=== PATIENT | female | born 1945 | race African-American/Black ===

== ENCOUNTER 2017-10-01 16:57 | Inpatient (IN) | payer OTHER ==
[~2017-10-01] VITALS: Ht 162.6 cm; Wt 174.0 kg
[~2017-10-01 16:57] MED LIST: ALBUTEROL SULFAT3 M1 INH; AMLODIPINE BESY1 CA5 PO; AMLODIPINE-BEN1 EAC5 PO; AMOXIL 875 MG875 MG PO; ARISTOCORT OINT15 GM TOP; AUGMENTIN 875 M1 TAB PO; AUGMENTIN 875-1 EACH PO; COLCRYS0.6 M1 PO; FUROSEMIDE80 M1 PO; INDOMETHACIN25 M1 PO; LASIX20 MG PO; LOTREL 10 MG-401 CAP PO; MEDROL DOSEPAK1 PAC PO; MOXIFLOXACIN H400 MG PO; PERCOCET 5-3251 EACH PO; PREDNISONE 20MG20 MG PO; PREDNISONE10 MG PO; PREDNISONE20 M1 PO; PROAIR HFA0.09 MG/Ac INH; ROBITUSSIN W/CO10 ML PO; SYMBICORT 160/41 PUF INH; TYLENOL #31 TAB PO
--- NOTE | 2017-10-01 17:22 | ED CARDIAC/CP/PALPITATIONS ---
History of Present Illness General Chief Complaint: Lower Extremity Problems Stated Complaint: SIB PCP, LEG SWELLING Source: patient Exam Limitations: no limitations Allergies Coded Allergies: NO KNOWN ALLERGIES (05/17/15) Reconcile Medications Albuterol Sulfate (Proair Hfa) 90 MCG HFA.AER.AD 2 PUF INH AD PRN ASTHMA ( Reported) Albuterol Sulfate 2.5 MG/3 ML (0.083 %) VIAL.NEB 1 Vial INH/WESLEY AD PRN ASTHMA (Reported) Amlodipine Besylate/Benazepril (Amlodipine-Benazepril 10-40 MG) 10 MG-40 MG CAPSULE 1 CAP PO DAILY BP (Reported) Budesonide/Formoterol Fumarate (Symbicort 160-4.5 Mcg Inhaler) 160 MCG-4.5 MCG/ ACTUATION HFA.AER.AD 2 PUF INH BID ASTHMA (Reported) Furosemide 80 MG TABLET 1 TAB PO DAILY DIURETIC (Reported) Montelukast Sodium 10 MG TABLET 1 TAB PO DAILY ASTHMA (Reported) Triamcinolone Acetonide 0.1 % OINT...G. 1 FARA TOP BID BOTH LEGS (Reported) apply to affected area(s) Triage Note: PT SENT TO ER BY HER PMD FOR BILATERAL LOWER EXTREMITY SWELLING , PT TAKES LASIX DAILY, ALSO STATES THAT SHE STARTED TO FEEL VERY SOB TODAY WITH COUGH , WITH SCANT AMOUNT OF WHITE SPUTUM. HR NOTED TO BE 148-156 AT TRIAGE, DENIES CP, DENIES H/O RAPID HEART RATE. PT STATES THAT HER PMD CALLED AHEAD TO SPEAK WITH SOMEONE Triage Nurses Notes Reviewed? 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, hypertension patient presents emergency room with concerns of a 2 week history of worsening shortness of breath dyspnea on exertion white productive cough and a 40 pound weight gain in the past 2 months Patient also is being treated for concerns of cellulitis to the bilateral upper extremity is currently on 875 Augmentin (Jd Perea) Vital Signs & Intake/Output Vital Signs & Intake/Output Vital Signs Date Time Temp Pulse Resp B/P B/P Pulse O2 O2 Flow FiO2 Mean Ox Delivery Rate 10/01 2034 98.7 111 20 97/62 10/015 95 10/01 1929 97.9 148 24 98/76 97 Room Air 10/01 1815 Room Air 10/01 1710 97.1 148 22 97/53 96 (Mecca BARBER,Gurwinder Thao) Past History Travel History Traveled to [place] past 21 day No Medical History Any Pertinent Medical History? 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 No (Jd Perea) Review of Systems Review of Systems Constitutional: Reports: see HPI. EENTM: Reports: no symptoms. Respiratory: Reports: see HPI, cough, short of breath. Cardiovascular: Reports: see HPI, peripheral edema. Denies: chest pain. GI: Reports: no symptoms. Genitourinary: Reports: no symptoms. Musculoskeletal: Reports: no symptoms. Skin: Reports: see HPI, erythema. Neurological/Psychological: Reports: no symptoms. Hematologic/Endocrine: Reports: no symptoms. Immunologic/Allergic: Reports: no symptoms. All Other Systems: Reviewed and Negative (Jd Perea) Physical Exam Physical Exam General Appearance: no apparent distress, obese Head: atraumatic Eyes: Bilateral: normal appearance, PERRL. Ears, Nose, Throat: normal ENT inspection, hearing grossly normal Respiratory: no respiratory distress, decreased breath sounds Cardiovascular: tachycardia Peripheral Pulses: 2+ dorsalis pedis (R), 2+ dorsalis pedis (L) Gastrointestinal: normal bowel sounds, soft, non-tender Extremities: pedal edema Neurologic/Psych: no motor/sensory deficits, awake, alert Skin: intact Comments: Noted bilateral inner thighs warmth and mild erythema Core Measures ACS in differential dx? Yes CVA/TIA Diagnosis No Sepsis Present: Yes Sepsis Focused Exam Completed? Yes (Jd Perea) Progress Differential Diagnosis: AMI, aortic dissection, atrial fibrillation, cholecystitis, CHF/pulm edema, costochondritis, hyperkalemia, hypovolemia, hyperthyroid, hyperventilation, intracranial hemorrhage, musculoskeletal pain, myocarditis, pancreatitis, pericarditis, pneumonia, pneumothorax, PSVT, pulmonary embolism, PUD/GERD, PVCs/PACs, respiratory failure, rib fracture, sepsis, unstable angina, V-fib/V-Tach, WPW syndrome Diagnostic Imaging: Viewed by Me: CT Scan. Radiology Impression: acute abnormality Initial ED EKG: normal QRS complex, sinus tachycardia 148 BPM Repeat EKG: changed (AFIB 103 BPM) Comments: PATIENT: JORGE ALBERTO RM PRESENT AGE: 71 PATIENT ACCOUNT NO: [id number] : 47 LOCATION: [facility] ORDERING PHYSICIAN: Jd CURIEL SERVICE DATE: 10/01/17 EXAM TYPE: CAT - CTA CHEST-PULMONARY EMBOLISM EXAMINATION: CT ANGIOGRAM OF THE CHEST WITH AND WITHOUT CONTRAST (CT PULMONARY ANGIOGRAM FOR PE) CLINICAL INFORMATION: Shortness of breath. Tachycardia. CHF. Elevated D-dimer. COMPARISON: None. TECHNIQUE: Prior to contrast administration, noncontrast localization images were obtained. Subsequently, multidetector volumetric imaging was performed from the thoracic inlet to below the diaphragms following the administration of 95 mL Optiray 320 intravenous contrast. No contrast reaction reported. Sagittal, coronal, and MIP oblique sagittal reformatted images were obtained on the CT workstation, uploaded to PACS, and reviewed. DLP: 932.58 mGy-cm FINDINGS: QUALITY OF STUDY/CONTRAST BOLUS: Satisfactory. PULMONARY ARTERIES: No central or segmental pulmonary emboli. THORACIC AORTA: No aneurysm or dissection. LUNG: No focal consolidation, nodules or masses. Some nonspecific scattered ground-glass changes are noted which could be secondary to early edema and increased hydrostatic pressure. PLEURA: No pleural effusion or pneumothorax. MEDIASTINUM: The heart is enlarged. No pleural effusion is seen. No mediastinal or hilar adenopathy is present. No evidence of septal bowing or right heart strain. CHEST WALL/AXILLA: No axillary or internal mammary lymphadenopathy. OSSEOUS STRUCTURES: No acute or suspicious osseous abnormality. UPPER ABDOMEN: Clips are noted in the gallbladder fossa. No reflux of contrast into the hepatic veins to suggest elevated right heart pressures. IMPRESSION: 1. No evidence of pulmonary emboli. 2. Cardiomegaly and ground-glass changes could be claim service representative of early CHF. VTE: Negative. DICTATED BY: Wan Dasilva MD DATE/TIME DICTATED:10/01/171934 FILAMENT COIL WINDER:ABRAHAM PATIENT: JORGE ALBERTO RM PRESENT AGE: 71 PATIENT ACCOUNT NO: [id number] : 47 LOCATION: [facility] ORDERING PHYSICIAN: Jd CURIEL SERVICE DATE: 10/01/17 EXAM TYPE: RAD - XRY-CHEST XRAY, TWO VIEWS EXAMINATION: XR CHEST CLINICAL INFORMATION: Shortness of breath. COMPARISON: 09/06/2016 TECHNIQUE: 2 views of the chest were obtained. FINDINGS: Since the prior study, heart size has increased considerably and there is evidence of central venous engorgement suggesting mild CHF. No pleural effusions are seen. No focal consolidations or lung masses are seen. IMPRESSION: Increasing cardiomegaly with pulmonary vascular congestion consistent with mild CHF. DICTATED BY: Wan Dasilva MD DATE/TIME DICTATED:10/01/171801 FILAMENT COIL WINDER:ABRAHAM DATE/TIME TRANSCRIBED:10/01/171801 (Reji CURIEL,Jd) Plan of Care: Orders Procedure Date/time Status Heart Healthy Diet 10/02 B Active PARTIAL THROMBOPLASTIN TIME 10/02 0300 Active PROTHROMBIN TIME 10/02 0300 Active Patient Data 10/01 2110 Active Misc Message 10/01 210 Active ED Holding Orders 10/01 210 Active Vital Signs 10/01 210 Active Code Status 10/01 210 Active Admit to inpatient 10/01 2107 Active Intake & Output 10/01 2036 Active LACTIC ACID 10/01 2034 Complete EKG 10/01 1948 Active Add-on Test (ER Only) 10/01 1842 Active BLOOD CULTURE 10/01 1842 Active PARTIAL THROMBOPLASTIN TIME 10/01 1807 Complete PROTHROMBIN TIME 10/01 1807 Complete TROPONIN LEVEL 10/01 1734 Complete LACTIC ACID 10/01 1734 Complete D-DIMER 10/01 1734 Complete COMPREHENSIVE METABOLIC PANEL 10/01 1734 Complete CBC WITHOUT DIFFERENTIAL 10/01 1734 Complete B-TYPE NATRIURETIC PEP (BNP) 10/01 1734 Complete EKG 10/01 1733 Active Current Medications Sig/Shara Start time Last Medication Dose Stop Time Status Admin Heparin Sodium 25,000 UNIT Q24H 10/01 2029 AC 10/01 (Porcine) 2055 (Heparin) Sodium Chloride 500 ML Laboratory Tests 10/01/172040: Lactic Acid 1.0 10/01/171806: Anion Gap 11, Estimated GFR 41 L, BUN/Creatinine Ratio 21.5, Glucose 102 H, Lactic Acid 2.2 H, Calcium 8.6, Total Bilirubin 0.5, AST 19, ALT 24, Alkaline Phosphatase 86, Troponin I < 0.01, Mcv-J-Jormutygfsu Pept 5600 H, Total Protein 6.6, Albumin 3.7, Globulin 2.9, Albumin/Globulin Ratio 1.3, PT 14.2 H, INR 1.30 H, APTT 30, D-Dimer High Sensitivty 415 H, CBC w Diff NO MAN DIFF REQ, RBC 4.08 L, MCV 64.3 L, MCH 19.2 L, MCHC 29.9 L, RDW 20.2 H, MPV 8.9, Gran % 74.6, Lymphocytes % 19.3 L, Monocytes % 4.8, Eosinophils % 1.2, Basophils % 0.1 , Absolute Granulocytes 6.9 H, Absolute Lymphocytes 1.8, Absolute Monocytes 0.4 , Absolute Eosinophils 0.1, Absolute Basophils 0 Microbiology 10/01 1857 BLOOD: Blood Culture - RECD 10/02 1851 BLOOD: Blood Culture - RECD Patient upon initial presentation is resting complete bedside no apparent distress no respiratory distress blood pressure was noted to be 90/60 and concerns of SVT versus a flutter with 21 block versus new-onset atrial fibrillation Discussed patient with cardiology Dr. Velasquez who advised patient to be administered Cardizem Patient had temporary significant improvement of heart rate with 10 mg of Cardizem however patient then relapsed 150 bpm and total 10 more milligrams of Cardizem were dismissed or patient's repeat EKG was performed showing concerns of atrial fibrillation Old records also indicate that patient has preserved EF Patient also has concerns of sepsis in which IV fluids were ministered to improve patient's hypotension Patient has chronic anemia Patient denies any change in bowel symptoms no blood no melena CT angiogram was resulted showing no concerns of pulmonary embolism however that she'll concerns of acute onset of CHF Discussed admission with patient was aware Discussed patient with Dr. Velasquez who has concerns of new onset atrial fibrillation heparin was administered Blood pressure has been stabilized prior to admission in the ER (Jd Perea) (Mecca BARBER,Gurwinder Thao) ED Sepsis Exam Date of Focused Sepsis Exam: 10/01/17 Time of Focused Sepsis Exam: 2007 Sepsis Cardiac Exam: Tachycardia Sepsis Resp Exam: decreased breath sounds Sepsis Cap Refill Exam: <2 Sec Sepsis Peripheral Pulse Exam: Normal Sepsis Peripheral Pulse Location: Dorsalis Pedis Sepsis Skin Color Exam: Normal for Ethnicity Skin Temp/Moisture Exam: Warm/Dry (Jd Perea) Departure Departure Disposition: STILL A PATIENT Condition: Guarded Clinical Impression Primary Impression: New onset a-fib Secondary Impressions: Cellulitis of leg, CHF exacerbation Referrals: Karlie BARBER,Alphonso Almazan (PCP/Family) Departure Forms: Customer Survey General Discharge Information Admission Note Spoke With: Jeannie Webber MD Documentation of Exam: Documentation of any treatments & extenuating circumstances including Concerns Regarding Discharge (functional status, medication knowledge or non-compliance, living conditions, etc.) that warrant an admission rather than observation: [ Patient requires IV heparinization, cardiology consultation, telemetry monitoring echocardiogram, repeat labs, IV diuresis when blood pressure normalizes antiarrhythmic medications] (Jd Perea) PA/HAT MAKER Co-Sign Statement Statement: ED Attending supervision documentation- [X] I saw and evaluated the patient. I have also reviewed all the pertinent lab results and diagnostic results. I agree with the findings and the plan of care as documented in the PA's/HAT MAKER's documentation. Pt presents with c/o shortness of breath, worsening, over past 2 weeks.exam reveals morbid obesity and otherwise comfortable and conversant woman. Patient is tachycardic. [] I have reviewed the ED Record and agree with the PA's/HAT MAKER's documentation. [] Additions or exceptions (if any) to the PAs/HAT MAKER's note and plan are summarized below: [] (Mecca BARBER,Gurwinder Thao) Critical Care Note Critical Care Note Critical Care Time: 30-74 min (Jd Perea)
[2017-10-01] MEDS ORDERED: TRIAMCINOLONE A15 G3 TOP (18:09)
[2017-10-01] MEDS ORDERED: SYMBICORT 16010.2 GM INH (18:09)
[2017-10-01] MEDS ORDERED: MONTELUKAST SOD10 M1 PO (18:09)
[2017-10-01] MEDS ORDERED: ALBUTEROL2.5 MG/3 M INH/SOL (18:10)
[2017-10-01] MEDS ORDERED: PROAIR HFA8.5 GM INH (18:10)
[2017-10-01 18:25] LABS: ABSOLUTE BASOPHIL COUNT 0 /CUMM (0.0-0.2); ABSOLUTE EOSINOPHIL COUNT 0.1 /CUMM (0.0-0.7); ABSOLUTE GRANULOCYTE CT 6.9 /CUMM (1.4-6.5); ABSOLUTE LYMPH COUNT 1.8 /CUMM (1.2-3.4); ABSOLUTE MONOCYTE COUNT 0.4 /CUMM (0.10-0.60); BASOPHIL % 0.1 % (0.0-2.0); EOSINOPHIL % 1.2 % (0-5); HEMATOCRIT 26.2 % (37-47); MEAN CORPUSCULAR HGB 19.2 PG (27.0-31.0); MEAN CORPUSCULAR HGB CONC 29.9 G/DL (33.0-37.0); MEAN CORPUSCULAR VOLUME 64.3 FL (81.0-99.0); MEAN PLATELET VOLUME 8.9 FL (7.4-10.4); PLATELET COUNT 273 /CUMM (130-400); RBC DISTRIBUTION WIDTH 20.2 % (11.5-14.5); RED BLOOD CELL CT 4.08 /CUMM (4.20-5.40)
--- NOTE | 2017-10-01 18:25 | RADIOLOGY REPORT ---
EXAMINATION: XR CHEST CLINICAL INFORMATION: Shortness of breath. COMPARISON: 09/06/2016 TECHNIQUE: 2 views of the chest were obtained. FINDINGS: Since the prior study, heart size has increased considerably and there is evidence of central venous engorgement suggesting mild CHF. No pleural effusions are seen. No focal consolidations or lung masses are seen. IMPRESSION: Increasing cardiomegaly with pulmonary vascular congestion consistent with mild CHF.
[2017-10-01 18:47] LABS: GRANULOCYTE % 74.6 % (42.2-75.2); WHITE BLOOD CELL COUNT 9.2 /CUMM (4.8-10.8)
[2017-10-01 19:23] LABS: PT 14.2 SEC (9.4-12.5); PTT 30 SEC (25-37)
--- NOTE | 2017-10-01 20:14 | CT SCAN REPORT ---
EXAMINATION: CT ANGIOGRAM OF THE CHEST WITH AND WITHOUT CONTRAST (CT PULMONARY ANGIOGRAM FOR PE) CLINICAL INFORMATION: Shortness of breath. Tachycardia. CHF. Elevated D-dimer. COMPARISON: None. TECHNIQUE: Prior to contrast administration, noncontrast localization images were obtained. Subsequently, multidetector volumetric imaging was performed from the thoracic inlet to below the diaphragms following the administration of 95 mL Optiray 320 intravenous contrast. No contrast reaction reported. Sagittal, coronal, and MIP oblique sagittal reformatted images were obtained on the CT workstation, uploaded to PACS, and reviewed. DLP: 932.58 mGy-cm FINDINGS: QUALITY OF STUDY/CONTRAST BOLUS: Satisfactory. PULMONARY ARTERIES: No central or segmental pulmonary emboli. THORACIC AORTA: No aneurysm or dissection. LUNG: No focal consolidation, nodules or masses. Some nonspecific scattered ground-glass changes are noted which could be secondary to early edema and increased hydrostatic pressure. PLEURA: No pleural effusion or pneumothorax. MEDIASTINUM: The heart is enlarged. No pleural effusion is seen. No mediastinal or hilar adenopathy is present. No evidence of septal bowing or right heart strain. CHEST WALL/AXILLA: No axillary or internal mammary lymphadenopathy. OSSEOUS STRUCTURES: No acute or suspicious osseous abnormality. UPPER ABDOMEN: Clips are noted in the gallbladder fossa. No reflux of contrast into the hepatic veins to suggest elevated right heart pressures. IMPRESSION: 1. No evidence of pulmonary emboli. 2. Cardiomegaly and ground-glass changes could be sales representative graphic art of early CHF. VTE: Negative.
--- NOTE | 2017-10-01 21:59 | History & Physical ---
oJao Yarbrough 10/01/17 2158: General Information and HPI MD Statement: I have seen and personally examined JORGE ALBERTO VERDUGO and documented this H&P. The patient is a 71 year old F who presented with a patient stated chief complaint of [bialteral lower extremity swelling]. Source of Information: patient Exam Limitations: no limitations History of Present Illness: The patient is a 71 years old female with past medical history of lower extremity venous staisis, asthma, morbid obesity, HTN, and HF who was sent here by her PCP for bilateral lower extremity swelling, non-productive cough, and SOB. She was seen by her PCP several weeks ago by her PCP due to swelling of both of her legs. Augmentin 875 was prescribed for her to take for 10 days starting September 12, she completed the course but did not improve her condition. She is also on Lasix 80 mg QD, she tried to take an extra dose for the last few days which she reports that has been helping the swelling. Her PCP has sent her to ER due to the ongoing bialteral lower extremity edema and new onset SOB and cough. She does not report fever, chills, sweating, lightheadedness, dizziness. She has no chest pain, N/V, or palpitaion. no sysuria or frequency. She had new onset Afib in the ER, for which diltiazem was administered and improved her HR and SOB. PMHx: Morbid obesity, Bilat lower extremity venous stasis and edema, HTN, asthma , dyspnea on exertion, Gout, Surg Hx; Cholecystectomy, Umbilical hernia repair, tubal ligation FHx: CHF in her mother Imaging: CXR: Increasing cardiomegaly with pulmonary vascular congestion consistent with mild CHF. Chest CTA: 1. No evidence of pulmonary emboli. 2. Cardiomegaly and ground-glass changes could be volunteer patient representative of early CHF. Labs: Trop: 0.01 WBC: 9.2, Hb: 7.8 PT: 14.2 INR: 1.30, D-Dimer: 415 BUN: 28, Cr: 1.3 Lactic acid: 2.2 Pro BNP: 5600 Allergies/Medications Allergies: Coded Allergies: NO KNOWN ALLERGIES (05/17/15) Home Med list Albuterol Sulfate (Proair Hfa) 90 MCG HFA.AER.AD 2 PUF INH AD PRN ASTHMA ( Reported) Albuterol Sulfate 2.5 MG/3 ML (0.083 %) VIAL.NEB 1 Vial INH/WESLEY AD PRN ASTHMA (Reported) Amlodipine Besylate/Benazepril (Amlodipine-Benazepril 10-40 MG) 10 MG-40 MG CAPSULE 1 CAP PO DAILY BP (Reported) Budesonide/Formoterol Fumarate (Symbicort 160-4.5 Mcg Inhaler) 160 MCG-4.5 MCG/ ACTUATION HFA.AER.AD 2 PUF INH BID ASTHMA (Reported) Cholecalciferol (Vitamin D3) (Vitamin D) 2,000 UNIT CAPSULE 1 CAP PO DAILY supplement (Reported) Ferrous Sulfate 325 MG (65 MG IRON) TABLET 1 TAB PO DAILY supplement ( Reported) Furosemide 80 MG TABLET 1 TAB PO DAILY DIURETIC (Reported) Montelukast Sodium 10 MG TABLET 1 TAB PO DAILY ASTHMA (Reported) Triamcinolone Acetonide 0.1 % OINT...G. 1 FARA TOP BID BOTH LEGS (Reported) apply to affected area(s) Compliance With Home Meds: GOOD Past History Travel History Traveled to [place] past 21 day No Medical History Neurological: NONE EENT: NONE Cardiovascular: CHF, hypertension Respiratory: asthma Gastrointestinal: NONE Hepatic: NONE Renal: NONE Musculoskeletal: gout, KNEE REPLACEMENT BOTH Psychiatric: NONE Endocrine: NONE Blood Disorders: NONE KNITTER HAND/Reproductive: NONE History of MRSA: No History of VRE: No History of CDIFF: No Surgical History Surgical History: cholecystectomy, hernia repair-umbilical, knee replacement ( BILATERAL), tubal ligation Past Family/Social History Family History Relations & Conditions if any MOTHER FH: CHF (congestive heart failure) Psychosocial History Services at Home: None ETOH Use: denies use Illicit Drug Use: denies illicit drug use Review of Systems Review of Systems Constitutional: Reports: see HPI. Denies: chills, diaphoresis, fever. EENTM: Reports: no symptoms. Cardiovascular: Reports: see HPI. Denies: chest pain, palpitations. Respiratory: Reports: see HPI, cough, short of breath. Denies: sputum production. GI: Reports: no symptoms, see HPI. Denies: constipation, diarrhea, nausea, vomiting. Genitourinary: Reports: no symptoms, see HPI. Musculoskeletal: Reports: see HPI, gout. Skin: Reports: see HPI. Neurological/Psychological: Reports: see HPI. Hematologic/Endocrine: Reports: see HPI. Immunologic/Allergic: Reports: see HPI. Exam & Diagnostic Data Last 24 Hrs of Vital Signs/I&O Vital Signs Date Time Temp Pulse Resp B/P B/P Pulse O2 O2 Flow FiO2 Mean Ox Delivery Rate 10/02 0321 98.2 96 20 120/76 96 Room Air 10/02 0021 98.1 72 20 130/66 95 Room Air 10/02 0007 118 20 102/71 10/01 2254 98.1 125 20 112/71 98 Room Air 10/01 2035 98.7 111 20 97/62 10/01 2035 95 10/01 1929 97.9 148 24 98/76 97 Room Air 10/01 1815 Room Air 10/01 1710 97.1 148 22 97/53 96 Intake & Output 10/02 0800 10/02 0000 10/01 1600 Intake Total 1000 Output Total 1200 Balance -200 Intake, IV 1000 Output, Urine 1200 Patient 400 lb Weight Physical Exam General Appearance Alert, Oriented X3, Cooperative, No Acute Distress (Morbid obesity) Skin No Rashes Skin Temp/Moisture Exam: Warm/Dry Sepsis Skin Exam (color): Normal for Ethnicity HEENT Atraumatic, PERRLA, EOMI Neck Supple (JVD 7cm) Cardiovascular Regular Rate, Normal S1, Normal S2 Lungs bibasilar fine crackles Abdomen Normal Bowel Sounds, Soft, No Tenderness Neurological Normal Speech, Strength at 5/5 X4 Ext, Normal Tone, Sensation Intact, Cranial Nerves 3-12 NL Extremities Bilateral swelling in lower extremities which is more significant in right side, chronic venous stasis wounds and moderate left thigh tenderness Sepsis Peripheral Pulse Location: Radial Sepsis Peripheral Pulse Exam: Normal Sepsis Cap Refill Exam: <2 Sec Diagnostic Data EKG Results New onset Afib CXR Results Increasing cardiomegaly with pulmonary vascular congestion consistent with mild CHF. Assessment/Plan Assessment: Ms. Verdugo is a 71 years old lady with multiple comorbidities significant for HTN , and HF who has been sent here by her PCP due to bilat lower extremity swelling , SOB, and cough. She has no chest pain or palpitaion and her SOB started from today which was present even at rest. In the ER, she was found to have Afib, after administering diltiazem her SOB improved. The reason behind that could be that she had episodes of Afib earlier today which has caused her EF to decrease and then pulmonary congestion which resulted in SOB. She also has a high pro BNP (5600) which means that she might need a new ECHO. She has bilat LE edema which is more significant in right side, in presence of new onset SOB, and a D-dime of 415, PE should be rulled out, which was by a chest CTA. It might be prudent to do a doppler sono of right lower extremity, but I am not sure whether it can be inforamative due to her chronioc venous stasis. She complaints of tenderness in her thigh, and she also has swelling and high lactic acid which is in favor of cellulitis; but she has no leukocytosis, no obvious sign of cellulitis in P/E (which is not clear to me due to chronic venous stasis). Moreover she has been on amoxicillin+clavonate for ten days ( last dose 10 days ago) which is against cellulitis. Cultures should be sent for her to check for sepsis given high lactic acid levels. Since she has SOB, bibasilar fine crackles in her lungs, and also CXR shows pulm congestion, it might be prudent to give her more lasix (given her BP is normal). She should be put on SC heparin for DVT prophylaxis. and also leg breaker for her Afib. She also has DONA and a HB of 7.8, so once she is discharged, she should follow up with her PCP for possible causes of her DONA. She had a normal colonoscopy more than 5 years ago. As Ranked By This Provider Problem List: 1. New onset a-fib 2. Acute on chronic heart failure with normal ejection fraction 3. Cellulitis 4. Gout 5. Morbid obesity 6. Chronic venous stasis dermatitis of both lower extremities Core Measures/Misc (12/01) Acute Coronary Syndrome ACS Diagnosis: No Congestive Heart Failure Congestive Heart Failure Diagnosis No Cerebrovascular Accident CVA/TIA Diagnosis: No VTE (View Protocol) VTE Risk Factors Obesity No Mechanical VTE Prophylaxis d/t N/A MechProphylax Ordered No VTE Pharm Prophylaxis d/t NA PharmProphylax ordered Sepsis (View protocol) Sepsis Present: No If YES complete Sepsis Event Note If YES complete Sepsis Event Note Jeannie Webber MD 10/01/17 2223: Core Measures/Misc (12/01) Sepsis (View protocol) If YES complete Sepsis Event Note If YES complete Sepsis Event Note Attending MD Review Statement Attending Statement Attending MD Statement: examined this patient, discuss w/resident/PA/BLOCKER AND POLISHER GOLD WHEEL, agreed w/resident/PA/BLOCKER AND POLISHER GOLD WHEEL, reviewed EMR data (avail) Attending Assessment/Plan: 71F PMH hypertension, asthma, and chronic lower extremity edema presenting with 2 weeks of worsening shortness of breath, dyspnea on exertion, and bilateral LE edema with 40 pound weight gain in 2 months. Found to be in new onset atrial fibrillation in ER, given IV Cardizem pushes, with rate control and improvement in SOB. She has been compliant with her Lasix 80mg daily, and has no changed her diet. She denies lightheadedness, headache, vision changes, sore throat, chest pain, palpitations, abdominal pain, n/v/d, dysuria. On exam, she has distant breath sounds but no crackles heard, significant bilateral lower extremity edema to upper thighs with skin changes consistent with stasis dermatitis. EKG shows atrial fibrilation without ST/T changes. CXR shows vascular congestion, CTA chest negative for PE, BNP 5000, creatinine 1.3, lactate 2.2 (normalized after 1L NS), afebrile, BP borderline low. Suspect symptoms and lactate are from rapid atrial fibrillation causing decreased perfusion, less likely sepsis given presentation. Patient is clinically hypervolemic, and would likely benefit from diuresis once BP has stabilized. 1. New onset atrial fibrillation 2. Lactic acidosis 3. AUGUSTO Plan - Admit to telemetry - Monitor BP, if improves can start IV Lasix - I/O, daily weights - Cardiology consult - No further antibiotics - Trend lactate and renal function - Heparin drip - Cardizem drip - Continue home medications, holding anti-hypertensives and Lasix Miah Montalvo MD 10/01/17 2237: Core Measures/Misc (12/01) Congestive Heart Failure Congestive Heart Failure Diagnosis Yes Last Known EF % 60 No TOM/ARB d/t Medical Contraindication (Hypotension) Comment Acute on Chronic HFpEF Sepsis (View protocol) If YES complete Sepsis Event Note If YES complete Sepsis Event Note Resident Review Statement Other Findings: History of Present Illness 71-year-old morbidly obese woman with past medical history of venous stasis, asthma, HFpEF (LVEF >60%), hypertension, and gout sent in by her PCP for evaluation of shortness of breath, nonproductive cough, and bilateral lower extremity swelling. Patient reports several weeks ago she saw her PCP for swelling of her legs ( right >left) for which she was prescribed a 10 day course of Augmentin on she completed. Over the past few days she has been taking additional doses of her Lasix for worsening of her lower extremity swelling. Today she had an appointment with her PCP and admits to developing shortness of breath with a nonproductive cough. Given her persistent lower extremity swelling and new shortness of breath with cough patient was sent to the [place] ED for evaluation. Review of Systems Otherwise she denies any headache, fever, chills, vision changes, lightheadedness, dizziness, chest pain, palpitations, heartburn, nausea, vomiting, diarrhea, constipation, urinary complaints, numbness, tingling, and weakness. Objective Vitals-Temp 97.1-98.7, HR 111-148, RR 20-24, BP 97-98/53-76, O2 95-97% on room air Physical Exam -General: Morbidly obese elderly black woman in no acute distress -HEENT: NCAT, PERRL, EOMI, anicteric sclera, moist mucous membranes -Neck: Supple, ~7 cm H2O, no bruits, trachea midline, no accessory respiratory muscle use -Cardio: Normal S1/S2 without murmurs, gallops, or rub; irregularly irregular, tachycardic -Pulmonary: Diminished bibasilar airflow with scant basilar crackles -Abdomen: Soft, non-tender, non-distended, bowel sounds intact -Neuro: Awake and alert, CN II-XII grossly intact -Extremities: Markedly swollen bilateral lower extremities (right >left) with chronic venous stasis wounds and moderate left thigh tenderness Labs / Imaging / Studies -CBC: WBC 9.2, hemoglobin 7.8, hematocrit 26.2, platelet 273, MCV 64.3 -BMP: Sodium 145, potassium 4.5, chloride 109, CO2 25, BUN 28, creatinine 1.3, AG 13, glucose 102 -LFT: Within normal limits -Misc: Lactic acid 2.2/1.0, troponin I <0.01, d-dimer 415, BNP 5600, INR 1.3 -CXR: * Increasing cardiomegaly with pulmonary vascular congestion consistent with mild CHF. -CTA chest with PE protocol: 1. No evidence of pulmonary emboli. 2. Cardiomegaly and ground-glass changes could be volunteer patient representative of early CHF. -EKG: * 05/17/15: Normal sinus rhythm with PVCs and poor R-wave progression * 10/01/171804: Narrow complex tachycardia * 10/01/171955: Atrial fibrillation with rapid ventricular response -Echocardiogram (05/17/15): * Mild concentric LVH with LVEF >60% without regional wall motion abnormality Assessment 71-year-old morbidly obese woman with multiple medical problems significant for HFpEF and hypertension sent in by her PCP for evaluation of lower extremity swelling, shortness of breath, and cough. Patient complains of persistence of her shortness of breath even at rest but otherwise denies any pain, discomfort, fever, or chills. Vital signs are significant for tachycardia and low normal blood pressures. Physical exam demonstrates scant bibasilar crackles with elevated JVP and markedly swollen bilateral lower extremities with an irregularly irregular pulse. Significant labs include H/H7 0.8/26.2, MCV 64.3, BNP 5600, and negative troponin I. Chest x-ray demonstrates pulmonary vascular congestion. CTA chest with PE protocol was negative for VTE. EKG demonstrates new onset atrial fibrillation with rapid ventricular response. Patient received 20 mg IV Cardizem, normal saline bolus 500 cc 2, and Unasyn after blood cultures were drawn in the ED. Clinically patient appears to have shortness of breath with dry cough secondary to acute on chronic heart failure worsened by new onset atrial fibrillation with rapid ventricular response. The etiology of patient's new onset A. fib is unclear and will be evaluated. Patient remains afebrile without leukocytosis or obvious physical evidence of cellulitis and is status post 10 day course of Augmentin; she will be followed off antibiotics for now. Patient is to be admitted to the telemetry floor for telemetry monitoring, intravenous diuresis, strict ins and outs, intravenous heparin, rate control, echocardiogram, serial troponin/EKG, and cardiology evaluation. Problem List -Acute on chronic heart failure with preserved ejection fraction -New onset atrial fibrillation with rapid ventricular response -Questionable lower extremity cellulitis -Microcytic anemia -Chronic venous stasis -History of asthma -HFpEF (LVEF >60% May 2015) -Hypertension -Morbid obesity -Gout Plan -Admit to telemetry floor -Telemetry monitoring -Strict ins and outs, daily weights -Elevate leg -Total respiratory care -Lasix 40 mg IV twice daily, increase as needed but monitor blood pressure -Heparin GGT -Cardizem GGT, start at 5 mg/hr, titrate as necessary -Consult with cardiology for new onset atrial fibrillation -Consult with wound care for lower extremity wounds -Follow-up blood cultures and sensitivities -Transthoracic echocardiogram -Trend troponin/EKG until peak or 3 negative sets -Check iron panel and TSH -Type and cross -Pain control with acetaminophen -Heart healthy diet -DVT prophylaxis with heparin/Alps -DNR/DNI -Outpatient evaluation for microcytic anemia possibly with colonoscopy
[2017-10-01] MEDS ORDERED: FERROUS SULFAT325 M3 PO (22:16)
[2017-10-01] MEDS ORDERED: VITAMIN D2000 UNIT PO (22:16)
--- NOTE | 2017-10-01 22:29 | Admission Certification ---
Admission Certification Certification Statement - As attending physician, I certify that at the time of - admission, based on clinical presentation, severity of - symptoms, need for further diagnostic testing and - therapeutic interventions, and risk of adverse outcomes - without in-hospital treatment, in my clinical assessment, - this patient requires an acute hospital stay for a minimum - of two nights or longer. I have also considered psychsocial - factors such as support system, advanced age, financial - issues, cognitive issues, and failed out-patient treatments, - past re-admission history, safety of patient, and lack of - compliance as applicable. Specific rationale supporting this admission is: New onset atrial fibrillation with hypotension and elevated lactate
[2017-10-02 03:41] LABS: PT 14.7 SEC (9.4-12.5); PTT 60 SEC (25-37)
[2017-10-02 06:18] LABS: ABSOLUTE BASOPHIL COUNT 0 /CUMM (0.0-0.2); ABSOLUTE EOSINOPHIL COUNT 0.2 /CUMM (0.0-0.7); ABSOLUTE GRANULOCYTE CT 5.1 /CUMM (1.4-6.5); ABSOLUTE LYMPH COUNT 2.1 /CUMM (1.2-3.4); ABSOLUTE MONOCYTE COUNT 0.5 /CUMM (0.10-0.60); BASOPHIL % 0 % (0.0-2.0); EOSINOPHIL % 2.3 % (0-5); GRANULOCYTE % 64.6 % (42.2-75.2); HEMATOCRIT 25.4 % (37-47); MEAN CORPUSCULAR HGB 19.1 PG (27.0-31.0); MEAN CORPUSCULAR HGB CONC 29.7 G/DL (33.0-37.0); MEAN CORPUSCULAR VOLUME 64.5 FL (81.0-99.0); MEAN PLATELET VOLUME 8.9 FL (7.4-10.4); PLATELET COUNT 237 /CUMM (130-400); RBC DISTRIBUTION WIDTH 19.9 % (11.5-14.5); RED BLOOD CELL CT 3.93 /CUMM (4.20-5.40); WHITE BLOOD CELL COUNT 7.9 /CUMM (4.8-10.8)
--- NOTE | 2017-10-02 07:02 | PN- Housestaff ---
Rebekah Rm 10/02/17 0701: Subjective Follow-up For: new onset a fib, b/l l/l edema Complaints: no complaints Subjective: no complaints/no acute events Review of Systems Constitutional: Reports: see HPI. Objective Last 24 Hrs of Vital Signs/I&O Vital Signs Date Time Temp Pulse Resp B/P B/P Pulse O2 O2 Flow FiO2 Mean Ox Delivery Rate 10/02 1346 98.0 90 20 128/61 97 Room Air 10/02 1217 98.4 66 20 129/61 98 Room Air 10/02 0942 65 20 112/72 98 Room Air 10/02 0818 98.0 124 20 114/74 98 Room Air 10/02 0626 98.2 117 20 118/80 97 Room Air 10/02 0321 98.2 96 20 120/76 96 Room Air 10/02 0021 98.1 72 20 130/66 95 Room Air 10/02 0007 118 20 102/71 10/01 2254 98.1 125 20 112/71 98 Room Air 10/01 2035 98.7 111 20 97/62 10/01 2035 95 10/01 1929 97.9 148 24 98/76 97 Room Air Intake & Output 10/02 1600 10/02 0800 10/02 0000 Intake Total 500 1000 Output Total 1000 1200 Balance -500 -200 Intake, IV 1000 Intake, Oral 500 Output, Urine 1000 1200 Patient 400 lb 400 lb Weight Physical Exam General Appearance: Alert, Oriented X3, Cooperative, No Acute Distress Skin: multiple dry scabby lesions on b/l l/l Skin Temp/Moisture Exam: Cool/Dry Sepsis Skin Exam (color): Normal for Ethnicity HEENT: Atraumatic, PERRLA, EOMI Neck: Supple Cardiovascular: Regular Rate, Normal S1, Normal S2, No Murmurs Lungs: Normal Air Movement Abdomen: Normal Bowel Sounds, Soft, No Tenderness, No Hepatospenomegaly Neurological: Normal Gait, Normal Speech, Strength at 5/5 X4 Ext, Normal Tone Extremities: No Clubbing, No Cyanosis, b/l l/l edema involving feet, legs, thigh : more on rt side Assessment/Plan Assessment: The patient is a 71 years old female with past medical history of lower extremity venous staisis, asthma, morbid obesity, HTN, and HF who was sent here by her PCP for bilateral lower extremity swelling, non-productive cough, and SOB. No fever, chills, sweating, lightheadedness, dizziness, chest pain, N/V, palpitaion, dysuria or uri frequency. On September 12, her PCP prescribed Augmentin 875 for 10 days, for the b/l leg swelling. she completed the course but did not improve her condition. She is also on Lasix 80 mg QD, she tried to take an extra dose for the last few days which she reports that has been helping the swelling. She had new onset Afib in the ER, for which diltiazem was administered and improved her HR and SOB. Problem List: 1. New onset rapid a-fib 2. Acute on chronic heart failure with normal ejection fraction 3. Chronic venous stasis dermatitis of both lower extremities 4. Cellulitis?? 5. Microcytic (iron-defi) anemia 6. Lactic acidosis 7. AUGUSTO upon CKD (chronic kidney disease) stage 3, GFR 30-59 ml/min 8. Morbid obesity 9. Gout A & P : * Continue monitoring on telemetry * Monitor intakes, outputs, daily weights, BUN/Cr * Continue IV cardizem for rate control, continue IV lasix, continue IV heparin. Consut cardiology * transition to oral medications tomorrow and start oral anticoagulation if the patient's hemoglobin and hematocrit remained stable on IV heparin over the next 24 hours * Pt will req long-term anticoagulation per her a fib and risk status. GI workup for blood loss before we start oral anticoagulation. Consult GI * Leg elevation, salt restriction * outpatient vascular surgery evaluation for consideration for possible venous closure procedures * outpatient EGD (perhaps with SB bxs)/colonoscopy after TriLyte (CKD), & if these are negative, consideration for outpt PillCam. The GI workup can be coordinated with cardiology as an outpatient, as it would require holding her A/ C tx, or perhaps using a Lovenox bridge. Problem List: 1. Cellulitis 2. Diastolic heart failure 3. Swelling of both lower extremities 4. Morbid obesity 5. Gout 6. Chronic venous stasis dermatitis of both lower extremities 7. Iron deficiency anemia 8. GERD (gastroesophageal reflux disease) 9. CKD (chronic kidney disease) stage 3, GFR 30-59 ml/min 10. AUGUSTO (acute kidney injury) 11. New onset a-fib 12. Asthma Pain Ratin Pain Location: none Pain Goal: Remain pain free Pain Plan: n/a Tomorrow's Labs & Rationales: cbc, aldair Mccracken MD,Naomi 10/02/17 0950: Attending MD Review Statement Attending Statement Attending MD Statement: examined this patient, discuss w/resident/PA/PROJECT PRODUCT MANAGER, agreed w/resident/PA/PROJECT PRODUCT MANAGER, reviewed EMR data (avail), discussed with nursing, discussed with case mgmt, reviewed images Attending Assessment/Plan: 71-year-old female past medical history of morbid obesity, chronic diastolic heart failure who is here with multiple medical problems including acute on chronic diastolic heart failure, new onset rapid atrial fibrillation and chronic microcytic iron deficiency anemia. At this point she is on IV Cardizem for rate control and will defer to cardiology. Check an echocardiogram. We called GI because likely she will need long-term anticoagulation and given the iron indices I think it would be prudent to do a GI workup for blood loss before we start oral anticoagulation. We will continue the IV Lasix and follow her BUN and creatinine closely.
[2017-10-02 11:03] LABS: PT 14.2 SEC (9.4-12.5)
[2017-10-02 11:14] LABS: PTT 119 SEC (25-37)
[2017-10-02 15:00] VITALS: BP 150/76
--- NOTE | 2017-10-02 15:34 | Cons- Cardiology ---
General Information and HPI Consulting Request Date of Consult: 10/02/17 Requested By: Naomi Mccracken MD Reason for Consult: New atrial fibrillation of unclear duration Source of Information: patient, old records Exam Limitations: no limitations History of Present Illness: The patient is a 71-year-old female who is followed by Dr. Velasquez as her primary assessor. Her past medical history is remarkable for lower extremity edema with venous insufficiency and stasis changes, morbid obesity, asthma, hypertension, and prior CHF. The patient was sent to the emergency room by her primary care physician for worsening bilateral lower extremity edema cough and increased shortness of breath. The patient apparently recently was treated with 10 days of Augmentin for her lower extremity edema and erythema. In the emergency room, the patient was noted to be in atrial fibrillation. The duration of the atrial for ablation is unclear. The patient does not have any significant symptoms. The patient was given some IV Lasix in the emergency room and also treated with IV Cardizem for heart rate control. By the time of my arrival, the patient had reverted to sinus rhythm. She is also currently on IV heparin. Allergies/Medications Allergies: Coded Allergies: NO KNOWN ALLERGIES (05/17/15) Home Med List: Albuterol Sulfate (Proair Hfa) 90 MCG HFA.AER.AD 2 PUF INH AD PRN ASTHMA ( Reported) Albuterol Sulfate 2.5 MG/3 ML (0.083 %) VIAL.NEB 1 Vial INH/WESLEY AD PRN ASTHMA (Reported) Amlodipine Besylate/Benazepril (Amlodipine-Benazepril 10-40 MG) 10 MG-40 MG CAPSULE 1 CAP PO DAILY BP (Reported) Budesonide/Formoterol Fumarate (Symbicort 160-4.5 Mcg Inhaler) 160 MCG-4.5 MCG/ ACTUATION HFA.AER.AD 2 PUF INH BID ASTHMA (Reported) Cholecalciferol (Vitamin D3) (Vitamin D) 2,000 UNIT CAPSULE 1 CAP PO DAILY supplement (Reported) Ferrous Sulfate 325 MG (65 MG IRON) TABLET 1 TAB PO DAILY supplement ( Reported) Furosemide 80 MG TABLET 1 TAB PO DAILY DIURETIC (Reported) Montelukast Sodium 10 MG TABLET 1 TAB PO DAILY ASTHMA (Reported) Triamcinolone Acetonide 0.1 % OINT...G. 1 FARA TOP BID BOTH LEGS (Reported) apply to affected area(s) Current Medications: Current Medications Sig/Shara Start time Last Medication Dose Route Stop Time Status Admin Acetaminophen 650 MG Q6P PRN 10/01 2300 AC PO Ampicillin Sodium/ 0 .STK-MED ONE 10/01 1919 DC Sulbactam Sodium .ROUTE Ampicillin Sodium/ 1,500 MG ONCE ONE 10/01 1900 DC 10/01 Sulbactam Sodium IV 10/01 192 1930 Sodium Chloride 100 ML Diltiazem HCl 0 .STK-MED ONE 10/01 2313 DC .ROUTE Diltiazem HCl 125 MG Q24H 10/01 2300 AC 10/02 Dextrose/Water 100 ML IV 0007 Diltiazem HCl 10 MG ONCE ONE 10/01 2245 DC 10/02 IV PUSH 10/01 2245 0007 Diltiazem HCl 10 MG ONCE ONE 10/01 1945 DC 10/01 IV 10/01 Diltiazem HCl 0 .STK-MED ONE 10/01 193 DC .ROUTE Furosemide 0 .STK-MED ONE 10/02 0910 DC IV Furosemide 0 .STK-MED ONE 10/01 2313 DC IV Furosemide 40 MG BID 10/01 2246 AC 10/02 IV 0944 Heparin Sodium 0 .STK-MED ONE 10/02 0433 DC (Porcine) .ROUTE Heparin Sodium 0 .STK-MED ONE 10/01 205 DC (Porcine) .ROUTE Heparin Sodium 5,000 UNIT ONCE ONE 10/01 2030 DC 10/01 (Porcine) IV 10/01 Heparin Sodium 25,000 UNIT Q24H 10/01 2030 10/02 (Porcine) IV 1215 Sodium Chloride 500 ML Sodium Chloride 500 ML BOLUS ONE 10/01 2045 DC 10/01 IV 10/02 2143 203 Sodium Chloride 500 ML BOLUS ONE 10/01 1915 DC 10/01 IV 10/01 2013 193 Past History Travel History Traveled to [place] past 21 day No Medical History Neurological: NONE EENT: NONE Cardiovascular: CHF, hypertension Respiratory: asthma Gastrointestinal: NONE Hepatic: NONE Renal: NONE Musculoskeletal: gout, KNEE REPLACEMENT BOTH Psychiatric: NONE Endocrine: NONE Blood Disorders: 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 Home Services at Home: None Smoking Status: Never Smoked ETOH Use: denies use Illicit Drug Use: denies illicit drug use Exam & Diagnostic Data Vital Signs and I&O Vital Signs Date Time Temp Pulse Resp B/P B/P Pulse O2 O2 Flow FiO2 Mean Ox Delivery Rate 10/02 1346 98.0 90 20 128/61 97 Room Air 10/02 1217 98.4 66 20 129/61 98 Room Air 10/02 0942 65 20 112/72 98 Room Air 10/02 0818 98.0 124 20 114/74 98 Room Air 10/02 0626 98.2 117 20 118/80 97 Room Air 10/02 0321 98.2 96 20 120/76 96 Room Air 10/02 0021 98.1 72 20 130/66 95 Room Air 10/02 0007 118 20 102/71 10/01 2254 98.1 125 20 112/71 98 Room Air 10/01 2035 98.7 111 20 97/62 10/01 2035 95 10/01 1929 97.9 148 24 98/76 97 Room Air 10/01 1815 Room Air 10/01 1710 97.1 148 22 97/53 96 Intake & Output 10/02 1600 10/02 0800 10/02 0000 10/01 1600 10/01 0800 10/01 0000 Intake Total 500 1000 Output Total 1000 1200 Balance -500 -200 Intake, IV 1000 Intake, Oral 500 Output, Urine 1000 1200 Patient 400 lb 400 lb Weight Physical Exam: General Appearance Alert, Oriented X3, Cooperative, No Acute Distress (Morbid obesity) Skin No Rashes HEENT Atraumatic, PERRLA, EOMI Neck Supple (JVD 7cm), carotids appear normal bilaterally Cardiovascular Regular Rate, Normal S1, Normal S2, distant heart sounds, 1/6 systolic murmur Lungs bibasilar fine crackles Abdomen Normal Bowel Sounds, Soft, No Tenderness Neurological Normal Speech, Strength at 5/5 X4 Ext, Normal Tone, Sensation Intact, Cranial Nerves 3-12 NL Extremities Bilateral lower extremity edema, greater on the right side, chronic venous stasis changes noted and moderate left thigh tenderness Labs/Gino Results: Laboratory Tests 10/02 10/02 10/02 1023 0600 0559 Chemistry Sodium (137 - 145 mmol/L) 145 Potassium (3.5 - 5.1 mmol/L) 4.0 Chloride (98 - 107 mmol/L) 109 H Carbon Dioxide (22 - 30 mmol/L) 26 Anion Gap (5 - 16) 10 BUN (7 - 17 mg/dL) 25 H Creatinine (0.5 - 1.0 mg/dL) 1.2 H Estimated GFR (>60 ml/min) 45 L BUN/Creatinine Ratio (7 - 25 %) 20.8 Magnesium (1.6 - 2.3 mg/dL) 2.0 Lactate Dehydrogenase (313 - 618 U/L) 614 Troponin I (< 0.11 ng/ml) 0.01 Vitamin B12 (239 - 931 pg/mL) 877 Folate (2.76 - 20.0 ng/mL) 12.9 Coagulation PT (9.4 - 12.5 SEC) 14.2 H INR (0.90 - 1.19) 1.30 H APTT (25 - 37 SEC) 119 *H Hematology CBC w Diff NO MAN DIFF REQ WBC (4.8 - 10.8 /CUMM) 7.9 RBC (4.20 - 5.40 /CUMM) 3.93 L Hgb (12.0 - 16.0 G/DL) 7.5 L Hct (37 - 47 %) 25.4 L MCV (81.0 - 99.0 FL) 64.5 L MCH (27.0 - 31.0 PG) 19.1 L MCHC (33.0 - 37.0 G/DL) 29.7 L RDW (11.5 - 14.5 %) 19.9 H Plt Count (130 - 400 /CUMM) 237 MPV (7.4 - 10.4 FL) 8.9 Gran % (42.2 - 75.2 %) 64.6 Lymphocytes % (20.5 - 51.1 %) 26.3 Monocytes % (1.7 - 9.3 %) 6.8 Eosinophils % (0 - 5 %) 2.3 Basophils % (0.0 - 2.0 %) 0 Absolute Granulocytes (1.4 - 6.5 /CUMM) 5.1 Absolute Lymphocytes (1.2 - 3.4 /CUMM) 2.1 Absolute Monocytes (0.10 - 0.60 /CUMM) 0.5 Absolute Eosinophils (0.0 - 0.7 /CUMM) 0.2 Absolute Basophils (0.0 - 0.2 /CUMM) 0 Retic Count (0.5 - 2.0 %) 1.58 Haptoglobin Pending 10/02 10/02 10/01 10/01 0300 0017 2041 1807 Chemistry Sodium (137 - 145 mmol/L) 145 Potassium (3.5 - 5.1 mmol/L) 4.5 Chloride (98 - 107 mmol/L) 109 H Carbon Dioxide (22 - 30 mmol/L) 25 Anion Gap (5 - 16) 11 BUN (7 - 17 mg/dL) 28 H Creatinine (0.5 - 1.0 mg/dL) 1.3 H Estimated GFR (>60 ml/min) 41 L BUN/Creatinine Ratio (7 - 25 %) 21.5 Glucose (65 - 99 mg/dL) 102 H Lactic Acid (0.7 - 2.1 mmol/L) 1.0 2.2 H Calcium (8.4 - 10.2 mg/dL) 8.6 Iron (37 - 170 ug/dL) 25 L TIBC (265 - 497 ug/dL) 431 Ferritin (11.1 - 264 ng/mL) 10.0 L Total Bilirubin (0.2 - 1.3 mg/dL) 0.5 AST (14 - 36 U/L) 19 ALT (9 - 52 U/L) 24 Alkaline Phosphatase (<127 U/L) 86 Troponin I (< 0.11 ng/ml) 0.01 < 0.01 [id number] Pept (<125 pg/mL) 5600 H Total Protein (6.3 - 8.2 g/dL) 6.6 Albumin (3.5 - 5.0 g/dL) 3.7 Globulin (1.9 - 4.2 gm/dL) 2.9 Albumin/Globulin Ratio (1.1 - 2.2 %) 1.3 TSH (0.270 - 4.200 uIU/mL) 1.660 Coagulation PT (9.4 - 12.5 SEC) 14.7 H 14.2 H INR (0.90 - 1.19) 1.34 H 1.30 H APTT (25 - 37 SEC) 60 H 30 D-Dimer High Sensitivty (0 - 243 ng/ml) 415 H Hematology CBC w Diff NO MAN DIFF REQ WBC (4.8 - 10.8 /CUMM) 9.2 RBC (4.20 - 5.40 /CUMM) 4.08 L Hgb (12.0 - 16.0 G/DL) 7.8 L Hct (37 - 47 %) 26.2 L MCV (81.0 - 99.0 FL) 64.3 L MCH (27.0 - 31.0 PG) 19.2 L MCHC (33.0 - 37.0 G/DL) 29.9 L RDW (11.5 - 14.5 %) 20.2 H Plt Count (130 - 400 /CUMM) 273 MPV (7.4 - 10.4 FL) 8.9 Gran % (42.2 - 75.2 %) 74.6 Lymphocytes % (20.5 - 51.1 %) 19.3 L Monocytes % (1.7 - 9.3 %) 4.8 Eosinophils % (0 - 5 %) 1.2 Basophils % (0.0 - 2.0 %) 0.1 Absolute Granulocytes (1.4 - 6.5 /CUMM) 6.9 H Absolute Lymphocytes (1.2 - 3.4 /CUMM) 1.8 Absolute Monocytes (0.10 - 0.60 /CUMM) 0.4 Absolute Eosinophils (0.0 - 0.7 /CUMM) 0.1 Absolute Basophils (0.0 - 0.2 /CUMM) 0 Assessment/Plan Assessment/Plan Assessment: 1. New atrial fibrillation of unclear duration 2. Acute on chronic HFpEF 3. Morbid obesity 4. Worsening chronic lower extremity edema with stasis changes 5. Microcytic anemia 6. Acute renal failure Recommendations: -Monitor on telemetry -Echocardiogram -Check all labs including metabolic profile, TSH, etc. -Continue IV Cardizem and IV heparin overnight -Hopefully, transition to oral medications tomorrow and start oral anticoagulation if the patient's hemoglobin and hematocrit remained stable on IV heparin over the next 24 hours -In view of the patient's atrial fibrillation and risk profile, she will need long-term oral anticoagulation -Diuresis with IV Lasix while in the hospital. Monitor intakes, outputs, daily weights -All conservative measures for control of lower extremity edema including leg elevation, sodium restriction, etc. -At some point, the patient might benefit from outpatient vascular surgery evaluation for consideration for possible venous closure procedures Consult Acknowledgment - Thank you for your consult request.
--- NOTE | 2017-10-02 18:14 | Cons- Gastroenterology ---
General Information and HPI Consulting Request Date of Consult: 10/02/17 Requested By: Naomi Mccracken MD Reason for Consult: I was called by the hospitalist service earlier today to assess iron deficiency anemia with OB negative stool, in a patient admitted yesterday p.m., with rapid A. fib. & CHF. Source of Information: patient, old records Exam Limitations: no limitations History of Present Illness: 71 y/o female, HTN, non-DM, non-HLD, asthma, HFEF/diastolic CHF , morbidly obese, B/L LE venous stasis, CKD (baseline GFR 40's), gout, DJD, B/L TKR, umbilical hernia repair, CCKY, tubal ligation, *on outpt Fe ("Q 2d") per PMD x few months, who presented to the [place] [facility] 10/01/17 at 4:57 p.m., sent in by her PMD for B/L LE edema & sudden worsening SOB with cough productive of scant white sputum, without fever, chills, or hemoptysis. Her PMD rxd Augmentin x 10 days on 09/12/17 for ? LE cellulitis. Despite the fact that she had a rapid heart rate, she denied any knowledge of this. She denied any chest pain or palpitations. Upon arrival, BP 97/53, P 148, R 22, T 97.1, O2 sat RA 96%. She was found to be in rapid A. fib & treated with IV Unasyn 1.5g x 1, IV NS, IV Lasix, IV Diltiazem , & IV heparin. Her HR slowed after Diltiazem. She was seen by the medicine & cardiology services. The patient later reverted to NSR. It was unknown as to the duration of the new onset A. fib. Digital rectal exam in the ER was reportedly OB negative (& later OB-negative by myself, at the time of the : GI consult). No FHx GI Ca, PUD, IBD, celiac sprue, additonal GI disease, or inherited liver disease. +FHx sickle cell trait (MA). +FHx sickle cell (female 1st cousin). No hx cigaretes, EtOH, or illicit drugs. 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 She denied any current use of NSAIDs or ASA. She reportedly had a baseline & only "normal colonoscopy" in 2012, at [facility] (unsure as to by whom). She was uncertain if she ever had an EGD. The patient noted intermittent GERD (w/o PPI or H2B), without odynophagia or dysphagia. She denied any early satiety, abdominal pain, hematemesis, nausea, or vomiting. There was no abdominal trauma to suggest a retroperitoneal bleed. She noted mild constipation over the past 1-2 months, attributed to the recent iron therapy. There was no diarrhea, obstipation, tenesmus, change in stool caliber, or rectal bleeding. She denied any overt vaginal spotting, or gross hematuria. She denied any weight loss or change in appetite. There was no jaundice. 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 Despite her morbid obesity and severe venous stasis changes of her legs, she claimed that she was completely independent with regards to her ADLs, and can drive. 11/05/15: WBC 13.2, *H/H 8.0/25.5, *MCV 78.4, RDW 15.9, PLT 238, BUN/Cr 20/1.2, *GFR 45, nl LFTs xc alb 3.2, glob 3.4. 10/01/17: 1807- Admission labs-WBC 9.2, H/H 7.8/26.2, MCV 64.3, RDW 20.2, PLT 273, PT 14.2, INR 1.30, PTT 30, glu 102, BUN/Cr 28/1.3, *GFR 41, Na 145, K 4.5, HCO3 25, AG 11, lactate 2.2-> 1.0, Ca 8.6, alb 3.7, glob 2.9, TBil 0.5, alk phos 86, AST 19, ALT 24, troponin < 0.01, *BNP 5600, TSH 1.660, *Fe 25, TIBC 431, *Fe sat 5.8%, *ferritin 10, + d-Dimer 415 10/01/17: BC x 2- neg so far. 10/02/17: PT 14.2, INR 1.30, PTT 199 (*IV heparin adjusted, per medical team) 10/02/17: WBC 7.9, H/H 7.5/25.4, MCV 64.5, PLT 237, retic 1.58, BUN/Cr 25/1.2, GFR 45, Na 145, K 4.0, HCO3 26, AG 10, Mg 2.0, LDH 614, trop .01 (3rd set- neg), B12 877, folate 12.9 10/02/17: *haptoglobin- pending. 10/01/17: XR CHEST- Increasing cardiomegaly with pulmonary vascular congestion consistent with mild CHF. No pleural effusions or infiltrate. 10/01/17: CT ANGIOGRAM OF THE CHEST WITH AND WITHOUT CONTRAST (CT PULMONARY ANGIOGRAM FOR PE)- 1. No evidence of pulmonary emboli. 2. Cardiomegaly and ground-glass changes could be technical sales representative of early CHF. 10/01/17: Admission EKG- SVT @ 152, nl axis, 1st degree AVB .216, prolonged QTc. 10/02/17: EKG-ectopic atrial rhythm @ 60, nl axis, NSST. Allergies/Medications Allergies: Coded Allergies: NO KNOWN ALLERGIES (05/17/15) Home Med List: Albuterol Sulfate (Proair Hfa) 90 MCG HFA.AER.AD 2 PUF INH AD PRN ASTHMA ( Reported) Albuterol Sulfate 2.5 MG/3 ML (0.083 %) VIAL.NEB 1 Vial INH/WESLEY AD PRN ASTHMA (Reported) Amlodipine Besylate/Benazepril (Amlodipine-Benazepril 10-40 MG) 10 MG-40 MG CAPSULE 1 CAP PO DAILY BP (Reported) Budesonide/Formoterol Fumarate (Symbicort 160-4.5 Mcg Inhaler) 160 MCG-4.5 MCG/ ACTUATION HFA.AER.AD 2 PUF INH BID ASTHMA (Reported) Cholecalciferol (Vitamin D3) (Vitamin D) 2,000 UNIT CAPSULE 1 CAP PO DAILY supplement (Reported) Ferrous Sulfate 325 MG (65 MG IRON) TABLET 1 TAB PO DAILY supplement ( Reported) Furosemide 80 MG TABLET 1 TAB PO DAILY DIURETIC (Reported) Montelukast Sodium 10 MG TABLET 1 TAB PO DAILY ASTHMA (Reported) Triamcinolone Acetonide 0.1 % OINT...G. 1 FARA TOP BID BOTH LEGS (Reported) apply to affected area(s) Current Medications: Current Medications Sig/Shara Start time Last Medication Dose Route Stop Time Status Admin Acetaminophen 650 MG Q6P PRN 10/01 2300 AC PO Ampicillin Sodium/ 0 .STK-MED ONE 10/01 191 DC Sulbactam Sodium .ROUTE Ampicillin Sodium/ 1,500 MG ONCE ONE 10/01 1900 DC 10/01 Sulbactam Sodium IV 10/01 1928 193 Sodium Chloride 100 ML Diltiazem HCl 0 .STK-MED ONE 10/01 2313 DC .ROUTE Diltiazem HCl 125 MG Q24H 10/01 2300 AC 10/02 Dextrose/Water 100 ML IV 0007 Diltiazem HCl 10 MG ONCE ONE 10/01 2245 DC 10/02 IV PUSH 10/01 2245 000 Diltiazem HCl 10 MG ONCE ONE 10/01 194 DC 10/01 IV 10/01 Diltiazem HCl 0 .STK-MED ONE 10/02 1935 DC .ROUTE Furosemide 40 MG 7:30 AM, & 4:30 PM 10/02 1630 AC IV Furosemide 0 .STK-MED ONE 10/02 0910 DC IV Furosemide 0 .STK-MED ONE 10/01 2313 DC IV Furosemide 40 MG BID 10/01 224 DC 10/02 IV 0944 Heparin Sodium 0 .STK-MED ONE 10/02 0433 DC (Porcine) .ROUTE Heparin Sodium 0 .STK-MED ONE 10/01 2056 DC (Porcine) .ROUTE Heparin Sodium 5,000 UNIT ONCE ONE 10/01 2030 DC 10/01 (Porcine) IV 10/01 Heparin Sodium 25,000 UNIT Q24H 10/01 2030 10/02 (Porcine) IV 1215 Sodium Chloride 500 ML Sodium Chloride 500 ML BOLUS ONE 10/01 2044 DC 10/01 IV 10/01 Sodium Chloride 500 ML BOLUS ONE 10/01 1914 DC 10/01 IV 10/01 Past History Travel History Traveled to [place] past 21 day No Medical History Blood Transfusion Hx: No Neurological: NONE EENT: NONE Cardiovascular: CHF, hypertension Respiratory: asthma Gastrointestinal: NONE Hepatic: NONE Renal: chronic kidney disease (baseline GFR 40's) Musculoskeletal: gout, B/L KNEE REPLACEMENT Psychiatric: NONE Endocrine: obesity Blood Disorders: anemia (microcytic x yrs) Cancer(s): NONE DIRECTOR INTERNAL AUDIT/Reproductive: NONE Surgical History Surgical History: cholecystectomy, hernia repair-umbilical, knee replacement ( BILATERAL), tubal ligation Family History Relations & Conditions If Any: MOTHER, , Age 70; Cause: Myocardial infarct. FH: CHF (congestive heart failure) FATHER, , Age 70; Cause: Myocardial infarct. SISTER (smoker). , Age 60+; Cause: Lung cancer. MATERNAL AUNT, , Age 40-50; Cause: Breast CA. FEMALE 1ST COUSIN (sickle cell disease). Relation not specified for: sickle cell anemia Psychosocial History Where Do You Live? Home Who Do You Live With? child Services at Home: None Primary Language: Tamazight Smoking Status: Never Smoked ETOH Use: denies use Illicit Drug Use: denies illicit drug use Living Will? 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 4 biologic kids- [employer]. 2 adopted kids. No cigarettes, EtOH, or illicit drugs. 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 Functional Ability ADLs Independent: dressing, eating, toileting, bathing. Ambulation: independent IADLs Independent: shopping, housework, finances, food prep, telephone, transportation , medication admin. 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 Review of Systems Constitutional: Denies: chills, diaphoresis, fever, malaise, weakness, unexplained weight loss. EENTM: Denies: blurred vision, double vision, visual changes, eye pain, eye drainage, eye tearing, icterus, ear discharge, ear pain, ear redness, hearing changes, nasal congestion, epistaxis, nasal pain, throat pain, throat swelling, mouth pain, tooth pain. Cardiovascular: Reports: peripheral edema. Denies: chest pain, edema, orthopena, palpitations, syncope. Respiratory: Reports: cough (white sputum). Denies: hemoptysis, orthopnea, short of breath, sputum production, stridor, wheezing. GI: Reports: constipation (x few weeks post Fe). Denies: no symptoms (GERD), abdominal pain, bloating, diarrhea, distention, bowel incontinence, melena, nausea, bloody stool, changes in stool, vomiting, steatorrhea. Genitourinary: Denies: discharge, dysuria, frequency, hematuria, hesitation, nocturia, pain, urgency. Musculoskeletal: Reports: joint pain (gout & DJD). Denies: back pain, gout, joint swelling, muscle pain, muscle stiffness, neck pain. Skin: Reports: change in skin color (venous stasis ulcers LE B/L). Denies: cysts, change in hair/nails, dryness, erythema, jaundice, lesions, lymphangitis, lumps, moles, rash. Neurological/Psychological: Denies: anxiety, ataxia, cognitive dysfunction, confusion, depressed, dementia, emotional problems, headache, numbness, paresthesia, pre-existing deficit, petit mal seizures, tingling, tremors, tonic-clonic seizures, unable to move lower ext , unable to move upper ext, weakness. Hematologic/Endocrine: Denies: bruising, bleeding, polyuria, polydipsia. Immunologic/Allergic: Denies: splenectomy, HIV/AIDS, lymphadenopathy. All Other Systems: Reviewed and Negative Exam & Diagnostic Data Vital Signs and I&O Vital Signs Date Time Temp Pulse Resp B/P B/P Pulse O2 O2 Flow FiO2 Mean Ox Delivery Rate 10/02 1346 98.0 90 20 128/61 97 Room Air 10/02 1217 98.4 66 20 129/61 98 Room Air 10/02 0942 65 20 112/72 98 Room Air 10/02 0818 98.0 124 20 114/74 98 Room Air 10/02 0626 98.2 117 20 118/80 97 Room Air 10/02 0321 98.2 96 20 120/76 96 Room Air 10/02 0021 98.1 72 20 130/66 95 Room Air 10/02 0007 118 20 102/71 10/01 2254 98.1 125 20 112/71 98 Room Air 10/015 98.7 111 20 97/62 10/01 2035 95 10/01 1929 97.9 148 24 98/76 97 Room Air 10/01 1815 Room Air 10/01 1710 97.1 148 22 97/53 96 Intake & Output 10/02 1600 10/02 0400 10/01 1600 10/01 0400 09/30 1600 09/30 0400 Intake Total 500 1000 Output Total 500 1700 Balance 0 -700 Intake, IV 1000 Intake, Oral 500 Output, Urine 500 1700 Patient 400 lb 400 lb Weight Physical Exam: Well-developed well-nourished, morbidly obese, female, in no apparent distress. Sclera anicteric. Conjunctiva slightly pale. Oropharynx clear. No oral thrush. Edentulous on top. There is no adenopathy or thyromegaly , + JVD. No peripheral stigmata of inflammatory bowel disease or chronic liver disease on exam. No spiders on the anterior chest wall. No CVA tenderness. No spine tenderness. Breast & pelvic exams: API. Lungs: clear to A&P, except for a few bibasilar crackles. No wheezing or rhonchi. Heart exam: currently, regular rate rhythm, occasional ectopic beat, S1 and S2 with I/ systolic murmur. Abdominal exam: normal bowel sounds, soft morbidly obese belly, huge pannus, nontender, without guarding or rebound. *Within the limits of the body habitus, no mass or organomegaly. No fluid shift. No pulsatile mass. No epigastric bruit. Digital rectal exam done by myself 10/02/17: (*somewhat limited, due to morbid obesity & tight anal sphincter)- brown stool, OB-negative, without mass. Extremities: without cyanosis or clubbing. 3+ edema LE B/L (right slightly > left), with depigmentation & chronic venous stasis wounds, no pus. No palpable cords, but mildly tender over left thigh. No palmar erythema. No Dupuytren's contractures. Distal pulses 2+ bilaterally. DTRs 1+ bilaterally. Right handed. CN II-XII intact. Motor 5/5 B/L. Alert & oriented x 3. No tremor. No asterixis. A detailed exam for peripheral neuropathy was deferred. Results Pertinent Lab Results: Laboratory Tests 10/02 10/02 10/02 1815 1023 0600 Coagulation PT (9.4 - 12.5 SEC) 14.2 H INR (0.90 - 1.19) 1.30 H APTT (25 - 37 SEC) Pending 119 *H Hematology Haptoglobin Pending 10/02 10/02 10/02 10/01 0559 0300 0017 2041 Chemistry Sodium (137 - 145 mmol/L) 145 Potassium (3.5 - 5.1 mmol/L) 4.0 Chloride (98 - 107 mmol/L) 109 H Carbon Dioxide (22 - 30 mmol/L) 26 Anion Gap (5 - 16) 10 BUN (7 - 17 mg/dL) 25 H Creatinine (0.5 - 1.0 mg/dL) 1.2 H Estimated GFR (>60 ml/min) 45 L BUN/Creatinine Ratio (7 - 25 %) 20.8 Lactic Acid (0.7 - 2.1 mmol/L) 1.0 Magnesium (1.6 - 2.3 mg/dL) 2.0 Lactate Dehydrogenase (313 - 618 U/L) 614 Troponin I (< 0.11 ng/ml) 0.01 0.01 Vitamin B12 (239 - 931 pg/mL) 877 Folate (2.76 - 20.0 ng/mL) 12.9 Coagulation PT (9.4 - 12.5 SEC) 14.7 H INR (0.90 - 1.19) 1.34 H APTT (25 - 37 SEC) 60 H Hematology CBC w Diff NO MAN DIFF REQ WBC (4.8 - 10.8 /CUMM) 7.9 RBC (4.20 - 5.40 /CUMM) 3.93 L Hgb (12.0 - 16.0 G/DL) 7.5 L Hct (37 - 47 %) 25.4 L MCV (81.0 - 99.0 FL) 64.5 L MCH (27.0 - 31.0 PG) 19.1 L MCHC (33.0 - 37.0 G/DL) 29.7 L RDW (11.5 - 14.5 %) 19.9 H Plt Count (130 - 400 /CUMM) 237 MPV (7.4 - 10.4 FL) 8.9 Gran % (42.2 - 75.2 %) 64.6 Lymphocytes % (20.5 - 51.1 %) 26.3 Monocytes % (1.7 - 9.3 %) 6.8 Eosinophils % (0 - 5 %) 2.3 Basophils % (0.0 - 2.0 %) 0 Absolute Granulocytes (1.4 - 6.5 /CUMM) 5.1 Absolute Lymphocytes (1.2 - 3.4 /CUMM) 2.1 Absolute Monocytes (0.10 - 0.60 /CUMM) 0.5 Absolute Eosinophils (0.0 - 0.7 /CUMM) 0.2 Absolute Basophils (0.0 - 0.2 /CUMM) 0 Retic Count (0.5 - 2.0 %) 1.58 10/01 1807 Chemistry Sodium (137 - 145 mmol/L) 145 Potassium (3.5 - 5.1 mmol/L) 4.5 Chloride (98 - 107 mmol/L) 109 H Carbon Dioxide (22 - 30 mmol/L) 25 Anion Gap (5 - 16) 11 BUN (7 - 17 mg/dL) 28 H Creatinine (0.5 - 1.0 mg/dL) 1.3 H Estimated GFR (>60 ml/min) 41 L BUN/Creatinine Ratio (7 - 25 %) 21.5 Glucose (65 - 99 mg/dL) 102 H Lactic Acid (0.7 - 2.1 mmol/L) 2.2 H Calcium (8.4 - 10.2 mg/dL) 8.6 Iron (37 - 170 ug/dL) 25 L TIBC (265 - 497 ug/dL) 431 Ferritin (11.1 - 264 ng/mL) 10.0 L Total Bilirubin (0.2 - 1.3 mg/dL) 0.5 AST (14 - 36 U/L) 19 ALT (9 - 52 U/L) 24 Alkaline Phosphatase (<127 U/L) 86 Troponin I (< 0.11 ng/ml) < 0.01 [id number]-L-Qpndteixypv Pept (<125 pg/mL) 5600 H Total Protein (6.3 - 8.2 g/dL) 6.6 Albumin (3.5 - 5.0 g/dL) 3.7 Globulin (1.9 - 4.2 gm/dL) 2.9 Albumin/Globulin Ratio (1.1 - 2.2 %) 1.3 TSH (0.270 - 4.200 uIU/mL) 1.660 Coagulation PT (9.4 - 12.5 SEC) 14.2 H INR (0.90 - 1.19) 1.30 H APTT (25 - 37 SEC) 30 D-Dimer High Sensitivty (0 - 243 ng/ml) 415 H Hematology CBC w Diff NO MAN DIFF REQ WBC (4.8 - 10.8 /CUMM) 9.2 RBC (4.20 - 5.40 /CUMM) 4.08 L Hgb (12.0 - 16.0 G/DL) 7.8 L Hct (37 - 47 %) 26.2 L MCV (81.0 - 99.0 FL) 64.3 L MCH (27.0 - 31.0 PG) 19.2 L MCHC (33.0 - 37.0 G/DL) 29.9 L RDW (11.5 - 14.5 %) 20.2 H Plt Count (130 - 400 /CUMM) 273 MPV (7.4 - 10.4 FL) 8.9 Gran % (42.2 - 75.2 %) 74.6 Lymphocytes % (20.5 - 51.1 %) 19.3 L Monocytes % (1.7 - 9.3 %) 4.8 Eosinophils % (0 - 5 %) 1.2 Basophils % (0.0 - 2.0 %) 0.1 Absolute Granulocytes (1.4 - 6.5 /CUMM) 6.9 H Absolute Lymphocytes (1.2 - 3.4 /CUMM) 1.8 Absolute Monocytes (0.10 - 0.60 /CUMM) 0.4 Absolute Eosinophils (0.0 - 0.7 /CUMM) 0.1 Absolute Basophils (0.0 - 0.2 /CUMM) 0 Imaging/Other Studies: 10/01/17: XR CHEST- Increasing cardiomegaly with pulmonary vascular congestion consistent with mild CHF. No pleural effusions or infiltrate. 10/01/17: CT ANGIOGRAM OF THE CHEST WITH AND WITHOUT CONTRAST (CT PULMONARY ANGIOGRAM FOR PE)- 1. No evidence of pulmonary emboli. 2. Cardiomegaly and ground-glass changes could be technical sales representative of early CHF. 10/01/17: Admission EKG- SVT @ 152, nl axis, 1st degree AVB .216, prolonged QTc. 10/02/17: EKG-ectopic atrial rhythm @ 60, nl axis, NSST. Assessment/Plan Assessment/Recommendations: 71 y/o female, HTN, non-DM, non-HLD, asthma, HFEF/diastolic CHF , morbidly obese, B/L LE venous stasis, CKD (baseline GFR 40's), gout, DJD, B/L TKR, umbilical hernia repair, CCKY, tubal ligation, *on outpt Fe ("Q 2d") per PMD x few months, who presented to the [place] [facility] 10/01/17 at 4:57 p.m., sent in by her PMD for B/L LE edema & sudden worsening SOB with cough productive of scant white sputum, without fever, chills, or hemoptysis. Her PMD rxd Augmentin x 10 days on 09/12/17 for ? LE cellulitis. Despite the fact that she had a rapid heart rate, she denied any knowledge of this. She denied any chest pain or palpitations. Upon arrival, BP 97/53, P 148, R 22, T 97.1, O2 sat RA 96%. She was found to be in rapid A. fib & treated with IV Unasyn 1.5g x 1, IV NS, IV Lasix, IV Diltiazem , & IV heparin. Her HR slowed after Diltiazem. She was seen by the medicine & cardiology services. The patient later reverted to NSR. It was unknown as to the duration of the new onset A. fib. Digital rectal exam in the ER was reportedly OB negative (& later OB-negative by myself, at the time of the : GI consult). No FHx GI Ca, PUD, IBD, celiac sprue, additonal GI disease, or inherited liver disease. +FHx sickle cell trait (MA). +FHx sickle cell (female 1st cousin). No hx cigaretes, EtOH, or illicit drugs. 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 She denied any current use of NSAIDs or ASA. She reportedly had a baseline & only "normal colonoscopy" in 2012, at [facility] (unsure as to by whom). She was uncertain if she ever had an EGD. The patient noted intermittent GERD (w/o PPI or H2B), without odynophagia or dysphagia. She denied any early satiety, abdominal pain, hematemesis, nausea, or vomiting. There was no abdominal trauma to suggest a retroperitoneal bleed. She noted mild constipation over the past 1-2 months, attributed to the recent iron therapy. There was no diarrhea, obstipation, tenesmus, change in stool caliber, or rectal bleeding. She denied any overt vaginal spotting, or gross hematuria. She denied any weight loss or change in appetite. There was no jaundice. 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 Despite her morbid obesity and severe venous stasis changes of her legs, she claimed that she was completely independent with regards to her ADLs, and can drive. 11/05/15: WBC 13.2, *H/H 8.0/25.5, *MCV 78.4, RDW 15.9, PLT 238, BUN/Cr 20/1.2, *GFR 45, nl LFTs xc alb 3.2, glob 3.4. 10/01/17: 1807- Admission labs-WBC 9.2, H/H 7.8/26.2, MCV 64.3, RDW 20.2, PLT 273, PT 14.2, INR 1.30, PTT 30, glu 102, BUN/Cr 28/1.3, *GFR 41, Na 145, K 4.5, HCO3 25, AG 11, lactate 2.2-> 1.0, Ca 8.6, alb 3.7, glob 2.9, TBil 0.5, alk phos 86, AST 19, ALT 24, troponin < 0.01, *BNP 5600, TSH 1.660, *Fe 25, TIBC 431, *Fe sat 5.8%, *ferritin 10, + d-Dimer 415 10/01/17: BC x 2- neg so far. 10/02/17: PT 14.2, INR 1.30, PTT 199 (*IV heparin adjusted, per medical team) 10/02/17: WBC 7.9, H/H 7.5/25.4, MCV 64.5, PLT 237, retic 1.58, BUN/Cr 25/1.2, GFR 45, Na 145, K 4.0, HCO3 26, AG 10, Mg 2.0, LDH 614, trop .01 (3rd set- neg), B12 877, folate 12.9 10/02/17: *haptoglobin- pending. 10/01/17: XR CHEST- Increasing cardiomegaly with pulmonary vascular congestion consistent with mild CHF. No pleural effusions or infiltrate. 10/01/17: CT ANGIOGRAM OF THE CHEST WITH AND WITHOUT CONTRAST (CT PULMONARY ANGIOGRAM FOR PE)- 1. No evidence of pulmonary emboli. 2. Cardiomegaly and ground-glass changes could be technical sales representative of early CHF. 10/01/17: Admission EKG- SVT @ 152, nl axis, 1st degree AVB .216, prolonged QTc. 10/02/17: EKG-ectopic atrial rhythm @ 60, nl axis, NSST. *The patient has chronic iron deficiency anemia with chronic microcytic indices, dating back years. She apparently was started on iron by her PMD, a few months ago, at which point it was advised that she see GI for further workup. She claimed she had a remote colonoscopy more than 5 years ago at [facility], which was reportedly "normal". She could not recall the name of the MD that performed this. She was not certain if she ever had an EGD. There was no FHx of GI disease or GI CA. There was no history of abdominal trauma to suggest a retroperitoneal bleed. Her labs were not consistent with hemolysis. There was a FHx of sickle cell. Digital rectal exam by myself 10/02/17 showed brown, OB negative stool, although it was somewhat limited, based on the patient 's body habitus and snug anal sphincter. Her GI review of systems from above and below were negative, aside from some mild constipation, attributed to the recent iron therapy, and some mild GERD. She was hungry & tolerating clears po. *As of 10/02/17, the patient appeared to be back in NSR with occasional ectopic beats, and clinically was in some CHF. She had new onset rapid A. fib 2017, prompting her admission. She had never been transfxd. There was no overt GI bleeding on IV heparin. *SUGGEST: Advance to 2g Na+ diet. Continue IV Cardizem & IV heparin per cardiology. Strict I/O's. Supplemental O2 prn. Await echocardiogram per cardiology. TFTs per cardiology. Follow-up electrolytes. Diurese. Follow-up CBC Q12h for now, but her microcytic anemia is chronic in nature. *Increase iron to FeSO4 325 mg po TID with meals. Hopeful transition to oral anticoagulation tomorrow, assuming H/H remain relatively stable on IV heparin over the next 24 hours. The patient will need long-term oral anticoagulation tx, based on her risk profile. T&C 2u PRBC. As the patient probably has underlying ASHD, would try to keep Hgb > 8. Await 10/02/17: haptoglobin (doubt hemolysis, with nl TBil & nl LDH). Consider vascular surgery input regarding stasis dermatitis changes of the legs. *Add PPI daily. Antireflux measures. No NSAIDs. Clinically, doubt need for CT abdomen pelvis to rule out retroperitoneal bleed. Consider checking celiac panel (i.e.- IgA, tTG Ab, DGP Ab). Consider checking Hgb electrophoresis. Advise DIRECTOR INTERNAL AUDIT exam & checking U/A for RBC. *Assuming there is no overt active GI bleed, advise stabilizing patient's cardiac rhythm and rate, & tx CHF, prior to proceeding with outpt GI workup. The patient was given my office number for future reference. Tentative plans are for outpatient EGD (perhaps with SB bxs)/ colonoscopy after TriLyte (CKD), & if these are negative, consideration for outpt PillCam. The GI workup can be coordinated with cardiology as an outpatient, as it would require holding her A/C tx, or perhaps using a Lovenox bridge. The above was discussed with the patient, Dr. Mccracken, & Dr. Reno. Further inpatient GI follow-up as needed. Problem List: 1. Iron deficiency anemia 2. GERD (gastroesophageal reflux disease) 3. Constipation 4. Morbid obesity 5. New onset a-fib 6. CHF exacerbation 7. Chronic venous stasis dermatitis of both lower extremities 8. CKD (chronic kidney disease) stage 3, GFR 30-59 ml/min 9. Family history of sickle cell anemia Copies To: Nawaf BARBER,Naomi Hoffman; Karlie BARBER,Alphonso Almazan; Shadia BARBER,Lelo Cheung; Eva BARBER,Octaviano Consult Acknowledgment - Thank you for your consult request.
[2017-10-02 19:14] LABS: PTT 38 SEC (25-37)
[2017-10-02 20:44] LABS: MEAN PLATELET VOLUME 8.8 FL (7.4-10.4)
[2017-10-02 20:47] LABS: HEMATOCRIT 25.1 % (37-47); MEAN CORPUSCULAR HGB 19.2 PG (27.0-31.0); MEAN CORPUSCULAR HGB CONC 29.9 G/DL (33.0-37.0); MEAN CORPUSCULAR VOLUME 64.3 FL (81.0-99.0); PLATELET COUNT 239 /CUMM (130-400); RBC DISTRIBUTION WIDTH 19.7 % (11.5-14.5); WHITE BLOOD CELL COUNT 8.4 /CUMM (4.8-10.8)
[2017-10-02 21:58] VITALS: BP 146/72
[2017-10-03 03:19] LABS: PTT > 120 SEC (25-37)
[2017-10-03 06:18] VITALS: BP 120/72
--- NOTE | 2017-10-03 06:46 | PN- Housestaff ---
Rebekah Rm 10/03/17 0646: Subjective Follow-up For: new onset a fib, b/l l/l edema Complaints: no complaints Tele-Events Since Last Visit: Normal sinus rhythm, sinus bradycardia, first-degree AV block. Heart rate 64- 134. Heart rate came down to 49 at 12 midnight Subjective: Patient seen and examined lying comfortably in bed this morning. She was in no acute distress. No acute events overnight. Review of Systems Constitutional: Reports: see HPI. Objective Last 24 Hrs of Vital Signs/I&O Vital Signs Date Time Temp Pulse Resp B/P B/P Pulse O2 O2 Flow FiO2 Mean Ox Delivery Rate 10/03 1600 Room Air Room Air 10/03 1459 94 Room Air Room Air 10/03 1443 96.9 98 20 117/59 96 Room Air 10/03 0920 98.0 140 20 134/74 99 Room Air 10/03 0800 96 Room Air Room Air 10/03 0618 98.7 71 20 120/72 91 Room Air 10/02 2158 98.3 116 22 146/72 92 Room Air 10/02 2043 Room Air 10/02 1857 Room Air Room Air Intake & Output 10/03 1600 10/03 0800 10/03 0000 Intake Total 990 110 Output Total 1300 1200 1250 Balance -310 -1200 -1140 Intake, Blood 350 Product Intake, IV 110 Intake, Oral 640 Number 1 Bowel Movements Output, Urine 1300 1200 1250 Patient 398 lb Weight Weight Bed scale Measurement Method Physical Exam General Appearance: Alert, Oriented X3, Cooperative, No Acute Distress Skin: No Rashes, No Breakdown, b/l l/l dry scabs and thick discolored skin- chronic venous stasis Skin Temp/Moisture Exam: Cool/Dry HEENT: Atraumatic, PERRLA, EOMI, Mucous Membr. moist/pink Neck: Supple Cardiovascular: Regular Rate, Normal S1, Normal S2, No Murmurs Lungs: Clear to Auscultation, Normal Air Movement Abdomen: Normal Bowel Sounds, Soft, No Tenderness, No Hepatospenomegaly, No Masses Neurological: Normal Gait, Normal Speech, Strength at 5/5 X4 Ext, Normal Tone Extremities: No Clubbing (b/l l/l edema ), No Cyanosis Assessment/Plan Assessment: The patient is a 71 years old female with past medical history of lower extremity venous staisis, asthma, morbid obesity, HTN, and HF who was sent here by her PCP for bilateral lower extremity swelling, non-productive cough, and SOB. No fever, chills, sweating, lightheadedness, dizziness, chest pain, N/V, palpitaion, dysuria or uri frequency. On September 12, her PCP prescribed Augmentin 875 for 10 days, for the b/l leg swelling. she completed the course but did not improve her condition. She is also on Lasix 80 mg QD, she tried to take an extra dose for the last few days which she reports that has been helping the swelling. She had new onset Afib in the ER, for which diltiazem was administered and improved her HR and SOB. Vital signs: Stable, afebrile, saturating well on room air. Problem List: 1. New onset rapid a-fib 2. Acute on chronic heart failure with reserved ejection fraction 3. Chronic venous stasis dermatitis of both lower extremities 4. Microcytic (iron-defi) anemia 5. AUGUSTO upon CKD (chronic kidney disease) stage 3, GFR 30-59 ml/min 6. Morbid obesity 7. Gout A & P : * Continue monitoring on telemetry * Leg elevation, salt restriction * Monitor intakes, outputs, daily weights, BUN/Cr * Continue IV cardizem for rate control, continue IV lasix, continue IV heparin. cardiology has been consulted and requested transitioning to oral Cardizem tomorrow * She was given IV heparin in the hospital. Her hematocrit dropped from 26.2--> 22.2, and hemoglobin dropped from 7.8-->6.7. She will get to packed red blood cell transfusion today. We will recheck her H&H at 6 PM today. * Pt will req long-term anticoagulation per her a fib and risk status. GI workup for blood loss before we start oral anticoagulation. GI has been consulted. * Echo pending * outpatient vascular surgery evaluation for consideration for possible venous closure procedures * outpatient EGD (perhaps with SB bxs)/colonoscopy after TriLyte (CKD), & if these are negative, consideration for outpt PillCam. The GI workup can be coordinated with cardiology as an outpatient, as it would require holding her A/ C tx, or perhaps using a Lovenox bridge. * DVT prophylaxis: Heparin * Diet: Heart healthy * CODE STATUS: DNR DNI Problem List: 1. New onset a-fib 2. Morbid obesity 3. Gout 4. AUGUSTO (acute kidney injury) 5. Iron deficiency anemia 6. Chronic venous stasis dermatitis of both lower extremities 7. Acute on chronic heart failure with normal ejection fraction Pain Ratin Pain Location: none Pain Goal: Remain pain free Pain Plan: n/a Tomorrow's Labs & Rationales: cbc Naomi Mccracken MD 10/03/17 0947: Attending MD Review Statement Attending Statement Attending MD Statement: examined this patient, discuss w/resident/PA/NATIONAL SALES CONSULTANT, agreed w/resident/PA/NATIONAL SALES CONSULTANT, reviewed EMR data (avail), discussed with nursing, discussed with case mgmt, reviewed images Attending Assessment/Plan: 71-year-old female past medical history of morbid obesity, chronic anemia with indices suggestive of iron deficiency and blood loss was here with new onset rapid atrial fibrillation and what appears to be a CHF exacerbation. We have her on IV heparin. She was seen by GI yesterday and being on IV heparin her crit has dropped. I am concerned and think she needs a GI workup, we will contact them again today. Will defer to cardiology about rate control of A. fib , follow-up on her echo and follow closely.
[2017-10-03 07:59] LABS: ABSOLUTE BASOPHIL COUNT 0 /CUMM (0.0-0.2); ABSOLUTE GRANULOCYTE CT 4.6 /CUMM (1.4-6.5); ABSOLUTE LYMPH COUNT 1.4 /CUMM (1.2-3.4); BASOPHIL % 0 % (0.0-2.0); MEAN CORPUSCULAR HGB 19.4 PG (27.0-31.0)
[2017-10-03 08:15] LABS: ABSOLUTE EOSINOPHIL COUNT 0.3 /CUMM (0.0-0.7); ABSOLUTE MONOCYTE COUNT 0.5 /CUMM (0.10-0.60); EOSINOPHIL % 3.7 % (0-5); GRANULOCYTE % 67.5 % (42.2-75.2); HEMATOCRIT 22.2 % (37-47); MEAN CORPUSCULAR HGB CONC 30.3 G/DL (33.0-37.0); MEAN CORPUSCULAR VOLUME 64.1 FL (81.0-99.0); MEAN PLATELET VOLUME 8.8 FL (7.4-10.4); PLATELET COUNT 196 /CUMM (130-400); RBC DISTRIBUTION WIDTH 19.6 % (11.5-14.5); RED BLOOD CELL CT 3.46 /CUMM (4.20-5.40); WHITE BLOOD CELL COUNT 6.9 /CUMM (4.8-10.8)
[2017-10-03 09:20] VITALS: BP 134/74
--- NOTE | 2017-10-03 09:56 | Event Note ---
Event Note Event Note: We spoke to GI. It is ok to cristina. IV heparin. They recommend monitoring the H&H for 48-72 hours. Possibly consider endoscopy on Friday if no GI bleed
[2017-10-03 10:55] LABS: PTT 40 SEC (25-37)
[2017-10-03 14:43] VITALS: BP 117/59
--- NOTE | 2017-10-03 15:03 | PN- Cardiology ---
Subjective Subjective: The patient is doing relatively well. Hemoglobin and hematocrit decreased further while on IV heparin. Patient denies any specific complaints however. Objective Vital Signs and I&Os Vital Signs Date Time Temp Pulse Resp B/P B/P Pulse O2 O2 Flow FiO2 Mean Ox Delivery Rate 10/03 1459 94 Room Air Room Air 10/03 1443 96.9 98 20 117/59 96 Room Air 10/03 0920 98.0 140 20 134/74 99 Room Air 10/03 0800 96 Room Air Room Air 10/03 0618 98.7 71 20 120/72 91 Room Air 10/02 2158 98.3 116 22 146/72 92 Room Air 10/02 2043 Room Air 10/02 1857 Room Air Room Air Intake & Output 10/03 1600 10/03 0800 10/03 0000 10/02 1600 10/02 0800 10/02 0000 Intake Total 990 212 841 3544 Output Total 1300 1200 1250 1000 1200 Balance -310 -1200 -1140 -500 -200 Intake, Blood 350 Product Intake, IV 110 1000 Intake, Oral 640 500 Number 1 Bowel Movements Output, Urine 1300 1200 1250 1000 1200 Patient 398 lb 400 lb 400 lb Weight Weight Bed scale Measurement Method Current Medications: Current Medications Sig/Shara Start time Last Medication Dose Route Stop Time Status Admin Acetaminophen 650 MG Q6P PRN 10/01 2300 AC PO Albuterol Sulfate 3 ML Q4-PRN PRN 10/02 190 AC INH Benzocaine/Menthol 1 BRII Q2 HRS NEEDED PRN 10/02 1845 AC 10/03 PO 0725 Diltiazem HCl 125 MG Q24H 10/03 1000 DC 10/03 Dextrose/Water 100 ML IV 0956 Diltiazem HCl 120 MG DAILY 10/03 0900 AC 10/03 PO 0817 Diltiazem HCl 125 MG Q24H 10/01 2300 DC 10/02 Dextrose/Water 100 ML IV 2303 Ferrous Sulfate 325 MG TID 10/02 190 AC 10/03 PO 0817 Furosemide 40 MG DAILY 10/03 09 DC PO Furosemide 80 MG DAILY 10/03 09 AC 10/03 PO 08 Furosemide 40 MG 7:30 AM, & 4:30 PM 10/02 1630 DC 10/02 IV 1740 Furosemide 40 MG BID 10/01 2246 DC 10/02 IV 0944 Guaifenesin 10 ML .STK-MED ONE 10/02 2117 DC PO 10/02 2118 Guaifenesin/ 10 ML ONCE ONE 10/02 2099 DC 10/03 Dextromethorphan PO 10/02 Heparin Sodium 13,600 UNIT ONCE ONE 10/02 2029 DC 10/02 (Porcine) IV 10/02 Heparin Sodium 25,000 UNIT Q24H 10/01 2029 AC 10/02 (Porcine) IV 1215 Sodium Chloride 500 ML Omeprazole 40 MG DAILY AC 10/02 1900 AC 10/03 PO 0538 Results Last 48 Hrs of Labs/Mics: Laboratory Tests 10/03/17 1020: APTT 40 H 10/03/17 0630: Anion Gap 9, Estimated GFR 49 L, BUN/Creatinine Ratio 18.2, CBC w Diff MAN DIFF ORDERED, RBC 3.46 L, MCV 64.1 L, MCH 19.4 L, MCHC 30.3 L, RDW 19.6 H, MPV 8.8, Gran % 67.5, Lymphocytes % 20.8, Monocytes % 8.0, Eosinophils % 3.7, Basophils % 0, Absolute Granulocytes 4.6, Absolute Lymphocytes 1.4, Absolute Monocytes 0.5, Absolute Eosinophils 0.3, Absolute Basophils 0, Platelet Estimate ADEQUATE, Hypochromic-Microcytic 3+, Poikilocytosis FEW, Microcytic Cells 3+, Ovalocytes 1+, Elliptocytes FEW 10/03/17218: APTT > 120 *H 10/02/172024: Urine Color STRAW, Urine Clarity CLEAR, Urine pH 6.0, Ur Specific [place] 1.010, Urine Protein NEG, Urine Ketones NEG, Urine Nitrite NEG, Urine Bilirubin NEG, Urine Urobilinogen 0.2, Ur Leukocyte Esterase NEG, Ur Microscopic EXAM NOT REQUIRED, Urine Hemoglobin NEG, Urine Glucose NEG 10/02/172009: CBC w Diff MAN DIFF ORDERED, RBC 3.90 L, MCV 64.3 L, MCH 19.2 L, MCHC 29.9 L , RDW 19.7 H, MPV 8.8, Segmented Neutrophils 70, Lymphocytes 22, Monocytes 6, Eosinophils 2, Platelet Estimate ADEQUATE, Polychromasia 1+, Hypochromic- Microcytic 1+ 10/02/175: APTT 38 H 10/02/17 1023: PT 14.2 H, INR 1.30 H, APTT 119 *H 10/02/17 0600: Haptoglobin Pending 10/02/17 0559: Anion Gap 10, Estimated GFR 45 L, BUN/Creatinine Ratio 20.8, Magnesium 2.0, Lactate Dehydrogenase 614, Troponin I 0.01, Vitamin B12 877, Folate 12.9, CBC w Diff NO MAN DIFF REQ, RBC 3.93 L, MCV 64.5 L, MCH 19.1 L, MCHC 29.7 L, RDW 19.9 H, MPV 8.9, Gran % 64.6, Lymphocytes % 26.3, Monocytes % 6.8, Eosinophils % 2.3, Basophils % 0, Absolute Granulocytes 5.1, Absolute Lymphocytes 2.1, Absolute Monocytes 0.5, Absolute Eosinophils 0.2, Absolute Basophils 0, Retic Count 1.58 10/02/17 0300: PT 14.7 H, INR 1.34 H, APTT 60 H 10/02/17 0017: Troponin I 0.01 10/01/17 2041: Lactic Acid 1.0 10/01/17 1807: Anion Gap 11, Estimated GFR 41 L, BUN/Creatinine Ratio 21.5, Glucose 102 H, Lactic Acid 2.2 H, Calcium 8.6, Iron 25 L, TIBC 431, Ferritin 10.0 L, Total Bilirubin 0.5, AST 19, ALT 24, Alkaline Phosphatase 86, Troponin I < 0.01, Pro-B -Natriuretic Pept 5600 H, Total Protein 6.6, Albumin 3.7, Globulin 2.9, Albumin /Globulin Ratio 1.3, TSH 1.660, PT 14.2 H, INR 1.30 H, APTT 30, D-Dimer High Sensitivty 415 H, CBC w Diff NO MAN DIFF REQ, RBC 4.08 L, MCV 64.3 L, MCH 19.2 L, MCHC 29.9 L, RDW 20.2 H, MPV 8.9, Gran % 74.6, Lymphocytes % 19.3 L, Monocytes % 4.8, Eosinophils % 1.2, Basophils % 0.1, Absolute Granulocytes 6.9 H, Absolute Lymphocytes 1.8, Absolute Monocytes 0.4, Absolute Eosinophils 0.1, Absolute Basophils 0 Assessment/Plan Assessment/Plan Assessment: 1. New atrial fibrillation of unclear duration 2. Acute on chronic HFpEF 3. Morbid obesity 4. Worsening chronic lower extremity edema with stasis changes 5. Microcytic anemia 6. Acute renal failure Recommendations: -Monitor on telemetry -Echocardiogram pending -All lab results reviewed -Continue IV Cardizem and IV heparin for now. -Transition to oral Cardizem tomorrow. -Continue IV heparin for now until it is well documented the patient's hematologic status is stable. -GI input pending -In view of the patient's atrial fibrillation and risk profile, she will need long-term oral anticoagulation -Diuresis with IV Lasix while in the hospital. Monitor intakes, outputs, daily weights -All conservative measures for control of lower extremity edema including leg elevation, sodium restriction, etc. -At some point, the patient might benefit from outpatient vascular surgery evaluation for consideration for possible venous closure procedures Continue telemetry? Yes
--- NOTE | 2017-10-03 15:07 | PN- Student ---
Subjective Subjective: Patient is a 71 y/o female with a past medical history of CKD- stage 3, lower extremity venous stasis, asthma, morbid obesity, HTN, and CHF. She was walking down a set of stairs when she first noticed she was SoB. She did not have any chest pain or dizziness associated with her symptoms; the patient also described a similar event that required hospitilzation in 2016. She ranked the degreee of SoB in both events as 10/10. There was no aggrevating or alleviating factors associated with her symptoms. The patient is currently taking the following drugs: Albuterol (90 mcg PRN), Amlodipine (10-40mg PO daily), Budesonide (160mcg-4.5mcg BID), Vitamin D (2,000 unit capsule PO daily), Ferrous Sulfate (325mg PO daily), Furosemide (80mg PO daily), Montelukast (10mg PO daily), Triamcinolone (0.1% cream BID). NKDA The patients surgical history consists of bilateral knee replacement and hernia repair. Her LMP was in her early 50's. Vaccinations are up to date. 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 She does not use tobacco, drinks alcohol occasionally- her birthday, and does not use any drugs for recreational purposes. The patients mother and father both due to heart failure. Her sister from lung cancer and her aunt on her mothers side from breast cancer. Review of systems revieled a history of occassional gastric reflux- specific to certain foods. Keratinic like papules and vitiligo were found bilaterally on the patients distal lower extremities accompanied by a non-pitting edema; she says her legs have looked like this for years and had initially started off as eczema but recently was treated as a cellulitis with a topical steroid cream by her art coordinator. The patient finds relief with the use of the cream. Objective Objective: EKG showed A.fib for which she was given 20mg Cardizem IV. CXR shows cariomegaly with pulmonary vascular congestion consistent with mild CHF. Chest CTA showed no evidence of PE. Since admission 10/01 the patient has has decreased RBC (3.9), decreased Hb (7.5) , decreased Hct (25), decreased MCV (64), decreased Iron (25), increased TIBC ( 431), decresed Ferritin (10). She has a high PTT (38), PT (14.2), INR (1.30) Her BUN is increased (20), Creatinine increased (1.1), GFR decreased (49). BNP increased (5600) [place] Positive Results Results: Laboratory Tests 10/03/17 1020: APTT 40 H 10/03/17 0630: Anion Gap 9, Estimated GFR 49 L, BUN/Creatinine Ratio 18.2, CBC w Diff MAN DIFF ORDERED, RBC 3.46 L, MCV 64.1 L, MCH 19.4 L, MCHC 30.3 L, RDW 19.6 H, MPV 8.8, Gran % 67.5, Lymphocytes % 20.8, Monocytes % 8.0, Eosinophils % 3.7, Basophils % 0, Absolute Granulocytes 4.6, Absolute Lymphocytes 1.4, Absolute Monocytes 0.5, Absolute Eosinophils 0.3, Absolute Basophils 0, Platelet Estimate ADEQUATE, Hypochromic-Microcytic 3+, Poikilocytosis FEW, Microcytic Cells 3+, Ovalocytes 1+, Elliptocytes FEW 10/03/17218: APTT > 120 *H 10/02/172024: Urine Color STRAW, Urine Clarity CLEAR, Urine pH 6.0, Ur Specific [place] 1.010, Urine Protein NEG, Urine Ketones NEG, Urine Nitrite NEG, Urine Bilirubin NEG, Urine Urobilinogen 0.2, Ur Leukocyte Esterase NEG, Ur Microscopic EXAM NOT REQUIRED, Urine Hemoglobin NEG, Urine Glucose NEG 10/02/172009: CBC w Diff MAN DIFF ORDERED, RBC 3.90 L, MCV 64.3 L, MCH 19.2 L, MCHC 29.9 L , RDW 19.7 H, MPV 8.8, Segmented Neutrophils 70, Lymphocytes 22, Monocytes 6, Eosinophils 2, Platelet Estimate ADEQUATE, Polychromasia 1+, Hypochromic- Microcytic 1+ 10/02/171814: APTT 38 H 10/02/17 1023: PT 14.2 H, INR 1.30 H, APTT 119 *H 10/02/17 0600: Haptoglobin Pending 10/02/17 0559: Anion Gap 10, Estimated GFR 45 L, BUN/Creatinine Ratio 20.8, Magnesium 2.0, Lactate Dehydrogenase 614, Troponin I 0.01, Vitamin B12 877, Folate 12.9, CBC w Diff NO MAN DIFF REQ, RBC 3.93 L, MCV 64.5 L, MCH 19.1 L, MCHC 29.7 L, RDW 19.9 H, MPV 8.9, Gran % 64.6, Lymphocytes % 26.3, Monocytes % 6.8, Eosinophils % 2.3, Basophils % 0, Absolute Granulocytes 5.1, Absolute Lymphocytes 2.1, Absolute Monocytes 0.5, Absolute Eosinophils 0.2, Absolute Basophils 0, Retic Count 1.58 10/02/17 0300: PT 14.7 H, INR 1.34 H, APTT 60 H 10/02/17 0017: Troponin I 0.01 10/01/172040: Lactic Acid 1.0 10/01/171806: Anion Gap 11, Estimated GFR 41 L, BUN/Creatinine Ratio 21.5, Glucose 102 H, Lactic Acid 2.2 H, Calcium 8.6, Iron 25 L, TIBC 431, Ferritin 10.0 L, Total Bilirubin 0.5, AST 19, ALT 24, Alkaline Phosphatase 86, Troponin I < 0.01, Pro-B -Natriuretic Pept 5600 H, Total Protein 6.6, Albumin 3.7, Globulin 2.9, Albumin /Globulin Ratio 1.3, TSH 1.660, PT 14.2 H, INR 1.30 H, APTT 30, D-Dimer High Sensitivty 415 H, CBC w Diff NO MAN DIFF REQ, RBC 4.08 L, MCV 64.3 L, MCH 19.2 L, MCHC 29.9 L, RDW 20.2 H, MPV 8.9, Gran % 74.6, Lymphocytes % 19.3 L, Monocytes % 4.8, Eosinophils % 1.2, Basophils % 0.1, Absolute Granulocytes 6.9 H, Absolute Lymphocytes 1.8, Absolute Monocytes 0.4, Absolute Eosinophils 0.1, Absolute Basophils 0 Microbiology 10/01 1857 BLOOD: Blood Culture - RES 10/02 1851 BLOOD: Blood Culture - RES Assessment/Plan Assessment: The patient was in A.fib with a heart rate of 104 from 2 AM-5:40 AM 10/03/17. She is currently receieving Cardizem (120mg), Furosemide (80mg), and Ferrous Sulfate (325mg). Patient is scheduled to undergo colonoscoy 10/07/17.
--- NOTE | 2017-10-03 16:25 | ECHOCARDIOGRAM REPORT ---
JORGE ALBERTO RM Age: 71 : 1945 Gender: F Exam Date: 10/02/2017 16:24 Exam Location: 1 [address] Ht (in): 64 Wt (lb): 400 BSA: 2.99 BP: 118 / 80 Ordering Physician: Miah Montalvo MD Referring Physician: Octaviano Velasquez MD Technologist: Keysha Morrissey [facility] Room Number: [id number] Indications: Afib/flutter Rhythm: Atrial fibrillation Technical Quality: Fair FINDINGS Left Ventricle Normal size left ventricle. Moderate concentric left ventricular hypertrophy. Mildly decreased LV systolic function. Left ventricular ejection fraction is estimated at 40-45 %. Mild global hypokinesis. Right Ventricle Normal right ventricular size and function. Right Atrium Normal right atrial size. Left Atrium Mild left atrial dilatation. Mitral Valve Mitral valve thickened. Moderate mitral regurgitation with eccentric jet. Aortic Valve Diffuse thickening (sclerosis) of the aortic valve cusps without reduced excursion. No aortic stenosis. No aortic regurgitation. Tricuspid Valve Tricuspid valve not well visualized, grossly normal. Mild tricuspid regurgitation. Right ventricular systolic pressure estimated to be elevated at 53 mmHg. Pulmonic Valve Pulmonic valve not well visualized, grossly normal. Mild pulmonic regurgitation. Pericardium No pericardial effusion. Great Vessels Normal size aortic root. CONCLUSIONS Normal size left ventricle. Moderate concentric left ventricular hypertrophy. Mildly decreased LV systolic function. Left ventricular ejection fraction is estimated at 40-45 %. Mild global hypokinesis. Mild left atrial dilatation. Moderate mitral regurgitation with eccentric jet. Mild tricuspid regurgitation. Right ventricular systolic pressure estimated to be elevated at 53 mmHg. Mild pulmonic regurgitation. Octaviano Velasquez M.D. (Electronically Signed) Final Date: 03 October 2017 16:21 MEASUREMENTS (Male / Female) Normal Values 2D ECHO LV Diastolic Diameter PLAX 4.7 cm 4.2 - 5.9 / 3.9 - 5.3 cm LV Systolic Diameter PLAX 4.0 cm 2.1 - 4.0 cm LV Fractional Shortening PLAX 14.9 % 25 - 46 % LV Ejection Fraction 2D Teich 31.6 % IVS Diastolic Thickness 1.5 cm LVPW Diastolic Thickness 1.5 cm LV Relative Wall Thickness 0.6 RV Internal Dim ED PLAX 3.5 cm 1.9 - 3.8 cm LVOT Diameter 1.9 cm Aortic Root Diameter 2.9 cm LA Systolic Diameter LX 5.2 cm 3.0 - 4.0 / 2.7 - 3.8 cm LV Ejection Fraction MOD BP 38.2 % >= 55 % LV Diastolic Length 4C 9.4 cm 6.9 - 10.3 cm LV Diastolic Area 4C 37.8 cm LV Diastolic Volume MOD 4C 125.0 cm LV Ejection Fraction MOD 4C 40.8 % LV Stroke Volume MOD 4C 51.0 cm LV Systolic Length 4C 9.1 cm LV Systolic Area 4C 28.4 cm LV Systolic Volume MOD 4C 74.0 cm LV Ejection Fraction MOD 2C 30.4 % LV Diastolic Volume 4C AL 129.2 cm 85 - 139 / 69 - 109 cm LV Systolic Volume 4C AL 75.3 cm LV Ejection Fraction 4C AL 41.8 % LV Stroke Volume 4C AL 53.9 cm LV Ejection Fraction 2C AL 34.0 % LA Volume 109.0 cm 18 - 58 / 22 - 52 cm Ascending Aorta Diameter 3.6 cm DOPPLER AV Peak Velocity 189.0 cm/s AV Peak Gradient 14.3 mmHg AV Mean Velocity 129.0 cm/s AV Mean Gradient 8.0 mmHg AV Velocity Time Integral 41.2 cm LVOT Peak Velocity 165.0 cm/s LVOT Peak Gradient 10.9 mmHg LVOT Mean Velocity 104.0 cm/s LVOT Mean Gradient 5.0 mmHg LVOT Velocity Time Integral 31.2 cm LVOT Stroke Volume 88.5 cm AV Area Cont Eq vti 2.1 cm AV Area Cont Eq pk 2.5 cm MV Peak Velocity 190.0 cm/s MV Peak Gradient 14.4 mmHg MV Mean Velocity 109.0 cm/s MV Mean Gradient 6.0 mmHg Mitral E Point Velocity 162.0 cm/s Mitral A Point Velocity 94.4 cm/s Mitral E to A Ratio 1.7 MV PHT Velocity 194.0 cm/s MV Deceleration Wake 1525.0 cm/s MV Pressure Half Time 38.2 ms MV Area PHT 5.8 cm MV Deceleration Time 143.0 ms TR Peak Velocity 326.0 cm/s TR Peak Gradient 42.5 mmHg Right Atrial Pressure 10.0 mmHg Pulmonary Artery Systolic Pressure 52.5 mmHg Right Ventricular Systolic Pressure 52.5 mmHg PV Peak Velocity 106.0 cm/s PV Peak Gradient 4.5 mmHg PV Mean Velocity 73.7 cm/s PV Mean Gradient 2.0 mmHg PV Velocity Time Integral 21.5 cm LV E' Lateral Velocity 14.6 cm/s Mitral E to LV E' Lateral Ratio 11.1 LV E' Septal Velocity 7.8 cm/s Mitral E to LV E' Septal Ratio 20.8
--- NOTE | 2017-10-03 17:58 | PN- Gastroenterology ---
Assessment/Plan GI Assessment/Recommendations: Iron deficiency anemia with Hemoccult negative stool. Drop in hematocrit today, and currently being transfused. Recommendations * Continue IV heparin, but do not start oral anticoagulant at this time * Follow-up CBC tomorrow * Continue regular diet Subjective Subjective: The patient denies nausea, vomiting, pain, hematemesis, hematochezia, melena. Indeed no bowel movements today. Tolerating regular diet. Objective Vital Signs and I&Os Vital Signs Date Time Temp Pulse Resp B/P B/P Pulse O2 O2 Flow FiO2 Mean Ox Delivery Rate 10/03 1600 Room Air Room Air 10/03 1459 94 Room Air Room Air 10/03 1443 96.9 98 20 117/59 96 Room Air 10/03 0920 98.0 140 20 134/74 99 Room Air 10/03 0800 96 Room Air Room Air 10/03 0618 98.7 71 20 120/72 91 Room Air 10/02 2158 98.3 116 22 146/72 92 Room Air 10/02 2043 Room Air 10/02 1857 Room Air Room Air Intake & Output 10/03 1600 10/03 0400 10/02 1600 10/02 0400 10/01 1600 10/01 0400 Intake Total 990 024 829 4654 Output Total 2200 6613 428 1808 Balance -1210 -1440 0 -700 Intake, Blood 350 Product Intake, IV 110 1000 Intake, Oral 640 500 Number 1 Bowel Movements Output, Urine 2200 7740 470 9407 Patient 398 lb 400 lb 400 lb Weight Weight Bed scale Measurement Method Physical Exam: Abdomen obese, benign. Current Medications: Current Medications Sig/Shara Start time Last Medication Dose Route Stop Time Status Admin Acetaminophen 650 MG Q6P PRN 10/01 2300 AC PO Albuterol Sulfate 3 ML Q4-PRN PRN 10/02 1900 AC INH Benzocaine/Menthol 1 BRII 4 TIMES/DAY 10/03 1700 DC PO Benzocaine/Menthol 1 BRII Q2 HRS NEEDED PRN 10/02 1845 AC 10/03 PO 0725 Diltiazem HCl 125 MG Q24H 10/03 1000 DC 10/03 Dextrose/Water 100 ML IV 0956 Diltiazem HCl 120 MG DAILY 10/03 0900 AC 10/03 PO 0817 Diltiazem HCl 125 MG Q24H 10/01 2300 DC 10/02 Dextrose/Water 100 ML IV 2303 Ferrous Sulfate 325 MG TID 10/02 190 AC 10/03 PO 1516 Furosemide 20 MG ONCE ONE 10/03 1600 DC 10/03 IV 10/03 1601 1603 Furosemide 40 MG DAILY 10/03 09 DC PO Furosemide 80 MG DAILY 10/03 09 AC 10/03 PO 0817 Furosemide 40 MG 7:30 AM, & 4:30 PM 10/02 1630 DC 10/02 IV 1740 Guaifenesin 10 ML Q6P PRN 10/03 163 AC 10/03 PO 1640 Guaifenesin 10 ML .STK-MED ONE 10/02 2117 DC PO 10/02 2118 Guaifenesin/ 10 ML ONCE ONE 10/02 2099 DC 10/03 Dextromethorphan PO 10/02 2100 0232 Heparin Sodium 13,600 UNIT ONCE ONE 10/02 2030 DC 10/02 (Porcine) IV 10/02 Heparin Sodium 25,000 UNIT Q24H 10/01 2029 AC 10/02 (Porcine) IV 1215 Sodium Chloride 500 ML Omeprazole 40 MG DAILY AC 10/02 1899 AC 10/03 PO 0538 Results Pertinent Lab Results: Laboratory Tests 10/03 10/03 10/03 1020 0630 0219 Chemistry Sodium (137 - 145 mmol/L) 142 Potassium (3.5 - 5.1 mmol/L) 4.0 Chloride (98 - 107 mmol/L) 105 Carbon Dioxide (22 - 30 mmol/L) 27 Anion Gap (5 - 16) 9 BUN (7 - 17 mg/dL) 20 H Creatinine (0.5 - 1.0 mg/dL) 1.1 H Estimated GFR (>60 ml/min) 49 L BUN/Creatinine Ratio (7 - 25 %) 18.2 Coagulation APTT (25 - 37 SEC) 40 H > 120 *H Hematology CBC w Diff MAN DIFF ORDERED WBC (4.8 - 10.8 /CUMM) 6.9 RBC (4.20 - 5.40 /CUMM) 3.46 L Hgb (12.0 - 16.0 G/DL) 6.7 *L Hct (37 - 47 %) 22.2 L MCV (81.0 - 99.0 FL) 64.1 L MCH (27.0 - 31.0 PG) 19.4 L MCHC (33.0 - 37.0 G/DL) 30.3 L RDW (11.5 - 14.5 %) 19.6 H Plt Count (130 - 400 /CUMM) 196 MPV (7.4 - 10.4 FL) 8.8 Gran % (42.2 - 75.2 %) 67.5 Lymphocytes % (20.5 - 51.1 %) 20.8 Monocytes % (1.7 - 9.3 %) 8.0 Eosinophils % (0 - 5 %) 3.7 Basophils % (0.0 - 2.0 %) 0 Absolute Granulocytes (1.4 - 6.5 /CUMM) 4.6 Absolute Lymphocytes (1.2 - 3.4 /CUMM) 1.4 Absolute Monocytes (0.10 - 0.60 /CUMM) 0.5 Absolute Eosinophils (0.0 - 0.7 /CUMM) 0.3 Absolute Basophils (0.0 - 0.2 /CUMM) 0 Platelet Estimate (ADEQUATE) ADEQUATE Hypochromic-Microcytic 3+ Poikilocytosis FEW Microcytic Cells 3+ Ovalocytes 1+ Elliptocytes FEW 10/02 Hematology CBC w Diff MAN DIFF ORDERED WBC (4.8 - 10.8 /CUMM) 8.4 RBC (4.20 - 5.40 /CUMM) 3.90 L Hgb (12.0 - 16.0 G/DL) 7.5 L Hct (37 - 47 %) 25.1 L MCV (81.0 - 99.0 FL) 64.3 L MCH (27.0 - 31.0 PG) 19.2 L MCHC (33.0 - 37.0 G/DL) 29.9 L RDW (11.5 - 14.5 %) 19.7 H Plt Count (130 - 400 /CUMM) 239 MPV (7.4 - 10.4 FL) 8.8 Segmented Neutrophils (42.2 - 75.2 %) 70 Lymphocytes (20.5 - 51.1 %) 22 Monocytes (1.7 - 9.3 %) 6 Eosinophils (0 - 5.0 %) 2 Platelet Estimate (ADEQUATE) ADEQUATE Polychromasia 1+ Hypochromic-Microcytic 1+ Urines Urine Color (YEL,AMB,STR) STRAW Urine Clarity (CLEAR) CLEAR Urine pH (5.0 - 8.0) 6.0 Ur Specific [place] (1.001 - 1.035) 1.010 Urine Protein (NEG,<30 MG/DL) NEG Urine Ketones (NEG) NEG Urine Nitrite (NEG) NEG Urine Bilirubin (NEG) NEG Urine Urobilinogen (0.1 - 1.0 EU/dl) 0.2 Ur Leukocyte Esterase (NEG) NEG Ur Microscopic EXAM NOT REQUIRED Urine Hemoglobin (NEG) NEG Urine Glucose (N MG/DL) NEG 10/02 10/02 10/02 1815 1023 0600 Coagulation PT (9.4 - 12.5 SEC) 14.2 H INR (0.90 - 1.19) 1.30 H APTT (25 - 37 SEC) 38 H 119 *H Hematology Haptoglobin Pending 10/02 10/02 10/02 10/01 0559 0300 0017 2041 Chemistry Sodium (137 - 145 mmol/L) 145 Potassium (3.5 - 5.1 mmol/L) 4.0 Chloride (98 - 107 mmol/L) 109 H Carbon Dioxide (22 - 30 mmol/L) 26 Anion Gap (5 - 16) 10 BUN (7 - 17 mg/dL) 25 H Creatinine (0.5 - 1.0 mg/dL) 1.2 H Estimated GFR (>60 ml/min) 45 L BUN/Creatinine Ratio (7 - 25 %) 20.8 Lactic Acid (0.7 - 2.1 mmol/L) 1.0 Magnesium (1.6 - 2.3 mg/dL) 2.0 Lactate Dehydrogenase (313 - 618 U/L) 614 Troponin I (< 0.11 ng/ml) 0.01 0.01 Vitamin B12 (239 - 931 pg/mL) 877 Folate (2.76 - 20.0 ng/mL) 12.9 Coagulation PT (9.4 - 12.5 SEC) 14.7 H INR (0.90 - 1.19) 1.34 H APTT (25 - 37 SEC) 60 H Hematology CBC w Diff NO MAN DIFF REQ WBC (4.8 - 10.8 /CUMM) 7.9 RBC (4.20 - 5.40 /CUMM) 3.93 L Hgb (12.0 - 16.0 G/DL) 7.5 L Hct (37 - 47 %) 25.4 L MCV (81.0 - 99.0 FL) 64.5 L MCH (27.0 - 31.0 PG) 19.1 L MCHC (33.0 - 37.0 G/DL) 29.7 L RDW (11.5 - 14.5 %) 19.9 H Plt Count (130 - 400 /CUMM) 237 MPV (7.4 - 10.4 FL) 8.9 Gran % (42.2 - 75.2 %) 64.6 Lymphocytes % (20.5 - 51.1 %) 26.3 Monocytes % (1.7 - 9.3 %) 6.8 Eosinophils % (0 - 5 %) 2.3 Basophils % (0.0 - 2.0 %) 0 Absolute Granulocytes (1.4 - 6.5 /CUMM) 5.1 Absolute Lymphocytes (1.2 - 3.4 /CUMM) 2.1 Absolute Monocytes (0.10 - 0.60 /CUMM) 0.5 Absolute Eosinophils (0.0 - 0.7 /CUMM) 0.2 Absolute Basophils (0.0 - 0.2 /CUMM) 0 Retic Count (0.5 - 2.0 %) 1.58 10/01 1807 Chemistry Sodium (137 - 145 mmol/L) 145 Potassium (3.5 - 5.1 mmol/L) 4.5 Chloride (98 - 107 mmol/L) 109 H Carbon Dioxide (22 - 30 mmol/L) 25 Anion Gap (5 - 16) 11 BUN (7 - 17 mg/dL) 28 H Creatinine (0.5 - 1.0 mg/dL) 1.3 H Estimated GFR (>60 ml/min) 41 L BUN/Creatinine Ratio (7 - 25 %) 21.5 Glucose (65 - 99 mg/dL) 102 H Lactic Acid (0.7 - 2.1 mmol/L) 2.2 H Calcium (8.4 - 10.2 mg/dL) 8.6 Iron (37 - 170 ug/dL) 25 L TIBC (265 - 497 ug/dL) 431 Ferritin (11.1 - 264 ng/mL) 10.0 L Total Bilirubin (0.2 - 1.3 mg/dL) 0.5 AST (14 - 36 U/L) 19 ALT (9 - 52 U/L) 24 Alkaline Phosphatase (<127 U/L) 86 Troponin I (< 0.11 ng/ml) < 0.01 [id number] Pept (<125 pg/mL) 5600 H Total Protein (6.3 - 8.2 g/dL) 6.6 Albumin (3.5 - 5.0 g/dL) 3.7 Globulin (1.9 - 4.2 gm/dL) 2.9 Albumin/Globulin Ratio (1.1 - 2.2 %) 1.3 TSH (0.270 - 4.200 uIU/mL) 1.660 Coagulation PT (9.4 - 12.5 SEC) 14.2 H INR (0.90 - 1.19) 1.30 H APTT (25 - 37 SEC) 30 D-Dimer High Sensitivty (0 - 243 ng/ml) 415 H Hematology CBC w Diff NO MAN DIFF REQ WBC (4.8 - 10.8 /CUMM) 9.2 RBC (4.20 - 5.40 /CUMM) 4.08 L Hgb (12.0 - 16.0 G/DL) 7.8 L Hct (37 - 47 %) 26.2 L MCV (81.0 - 99.0 FL) 64.3 L MCH (27.0 - 31.0 PG) 19.2 L MCHC (33.0 - 37.0 G/DL) 29.9 L RDW (11.5 - 14.5 %) 20.2 H Plt Count (130 - 400 /CUMM) 273 MPV (7.4 - 10.4 FL) 8.9 Gran % (42.2 - 75.2 %) 74.6 Lymphocytes % (20.5 - 51.1 %) 19.3 L Monocytes % (1.7 - 9.3 %) 4.8 Eosinophils % (0 - 5 %) 1.2 Basophils % (0.0 - 2.0 %) 0.1 Absolute Granulocytes (1.4 - 6.5 /CUMM) 6.9 H Absolute Lymphocytes (1.2 - 3.4 /CUMM) 1.8 Absolute Monocytes (0.10 - 0.60 /CUMM) 0.4 Absolute Eosinophils (0.0 - 0.7 /CUMM) 0.1 Absolute Basophils (0.0 - 0.2 /CUMM) 0
[2017-10-03 20:58] LABS: PTT > 120 SEC (25-37)
[2017-10-03 22:29] LABS: ABSOLUTE BASOPHIL COUNT 0 /CUMM (0.0-0.2); ABSOLUTE EOSINOPHIL COUNT 0.2 /CUMM (0.0-0.7); ABSOLUTE GRANULOCYTE CT 6.4 /CUMM (1.4-6.5); ABSOLUTE LYMPH COUNT 1.3 /CUMM (1.2-3.4); ABSOLUTE MONOCYTE COUNT 0.6 /CUMM (0.10-0.60); BASOPHIL % 0 % (0.0-2.0); EOSINOPHIL % 2.6 % (0-5); GRANULOCYTE % 75.5 % (42.2-75.2); HEMATOCRIT 27.5 % (37-47); MEAN CORPUSCULAR HGB CONC 30.8 G/DL (33.0-37.0); MEAN PLATELET VOLUME 10.9 FL (7.4-10.4); PLATELET COUNT 213 /CUMM (130-400); RBC DISTRIBUTION WIDTH 23.4 % (11.5-14.5); RED BLOOD CELL CT 4.05 /CUMM (4.20-5.40); WHITE BLOOD CELL COUNT 8.5 /CUMM (4.8-10.8)
[2017-10-03 22:30] LABS: MEAN CORPUSCULAR VOLUME 68.1 FL (81.0-99.0)
[2017-10-04 05:29] LABS: WHITE BLOOD CELL COUNT 8.2 /CUMM (4.8-10.8)
[2017-10-04 05:41] LABS: PTT 52 SEC (25-37)
[2017-10-04 05:43] LABS: HEMATOCRIT 28.9 % (37-47); MEAN CORPUSCULAR HGB 20.8 PG (27.0-31.0); MEAN CORPUSCULAR HGB CONC 30.6 G/DL (33.0-37.0); MEAN CORPUSCULAR VOLUME 68.1 FL (81.0-99.0); MEAN PLATELET VOLUME 9.4 FL (7.4-10.4); PLATELET COUNT 171 /CUMM (130-400); RED BLOOD CELL CT 4.24 /CUMM (4.20-5.40)
[2017-10-04 06:34] VITALS: BP 126/80
--- NOTE | 2017-10-04 08:25 | PN- Housestaff ---
Gumaro Hernandez 10/04/17 0824: Subjective Follow-up For: New onset Atrial Fibrillation Bilateral lower extremity Edema Tele-Events Since Last Visit: Sinus bradycardia, 58, 0.08, 0.16. Patient in and out into atrial flutter. Subjective: Patient seen and examined at bedside this morning. Patient is sitting on chair in no acute distress. She is on IV heparin drip which is to be continued and no anticoagulation right now until follow-up with gastroenterology. Patient status post 2 units transfusion. Hemoglobin stabilized at 8.8. We will continue to monitor hematocrit 48-72 hours aspirin as per neurology. Patient denies any acute evidence of bleeding. She denies any chest pain, palpitations shortness of breath this morning. Review of Systems Constitutional: Denies: see HPI. Objective Last 24 Hrs of Vital Signs/I&O Vital Signs Date Time Temp Pulse Resp B/P B/P Pulse O2 O2 Flow FiO2 Mean Ox Delivery Rate 10/04 0634 98.3 73 20 126/80 96 10/03 1600 Room Air Room Air 10/03 1459 94 Room Air Room Air 10/03 1443 96.9 98 20 117/59 96 Room Air Intake & Output 10/04 1600 10/04 0800 10/04 0000 Intake Total 250.4 346.6 Output Total 1300 2450 Balance -1049.6 -2103.4 Intake, IV 150.4 246.6 Intake, Oral 100 100 Number 1 1 Bowel Movements Output, Urine 1300 2450 Patient 413 lb Weight Weight Bed scale Measurement Method Physical Exam General Appearance: Alert, Oriented X3, Cooperative, No Acute Distress Skin: No Rashes HEENT: Atraumatic, PERRLA, EOMI Cardiovascular: Normal S1, Normal S2, irregulary irregular Lungs: Clear to Auscultation, crackles in lower lung feilds Abdomen: No Tenderness, abdomnen distended Neurological: Normal Speech, Strength at 5/5 X4 Ext, Normal Tone, Sensation Intact Extremities: Signicant lower extremity edema bilaterally with chronic skin changes; no wheeping or discharge noted Vascular: Normal Pulses, Pulses Symmetrical Current Medications: Current Medications Sig/Shara Start time Last Medication Dose Route Stop Time Status Admin Acetaminophen 650 MG Q6P PRN 10/01 2300 AC PO Albuterol Sulfate 3 ML Q4-PRN PRN 10/02 1900 AC INH Benzocaine/Menthol 1 BRII 4 TIMES/DAY 10/03 1700 DC PO Benzocaine/Menthol 1 BRII Q2 HRS NEEDED PRN 10/02 1845 AC 10/04 PO 0909 Diltiazem HCl 125 MG Q24H 10/03 1000 DC 10/03 Dextrose/Water 100 ML IV 0956 Diltiazem HCl 120 MG DAILY 10/03 0900 AC 10/04 PO 0908 Ferrous Sulfate 325 MG TID 10/02 1900 AC 10/04 PO 0908 Furosemide 20 MG ONCE ONE 10/03 1600 DC 10/03 IV 10/03 1601 1603 Furosemide 80 MG DAILY 10/03 0900 AC 10/04 PO 0908 Guaifenesin 10 ML Q6P PRN 10/03 1630 AC 10/03 PO 1640 Heparin Sodium 7,501 UNIT BOLUS ONE 10/04 0600 DC 10/04 (Porcine) IV 10/04 0601 0658 Heparin Sodium 25,000 UNIT Q24H 10/01 2030 AC 10/02 (Porcine) IV 1215 Sodium Chloride 500 ML Omeprazole 40 MG DAILY AC 10/02 1900 AC 10/04 PO 0606 Last 24 Hrs of Lab/Gino Results Last 24 Hrs of Labs/Mics: Laboratory Tests 10/04/17 0430: Anion Gap 9, Estimated GFR 49 L, BUN/Creatinine Ratio 17.3, APTT 52 H, CBC w Diff MAN DIFF ORDERED, RBC 4.24, MCV 68.1 L, MCH 20.8 L, MCHC 30.6 L, RDW 23.0 H, MPV 9.4, Segmented Neutrophils 65, Lymphocytes 21, Monocytes 9, Eosinophils 3, Basophils 2, Nucleated RBCs 1 H, Platelet Estimate ADEQUATE, Polychromasia 1+, Ovalocytes 1+ 10/03/175: CBC w Diff NO MAN DIFF REQ, RBC 4.05 L, MCV 68.1 L, MCH 21.0 L, MCHC 30.8 L, RDW 23.4 H, MPV 10.9 H, Gran % 75.5 H, Lymphocytes % 15.2 L, Monocytes % 6.7 , Eosinophils % 2.6, Basophils % 0, Absolute Granulocytes 6.4, Absolute Lymphocytes 1.3, Absolute Monocytes 0.6, Absolute Eosinophils 0.2, Absolute Basophils 0 10/03/17 1845: APTT > 120 *H Assessment/Plan Assessment: Patient is a 71-year-old morbidly obese female with past medical history of chronic lower extremity venous stasis, asthma, hypertension, and systolic CHF was sent here by her PCP for bilateral lower extremity swelling, nonproductive cough, and shortness of breath. She was on a course of antibiotics Augmentin for 10 days starting on September 12 by PCP for bilateral lower extremity swelling. This did not improve patient's condition. She is on Lasix 80 mg daily. Patient had new onset atrial fibrillation in the emergency room for which Cardizem was administered and improved her heart rate and shortness of breath. Vital signs currently stable, patient afebrile, blood pressure 126/80. Problem list: 1. New onset rapid A. fib-cardizem po started 2. Acute on chronic heart failure with preserved ejection fraction-oral PO lasix 3. Microcytic iron deficiency anemia-resolved status post 2 units 4. [place] upon CKD stage III, GFR 30-59 mL/minute 5. Morbid obesity Plan: * Status post 2 units PRBC transfusion. Hemoglobin trended up from 6.7-8.8 * Continue monitoring patient in the telemetry unit, patient has been in and out from sinus bradycardia to increased rates up to 130s. * Patient be continued on IV heparin drip, no anticoagulation is right now; we will continue to monitor hemodynamic stability. * Patient be extensively followed up by cardiology and gastroenterology * Patient has now on oral Cardizem today of 120 mg * Continue diuresis with oral Lasix 80 mg. Monitor ins and outs daily weights. * Ejection fraction: 40-45% with global hypokinesis elevated right sided pressures and LVH CODE STATUS: DNR/DNI DVT prophylaxis: IV heparin Diet: Heart healthy diet Problem List: 1. New onset a-fib 2. CHF exacerbation 3. Anemia Pain Ratin Pain Location: no pain today Pain Goal: Remain pain free Pain Plan: as per pain pathway Tomorrow's Labs & Rationales: cbc bep DVT/Prophylaxis: mechanical, pharmacological Nawaf BARBER,Naomi 10/04/17 1004: Attending MD Review Statement Attending Statement Attending MD Statement: examined this patient, discuss w/resident/PA/RESTAURANT BUSSER, agreed w/resident/PA/RESTAURANT BUSSER, reviewed EMR data (avail), discussed with nursing, reviewed images Attending Assessment/Plan: Overall patient is doing okay. She has been in and out of flutter overnight. With a heart rate of about 73. GI saw her yesterday and we are continuing her IV heparin watching her crit closely. She required 2 units of blood in her hemoglobin is now 8.8. Her EF is 40-45% with global hypokinesis elevated right- sided pressures and LVH. We have her on p.o. Cardizem and IV heparin will defer to cardiology and GI. If her crit stays stable tomorrow questionable start oral anticoagulation with outpatient GI follow-up.
--- NOTE | 2017-10-04 12:15 | PN- Gastroenterology ---
Assessment/Plan GI Assessment/Recommendations: Iron deficiency anemia with Hemoccult negative stool. Appropriate rise in hemoglobin following transfusion, stable. Recommendations * May begin oral anticoagulation * Follow-up CBC tomorrow * Continue regular diet Subjective Subjective: No overt GI bleeding. Objective Vital Signs and I&Os Vital Signs Date Time Temp Pulse Resp B/P B/P Pulse O2 O2 Flow FiO2 Mean Ox Delivery Rate 10/04 0634 98.3 73 20 126/80 96 10/03 1600 Room Air Room Air 10/03 1459 94 Room Air Room Air 10/03 1443 96.9 98 20 117/59 96 Room Air Intake & Output 10/04 1600 10/04 0400 10/03 1600 10/03 0400 10/02 1600 10/02 0400 Intake Total 250.4 346.6 990 632 835 4739 Output Total 1300 2450 2200 4419 298 7617 Balance -1049.6 -2103.4 -1210 -1440 0 -700 Intake, Blood 350 Product Intake, IV 150.4 246.6 110 1000 Intake, Oral 100 100 640 500 Number 1 1 1 Bowel Movements Output, Urine 1300 2450 2200 6912 896 4819 Patient 413 lb 398 lb 400 lb 400 lb Weight Weight Bed scale Bed scale Measurement Method Physical Exam: Abdomen obese, soft, nontender Current Medications: Current Medications Sig/Shara Start time Last Medication Dose Route Stop Time Status Admin Acetaminophen 650 MG Q6P PRN 10/01 2300 PO Albuterol Sulfate 3 ML Q4-PRN PRN 10/02 1900 AC INH Benzocaine/Menthol 1 BRII 4 TIMES/DAY 10/03 1700 DC PO Benzocaine/Menthol 1 BRII Q2 HRS NEEDED PRN 10/02 1845 AC 10/04 PO 0909 Diltiazem HCl 125 MG Q24H 10/03 1000 DC 10/03 Dextrose/Water 100 ML IV 0956 Diltiazem HCl 120 MG DAILY 10/03 0900 AC 10/04 PO 0908 Ferrous Sulfate 325 MG TID 10/02 1900 AC 10/04 PO 0908 Furosemide 20 MG ONCE ONE 10/03 1600 DC 10/03 IV 10/03 1601 1603 Furosemide 80 MG DAILY 10/03 0900 AC 10/04 PO 0908 Guaifenesin 10 ML Q6P PRN 10/03 1630 AC 10/03 PO 1640 Heparin Sodium 7,501 UNIT BOLUS ONE 10/04 0600 DC 10/04 (Porcine) IV 10/04 0601 0658 Heparin Sodium 25,000 UNIT Q24H 10/01 2030 AC 10/02 (Porcine) IV 1215 Sodium Chloride 500 ML Omeprazole 40 MG DAILY AC 10/02 1900 AC 10/04 PO 0606 Results Pertinent Lab Results: Laboratory Tests 10/04 10/03 0430 2155 Chemistry Sodium (137 - 145 mmol/L) 143 Potassium (3.5 - 5.1 mmol/L) 4.0 Chloride (98 - 107 mmol/L) 104 Carbon Dioxide (22 - 30 mmol/L) 29 Anion Gap (5 - 16) 9 BUN (7 - 17 mg/dL) 19 H Creatinine (0.5 - 1.0 mg/dL) 1.1 H Estimated GFR (>60 ml/min) 49 L BUN/Creatinine Ratio (7 - 25 %) 17.3 Coagulation APTT (25 - 37 SEC) 52 H Hematology CBC w Diff MAN DIFF ORDERED NO MAN DIFF REQ WBC (4.8 - 10.8 /CUMM) 8.2 8.5 RBC (4.20 - 5.40 /CUMM) 4.24 4.05 L Hgb (12.0 - 16.0 G/DL) 8.8 L 8.5 L Hct (37 - 47 %) 28.9 L 27.5 L MCV (81.0 - 99.0 FL) 68.1 L 68.1 L MCH (27.0 - 31.0 PG) 20.8 L 21.0 L MCHC (33.0 - 37.0 G/DL) 30.6 L 30.8 L RDW (11.5 - 14.5 %) 23.0 H 23.4 H Plt Count (130 - 400 /CUMM) 171 213 MPV (7.4 - 10.4 FL) 9.4 10.9 H Gran % (42.2 - 75.2 %) 75.5 H Lymphocytes % (20.5 - 51.1 %) 15.2 L Monocytes % (1.7 - 9.3 %) 6.7 Eosinophils % (0 - 5 %) 2.6 Basophils % (0.0 - 2.0 %) 0 Absolute Granulocytes (1.4 - 6.5 /CUMM) 6.4 Segmented Neutrophils (42.2 - 75.2 %) 65 Absolute Lymphocytes (1.2 - 3.4 /CUMM) 1.3 Lymphocytes (20.5 - 51.1 %) 21 Monocytes (1.7 - 9.3 %) 9 Absolute Monocytes (0.10 - 0.60 /CUMM) 0.6 Eosinophils (0 - 5.0 %) 3 Absolute Eosinophils (0.0 - 0.7 /CUMM) 0.2 Basophils (0.0 - 2.0 %) 2 Absolute Basophils (0.0 - 0.2 /CUMM) 0 Nucleated RBCs (0.0 - 0.0 /100WBC) 1 H Platelet Estimate (ADEQUATE) ADEQUATE Polychromasia 1+ Ovalocytes 1+ 10/03 10/03 10/03 1845 1020 0630 Chemistry Sodium (137 - 145 mmol/L) 142 Potassium (3.5 - 5.1 mmol/L) 4.0 Chloride (98 - 107 mmol/L) 105 Carbon Dioxide (22 - 30 mmol/L) 27 Anion Gap (5 - 16) 9 BUN (7 - 17 mg/dL) 20 H Creatinine (0.5 - 1.0 mg/dL) 1.1 H Estimated GFR (>60 ml/min) 49 L BUN/Creatinine Ratio (7 - 25 %) 18.2 Coagulation APTT (25 - 37 SEC) > 120 *H 40 H Hematology CBC w Diff MAN DIFF ORDERED WBC (4.8 - 10.8 /CUMM) 6.9 RBC (4.20 - 5.40 /CUMM) 3.46 L Hgb (12.0 - 16.0 G/DL) 6.7 *L Hct (37 - 47 %) 22.2 L MCV (81.0 - 99.0 FL) 64.1 L MCH (27.0 - 31.0 PG) 19.4 L MCHC (33.0 - 37.0 G/DL) 30.3 L RDW (11.5 - 14.5 %) 19.6 H Plt Count (130 - 400 /CUMM) 196 MPV (7.4 - 10.4 FL) 8.8 Gran % (42.2 - 75.2 %) 67.5 Lymphocytes % (20.5 - 51.1 %) 20.8 Monocytes % (1.7 - 9.3 %) 8.0 Eosinophils % (0 - 5 %) 3.7 Basophils % (0.0 - 2.0 %) 0 Absolute Granulocytes (1.4 - 6.5 /CUMM) 4.6 Absolute Lymphocytes (1.2 - 3.4 /CUMM) 1.4 Absolute Monocytes (0.10 - 0.60 /CUMM) 0.5 Absolute Eosinophils (0.0 - 0.7 /CUMM) 0.3 Absolute Basophils (0.0 - 0.2 /CUMM) 0 Platelet Estimate (ADEQUATE) ADEQUATE Hypochromic-Microcytic 3+ Poikilocytosis FEW Microcytic Cells 3+ Ovalocytes 1+ Elliptocytes FEW 10/03 Coagulation APTT (25 - 37 SEC) > 120 *H Urines Urine Color (YEL,AMB,STR) STRAW Urine Clarity (CLEAR) CLEAR Urine pH (5.0 - 8.0) 6.0 Ur Specific [place] (1.001 - 1.035) 1.010 Urine Protein (NEG,<30 MG/DL) NEG Urine Ketones (NEG) NEG Urine Nitrite (NEG) NEG Urine Bilirubin (NEG) NEG Urine Urobilinogen (0.1 - 1.0 EU/dl) 0.2 Ur Leukocyte Esterase (NEG) NEG Ur Microscopic EXAM NOT REQUIRED Urine Hemoglobin (NEG) NEG Urine Glucose (N MG/DL) NEG 10/02 1815 1023 0600 Coagulation PT (9.4 - 12.5 SEC) 14.2 H INR (0.90 - 1.19) 1.30 H APTT (25 - 37 SEC) 38 H 119 *H Hematology CBC w Diff MAN DIFF ORDERED WBC (4.8 - 10.8 /CUMM) 8.4 RBC (4.20 - 5.40 /CUMM) 3.90 L Hgb (12.0 - 16.0 G/DL) 7.5 L Hct (37 - 47 %) 25.1 L MCV (81.0 - 99.0 FL) 64.3 L MCH (27.0 - 31.0 PG) 19.2 L MCHC (33.0 - 37.0 G/DL) 29.9 L RDW (11.5 - 14.5 %) 19.7 H Plt Count (130 - 400 /CUMM) 239 MPV (7.4 - 10.4 FL) 8.8 Segmented Neutrophils (42.2 - 75.2 %) 70 Lymphocytes (20.5 - 51.1 %) 22 Monocytes (1.7 - 9.3 %) 6 Eosinophils (0 - 5.0 %) 2 Platelet Estimate (ADEQUATE) ADEQUATE Polychromasia 1+ Hypochromic-Microcytic 1+ Haptoglobin (43 - 212 mg/dL) 194 10/02 10/02 10/02 10/01 0559 0300 0017 2041 Chemistry Sodium (137 - 145 mmol/L) 145 Potassium (3.5 - 5.1 mmol/L) 4.0 Chloride (98 - 107 mmol/L) 109 H Carbon Dioxide (22 - 30 mmol/L) 26 Anion Gap (5 - 16) 10 BUN (7 - 17 mg/dL) 25 H Creatinine (0.5 - 1.0 mg/dL) 1.2 H Estimated GFR (>60 ml/min) 45 L BUN/Creatinine Ratio (7 - 25 %) 20.8 Lactic Acid (0.7 - 2.1 mmol/L) 1.0 Magnesium (1.6 - 2.3 mg/dL) 2.0 Lactate Dehydrogenase (313 - 618 U/L) 614 Troponin I (< 0.11 ng/ml) 0.01 0.01 Vitamin B12 (239 - 931 pg/mL) 877 Folate (2.76 - 20.0 ng/mL) 12.9 Coagulation PT (9.4 - 12.5 SEC) 14.7 H INR (0.90 - 1.19) 1.34 H APTT (25 - 37 SEC) 60 H Hematology CBC w Diff NO MAN DIFF REQ WBC (4.8 - 10.8 /CUMM) 7.9 RBC (4.20 - 5.40 /CUMM) 3.93 L Hgb (12.0 - 16.0 G/DL) 7.5 L Hct (37 - 47 %) 25.4 L MCV (81.0 - 99.0 FL) 64.5 L MCH (27.0 - 31.0 PG) 19.1 L MCHC (33.0 - 37.0 G/DL) 29.7 L RDW (11.5 - 14.5 %) 19.9 H Plt Count (130 - 400 /CUMM) 237 MPV (7.4 - 10.4 FL) 8.9 Gran % (42.2 - 75.2 %) 64.6 Lymphocytes % (20.5 - 51.1 %) 26.3 Monocytes % (1.7 - 9.3 %) 6.8 Eosinophils % (0 - 5 %) 2.3 Basophils % (0.0 - 2.0 %) 0 Absolute Granulocytes (1.4 - 6.5 /CUMM) 5.1 Absolute Lymphocytes (1.2 - 3.4 /CUMM) 2.1 Absolute Monocytes (0.10 - 0.60 /CUMM) 0.5 Absolute Eosinophils (0.0 - 0.7 /CUMM) 0.2 Absolute Basophils (0.0 - 0.2 /CUMM) 0 Retic Count (0.5 - 2.0 %) 1.58 10/01 1807 Chemistry Sodium (137 - 145 mmol/L) 145 Potassium (3.5 - 5.1 mmol/L) 4.5 Chloride (98 - 107 mmol/L) 109 H Carbon Dioxide (22 - 30 mmol/L) 25 Anion Gap (5 - 16) 11 BUN (7 - 17 mg/dL) 28 H Creatinine (0.5 - 1.0 mg/dL) 1.3 H Estimated GFR (>60 ml/min) 41 L BUN/Creatinine Ratio (7 - 25 %) 21.5 Glucose (65 - 99 mg/dL) 102 H Lactic Acid (0.7 - 2.1 mmol/L) 2.2 H Calcium (8.4 - 10.2 mg/dL) 8.6 Iron (37 - 170 ug/dL) 25 L TIBC (265 - 497 ug/dL) 431 Ferritin (11.1 - 264 ng/mL) 10.0 L Total Bilirubin (0.2 - 1.3 mg/dL) 0.5 AST (14 - 36 U/L) 19 ALT (9 - 52 U/L) 24 Alkaline Phosphatase (<127 U/L) 86 Troponin I (< 0.11 ng/ml) < 0.01 Ulv-[id number] Pept (<125 pg/mL) 5600 H Total Protein (6.3 - 8.2 g/dL) 6.6 Albumin (3.5 - 5.0 g/dL) 3.7 Globulin (1.9 - 4.2 gm/dL) 2.9 Albumin/Globulin Ratio (1.1 - 2.2 %) 1.3 TSH (0.270 - 4.200 uIU/mL) 1.660 Coagulation PT (9.4 - 12.5 SEC) 14.2 H INR (0.90 - 1.19) 1.30 H APTT (25 - 37 SEC) 30 D-Dimer High Sensitivty (0 - 243 ng/ml) 415 H Hematology CBC w Diff NO MAN DIFF REQ WBC (4.8 - 10.8 /CUMM) 9.2 RBC (4.20 - 5.40 /CUMM) 4.08 L Hgb (12.0 - 16.0 G/DL) 7.8 L Hct (37 - 47 %) 26.2 L MCV (81.0 - 99.0 FL) 64.3 L MCH (27.0 - 31.0 PG) 19.2 L MCHC (33.0 - 37.0 G/DL) 29.9 L RDW (11.5 - 14.5 %) 20.2 H Plt Count (130 - 400 /CUMM) 273 MPV (7.4 - 10.4 FL) 8.9 Gran % (42.2 - 75.2 %) 74.6 Lymphocytes % (20.5 - 51.1 %) 19.3 L Monocytes % (1.7 - 9.3 %) 4.8 Eosinophils % (0 - 5 %) 1.2 Basophils % (0.0 - 2.0 %) 0.1 Absolute Granulocytes (1.4 - 6.5 /CUMM) 6.9 H Absolute Lymphocytes (1.2 - 3.4 /CUMM) 1.8 Absolute Monocytes (0.10 - 0.60 /CUMM) 0.4 Absolute Eosinophils (0.0 - 0.7 /CUMM) 0.1 Absolute Basophils (0.0 - 0.2 /CUMM) 0
[2017-10-04 14:19] VITALS: BP 136/64
[2017-10-04 15:16] LABS: PTT > 120 SEC (25-37)
--- NOTE | 2017-10-04 21:25 | PN- Cardiology ---
Subjective Subjective: No specific complaints. PAF on monitoring. Objective Vital Signs and I&Os Vital Signs Date Time Temp Pulse Resp B/P B/P Pulse O2 O2 Flow FiO2 Mean Ox Delivery Rate 10/04 1419 97.2 78 16 136/64 94 Room Air 10/04 1348 97 Room Air 10/04 0800 95 Room Air Room Air 10/04 0634 98.3 73 20 126/80 96 Intake & Output 10/04 1600 10/04 0800 10/04 0000 10/03 1600 10/03 0800 10/03 0000 Intake Total 975 250.4 346.6 990 110 Output Total 1750 1300 2450 1300 1200 1250 Balance -775 -1049.6 -2103.4 -310 -1200 -1140 Intake, Blood 350 Product Intake, IV 225 150.4 246.6 110 Intake, Oral 750 100 100 640 Number 1 1 1 1 Bowel Movements Output, Urine 1750 1300 2450 1300 1200 1250 Patient 413 lb 398 lb Weight Weight Bed scale Bed scale Measurement Method Physical Exam: Well-developed, morbidly obese -Mongolian female in no acute distress. Neck: No JVD, no bruits. Lungs: Clear to auscultation. Heart: S1, S2 with grade 1/6 systolic murmur. Abdomen: Soft, nontender, positive bowel sounds. Extremities: 3+ edema with brawny induration, hyper/hypopigmentation. Current Medications: Current Medications Sig/Shara Start time Last Medication Dose Route Stop Time Status Admin Acetaminophen 650 MG Q6P PRN 10/01 2300 AC PO Albuterol Sulfate 3 ML Q4-PRN PRN 10/02 1900 AC INH Benzocaine/Menthol 1 BRII Q2 HRS NEEDED PRN 10/02 1845 AC 10/04 PO 194 Diltiazem HCl 120 MG DAILY 10/03 0900 AC 10/04 PO 0908 Ferrous Sulfate 325 MG TID 10/02 1900 AC 10/04 PO 194 Furosemide 80 MG DAILY 10/03 09 AC 10/04 PO 0908 Guaifenesin 10 ML Q6P PRN 10/03 1630 AC 10/03 PO 1640 Heparin Sodium 7,501 UNIT BOLUS ONE 10/04 06 DC 10/04 (Porcine) IV 10/04 0601 0658 Heparin Sodium 10,000 UNIT .STK-MED ONE 10/04 0600 DC (Porcine) IV 10/04 0601 Heparin Sodium 25,000 UNIT Q24H 10/01 2030 AC 10/02 (Porcine) IV 1215 Sodium Chloride 500 ML Melatonin 5 MG ONCE ONE 10/04 2099 DC 10/04 PO 10/04 Omeprazole 40 MG DAILY AC 10/02 1900 AC 10/04 PO 0606 Results Last 48 Hrs of Labs/Mics: Laboratory Tests 10/04/17 1305: APTT > 120 *H 10/04/17 0430: Anion Gap 9, Estimated GFR 49 L, BUN/Creatinine Ratio 17.3, APTT 52 H, CBC w Diff MAN DIFF ORDERED, RBC 4.24, MCV 68.1 L, MCH 20.8 L, MCHC 30.6 L, RDW 23.0 H, MPV 9.4, Segmented Neutrophils 65, Lymphocytes 21, Monocytes 9, Eosinophils 3, Basophils 2, Nucleated RBCs 1 H, Platelet Estimate ADEQUATE, Polychromasia 1+, Ovalocytes 1+ 10/03/175: CBC w Diff NO MAN DIFF REQ, RBC 4.05 L, MCV 68.1 L, MCH 21.0 L, MCHC 30.8 L, RDW 23.4 H, MPV 10.9 H, Gran % 75.5 H, Lymphocytes % 15.2 L, Monocytes % 6.7 , Eosinophils % 2.6, Basophils % 0, Absolute Granulocytes 6.4, Absolute Lymphocytes 1.3, Absolute Monocytes 0.6, Absolute Eosinophils 0.2, Absolute Basophils 0 10/03/17 1845: APTT > 120 *H 10/03/17 1020: APTT 40 H 10/03/17 0630: Anion Gap 9, Estimated GFR 49 L, BUN/Creatinine Ratio 18.2, CBC w Diff MAN DIFF ORDERED, RBC 3.46 L, MCV 64.1 L, MCH 19.4 L, MCHC 30.3 L, RDW 19.6 H, MPV 8.8, Gran % 67.5, Lymphocytes % 20.8, Monocytes % 8.0, Eosinophils % 3.7, Basophils % 0, Absolute Granulocytes 4.6, Absolute Lymphocytes 1.4, Absolute Monocytes 0.5, Absolute Eosinophils 0.3, Absolute Basophils 0, Platelet Estimate ADEQUATE, Hypochromic-Microcytic 3+, Poikilocytosis FEW, Microcytic Cells 3+, Ovalocytes 1+, Elliptocytes FEW 10/03/17 0219: APTT > 120 *H Assessment/Plan Assessment/Plan [id number] w/ hx of obesity morbid obesity, pulmonary HTN, chronic bilateral LE edema with venous insufficiently and stasis changes, asthma, HTN, LVH, previous HFrEF (EF 40-45%), MR with mild LA dilatation who presented to the ED for worsening SLB and LE edema and was discovered to be in AF w/RVR and to have AUGUSTO, anemia, requiring transfusion, etc. She continues to have PAF is on IV heparin and has been cleared for oral anticoagulation. Recommendations: * Continue on telemetry. * Maintain hemoglobin at or above 8.0 g/dl. * Can start on oral anticoagulation as per GI. * Continued by mouth diltiazem and consider increasing dosage, as still in the low 100s during paroxysms of AF. Rate in sinus rhythm in the 60-70 bpm range. * Continue all conservative measures for control of lower extremity edema including leg elevation, sodium restriction, etc. * Might benefit from outpatient vascular surgery evaluation for consideration of possible venous closure procedures Continue telemetry? Yes
[2017-10-04 22:04] VITALS: BP 128/76
[2017-10-04 23:12] LABS: PTT 39 SEC (25-37)
[2017-10-05 06:13] LABS: MEAN CORPUSCULAR HGB 21.1 PG (27.0-31.0); MEAN CORPUSCULAR HGB CONC 31.1 G/DL (33.0-37.0); MEAN CORPUSCULAR VOLUME 67.9 FL (81.0-99.0); MEAN PLATELET VOLUME 8.6 FL (7.4-10.4); PLATELET COUNT 215 /CUMM (130-400); RBC DISTRIBUTION WIDTH 23.3 % (11.5-14.5); RED BLOOD CELL CT 4.27 /CUMM (4.20-5.40); WHITE BLOOD CELL COUNT 9.6 /CUMM (4.8-10.8)
[2017-10-05 06:32] VITALS: BP 124/78
[2017-10-05 06:34] LABS: PTT 100 SEC (25-37)
--- NOTE | 2017-10-05 09:07 | PN- Att Addend ---
Attending Addendum Attending Brief Note Patient seen and examined. She is frustrated about still being here but understands the heart rate and anemia issue. On exam blood pressure is 124/78, pulse is 88-98 and regular, breathing at 16-18 and afebrile. Lungs are clear to auscultation bilaterally, heart is S1-S2 irregular, abdomen is obese nontender and she has bilateral chronic lower extremity skin changes with some edema. She is morbidly obese. She is a 71-year-old with treating for new onset rapid atrial fib/flutter she is on p.o. Cardizem. She has evidence of iron deficiency anemia and she is on IV heparin. She got 2 units of blood which brought her hemoglobin up to 9. Yesterday GI said it was okay to start oral anticoagulation however the nurse noted that she is having dark stool which is frankly guaiac positive. We will have to speak to GI today. I think she will need an inpatient workup prior to starting oral anticoagulation.
--- NOTE | 2017-10-05 11:30 | Event Note ---
Event Note Event Note: Discussed with Dr. Kitchen over the phone that patient is guaiac positive that he wanted to do a colonoscopy on Friday if day care center director are okay. Discussed with Dr. Ruffin and according to him patient did undergo colonoscopy and we can stop heparin 4 hours before the procedure.
[2017-10-05 13:29] LABS: PTT 58 SEC (25-37)
[2017-10-05 15:23] VITALS: BP 146/80
--- NOTE | 2017-10-05 16:13 | PN- Gastroenterology ---
Assessment/Plan GI Assessment/Recommendations: Iron deficiency anemia with now Hemoccult positive stool. Appropriate rise in hemoglobin following transfusion, stable. Dark stool, on iron. Recommendations * Continue IV heparin but do not give oral anticoagulant * Stop iron supplement * Follow-up CBC tomorrow * Continue regular diet today; clear liquid diet starting in the morning ( discussed with house staff) * GoLYTELY 1/2 gallon over 2 hours tomorrow starting at 4 PM; repeat this at 7 AM on Friday morning, and then make nothing by mouth after completes the prep at 9 AM * EGD/colonoscopy Friday Subjective Subjective: Dark stool, apparently Hemoccult-positive. No overt bleeding. Objective Vital Signs and I&Os Vital Signs Date Time Temp Pulse Resp B/P B/P Pulse O2 O2 Flow FiO2 Mean Ox Delivery Rate 10/05 1523 98.0 112 20 146/80 93 10/05 0833 91 Room Air Room Air 10/05 0800 93 Room Air Room Air 10/05 0632 98.4 145 18 124/78 94 10/05 0000 Room Air Room Air 10/04 2204 98.4 70 18 128/76 91 Intake & Output 10/05 1600 10/05 0400 10/04 1600 10/04 0400 10/03 1600 10/03 0400 Intake Total 1259.6 73 1225.4 346.6 990 110 Output Total 400 1550 3050 2450 2200 1550 Balance 859.6 -1477 -1824.6 -2103.4 -1210 -1440 Intake, Blood 350 Product Intake, IV 409.6 23 375.4 246.6 110 Intake, Oral 850 50 850 100 640 Number 1 1 2 1 1 Bowel Movements Output, Urine 400 1550 3050 2450 2200 1550 Patient 406 lb 413 lb 398 lb Weight Weight Bed scale Bed scale Measurement Method Physical Exam: Abdomen obese, soft, nontender Current Medications: Current Medications Sig/Shara Start time Last Medication Dose Route Stop Time Status Admin Acetaminophen 650 MG Q6P PRN 10/01 2300 AC PO Albuterol Sulfate 3 ML Q4-PRN PRN 10/02 1900 AC 10/05 INH 0834 Benzocaine/Menthol 1 BRII Q2 HRS NEEDED PRN 10/02 1845 AC 10/05 PO 0526 Diltiazem HCl 120 MG DAILY 10/03 0900 AC 10/05 PO 0844 Ferrous Sulfate 325 MG TID 10/02 1900 AC 10/05 PO 1525 Furosemide 80 MG DAILY 10/03 0900 AC 10/05 PO 0844 Guaifenesin 10 ML Q6P PRN 10/03 1630 AC 10/05 PO 1159 Heparin Sodium 13,824 UNIT BOLUS ONE 10/04 2330 DC 10/04 (Porcine) IV 10/04 233 2330 Heparin Sodium 15,000 UNIT .STK-MED ONE 10/04 2326 DC (Porcine) IV 10/04 232 Heparin Sodium 25,000 UNIT Q24H 10/01 2029 AC 10/02 (Porcine) IV 1215 Sodium Chloride 500 ML Melatonin 5 MG ONCE ONE 10/04 2099 DC 10/04 PO 10/04 Omeprazole 40 MG DAILY AC 10/02 190 AC 10/05 PO 0524 Results Pertinent Lab Results: Laboratory Tests 10/05 10/05 10/04 10/04 1225 0530 2200 1305 Chemistry Sodium (137 - 145 mmol/L) 145 Potassium (3.5 - 5.1 mmol/L) 3.8 Chloride (98 - 107 mmol/L) 102 Carbon Dioxide (22 - 30 mmol/L) 31 H Anion Gap (5 - 16) 11 BUN (7 - 17 mg/dL) 15 Creatinine (0.5 - 1.0 mg/dL) 1.1 H Estimated GFR (>60 ml/min) 49 L BUN/Creatinine Ratio (7 - 25 %) 13.6 Coagulation APTT (25 - 37 SEC) 58 H 100 H 39 H > 120 *H Hematology CBC w Diff MAN DIFF ORDERED WBC (4.8 - 10.8 /CUMM) 9.6 RBC (4.20 - 5.40 /CUMM) 4.27 Hgb (12.0 - 16.0 G/DL) 9.0 L Hct (37 - 47 %) 29.0 L MCV (81.0 - 99.0 FL) 67.9 L MCH (27.0 - 31.0 PG) 21.1 L MCHC (33.0 - 37.0 G/DL) 31.1 L RDW (11.5 - 14.5 %) 23.3 H Plt Count (130 - 400 /CUMM) 215 MPV (7.4 - 10.4 FL) 8.6 Segmented Neutrophils (42.2 - 75.2 %) 67 Lymphocytes (20.5 - 51.1 %) 24 Monocytes (1.7 - 9.3 %) 2 Eosinophils (0 - 5.0 %) 6 H Basophils (0.0 - 2.0 %) 1 Platelet Estimate (ADEQUATE) ADEQUATE Hypochromic-Microcytic 2+ Poikilocytosis 2+ Anisocytosis 2+ Microcytic Cells 2+ Stomatocytes FEW Kayli Cells RARE Elliptocytes 2+ 10/04 10/03 0430 2155 Chemistry Sodium (137 - 145 mmol/L) 143 Potassium (3.5 - 5.1 mmol/L) 4.0 Chloride (98 - 107 mmol/L) 104 Carbon Dioxide (22 - 30 mmol/L) 29 Anion Gap (5 - 16) 9 BUN (7 - 17 mg/dL) 19 H Creatinine (0.5 - 1.0 mg/dL) 1.1 H Estimated GFR (>60 ml/min) 49 L BUN/Creatinine Ratio (7 - 25 %) 17.3 Coagulation APTT (25 - 37 SEC) 52 H Hematology CBC w Diff MAN DIFF ORDERED NO MAN DIFF REQ WBC (4.8 - 10.8 /CUMM) 8.2 8.5 RBC (4.20 - 5.40 /CUMM) 4.24 4.05 L Hgb (12.0 - 16.0 G/DL) 8.8 L 8.5 L Hct (37 - 47 %) 28.9 L 27.5 L MCV (81.0 - 99.0 FL) 68.1 L 68.1 L MCH (27.0 - 31.0 PG) 20.8 L 21.0 L MCHC (33.0 - 37.0 G/DL) 30.6 L 30.8 L RDW (11.5 - 14.5 %) 23.0 H 23.4 H Plt Count (130 - 400 /CUMM) 171 213 MPV (7.4 - 10.4 FL) 9.4 10.9 H Gran % (42.2 - 75.2 %) 75.5 H Lymphocytes % (20.5 - 51.1 %) 15.2 L Monocytes % (1.7 - 9.3 %) 6.7 Eosinophils % (0 - 5 %) 2.6 Basophils % (0.0 - 2.0 %) 0 Absolute Granulocytes (1.4 - 6.5 /CUMM) 6.4 Segmented Neutrophils (42.2 - 75.2 %) 65 Absolute Lymphocytes (1.2 - 3.4 /CUMM) 1.3 Lymphocytes (20.5 - 51.1 %) 21 Monocytes (1.7 - 9.3 %) 9 Absolute Monocytes (0.10 - 0.60 /CUMM) 0.6 Eosinophils (0 - 5.0 %) 3 Absolute Eosinophils (0.0 - 0.7 /CUMM) 0.2 Basophils (0.0 - 2.0 %) 2 Absolute Basophils (0.0 - 0.2 /CUMM) 0 Nucleated RBCs (0.0 - 0.0 /100WBC) 1 H Platelet Estimate (ADEQUATE) ADEQUATE Polychromasia 1+ Ovalocytes 1+ 10/03 10/03 10/03 1845 1020 0630 Chemistry Sodium (137 - 145 mmol/L) 142 Potassium (3.5 - 5.1 mmol/L) 4.0 Chloride (98 - 107 mmol/L) 105 Carbon Dioxide (22 - 30 mmol/L) 27 Anion Gap (5 - 16) 9 BUN (7 - 17 mg/dL) 20 H Creatinine (0.5 - 1.0 mg/dL) 1.1 H Estimated GFR (>60 ml/min) 49 L BUN/Creatinine Ratio (7 - 25 %) 18.2 Coagulation APTT (25 - 37 SEC) > 120 *H 40 H Hematology CBC w Diff MAN DIFF ORDERED WBC (4.8 - 10.8 /CUMM) 6.9 RBC (4.20 - 5.40 /CUMM) 3.46 L Hgb (12.0 - 16.0 G/DL) 6.7 *L Hct (37 - 47 %) 22.2 L MCV (81.0 - 99.0 FL) 64.1 L MCH (27.0 - 31.0 PG) 19.4 L MCHC (33.0 - 37.0 G/DL) 30.3 L RDW (11.5 - 14.5 %) 19.6 H Plt Count (130 - 400 /CUMM) 196 MPV (7.4 - 10.4 FL) 8.8 Gran % (42.2 - 75.2 %) 67.5 Lymphocytes % (20.5 - 51.1 %) 20.8 Monocytes % (1.7 - 9.3 %) 8.0 Eosinophils % (0 - 5 %) 3.7 Basophils % (0.0 - 2.0 %) 0 Absolute Granulocytes (1.4 - 6.5 /CUMM) 4.6 Absolute Lymphocytes (1.2 - 3.4 /CUMM) 1.4 Absolute Monocytes (0.10 - 0.60 /CUMM) 0.5 Absolute Eosinophils (0.0 - 0.7 /CUMM) 0.3 Absolute Basophils (0.0 - 0.2 /CUMM) 0 Platelet Estimate (ADEQUATE) ADEQUATE Hypochromic-Microcytic 3+ Poikilocytosis FEW Microcytic Cells 3+ Ovalocytes 1+ Elliptocytes FEW 10/03 Coagulation APTT (25 - 37 SEC) > 120 *H Urines Urine Color (YEL,AMB,STR) STRAW Urine Clarity (CLEAR) CLEAR Urine pH (5.0 - 8.0) 6.0 Ur Specific Hazen (1.001 - 1.035) 1.010 Urine Protein (NEG,<30 MG/DL) NEG Urine Ketones (NEG) NEG Urine Nitrite (NEG) NEG Urine Bilirubin (NEG) NEG Urine Urobilinogen (0.1 - 1.0 EU/dl) 0.2 Ur Leukocyte Esterase (NEG) NEG Ur Microscopic EXAM NOT REQUIRED Urine Hemoglobin (NEG) NEG Urine Glucose (N MG/DL) NEG 10/02 Coagulation APTT (25 - 37 SEC) 38 H Hematology CBC w Diff MAN DIFF ORDERED WBC (4.8 - 10.8 /CUMM) 8.4 RBC (4.20 - 5.40 /CUMM) 3.90 L Hgb (12.0 - 16.0 G/DL) 7.5 L Hct (37 - 47 %) 25.1 L MCV (81.0 - 99.0 FL) 64.3 L MCH (27.0 - 31.0 PG) 19.2 L MCHC (33.0 - 37.0 G/DL) 29.9 L RDW (11.5 - 14.5 %) 19.7 H Plt Count (130 - 400 /CUMM) 239 MPV (7.4 - 10.4 FL) 8.8 Segmented Neutrophils (42.2 - 75.2 %) 70 Lymphocytes (20.5 - 51.1 %) 22 Monocytes (1.7 - 9.3 %) 6 Eosinophils (0 - 5.0 %) 2 Platelet Estimate (ADEQUATE) ADEQUATE Polychromasia 1+ Hypochromic-Microcytic 1+
--- NOTE | 2017-10-05 17:22 | PN- Cardiology ---
Subjective Subjective: Continues to slowly improve. Objective Vital Signs and I&Os Vital Signs Date Time Temp Pulse Resp B/P B/P Pulse O2 O2 Flow FiO2 Mean Ox Delivery Rate 10/05 1523 98.0 112 20 146/80 93 10/05 0833 91 Room Air Room Air 10/05 0800 93 Room Air Room Air 10/05 0632 98.4 145 18 124/78 94 10/05 0000 Room Air Room Air 10/04 2204 98.4 70 18 128/76 91 Intake & Output 10/05 1600 10/05 0810/05 0000 10/04 1600 10/04 0810/04 0000 Intake Total 950 309.6 73 975 250.4 346.6 Output Total 2800 400 1550 1750 1300 2450 Balance -1850 -90.4 -1477 -775 -1049.6 -2103.4 Intake, IV 200 209.6 23 225 150.4 246.6 Intake, Oral 750 100 50 750 100 100 Number 1 1 1 1 1 1 Bowel Movements Output, Urine 2800 400 1550 1750 1300 2450 Patient 406 lb 413 lb Weight Weight Bed scale Measurement Method Physical Exam: Well-developed, morbidly obese -Somali female in no acute distress. Neck: No JVD, no bruits. Lungs: Clear to auscultation. Heart: S1, S2 with grade 1/6 systolic murmur. Abdomen: Soft, nontender, positive bowel sounds. Extremities: 3+ edema with brawny induration, hyper/hypopigmentation. Current Medications: Current Medications Sig/Shara Start time Last Medication Dose Route Stop Time Status Admin Acetaminophen 650 MG Q6P PRN 10/01 2300 AC PO Albuterol Sulfate 3 ML Q4-PRN PRN 10/02 1900 AC 10/05 INH 0834 Benzocaine/Menthol 1 BRII Q2 HRS NEEDED PRN 10/02 1845 AC 10/05 PO 1658 Diltiazem HCl 120 MG DAILY 10/03 09 AC 10/05 PO 0844 Ferrous Sulfate 325 MG TID 10/02 1900 AC 10/05 PO 1525 Furosemide 80 MG DAILY 10/03 09 AC 10/05 PO 0844 Guaifenesin 10 ML Q6P PRN 10/03 1630 AC 10/05 PO 1159 Heparin Sodium 13,824 UNIT BOLUS ONE 10/04 2330 DC 10/04 (Porcine) IV 10/04 2331 2330 Heparin Sodium 15,000 UNIT .STK-MED ONE 10/04 2326 DC (Porcine) IV 10/04 232 Heparin Sodium 25,000 UNIT Q24H 10/01 2029 AC 10/02 (Porcine) IV 1215 Sodium Chloride 500 ML Melatonin 5 MG ONCE ONE 10/04 2099 DC 10/04 PO 10/04 2100 205 Omeprazole 40 MG DAILY AC 10/02 1900 AC 10/05 PO 0524 Results Last 48 Hrs of Labs/Mics: Laboratory Tests 10/05/17 1225: APTT 58 H 10/05/17 0530: Anion Gap 11, Estimated GFR 49 L, BUN/Creatinine Ratio 13.6, APTT 100 H, CBC w Diff MAN DIFF ORDERED, RBC 4.27, MCV 67.9 L, MCH 21.1 L, MCHC 31.1 L, RDW 23.3 H, MPV 8.6, Segmented Neutrophils 67, Lymphocytes 24, Monocytes 2, Eosinophils 6 H, Basophils 1, Platelet Estimate ADEQUATE, Hypochromic- Microcytic 2+, Poikilocytosis 2+, Anisocytosis 2+, Microcytic Cells 2+, Stomatocytes FEW, Kayli Cells RARE, Elliptocytes 2+ 10/04/17 2200: APTT 39 H 10/04/17 1305: APTT > 120 *H 10/04/17 0430: Anion Gap 9, Estimated GFR 49 L, BUN/Creatinine Ratio 17.3, APTT 52 H, CBC w Diff MAN DIFF ORDERED, RBC 4.24, MCV 68.1 L, MCH 20.8 L, MCHC 30.6 L, RDW 23.0 H, MPV 9.4, Segmented Neutrophils 65, Lymphocytes 21, Monocytes 9, Eosinophils 3, Basophils 2, Nucleated RBCs 1 H, Platelet Estimate ADEQUATE, Polychromasia 1+, Ovalocytes 1+ 10/03/17 2155: CBC w Diff NO MAN DIFF REQ, RBC 4.05 L, MCV 68.1 L, MCH 21.0 L, MCHC 30.8 L, RDW 23.4 H, MPV 10.9 H, Gran % 75.5 H, Lymphocytes % 15.2 L, Monocytes % 6.7 , Eosinophils % 2.6, Basophils % 0, Absolute Granulocytes 6.4, Absolute Lymphocytes 1.3, Absolute Monocytes 0.6, Absolute Eosinophils 0.2, Absolute Basophils 0 10/03/17 1845: APTT > 120 *H Assessment/Plan Assessment/Plan [id number] w/ hx of obesity morbid obesity, pulmonary HTN, chronic bilateral LE edema with venous insufficiently and stasis changes, asthma, HTN, LVH, previous HFrEF (EF 40-45%), MR with mild LA dilatation who presented to the ED for worsening SLB and LE edema and was discovered to be in AF w/RVR and to have AUGUSTO, anemia, requiring transfusion, etc. She continues to have PAF is on IV heparin and has been cleared for oral anticoagulation. Recommendations: * Continue on telemetry. * Maintain hemoglobin at or above 8.0 g/dl. * Can start on oral anticoagulation as per GI. * Continued by mouth diltiazem and consider increasing dosage, as still in the low 100s during paroxysms of AF. Rate in sinus rhythm in the 60-70 bpm range. * Continue all conservative measures for control of lower extremity edema including leg elevation, sodium restriction, etc. * Might benefit from outpatient vascular surgery evaluation for consideration of possible venous closure procedures Continue telemetry? Yes
[2017-10-05 22:08] VITALS: BP 142/88
[2017-10-05 22:14] LABS: PTT 72 SEC (25-37)
[2017-10-06 06:49] VITALS: BP 116/64
--- NOTE | 2017-10-06 07:21 | PN- Housestaff ---
Rebekah Rm 10/06/17 0720: Subjective Follow-up For: New onset a fib with RVR, Acute on chr HFpEF, Iron defi Anemia s/p 2PRBCs, Guaiac pos stool Complaints: no complaints Tele-Events Since Last Visit: NSR, some events of 1st degree AV block, a flutter, PVCs(bigeminy). HR ranged from 70-135 overnight Review of Systems Constitutional: Reports: see HPI. Objective Last 24 Hrs of Vital Signs/I&O Vital Signs Date Time Temp Pulse Resp B/P B/P Pulse O2 O2 Flow FiO2 Mean Ox Delivery Rate 10/07 2207 98.4 51 22 110/72 96 Room Air 10/06 2118 99 Room Air Room Air 10/06 2044 130 138/70 10/06 1600 Room Air 10/06 1433 97.8 61 22 130/78 97 Room Air 10/06 1009 150 116/80 10/06 0800 Room Air 10/06 0649 97.9 125 22 116/64 91 10/06 0215 96 Room Air Intake & Output 10/06 1600 10/06 0800 10/06 0000 Intake Total 800 329.6 104.8 Output Total 1550 1100 700 Balance -750 -770.4 -595.2 Intake, IV 209.6 104.8 Intake, Oral 800 120 Number 1 Bowel Movements Output, Urine 1550 1100 700 Patient 403 lb 403 lb Weight Physical Exam General Appearance: Alert, Oriented X3, Cooperative, No Acute Distress Skin: dry scabs on b/l l/l Skin Temp/Moisture Exam: Cool/Dry Sepsis Skin Exam (color): Normal for Ethnicity HEENT: Atraumatic Neck: Supple Cardiovascular: Regular Rate, Normal S1, Normal S2, No Murmurs Lungs: Clear to Auscultation, Normal Air Movement Assessment/Plan Assessment: Patient is a 71-year-old morbidly obese female with past medical history of chronic lower extremity venous stasis, asthma, hypertension, and systolic CHF was sent here by her PCP for bilateral lower extremity swelling, nonproductive cough, and shortness of breath. She was on a course of antibiotics Augmentin for 10 days starting on September 12 by PCP for bilateral lower extremity swelling. This did not improve patient's condition. She is on Lasix 80 mg daily. Patient had new onset atrial fibrillation in the emergency room for which Cardizem was administered and improved her heart rate and shortness of breath. Vital signs: afebrile, on RA. HR was in [id number] today. Problem list: * Guaiac + stool * New onset rapid A. fib-cardizem po started * Acute on chronic heart failure with preserved ejection fraction * Microcytic iron deficiency anemia-resolved status post 2 units * AUGUSTO upon CKD stage III, GFR 30-59 mL/minute * Morbid obesity Plan: * Status post 2 units PRBC transfusion. Hemoglobin trended up from 6.7-9.0. Stable over the past three days after the tranfusion * Continue monitoring patient in the telemetry unit, patient has been in and out from sinus bradycardia to increased rates up to 140s-150s. * Cardizem dose increased to 240 mg. Metoprolol 5 mg IV to be repeated until heart rate is less than 110. Once this is achieved she will be started on oral metoprolol and oral Cardizem. * Continue IV heparin. Hold tonight prior to colonoscopy tomorrow. Decision about oral anticoagulant will be determined following her colonoscopy. * She will be NPO and will complete her bowel prep * Continue diuresis with oral Lasix 80 mg. Monitor ins and outs daily weights. * For the low iron level and TIBC, we will recommend iron supplementation upon discharge CODE STATUS: DNR/DNI DVT prophylaxis: IV heparin Diet: Heart healthy diet Problem List: 1. Guaiac + stool 2. Acute on chronic diastolic CHF (congestive heart failure) 3. Anemia 4. AUGUSTO (acute kidney injury) 5. Asthma 6. New onset a-fib Pain Ratin Pain Location: none Pain Goal: Remain pain free Pain Plan: n/a Tomorrow's Labs & Rationales: jorge Ortiz MD,Avinash 10/06/17 1203: Attending MD Review Statement Attending Statement Attending MD Statement: examined this patient, discuss w/resident/PA/SPORTS PHYSIOLOGIST, agreed w/resident/PA/SPORTS PHYSIOLOGIST, reviewed EMR data (avail), discussed with nursing, discussed with case mgmt, amended to note Attending Assessment/Plan: Patient seen and examined. Resting comfortably not in any acute distress. She remains in atrial fibrillation with rapid ventricular response. Heart rate is in the 140s this morning at rest. She denies chest pain or shortness of breath. She denies any palpitations. She denies any bright red blood per rectum but continues to be guaiac positive. She is scheduled to undergo colonoscopy tomorrow. Hemoglobin level has remained stable since transfusion 3 days ago. Recommendations: -Cardizem dose was increased yesterday. A dose of metoprolol 5 mg IV has been recommended by the cardiology service to be repeated until heart rate is less than 110. Once this is achieved she will be started on oral metoprolol and oral Cardizem. -Continue IV heparin. Hold prior to colonoscopy. Decision about oral anticoagulant will be determined following her colonoscopy. -Patient has low iron level and TIBC. Will recommend iron supplementation upon discharge
[2017-10-06 07:51] LABS: HEMATOCRIT 30.1 % (37-47); MEAN CORPUSCULAR HGB CONC 30.8 G/DL (33.0-37.0); MEAN CORPUSCULAR VOLUME 68.3 FL (81.0-99.0); MEAN PLATELET VOLUME 8.7 FL (7.4-10.4); PLATELET COUNT 216 /CUMM (130-400); RBC DISTRIBUTION WIDTH 23.9 % (11.5-14.5); RED BLOOD CELL CT 4.41 /CUMM (4.20-5.40); WHITE BLOOD CELL COUNT 9.2 /CUMM (4.8-10.8)
--- NOTE | 2017-10-06 09:44 | PN- Cardiology ---
Subjective Subjective: The patient's notes the patient's notes a sensation of racing heart. No chest pain. No palpitations. No diaphoresis. No nausea or vomiting. No lightheadedness or dizziness. Objective Vital Signs and I&Os Vital Signs Date Time Temp Pulse Resp B/P B/P Pulse O2 O2 Flow FiO2 Mean Ox Delivery Rate 10/06 0649 97.9 125 22 116/64 91 10/06 0215 96 Room Air 10/05 2208 97.7 114 26 142/88 90 10/05 1600 94 Room Air 10/05 1523 98.0 112 20 146/80 93 Intake & Output 10/06 1600 10/06 0800 10/06 0000 10/05 1600 10/05 0800 10/05 0000 Intake Total 329.6 104.8 950 309.6 73 Output Total 700 2800 400 1550 Balance 329.6 -595.2 -1850 -90.4 -1477 Intake, IV 209.6 104.8 200 209.6 23 Intake, Oral 120 750 100 50 Number 1 1 1 Bowel Movements Output, Urine 700 2800 400 1550 Patient 403 lb 406 lb Weight Physical Exam: Gen: NAD HEENT: normal Lungs: clear to auscultation, normal resp. effort Heart: irreg irreg, S1, S2, no murmurs Abdomen: Soft, nontender, no masses Extremities: No clubbing, cyanosis, or edema. Neuro: Alert and oriented x 3, cranial nerves intact Current Medications: Current Medications Sig/Shara Start time Last Medication Dose Route Stop Time Status Admin Acetaminophen 650 MG Q6P PRN 10/01 2300 AC PO Albuterol Sulfate 3 ML Q4-PRN PRN 10/02 190 10/06 INH 0214 Benzocaine/Menthol 1 BRII Q2 HRS NEEDED PRN 10/02 1845 AC 10/06 PO 0755 Diltiazem HCl 240 MG DAILY 10/06 09 AC 10/06 PO 0755 Diltiazem HCl 120 MG DAILY 10/03 09 DC 10/05 PO 0844 Ferrous Sulfate 325 MG TID 10/02 190 DC 10/05 PO 1525 Furosemide 80 MG DAILY 10/03 09 AC 10/06 PO 0754 Guaifenesin 10 ML .STK-MED ONE 10/05 1158 DC PO 10/05 1159 Guaifenesin 10 ML Q6P PRN 10/03 1630 AC 10/05 PO 1159 Heparin Sodium 25,000 UNIT Q24H 10/01 2030 AC 10/05 (Porcine) IV 2004 Sodium Chloride 500 ML Omeprazole 40 MG DAILY AC 10/02 1900 AC 10/06 PO 0526 Polyethylene Glycol 0.5 GAL 1600 10/06 1600 AC PO 10/07 1559 Polyethylene Glycol 1 GAL ONE TIME ONE 10/06 0815 DC PO 10/07 0816 Polyethylene Glycol 1 GAL ONCE ONE 10/06 0730 CAN PO 10/06 0731 Results Last 48 Hrs of Labs/Mics: Laboratory Tests 10/06/17 0647: Anion Gap 10, Estimated GFR 45 L, BUN/Creatinine Ratio 11.7, Magnesium 2.0, CBC w Diff MAN DIFF ORDERED, RBC 4.41, MCV 68.3 L, MCH 21.0 L, MCHC 30.8 L, RDW 23.9 H, MPV 8.7, Segmented Neutrophils 69, Lymphocytes 19 L, Monocytes 9, Eosinophils 2, Basophils 1, Platelet Estimate VERIFIED BY SMEAR, Polychromasia 1 +, Hypochromic-Microcytic 2+, Poikilocytosis 1+, Anisocytosis 1+, Microcytic Cells 2+, Ovalocytes 1+ 10/05/17 2100: APTT 72 H 10/05/17 1225: APTT 58 H 10/05/17 0530: Anion Gap 11, Estimated GFR 49 L, BUN/Creatinine Ratio 13.6, APTT 100 H, CBC w Diff MAN DIFF ORDERED, RBC 4.27, MCV 67.9 L, MCH 21.1 L, MCHC 31.1 L, RDW 23.3 H, MPV 8.6, Segmented Neutrophils 67, Lymphocytes 24, Monocytes 2, Eosinophils 6 H, Basophils 1, Platelet Estimate ADEQUATE, Hypochromic- Microcytic 2+, Poikilocytosis 2+, Anisocytosis 2+, Microcytic Cells 2+, Stomatocytes FEW, Kayli Cells RARE, Elliptocytes 2+ 10/04/17 2200: APTT 39 H 10/04/17 1305: APTT > 120 *H Assessment/Plan Assessment/Plan Assessment: 1. New atrial fibrillation of unclear duration, rate uncontrolled 2. Acute on chronic HFpEF 3. Morbid obesity 4. Worsening chronic lower extremity edema with stasis changes 5. Microcytic anemia 6. Acute renal failure Plan: * Given the uncontrolled ventricular rate, I recommend starting metoprolol. Would give 5 mg IV 1, and repeat as needed until rate is less than 110. Once rate is under control, would start oral metoprolol. Continue oral diltiazem. * Continue IV heparin * Hold oral anticoagulation until cleared by GI Continue telemetry? Yes
[2017-10-06 11:01] LABS: PTT 83 SEC (25-37)
--- NOTE | 2017-10-06 13:10 | Patient Discharge Instructions ---
Discharge Instructions General Discharge Information You were seen/treated for: New onset atrial fibrillation, worsening of lower limb edema, acute on chronic heart failure with preserved ejection fraction, microcytic anemia, acute renal failure on top of chronic renal failure Special Instructions: Please visit your nearest emergency department if you have any of these: Chest pain, shortness of breath, racing of the heart, fever, chills, worsening lower limb pain, wounds on lower limbs please follow up with Dr. Lazar within a week of discharge. your elvie will be removed 10-14 days after surgery (10/10/2017) Diet Recommended Diet: Heart Healthy Activity Activity Self Limited: Yes Acute Coronary Syndrome Inclusion Criteria At DC or during hospital stay patient has or had the following: ACS DIAGNOSIS No Discharge Core Measures Meds if any: Prescribed or Continued at Discharge Meds if any: NOT Prescribed or Continued at Discharge Congestive Heart Failure Inclusion Criteria At DC or during hospital stay patient has or had the following: CHF DIAGNOSIS No Discharge Core Measures Meds if any: Prescribed or Continued at Discharge Meds if any: NOT Prescribed or Continued at Discharge Cerebrovascular accident Inclusion Criteria At DC or during hospital stay patient has or had the following: CVA/TIA Diagnosis No Discharge Core Measures Meds if any: Prescribed or Continued at Discharge Meds if any: NOT Prescribed or Continued at Discharge Venous thromboembolism Inclusion Criteria VTE Diagnosis No VTE Type NONE VTE Confirmed by (Test) NONE Discharge Core Measures - Per Current guidelines, there needs to be overlap - treatment for the first 5 days of Warfarin therapy. - If discharged on Warfarin prior to 5 days of - overlap therapy, the patient will need to be - assessed for post discharge needs including - *Post discharge parental anticoagulation - *Warfarin and/or parental anticoagulation education - *Follow up date to check INR post discharge At least 5 days overlap therapy as Inpatient No Meds if any: Prescribed or Continued at Discharge Note: Overlap Therapy is Warfarin and Anticoagulant Meds if any: NOT Prescribed or Continued at Discharge
[2017-10-06 14:33] VITALS: BP 130/78
[2017-10-06 22:08] VITALS: BP 110/72
[2017-10-06 23:10] LABS: PTT 75 SEC (25-37)
[2017-10-07 06:33] VITALS: BP 124/66
[2017-10-07 07:44] LABS: MEAN CORPUSCULAR HGB 21.1 PG (27.0-31.0); MEAN CORPUSCULAR HGB CONC 30.9 G/DL (33.0-37.0); MEAN CORPUSCULAR VOLUME 68.3 FL (81.0-99.0); MEAN PLATELET VOLUME 8.6 FL (7.4-10.4); PLATELET COUNT 183 /CUMM (130-400); RED BLOOD CELL CT 3.95 /CUMM (4.20-5.40); WHITE BLOOD CELL COUNT 7.9 /CUMM (4.8-10.8)
--- NOTE | 2017-10-07 07:45 | PN- Housestaff ---
Rebekah Rm 10/07/17 0745: Subjective Follow-up For: New onset Afib with RVR, Acute on chronic CHF, chronic microcytic Anemia s/p 2 pRBCs, Pos hemoccult stool Complaints: no complaints Tele-Events Since Last Visit: NSR and: ST (HR going upto 150s at 12 midnight and 130s this morning), A fib, 1st degree AV block, PVCs (Bigeminy) Subjective: Complains of a rt wrist pain and swelling from a removed IV line- we gave her cold compresses. She is NPO and is completing her bowel prep for the colonoscopy this morning. No other complaints/no acute events Review of Systems Constitutional: Reports: see HPI. Objective Last 24 Hrs of Vital Signs/I&O Vital Signs Date Time Temp Pulse Resp B/P B/P Pulse O2 O2 Flow FiO2 Mean Ox Delivery Rate 10/07 2242 97.8 121 16 116/68 96 10/07 2035 112 118/64 10/07 2023 Room Air 10/07 1827 96 Room Air Room Air 10/07 1600 Room Air 10/07 1546 98.6 120 18 110/64 94 10/07 1418 98.2 61 20 120/80 95 Room Air 10/07 1229 124 108/80 10/07 1036 128 140/84 10/07 0803 146 10/07 0800 97 Room Air Room Air 10/07 0633 97.7 114 20 124/66 97 Room Air Intake & Output 10/07 1600 10/07 0800 10/07 0000 Intake Total 750 183.4 1200 Output Total 675 1075 Balance 75 -891.6 1200 Intake, IV 183.4 Intake, Oral 750 1200 Output, Urine 675 1075 Patient 403 lb Weight Weight Bed scale Measurement Method Physical Exam General Appearance: Alert, Oriented X3, Cooperative, No Acute Distress Skin: No Rashes Skin Temp/Moisture Exam: Cool/Dry Sepsis Skin Exam (color): Normal for Ethnicity HEENT: Atraumatic Neck: Supple Cardiovascular: Regular Rate, Normal S1, Normal S2, No Murmurs Lungs: Clear to Auscultation, Normal Air Movement Abdomen: Normal Bowel Sounds, Soft, No Tenderness Neurological: Normal Gait, Normal Speech, Strength at 5/5 X4 Ext, Normal Tone, Sensation Intact Extremities: No Clubbing, No Cyanosis, chronic venous stasis and chronic B/L L/L edema Assessment/Plan Assessment: Patient is a 71-year-old morbidly obese female with past medical history of chronic lower extremity venous stasis, asthma, hypertension, and systolic CHF who was sent here by her PCP for bilateral lower extremity swelling, nonproductive cough, and shortness of breath. She was on a course of antibiotics Augmentin for 10 days starting on September 12 by PCP for bilateral lower extremity swelling (cellulitis?). This did not improve the patient's condition. Vital signs: afebrile, on RA. HR was in the 130s-150s today. Problem list: * Guaiac + stool * New onset rapid A. fib * Acute on chronic heart failure with ejection fraction 40-45% * Microcytic iron deficiency anemia-resolved status post 2 units PRBCS * AUGUSTO upon CKD stage III, GFR 30-59 mL/minute * Morbid obesity: BMI 68.7 Plan: * She is NPO today awaiting colonoscopy * IV heparin is held prior to colonoscopy this morning. It will be restarted after the colonoscopy. Decision about oral anticoagulant will be determined following her colonoscopy. * Pt still goes into episodes of A fib with increased HR. Gareth. Cardizem 240 mg po. Metoprolol 5 mg IV to be repeated until heart rate is less than 110. Start metoprolol po 50mg BID. * Continue diuresis with oral Lasix 80 mg. Monitor ins and outs daily weights. * Hemoglobin is stable over the past three days after the tranfusion * For the low iron level and TIBC, we will recommend iron supplementation upon discharge * Colonoscopy was done in the afternoon: Impression: Colon CA at the hepatic flexure. Ct abd and pelvis ordered to stage. Surgery consult has been placed for their expert opinion on how to proceed further. CODE STATUS: DNR/DNI DVT prophylaxis: IV heparin Diet: Heart healthy diet Problem List: 1. Acute on chronic diastolic CHF (congestive heart failure) 2. Guaiac + stool 3. Anemia 4. Afib 5. Asthma 6. Mass of hepatic flexure of colon Pain Ratin Pain Location: none Pain Goal: Remain pain free Pain Plan: follow pain pathway Tomorrow's Labs & Rationales: jorge Ortiz MD,Avinash 10/07/17 1133: Attending MD Review Statement Attending Statement Attending MD Statement: examined this patient, discuss w/resident/PA/NA[employer]Y FIGHTER PILOT, agreed w/resident/PA/NAVY FIGHTER PILOT, reviewed EMR data (avail), discussed with nursing, discussed with case mgmt, amended to note Attending Assessment/Plan: Patient seen and examined. Resting comfortably not in any acute distress. No issues overnight reported by nursing staff. She remains in atrial relation with episodes of rapid ventricular response. She required a dose of IV metoprolol yesterday and overnight. We have started her on metoprolol orally today in addition to her Cardizem. Denies any bright red blood per rectum. She is hemodynamically stable. She has a mild downward trend the hemoglobin levels this morning. She complains of mild swelling and tenderness on the right wrist. On examination there is mild soft tissue swelling over the right wrist. Mildly tender to touch. No open areas. No surrounding erythema. Likely mild superficial phlebitis. Recommend cool compress and reevaluation. Problems: 1. New-onset atrial fibrillation 2. Acute blood loss anemia secondary to gastrointestinal bleeding 3. Acute on chronic respiratory failure 4. Acute kidney injury; resolved 5. Acute on chronic heart failure with reduced ejection fraction Plan: -Patient remains in atrial fibrillation with episodes of rapid ventricular response. Continue oral Cardizem. Metoprolol has been added to her regimen today. We will continue to optimize rate control following colonoscopy today. -She is scheduled for colonoscopy today for further evaluation of etiology of her GI bleeding. Heparin is currently on hold. -Repeat CBC in a.m. -Follow-up with the gastroenterology service postprocedure today regarding long- term anticoagulant therapy. -Continue diuresis with Lasix 80 mg daily.
--- NOTE | 2017-10-07 12:01 | PN- Cardiology ---
Subjective Subjective: Feeling well. No cardiac complaints. No chest pain. No shortness of breath. No diaphoresis. No palpitations. No lightheadedness or dizziness. No nausea or vomiting. The patient continues to be intermittently in atrial fibrillation. Ventricular rate is not yet fully controlled. Objective Vital Signs and I&Os Vital Signs Date Time Temp Pulse Resp B/P B/P Pulse O2 O2 Flow FiO2 Mean Ox Delivery Rate 10/07 1036 128 140/84 10/07 0803 146 10/07 0633 97.7 114 20 124/66 97 Room Air 10/06 2208 98.4 51 22 110/72 96 Room Air 10/06 2118 99 Room Air Room Air 10/06 2044 130 138/70 10/06 1600 Room Air 10/06 1433 97.8 61 22 130/78 97 Room Air Intake & Output 10/07 1600 10/07 0800 10/07 0000 10/06 1600 10/06 0800 10/06 0000 Intake Total 183.4 1200 800 329.6 104.8 Output Total 1000 1550 1100 700 Balance -816.6 1200 -750 -770.4 -595.2 Intake, IV 183.4 209.6 104.8 Intake, Oral 1200 800 120 Number 1 Bowel Movements Output, Urine 1000 1550 1100 700 Patient 403 lb 403 lb 403 lb Weight Weight Bed scale Measurement Method Physical Exam: Gen: NAD HEENT: normal Lungs: clear to auscultation, normal resp. effort Heart: irreg irreg, S1, S2, no murmurs Abdomen: Soft, nontender, no masses Extremities: No clubbing, cyanosis, or edema. Neuro: Alert and oriented x 3, cranial nerves intact Current Medications: Current Medications Sig/Shara Start time Last Medication Dose Route Stop Time Status Admin Acetaminophen 650 MG Q6P PRN 10/01 2300 AC PO Albuterol Sulfate 3 ML Q4-PRN PRN 10/02 1900 AC 10/06 INH 2118 Benzocaine/Menthol 1 BRII Q2 HRS NEEDED PRN 10/02 1845 AC 10/06 PO 1422 Diltiazem HCl 240 MG DAILY 10/06 09 AC 10/07 PO 0909 Furosemide 80 MG DAILY 10/03 09 AC 10/06 PO 0754 Guaifenesin 10 ML .STK-MED ONE 10/06 2140 NH PO 10/06 2141 Guaifenesin 10 ML Q6P PRN 10/03 1630 AC 10/06 PO 2143 Guaifenesin/Codeine 10 ML ONCE ONE 10/06 2045 DC Phosphate PO 10/06 204 Heparin Sodium 25,000 UNIT Q24H 10/01 2030 DC 10/06 (Porcine) IV 10/07 0600 1646 Sodium Chloride 500 ML Metoprolol Tartrate 25 MG BID 10/07 0900 AC 10/07 PO 1036 Metoprolol Tartrate 5 MG ONCE ONE 10/07 0800 DC 10/07 IV 10/07 0801 0803 Metoprolol Tartrate 5 MG ONCE ONE 10/06 1900 DC 10/06 IV 10/06 1901 2044 Omeprazole 40 MG DAILY AC 10/02 1900 AC 10/06 PO 0526 Polyethylene Glycol 0.5 GAL 0700 10/07 0700 DC 10/07 PO 10/07 0701 0648 Polyethylene Glycol 0.5 GAL 1600 10/06 1600 AC 10/06 PO 10/07 1559 1645 Results Last 48 Hrs of Labs/Mics: Laboratory Tests 10/07/17 0627: CBC w Diff MAN DIFF ORDERED, RBC 3.95 L, MCV 68.3 L, MCH 21.1 L, MCHC 30.9 L , RDW 26.0 H, MPV 8.6, Segmented Neutrophils 76 H, Lymphocytes 14 L, Monocytes 5, Eosinophils 5, Platelet Estimate VERIFIED BY SMEAR, Hypochromic- Microcytic 2+, Poikilocytosis 1+, Anisocytosis 1+, Microcytic Cells 2+ 10/06/17 2200: APTT 75 H 10/06/17 1020: APTT 83 H 10/06/17 0647: Anion Gap 10, Estimated GFR 45 L, BUN/Creatinine Ratio 11.7, Magnesium 2.0, CBC w Diff MAN DIFF ORDERED, RBC 4.41, MCV 68.3 L, MCH 21.0 L, MCHC 30.8 L, RDW 23.9 H, MPV 8.7, Segmented Neutrophils 69, Lymphocytes 19 L, Monocytes 9, Eosinophils 2, Basophils 1, Platelet Estimate VERIFIED BY SMEAR, Polychromasia 1 +, Hypochromic-Microcytic 2+, Poikilocytosis 1+, Anisocytosis 1+, Microcytic Cells 2+, Ovalocytes 1+ 10/05/17 2100: APTT 72 H 10/05/17 1225: APTT 58 H Assessment/Plan Assessment/Plan Assessment: 1. New atrial fibrillation of unclear duration, rate uncontrolled 2. Acute on chronic HFpEF 3. Morbid obesity 4. Worsening chronic lower extremity edema with stasis changes 5. Microcytic anemia 6. Acute renal failure Plan: * Increase metoprolol to 50 mg p.o. twice daily for additional rate control. Give additional doses of IV metoprolol as needed. If ventricular rate remains uncontrolled, metoprolol dose may be increased to 100 mg twice daily * Continue oral diltiazem * Continue IV heparin, and transfer to [facility] once cleared by GI Continue telemetry? Yes
[2017-10-07 14:18] VITALS: BP 120/80
--- NOTE | 2017-10-07 15:29 | Proc Note Endoscopy ---
Endoscopy Procedure Procedure Date: 10/07/17 Procedure Type: EGD w/biopsy (preceding colonoscopy) [employer] Shoe Examiner: Martin Kitcehn M.D. ASA Classification: IV Indications: Iron deficiency anemia Hemoccult-positive stool Instrument: diagnostic gastroscope Meds Received: MAC (super nova nasal mask) Patient's Tolerance: good Complications: none Extent Reached: third part of duodenum Procedure: The patient signed informed consent for EGD and colonoscopy, and was medicated. Lidocaine pharyngeal spray was administered. Pulse oximetry, blood pressure and cardiac monitoring were performed continuously throughout the procedure. The Olympus high-definition gastroscope was inserted into the mouth and advanced to the duodenum. Retroflexion was performed within the stomach to examine the cardia. Careful examination was performed. Findings: The esophagus had normal caliber and contour. There were no varices. The mucosa was normal throughout. The GE junction at 40 cm was normal. There was no hiatal hernia. The stomach had normal distention and active peristalsis. The cardia was normal. The mucosa and folds were normal throughout except for several prepyloric erosions and erythematous foci. Several antral biopsies were obtained. The pyloric channel was normal. The duodenal bulb was normal. The mucosa and folds of the second and third portions of the duodenum were normal, and 4 biopsies were obtained from this area. Impression: * Antral erosions * No gross enteropathy; biopsies obtained Recommendations: * Await pathology * Immediately following this EGD the patient underwent colonoscopy. See report. CC: Karlie BARBER,Alphonso Almazan; Eva BARBER,Octaviano
--- NOTE | 2017-10-07 15:32 | Proc Note Colonoscopy ---
Colonoscopy Procedure Procedure Date: 10/07/17 Procedure Type: colonoscopy w/biopsy (following EGD) [employer] Manager: Martin Kitchen M.D. ASA Classification: IV Indications: Iron deficiency anemia Hemoccult-positive stool Instrument (Colonoscope): single channel Meds Received: MAC (super nova nasal mask) Patient's Tolerance: good Complications: none Extent Reached: cecum Prep: good Procedure: Following the initial EGD, the patient was placed in the Worley position, and medicated. Examination of the rectum was normal. The Olympus high-definition variable stiffness colonoscope was inserted through the anus and advanced to the cecum, identified by the appendiceal orifice and ileocecal valve. Retroflexion was performed in order to examine the rectum and ascending colon. Careful examination was performed. There was adequate withdrawal time. Findings: The rectum was normal. There was diverticulosis extending from sigmoid to transverse colon. At the hepatic flexure was a circumferential tumor, firm, with foci of ulceration. Multiple biopsies were obtained. Spot pigment was then injected in 4 quadrants distal to the lesion. The proximal ascending colon and cecum were normal. Impression: * Carcinoma at the hepatic flexure Recommendations: * Await confirmatory pathology * Staging CT scan of the abdomen and pelvis * Surgery consultation * Careful re-anticoagulation with IV heparin CC: Karlie BARBER,Alphonso Almazan; Eva BARBER,Octaviano
[2017-10-07 15:46] VITALS: BP 110/64
--- NOTE | 2017-10-07 19:03 | Cons- General Surgery ---
General Information and HPI Consulting Request Date of Consult: 10/07/17 Requested By: Angel BARBER,Avinash History of Present Illness: to be completed CC: Reason for consultation is colon tumor HPI: 71-year-old nonsmoker nondiabetic with a history of anemia, CHF and chronic lower extremity swelling which is why she was sent to the ER by her primary was also noted to be relatively short of breath more anemic and new-onset rapid A. fib, started on IV anticoagulation, she was transfused and it was felt it may be related to her GI tract colonoscopy was done today and a tumor at the hepatic flexure was found. Patient denies any abdominal pain bloating bleeding per rectum weight loss her sister had polyps but there is no family history of colon cancer, she's had a colonoscopy but many years ago, she also recalls being noted to be anemic in the past but was unable to proceed with the workup because of insurance issues. Presently she is comfortable post procedure denies any chest pain shortness of breath or nausea. She has had prior abdominal surgery and open cholecystectomy in the distant past and more recently an umbilical hernia repaired emergently primarily no mesh... I've reviewed the [facility]. No history of GERD, PUD, bleeding problems, heart disease or issues with anesthesia. CHF Afib anemia prob caused / exacerbated by this colon lesion Need to discuss timing with cardiology Allergies/Medications Allergies: Coded Allergies: NO KNOWN ALLERGIES (05/17/15) Home Med List: Albuterol Sulfate (Proair Hfa) 90 MCG HFA.AER.AD 2 PUF INH AD PRN ASTHMA ( Reported) Albuterol Sulfate 2.5 MG/3 ML (0.083 %) VIAL.NEB 1 Vial INH/WESLEY AD PRN ASTHMA (Reported) Amlodipine Besylate/Benazepril (Amlodipine-Benazepril 10-40 MG) 10 MG-40 MG CAPSULE 1 CAP PO DAILY BP (Reported) Budesonide/Formoterol Fumarate (Symbicort 160-4.5 Mcg Inhaler) 160 MCG-4.5 MCG/ ACTUATION HFA.AER.AD 2 PUF INH BID ASTHMA (Reported) Cholecalciferol (Vitamin D3) (Vitamin D) 2,000 UNIT CAPSULE 1 CAP PO DAILY supplement (Reported) Ferrous Sulfate 325 MG (65 MG IRON) TABLET 1 TAB PO TID anemia (Reported) Furosemide 80 MG TABLET 1 TAB PO DAILY DIURETIC (Reported) Montelukast Sodium 10 MG TABLET 1 TAB PO DAILY ASTHMA (Reported) Triamcinolone Acetonide 0.1 % OINT...G. 1 FARA TOP BID BOTH LEGS (Reported) apply to affected area(s) Current Medications: I rev Current Medications Sig/Shara Start time Last Medication Dose Route Stop Time Status Admin Acetaminophen 650 MG Q6P PRN 10/01 2300 AC PO Albuterol Sulfate 3 ML Q4-PRN PRN 10/02 1900 AC 10/06 INH 2118 Benzocaine/Menthol 1 BRII Q2 HRS NEEDED PRN 10/02 1845 AC 10/07 PO 1602 Chlorhexidine 1 GM .STK-MED ONE 10/07 1503 DC Gluconate TOP 10/07 1504 Diltiazem HCl 240 MG DAILY 10/06 0900 AC 10/07 PO 0909 Furosemide 80 MG DAILY 10/03 0900 AC 10/07 PO 1659 Guaifenesin 10 ML .STK-MED ONE 10/06 2141 DC PO 10/06 2142 Guaifenesin 10 ML Q6P PRN 10/03 1630 AC 10/06 PO 2143 Guaifenesin/Codeine 10 ML ONCE ONE 10/06 2045 DC Phosphate PO 10/06 2046 Heparin Sodium 25,000 UNIT Q24H 10/07 1500 AC 10/07 (Porcine) IV 1603 Sodium Chloride 500 ML Heparin Sodium 25,000 UNIT Q24H 10/01 2030 DC 10/06 (Porcine) IV 10/07 0600 1646 Sodium Chloride 500 ML Lidocaine 50 ML .STK-MED ONE 10/07 1503 DC TOP 10/07 1504 Lidocaine 2 FARA .STK-MED ONE 10/07 1503 DC TOP 10/07 1504 Metoprolol Tartrate 50 MG BID 10/07 2100 AC PO Metoprolol Tartrate 25 MG ONCE ONE 10/07 1215 CAN PO 10/07 1216 Metoprolol Tartrate 5 MG ONCE ONE 10/07 1215 DC 10/07 IV 10/07 1216 1229 Metoprolol Tartrate 25 MG BID 10/07 0900 DC 10/07 PO 1036 Metoprolol Tartrate 5 MG ONCE ONE 10/07 0800 DC 10/07 IV 10/07 0801 0803 Omeprazole 40 MG DAILY AC 10/02 1900 AC 10/06 PO 0526 Polyethylene Glycol 0.5 GAL 0700 10/07 0700 DC 10/07 PO 10/07 0701 0648 Polyethylene Glycol 0.5 GAL 1600 10/06 1600 DC 10/06 PO 10/07 1559 1645 Past History Medical History Blood Transfusion Hx: No Neurological: NONE EENT: NONE Cardiovascular: CHF, hypertension Respiratory: asthma Gastrointestinal: NONE Hepatic: NONE Renal: chronic kidney disease (baseline GFR 40's) Musculoskeletal: gout, B/L KNEE REPLACEMENT Psychiatric: NONE Endocrine: obesity Blood Disorders: anemia (microcytic x yrs) Cancer(s): NONE [employer]/Reproductive: NONE Surgical History Pertinent Surgical History: cholecystectomy, hernia repair-umbilical, knee replacement (BILATERAL), tubal ligation Family History Relations & Conditions If Any: MOTHER, , Age 70; Cause: Myocardial infarct. FH: CHF (congestive heart failure) FATHER, , Age 70; Cause: Myocardial infarct. SISTER (smoker). , Age 60+; Cause: Lung cancer. MATERNAL AUNT, , Age 40-50; Cause: Breast CA. FEMALE 1ST COUSIN (sickle cell disease). Relation not specified for: sickle cell anemia Psychosocial History Where Do You Live? Home Who Do You Live With? child Services at Home: None Primary Language: [place] Smoking Status: Former Smoker ETOH Use: denies use Illicit Drug Use: denies illicit drug use Living Will? no Power of Judge/HCP? no Other Social History: . 4 biologic kids- [employer]. 2 adopted kids. No cigarettes, EtOH, or illicit drugs. 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 Functional Ability ADLs Independent: dressing, eating, toileting, bathing. Ambulation: independent IADLs Independent: shopping, housework, finances, food prep, telephone, transportation , medication admin. 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 Review of Systems Review of Systems: Constitutional: No fever, sweats or weight loss ENMT: No sore throat Cardiovascular: No chest pain, palpitations or leg swelling Respiratory: No shortness of breath, cough, or sputum or dyspnea on exertion GI: No GERD or bleeding per rectum : No dysuria or hematuria Musculoskeletal: No new muscle weakness, bone or joint pain Skin / Breast: No jaundice, rashes or itching Psychiatric: No history of drug or alcohol abuse no depression or anxiety Hematologic / lymphatic system: No problems with excessive bleeding, bruising, or blood clots Exam & Diagnostic Data Vital Signs and I&O I rev Vital Signs Date Time Temp Pulse Resp B/P B/P Pulse O2 O2 Flow FiO2 Mean Ox Delivery Rate 10/07 1827 96 Room Air Room Air 10/07 1600 Room Air 10/07 1546 98.6 120 18 110/64 94 10/07 1418 98.2 61 20 120/80 95 Room Air 10/07 1229 124 108/80 10/07 1036 128 140/84 10/07 0803 146 10/07 0800 97 Room Air Room Air 10/07 0633 97.7 114 20 124/66 97 Room Air 10/06 2208 98.4 51 22 110/72 96 Room Air 10/06 2118 99 Room Air Room Air 10/06 2044 130 138/70 I rev Intake & Output 10/07 1600 10/07 0800 10/07 0000 10/06 1600 10/06 0800 10/06 0000 Intake Total 750 183.4 1200 800 329.6 104.8 Output Total 675 1075 1550 1100 700 Balance 75 -891.6 1200 -750 -770.4 -595.2 Intake, IV 183.4 209.6 104.8 Intake, Oral 750 1200 800 120 Number 1 Bowel Movements Output, Urine 675 1075 1550 1100 700 Patient 403 lb 403 lb 403 lb Weight Weight Bed scale Measurement Method Physical Exam: Constitutional: pleasant, no acute distress, conversant Eyes: sclera anicteric ENMT: ears and nose atraumatic, moist mucous membranes, good dentition, no lip lesions Neck: Supple, trachea is midline, no cervical or supraclavicular adenopathy and no palpable thyromegaly Cardiovascular: S1, S2, no murmurs, no peripheral edema Respiratory: clear to auscultation with normal respiratory effort and no intercostal retractions GI: abdomen soft, nontender, nondistended, no palpable hepatosplenomegaly Extremities / lymphatics: symmetrically warm, free range of motion no peripheral edema, no cervical, supraclavicular, axillary, or inguinal adenopathy Musculoskeletal: Did not evaluate gait and station, no digital cyanosis, good muscle strength and tone no atrophy, motor grossly 5 out of 5 throughout Skin: no jaundice, no rashes warm, nondiaphoretic, no areas of erythema or induration Psychiatric: mood and affect are appropriate and alert and oriented to person place and time Last 24 Hours of Labs: I rev Laboratory Tests 10/07 10/06 0627 2200 Coagulation APTT (25 - 37 SEC) 75 H Hematology CBC w Diff MAN DIFF ORDERED WBC (4.8 - 10.8 /CUMM) 7.9 RBC (4.20 - 5.40 /CUMM) 3.95 L Hgb (12.0 - 16.0 G/DL) 8.3 L Hct (37 - 47 %) 27.0 L MCV (81.0 - 99.0 FL) 68.3 L MCH (27.0 - 31.0 PG) 21.1 L MCHC (33.0 - 37.0 G/DL) 30.9 L RDW (11.5 - 14.5 %) 26.0 H Plt Count (130 - 400 /CUMM) 183 MPV (7.4 - 10.4 FL) 8.6 Segmented Neutrophils (42.2 - 75.2 %) 76 H Lymphocytes (20.5 - 51.1 %) 14 L Monocytes (1.7 - 9.3 %) 5 Eosinophils (0 - 5.0 %) 5 Platelet Estimate (ADEQUATE) VERIFIED BY SMEAR Hypochromic-Microcytic 2+ Poikilocytosis 1+ Anisocytosis 1+ Microcytic Cells 2+ Assessment/Plan Assessment/Plan Impression is patient with chronic anemia and apparently CHF but recently it's becoming worse, exacerbating her heart now in rapid A. fib being medically managed. This newly found colon tumor A be responsible. I expect her and her family at the bedside that usually the treatment is removal of that portion of colon. Except for the bleeding which now be exacerbated by the need for anticoagulation for her A. fib, she is not otherwise symptomatic. I explained the reason U remove a portion not just the tumor patient need margins from an oncologic perspective as well as inadequate lymph node harvest. She's only been prepped and keep on clear liquid diet and plan for surgery this admission but we 'll have to discuss with cardiology first if she can even be optimized for it. In the meantime I recommend getting a CT scan of her abdomen and pelvis to see for obvious metastatic disease and if this tumor can be seen in the colon this for surgical planning. It is fortunate that she is not bleeding briskly clinically and we may be able to optimize her somewhat. But she does overall have risks for general anesthesia and surgery given her weight and the and cardiac history. Problem List: 1. Mass of hepatic flexure of colon 2. Colon cancer 3. Acute on chronic diastolic CHF (congestive heart failure) 4. Anemia 5. Afib 6. AUGUSTO (acute kidney injury) Consult Acknowledgment - Thank you for your consult request.
[2017-10-07 22:42] VITALS: BP 116/68
[2017-10-07 23:10] LABS: PTT 51 SEC (25-37)
[2017-10-08 06:26] VITALS: BP 106/62
--- NOTE | 2017-10-08 07:17 | PN- Housestaff ---
Rebekah Rm 10/08/17 0717: Subjective Follow-up For: new onset a fib with RVR, CHF exacerbation, ch. microcytic anemia s/p two pRBCs Complaints: no complaints Tele-Events Since Last Visit: NSR. 49-57 overnight. At 6am HR was 110. Subjective: Seen sitting in chair comfortably, no acute distress Review of Systems Constitutional: Reports: see HPI. Objective Last 24 Hrs of Vital Signs/I&O Vital Signs Date Time Temp Pulse Resp B/P B/P Pulse O2 O2 Flow FiO2 Mean Ox Delivery Rate 10/08 2143 98.2 60 20 120/70 92 10/08 2126 Room Air 10/08 2058 68 128/64 10/08 1945 93 Room Air Room Air 10/08 1600 Room Air 10/08 1422 98.2 57 18 112/54 95 Room Air 10/08 1325 95 Room Air Room Air 10/08 0823 73 112/60 10/08 0800 Room Air 10/08 0626 97.8 65 18 106/62 94 Room Air Intake & Output 10/08 1600 10/08 0800 10/08 0000 Intake Total 450 605 198 Output Total 1800 600 75 Balance -1350 5 123 Intake, IV 225 78 Intake, Oral 450 380 120 Output, Urine 1800 600 75 Patient 400 lb Weight Physical Exam General Appearance: Alert, Oriented X3, Cooperative, No Acute Distress Skin: No Rashes, No Breakdown Sepsis Skin Exam (color): Normal for Ethnicity HEENT: Atraumatic, PERRLA, EOMI, Mucous Membr. moist/pink Neck: Supple Cardiovascular: Regular Rate, Normal S1, Normal S2, No Murmurs Lungs: Clear to Auscultation, Normal Air Movement Abdomen: Normal Bowel Sounds, Soft, No Tenderness, No Hepatospenomegaly Neurological: Normal Gait, Normal Speech, Strength at 5/5 X4 Ext, Normal Tone, Sensation Intact Extremities: No Clubbing, No Cyanosis Assessment/Plan Assessment: Patient is a 71-year-old morbidly obese female with past medical history of chronic lower extremity venous stasis, asthma, hypertension, and systolic CHF who was sent here by her PCP for bilateral lower extremity swelling, nonproductive cough, and shortness of breath. She was on a course of antibiotics Augmentin for 10 days starting on September 12 by PCP for bilateral lower extremity swelling (cellulitis?). This did not improve the patient's condition. Vital signs: afebrile, on RA. HR was stable in 60s today. Problem list: * Guaiac + stool * New onset rapid A. fib * Acute on chronic heart failure with ejection fraction 40-45% * Microcytic iron deficiency anemia-resolved status post 2 units PRBCS * AUGUSTO upon CKD stage III, GFR 30-59 mL/minute * Morbid obesity: BMI 68.7 Plan: * Upon colonoscopy, the impression: Colon CA at the hepatic flexure. Ct abd and pelvis will be done today to stage. Surgery consult has been placed for their expert opinion on how to proceed further * Her RCRI index is calculated today. She is at a 6.6% risk of developing a major cardiac event. * We will obtain cardiac clearance from cardiology for the tentative surgery on Friday, as oer Surgery * Gareth. IV heparin. long-term anticoag will be discussed with Gi and surgery later on. IV heparin wll be held before surgery for the colon mass * Gareth. Cardizem 240 mg po & Metoprolol 50 mg po bid * Continue diuresis with oral Lasix 80 mg. * Monitor ins and outs daily weights. * Hemoglobin is stable over the past three days after the tranfusion * For the low iron level and TIBC, we will recommend iron supplementation upon discharge CODE STATUS: DNR/DNI DVT prophylaxis: IV heparin Diet: Heart healthy diet Problem List: 1. Mass of hepatic flexure of colon 2. Acute on chronic diastolic CHF (congestive heart failure) 3. Guaiac + stool 4. Anemia 5. Afib 6. Asthma Pain Ratin Pain Location: none Pain Goal: Remain pain free Pain Plan: follow pain pathway Tomorrow's Labs & Rationales: cbc, bep Angel BARBER,Avinash 10/08/17 1439: Attending MD Review Statement Attending Statement Attending MD Statement: examined this patient, discuss w/resident/PA/RIBBON TIER, agreed w/resident/PA/RIBBON TIER, reviewed EMR data (avail), discussed with nursing, amended to note Attending Assessment/Plan: Patient seen and examined. Colonoscopy findings discussed with her. She verbalized understanding. Case discussed with the general surgery service. Recommendations are for tentative surgery in 2 days time. Cardiology service has been notified. Currently asymptomatic denying any abdominal pain. Denies any bright red blood per rectum. She is better rate controlled today. Continue anticoagulation therapy for now. Hold prior to surgery. Follow-up with the cardiology service for cardiac optimization prior to proceeding with surgery on Friday. Follow-up biopsy results.
[2017-10-08 07:48] LABS: ABSOLUTE BASOPHIL COUNT 0 /CUMM (0.0-0.2); ABSOLUTE EOSINOPHIL COUNT 0.2 /CUMM (0.0-0.7); ABSOLUTE GRANULOCYTE CT 6.7 /CUMM (1.4-6.5); ABSOLUTE LYMPH COUNT 1.3 /CUMM (1.2-3.4); ABSOLUTE MONOCYTE COUNT 0.7 /CUMM (0.10-0.60); BASOPHIL % 0 % (0.0-2.0); GRANULOCYTE % 75.3 % (42.2-75.2); HEMATOCRIT 27.3 % (37-47); MEAN CORPUSCULAR HGB 21.4 PG (27.0-31.0); MEAN CORPUSCULAR HGB CONC 31.3 G/DL (33.0-37.0); MEAN PLATELET VOLUME 8.9 FL (7.4-10.4); PLATELET COUNT 179 /CUMM (130-400); RBC DISTRIBUTION WIDTH 25.5 % (11.5-14.5); RED BLOOD CELL CT 3.99 /CUMM (4.20-5.40); WHITE BLOOD CELL COUNT 8.9 /CUMM (4.8-10.8)
[2017-10-08 08:25] LABS: PTT 77 SEC (25-37)
[2017-10-08 08:30] LABS: MEAN CORPUSCULAR VOLUME 68.3 FL (81.0-99.0)
[2017-10-08 14:22] VITALS: BP 112/54
--- NOTE | 2017-10-08 17:28 | PN- Cardiology ---
Subjective Subjective: No chest pain. No shortness of breath. No palpitations. No diaphoresis. Ventricular rate is mostly controlled. Objective Vital Signs and I&Os Vital Signs Date Time Temp Pulse Resp B/P B/P Pulse O2 O2 Flow FiO2 Mean Ox Delivery Rate 10/08 1600 Room Air 10/08 1422 98.2 57 18 112/54 95 Room Air 10/08 1325 95 Room Air Room Air 10/08 0823 73 112/60 10/08 0800 Room Air 10/08 0626 97.8 65 18 106/62 94 Room Air 10/07 2242 97.8 121 16 116/68 96 10/07 2035 112 118/64 10/07 202 Room Air 10/07 1827 96 Room Air Room Air Intake & Output 10/08 1600 10/08 0810/08 0000 10/07 1600 10/07 0800 10/07 0000 Intake Total 450 605 198 750 183.4 1200 Output Total 1800 600 75 675 1075 Balance -1350 5 123 75 -891.6 1200 Intake, IV 225 78 183.4 Intake, Oral 450 380 507 015 9685 Output, Urine 1800 600 75 675 1075 Patient 400 lb 403 lb Weight Weight Bed scale Measurement Method Physical Exam: Gen: NAD HEENT: normal Lungs: clear to auscultation, normal resp. effort Heart: irreg irreg, S1, S2, no murmurs Abdomen: Soft, nontender, no masses Extremities: No clubbing, cyanosis, or edema. Neuro: Alert and oriented x 3, cranial nerves intact Current Medications: Current Medications Sig/Shara Start time Last Medication Dose Route Stop Time Status Admin Acetaminophen 650 MG Q6P PRN 10/01 2300 AC PO Albuterol Sulfate 3 ML Q4-PRN PRN 10/02 1900 AC 10/06 INH 2118 Benzocaine/Menthol 1 BRII Q2 HRS NEEDED PRN 10/02 1845 AC 10/08 PO 0826 Diltiazem HCl 240 MG DAILY 10/06 09 AC 10/08 PO 08 Furosemide 80 MG DAILY 10/03 09 AC 10/08 PO 08 Guaifenesin 10 ML Q6P PRN 10/03 1630 AC 10/06 PO 2143 Heparin Sodium 25,000 UNIT Q24H 10/07 1500 AC 10/08 (Porcine) IV 1539 Sodium Chloride 500 ML Metoprolol Tartrate 50 MG BID 10/07 2099 AC 10/08 PO 0823 Omeprazole 40 MG DAILY AC 10/02 1900 AC 10/08 PO 0547 Results Last 48 Hrs of Labs/Mics: Laboratory Tests 10/08/17626: Anion Gap 11, Estimated GFR 41 L, BUN/Creatinine Ratio 14.6, Magnesium 1.9, APTT 77 H, CBC w Diff NO MAN DIFF REQ, RBC 3.99 L, MCV 68.3 L, MCH 21.4 L, MCHC 31.3 L, RDW 25.5 H, MPV 8.9, Gran % 75.3 H, Lymphocytes % 14.4 L, Monocytes % 8.3, Eosinophils % 2.0, Basophils % 0, Absolute Granulocytes 6.7 H, Absolute Lymphocytes 1.3, Absolute Monocytes 0.7 H, Absolute Eosinophils 0.2, Absolute Basophils 0 10/07/172199: APTT 51 H 10/07/17626: CBC w Diff MAN DIFF ORDERED, RBC 3.95 L, MCV 68.3 L, MCH 21.1 L, MCHC 30.9 L , RDW 26.0 H, MPV 8.6, Segmented Neutrophils 76 H, Lymphocytes 14 L, Monocytes 5, Eosinophils 5, Platelet Estimate VERIFIED BY SMEAR, Hypochromic- Microcytic 2+, Poikilocytosis 1+, Anisocytosis 1+, Microcytic Cells 2+ 10/06/172199: APTT 75 H Assessment/Plan Assessment/Plan Assessment: 1. New atrial fibrillation of unclear duration, rate uncontrolled 2. Acute on chronic HFpEF 3. Morbid obesity 4. Worsening chronic lower extremity edema with stasis changes 5. Microcytic anemia 6. Acute renal failure 7. Colon mass, planned for surgery Friday Plan: * Continue metoprolol and diltiazem for rate control * Continue IV heparin * The patient is cleared from cardiac standpoint for planned colon surgery. Continue telemetry? Yes
--- NOTE | 2017-10-08 17:31 | CT SCAN REPORT ---
EXAMINATION: CT ABDOMEN AND PELVIS WITH CONTRAST CLINICAL INFORMATION: History of GI bleed. Question colon mass. Rule out metastases. Patient states history of lung cancer. COMPARISON: CTA of the chest dated 10/01/2017. TECHNIQUE: Multidetector CT volumetric acquisition of the abdomen and pelvis was performed after the administration of 95 mL of intravenous Optiray 350. The data set was reformatted in the sagittal and coronal planes and reviewed on an independent workstation. DLP: 1850.81 mGy-cm. FINDINGS: LOWER CHEST: There is enlargement of the heart with primarily left chamber enlargement but also right atrial enlargement seen. There are new small bilateral pleural effusions seen. No significant change in bilateral patchy groundglass opacities is noted in both lower lobes, right middle lobe and left lingula, likely due to pulmonary edema. LIVER, GALLBLADDER, BILIARY TREE: Evaluation of the liver is limited due to beam hardening artifact extending throughout the liver and quantum mottle related to patient's body habitus. There are subtle subcentimeter sized low-attenuation masses seen in the liver. These include for example two approximately 0.6 cm hypodense nodules in the left lobe peripherally (series 2, image 26) and centrally in between the middle and left hepatic veins (series 2, image 26); a 0.7 cm segment 2 mass (series 2, image 23); and one segment 6 nodule (probable cyst) (series 2, image 40). Liver is normal size and heterogeneous in attenuation. No definite intra-or extrahepatic ductal dilatation. Portal veins are patent. Gallbladder is surgically absent with multiple elvie seen in the gallbladder fossa. No evidence of focal fluid collection or inflammatory change in the gallbladder fossa. PANCREAS: Pancreatic tail is diffusely mildly atrophic. No ductal dilatation, or peripancreatic stranding. There is a 1.3 x 0.9 cm solid appearing mass in the pancreatic tail (series 2, image 39) versus prominent nodular parenchymal tissue. SPLEEN: Normal size and appearance. Splenic vein patent. ADRENAL GLANDS AND KIDNEYS: Adrenal glands normal. Kidneys bilaterally symmetric in size and function. Bilaterally, renal cortical thinning is seen. No focal mass, hydronephrosis, nephrolithiasis or perinephric stranding. URETERS AND BLADDER: Ureters decompressed and within normal limits. Bladder unremarkable. PELVIC ORGANS: Unremarkable. GASTROINTESTINAL TRACT: There is an approximately 5.4 cm long segment of circumferential bowel wall thickening seen in the hepatic flexure of the colon with the bowel wall measuring up to 1.6 cm in thickness (series 2, image 42; series 602, image 37). This is suspicious for a colon cancer. There is minimal surrounding fat stranding and tiny mesenteric lymph node measuring 0.4 cm in short axis is also noted, image 46). Remainder of the colon is unremarkable. No evidence of bowel obstruction or perforation is seen. Appendix in right mid abdomen is normal. Small bowel loops are decompressed and unremarkable. LYMPHOVASCULAR STRUCTURES: Abdominal aorta normal in caliber. No periaortic collections. Mild atherosclerotic calcification of the aorta and branch vessels is noted. No abdominal or pelvic adenopathy or free fluid collection. BONES: No suspicious bone findings are seen. There is severe vertebral spondylosis throughout the imaged thoracic spine and moderate to severe vertebral spondylosis in the lumbar spine. Severe degenerative disc disease and moderate facet arthropathy are seen at multiple levels in the lumbar spine. IMPRESSION: 1. 5.4 cm long segment of the hepatic flexure is abnormally thickened and is suspicious for a colon cancer. A subcentimeter sized adjacent mesenteric lymph node is seen. 2. Evaluation of the liver for metastases is limited. Liver parenchyma appears heterogeneous and a few subtle subcentimeter sized nodular densities are seen, incompletely characterized. Findings may represent tiny cysts versus subtle metastatic disease. Further assessment with MRI scan can be performed in an attempt to further characterize these findings. 3. No adenopathy is seen. 4. New small bilateral pleural effusions and persistent patchy groundglass opacities in the lungs bilaterally. Findings may be due to pulmonary edema. Clinical correlation requested. 5. Question of subtle pancreatic tail mass. This can also be reassessed at the time of the above suggested MRI scan follow-up. 6. Status post cholecystectomy.
[2017-10-08 18:35] LABS: PTT 88 SEC (25-37)
[2017-10-08 21:43] VITALS: BP 120/70
[2017-10-09 06:55] VITALS: BP 126/72
--- NOTE | 2017-10-09 07:29 | PN- Housestaff ---
Rebekah Rm 10/09/17 0729: Subjective Follow-up For: Colon cancer, new onset A. fib with RVR, acute on chronic heart failure with reduced ejection fraction, anemia status post 2 transfusions Complaints: no complaints Tele-Events Since Last Visit: Junctional rhythm and accelerated junctional rhythm. Heart rate 5176 Subjective: Patient was seen and examined lying comfortably in bed. No complaints/no acute events Review of Systems Constitutional: Reports: see HPI. Objective Last 24 Hrs of Vital Signs/I&O Vital Signs Date Time Temp Pulse Resp B/P B/P Pulse O2 O2 Flow FiO2 Mean Ox Delivery Rate 10/09 2153 50 122/76 10/09 1729 100 Room Air Room Air 10/09 1430 97.7 50 16 122/76 95 Room Air 10/09 0807 65 122/80 10/09 0800 92 Room Air 10/09 0655 98.4 61 20 126/72 92 Room Air 10/09 0532 98 Room Air Intake & Output 10/09 1600 10/09 0800 10/09 0000 Intake Total 2950 483 712 Output Total 2500 900 450 Balance 450 -417 262 Intake, IV 250 233 232 Intake, Oral 2700 250 480 Number 3 Bowel Movements Output, Urine 2500 900 450 Physical Exam General Appearance: Alert, Oriented X3, Cooperative, No Acute Distress Skin: No Rashes Skin Temp/Moisture Exam: Cool/Dry Sepsis Skin Exam (color): Normal for Ethnicity HEENT: Atraumatic, PERRLA, EOMI, Mucous Membr. moist/pink Neck: Supple Cardiovascular: Regular Rate, Normal S1, Normal S2, No Murmurs Lungs: Clear to Auscultation, Normal Air Movement Abdomen: Normal Bowel Sounds, Soft, No Tenderness, No Hepatospenomegaly, No Masses Neurological: Normal Gait, Normal Speech, Strength at 5/5 X4 Ext, Normal Tone, Sensation Intact Extremities: No Clubbing, No Cyanosis (b/l l/e edeama-chronic) Assessment/Plan Assessment: Patient is a 71-year-old morbidly obese female with past medical history of chronic lower extremity venous stasis, asthma, hypertension, and systolic CHF who was sent here by her PCP for bilateral lower extremity swelling, nonproductive cough, and shortness of breath. She was on a course of antibiotics Augmentin for 10 days starting on September 12 by PCP for bilateral lower extremity swelling (cellulitis?). This did not improve the patient's condition. Vital signs: afebrile, on RA. HR was stable in 60s today. Problem list: * Colon cancer-diagnosed on this hospital stay * New onset rapid A. fib * Acute on chronic heart failure with ejection fraction 40-45% * Microcytic iron deficiency anemia-resolved status post 2 units PRBCS * AUGUSTO upon CKD stage III, GFR 30-59 mL/minute * Morbid obesity: BMI 68.7 Plan: * Her RCRI index is 6.6% risk of developing a major cardiac event. She is cleared by cardiology to have surgery * She is on clear liquid diet today and will be n.p.o. tomorrow for surgery for the colon cancer * Hold IV heparin before surgery. [facility] anticoag will be discussed with Gi and surgery later on. * Gareth. Cardizem 240 mg po & Metoprolol 50 mg po bid * Continue diuresis with oral Lasix 80 mg today. * CT scan could not rule out liver metastases so we have ordered an MRI. Unfortunately due to the patient's BMI MRI is not possible at this time so we are going for ultrasound abdomen * Monitor ins and outs daily weights. * Hemoglobin is stable over the past three days after the tranfusion * For the low iron level and TIBC, we will recommend iron supplementation upon discharge CODE STATUS: DNR/DNI DVT prophylaxis: IV heparin Diet: Heart healthy diet Problem List: 1. Colon cancer 2. Acute on chronic diastolic CHF (congestive heart failure) 3. Guaiac + stool 4. Anemia 5. Afib Pain Ratin Pain Location: None Pain Goal: Remain pain free Pain Plan: n/a Tomorrow's Labs & Rationales: cbc, bep Concepcion Dugan 10/09/17 1349: Attending MD Review Statement Attending Statement Attending MD Statement: examined this patient, discuss w/resident/PA/RN CARDIOVASCULAR, agreed w/resident/PA/RN CARDIOVASCULAR, discussed with family, reviewed EMR data (avail), discussed with nursing, discussed with case mgmt Attending Assessment/Plan: 71-year-old morbidly obese female with past medical history of chronic lower extremity venous stasis, asthma, hypertension, and systolic CHF who was sent here by her PCP for bilateral lower extremity swelling, nonproductive cough, and shortness of breath. Found to have new on set afib. Developed GI bleed after AC was started. Clonoscopy reveals ? colon cancer. Surgical resection planned for Fri. CT scan cannot ruleout liver mets. CT also suggests Pancreatic mass. Will need MRI. ? Colon cancer- plan is to take her to OR tomorrow. d/w Surgery the care plan as well her risk secondary to morbid obesity. dw pt the care plan. pt will be kept npo past midnight. New onset afib with rvr- pt on cardizem and metoprolol- we will hold metoprolol for now due to low HR. HOld lasix in am also prior to surgery.
[2017-10-09 08:20] LABS: ABSOLUTE BASOPHIL COUNT 0 /CUMM (0.0-0.2); ABSOLUTE EOSINOPHIL COUNT 0.3 /CUMM (0.0-0.7); ABSOLUTE GRANULOCYTE CT 5.2 /CUMM (1.4-6.5); ABSOLUTE LYMPH COUNT 1.5 /CUMM (1.2-3.4); ABSOLUTE MONOCYTE COUNT 0.6 /CUMM (0.10-0.60); BASOPHIL % 0 % (0.0-2.0); EOSINOPHIL % 3.5 % (0-5); GRANULOCYTE % 68.6 % (42.2-75.2); HEMATOCRIT 26.5 % (37-47); MEAN CORPUSCULAR HGB 21.3 PG (27.0-31.0); MEAN CORPUSCULAR HGB CONC 31.1 G/DL (33.0-37.0); MEAN CORPUSCULAR VOLUME 68.4 FL (81.0-99.0); MEAN PLATELET VOLUME 8.8 FL (7.4-10.4); PLATELET COUNT 166 /CUMM (130-400); RBC DISTRIBUTION WIDTH 26.1 % (11.5-14.5); RED BLOOD CELL CT 3.88 /CUMM (4.20-5.40); WHITE BLOOD CELL COUNT 7.6 /CUMM (4.8-10.8)
[2017-10-09 08:55] LABS: PTT 118 SEC (25-37)
[2017-10-09 14:30] VITALS: BP 122/76
--- NOTE | 2017-10-09 19:16 | PN- Cardiology ---
Subjective Subjective: No chest pain. No shortness of breath. No palpitations. No diaphoresis. Ventricular rate is under control. Objective Vital Signs and I&Os Vital Signs Date Time Temp Pulse Resp B/P B/P Pulse O2 O2 Flow FiO2 Mean Ox Delivery Rate 10/09 1729 100 Room Air Room Air 10/09 1430 97.7 50 16 122/76 95 Room Air 10/09 0807 65 122/80 10/09 0800 92 Room Air 10/09 0655 98.4 61 20 126/72 92 Room Air 10/09 0532 98 Room Air 10/08 2143 98.2 60 20 120/70 92 10/08 2126 Room Air 10/08 2058 68 128/64 10/08 1945 93 Room Air Room Air Intake & Output 10/09 0810/09 0000 10/08 0810/08 0000 Intake Total 2950 483 712 450 605 198 Output Total 2500 910 325 5752 600 75 Balance 450 -417 262 -1350 5 123 Intake, IV 250 233 232 225 78 Intake, Oral 2700 250 480 450 380 120 Number 3 Bowel Movements Output, Urine 2500 508 103 3020 600 75 Patient 400 lb Weight Physical Exam: Gen: NAD HEENT: normal Lungs: clear to auscultation, normal resp. effort Heart: irreg irreg, S1, S2, no murmurs Abdomen: Soft, nontender, no masses Extremities: No clubbing, cyanosis, or edema. Neuro: Alert and oriented x 3, cranial nerves intact Current Medications: Current Medications Sig/Shara Start time Last Medication Dose Route Stop Time Status Admin Acetaminophen 650 MG Q6P PRN 10/01 2300 AC PO Albuterol Sulfate 3 ML Q4-PRN PRN 10/02 1900 AC 10/09 INH 0521 Benzocaine/Menthol 1 BRII Q2 HRS NEEDED PRN 10/02 1845 AC 10/09 PO 1356 Diltiazem HCl 240 MG DAILY 10/06 09 AC 10/09 PO 0805 Furosemide 80 MG DAILY 10/03 09 DC 10/09 PO 0805 Guaifenesin 10 ML Q6P PRN 10/03 1630 AC 10/08 PO 1857 Guaifenesin/Codeine 10 ML .STK-MED ONE 10/08 2048 DC Phosphate PO 10/08 2049 Heparin Sodium 25,000 UNIT Q24H 10/07 1500 AC 10/09 (Porcine) IV 10/10 0500 0808 Sodium Chloride 500 ML Magnesium Oxide 400 MG ONCE ONE 10/08 1944 DC 10/08 PO 10/08 Metoprolol Tartrate 50 MG BID 10/07 2100 AC 10/09 PO 0807 Metronidazole 500 MG 1300,1400,0 10/09 1300 AC 10/09 PO 10/09 2200 1356 Neomycin Sulfate 1,000 MG 1300,1400,2200 10/09 1300 AC 10/09 PO 10/09 220 1356 Omeprazole 40 MG DAILY AC 10/02 1900 AC 10/09 PO 0630 Polyethylene Glycol 0.5 GAL ONE TIME ONE 10/09 0745 DC 10/09 PO 10/09 0746 0843 Sodium Chloride 500 ML ONCE ONE 10/09 1530 AC 10/09 IV 10/09 2349 1707 Sodium Chloride 60 ML ONCE ONE 10/09 1515 CAN IV 10/09 1516 Sodium Chloride 500 ML ONCE ONE 10/09 1515 CAN IV 10/09 1516 Results Last 48 Hrs of Labs/Mics: Laboratory Tests 10/09/17617: Anion Gap 9, Estimated GFR 37 L, BUN/Creatinine Ratio 15.0, APTT 118 *H, CBC w Diff NO MAN DIFF REQ, RBC 3.88 L, MCV 68.4 L, MCH 21.3 L, MCHC 31.1 L, RDW 26.1 H, MPV 8.8, Gran % 68.6, Lymphocytes % 20.2 L, Monocytes % 7.7, Eosinophils % 3.5, Basophils % 0, Absolute Granulocytes 5.2, Absolute Lymphocytes 1.5, Absolute Monocytes 0.6, Absolute Eosinophils 0.3, Absolute Basophils 0 10/08/17 1744: APTT 88 H 10/08/17 06: Anion Gap 11, Estimated GFR 41 L, BUN/Creatinine Ratio 14.6, Magnesium 1.9, APTT 77 H, CBC w Diff NO MAN DIFF REQ, RBC 3.99 L, MCV 68.3 L, MCH 21.4 L, MCHC 31.3 L, RDW 25.5 H, MPV 8.9, Gran % 75.3 H, Lymphocytes % 14.4 L, Monocytes % 8.3, Eosinophils % 2.0, Basophils % 0, Absolute Granulocytes 6.7 H, Absolute Lymphocytes 1.3, Absolute Monocytes 0.7 H, Absolute Eosinophils 0.2, Absolute Basophils 0 10/07/17 2200: APTT 51 H Assessment/Plan Assessment/Plan Assessment: 1. New atrial fibrillation of unclear duration, rate uncontrolled 2. Acute on chronic HFpEF 3. Morbid obesity 4. Worsening chronic lower extremity edema with stasis changes 5. Microcytic anemia 6. Acute renal failure 7. Colon mass, planned for surgery Friday Plan: * Continue metoprolol and diltiazem for rate control * Continue IV heparin * The patient is cleared from cardiac standpoint for planned colon surgery. Continue telemetry? Yes
--- NOTE | 2017-10-09 21:29 | ULTRASOUND REPORT ---
EXAMINATION: US ABDOMEN LIMITED CLINICAL INFORMATION: Colon cancer. Pancreatic mass.. COMPARISON: CT abdomen pelvis 10/08/2017. TECHNIQUE: Real-time imaging of the right upper quadrant abdominal viscera. Color Doppler exam used. FINDINGS: Exam limited by body habitus and bowel gas. PANCREAS: Obscured by bowel gas. LIVER: Liver is mildly enlarged. Right lobe of liver measures 18 cm superior inferior. There is an anechoic cyst in the right lobe of liver measuring 1.7 cm. This correlates to the cyst seen on the CT study. There is no suspicious mass. There is no intrahepatic bile duct dilatation. GALLBLADDER: Status post cholecystectomy. COMMON BILE DUCT: Normal in caliber measuring 0.6 cm in diameter. RIGHT KIDNEY: Normal. No hydronephrosis. No renal calculi or focal parenchymal lesions. The kidney measures 9.5 cm in maximum dimension. FREE FLUID: None. IMPRESSION: 1. The pancreas is obscured by bowel gas. To further assess the pancreas and MR study may be helpful. 2. Hepatic cyst. 3. Status post cholecystectomy. No bile duct dilatation.
[2017-10-09 22:40] VITALS: BP 120/80
[2017-10-09 23:10] LABS: PTT 36 SEC (25-37)
[2017-10-10 06:12] VITALS: BP 150/78
--- NOTE | 2017-10-10 07:26 | PN- Housestaff ---
Rebekah Rm 10/10/17 0725: Subjective Follow-up For: Colon cancer, new onset A. fib with RVR, acute on chronic heart failure with reduced ejection fraction, anemia status post 2 transfusions Complaints: no complaints Tele-Events Since Last Visit: Normal sinus rhythm, bradycardia. Heart rate 45-59 Subjective: Patient seen and examined lying comfortably in bed. She states that her shortness of breath is back. No other complaints/no acute events overnight Review of Systems Constitutional: Reports: see HPI. Objective Last 24 Hrs of Vital Signs/I&O Vital Signs Date Time Temp Pulse Resp B/P B/P Pulse O2 O2 Flow FiO2 Mean Ox Delivery Rate 10/10 1439 97.6 57 20 122/76 98 Room Air 10/10 0802 78 128/68 10/10 0800 90 Room Air 10/10 0612 97.9 66 20 150/78 90 Room Air 10/10 0132 94 Room Air 10/10 0000 Room Air 10/09 2240 97.7 65 20 120/80 90 Room Air 10/09 2153 50 122/76 Intake & Output 10/10 1600 10/10 0800 10/10 0000 Intake Total 400 Output Total 600 925 300 Balance -600 -925 100 Intake, Oral 400 Output, Urine 600 925 300 Patient 398 lb Weight Weight Bed scale Measurement Method Physical Exam General Appearance: Alert, Oriented X3, Cooperative, No Acute Distress Skin: No Rashes, No Breakdown, No Significant Lesion Skin Temp/Moisture Exam: Cool/Dry Sepsis Skin Exam (color): Normal for Ethnicity HEENT: Atraumatic, Mucous Membr. moist/pink Neck: Supple Cardiovascular: Regular Rate, Normal S1, Normal S2 Lungs: b/l ronchi Abdomen: Normal Bowel Sounds, Soft, No Tenderness, No Hepatospenomegaly Neurological: Normal Gait, Normal Speech, Strength at 5/5 X4 Ext, Normal Tone, Sensation Intact Extremities: No Clubbing, No Cyanosis (b/l chronic pedal edema) Assessment/Plan Assessment: Patient is a 71-year-old morbidly obese female with past medical history of chronic lower extremity venous stasis, asthma, hypertension, and systolic CHF who was sent here by her PCP for bilateral lower extremity swelling, nonproductive cough, and shortness of breath. Vital signs: afebrile, on RA. HR was stable in 50s, 60s today. Problem list: * Colon cancer-diagnosed in this hospital stay * Biopsy shows poorly to moderately differentiated adenocarcinoma * New onset rapid A. fib * Acute on chronic heart failure with ejection fraction 40-45% * Microcytic iron deficiency anemia-resolved status post 2 units PRBCS * AUGUSTO upon CKD stage III, GFR 30-59 mL/minute * Morbid obesity: BMI 68.7 Plan: * Her RCRI index is 6.6% risk of developing a major cardiac event. She is cleared by cardiology to have surgery * n.p.o. today for surgery for the colon cancer * IV heparin and Lasix held before surgery. [facility] anticoag will be discussed with Gi and surgery later on. * Gareth. Cardizem 240 mg po & Metoprolol 50 mg po bid * Hemoglobin is stable over the past three days after the tranfusion * For the low iron level and TIBC, we will recommend iron supplementation upon discharge CODE STATUS: DNR/DNI DVT prophylaxis: IV heparin Diet: Heart healthy diet Problem List: 1. New onset a-fib 2. Colon cancer 3. Asthma 4. Anemia 5. Guaiac + stool Pain Ratin Pain Location: None Pain Goal: Remain pain free Pain Plan: Follow pain pathway Tomorrow's Labs & Rationales: cbc, bep Concepcion Dugan 10/10/17 1314: Attending MD Review Statement Attending Statement Attending MD Statement: discuss w/resident/PA/GROOVING MACHINE OPERATOR, agreed w/resident/PA/GROOVING MACHINE OPERATOR, reviewed EMR data (avail) Attending Assessment/Plan: 71-year-old morbidly obese female with past medical history of chronic lower extremity venous stasis, asthma, hypertension, and systolic CHF who was sent here by her PCP for bilateral lower extremity swelling, nonproductive cough, and shortness of breath. Found to have new on set afib. Developed GI bleed after AC was started. Clonoscopy reveals ? colon cancer. Surgical resection planned for Fri. CT scan cannot ruleout liver mets. CT also suggests Pancreatic mass. Will need MRI. Colon cancer- biopsy showing INVASIVE MODERATELY TO POORLY DIFFERENTIATED ADENOCARCINOMA.Pt undergoing surgery today. will see how she does post surgery. plan is to get oncology consult. Pt did not fit in the MRI machine for MRI abdomen which was ordered to further evaluate liver and pancreatic masses. New onset afib with rvr- pt on cardizem and metoprolol- heparin held for surgery. also held lasix this am for surgery.
[2017-10-10 08:20] LABS: ABSOLUTE BASOPHIL COUNT 0 /CUMM (0.0-0.2); ABSOLUTE EOSINOPHIL COUNT 0.2 /CUMM (0.0-0.7); ABSOLUTE GRANULOCYTE CT 4.5 /CUMM (1.4-6.5); ABSOLUTE LYMPH COUNT 1.2 /CUMM (1.2-3.4); ABSOLUTE MONOCYTE COUNT 0.6 /CUMM (0.10-0.60); BASOPHIL % 0 % (0.0-2.0); EOSINOPHIL % 2.5 % (0-5); GRANULOCYTE % 69.5 % (42.2-75.2); HEMATOCRIT 27.6 % (37-47); MEAN CORPUSCULAR HGB 21.2 PG (27.0-31.0); MEAN CORPUSCULAR VOLUME 68.4 FL (81.0-99.0); MEAN PLATELET VOLUME 8.7 FL (7.4-10.4); PLATELET COUNT 177 /CUMM (130-400); RBC DISTRIBUTION WIDTH 25.5 % (11.5-14.5); RED BLOOD CELL CT 4.04 /CUMM (4.20-5.40); WHITE BLOOD CELL COUNT 6.4 /CUMM (4.8-10.8)
[2017-10-10 08:42] LABS: PTT 33 SEC (25-37)
[2017-10-10 14:39] VITALS: BP 122/76
--- NOTE | 2017-10-10 15:06 | PN- Cardiology ---
Subjective Subjective: No chest pain. No shortness of breath. No palpitations. No diaphoresis. Ventricular rate is under control. Objective Vital Signs and I&Os Vital Signs Date Time Temp Pulse Resp B/P B/P Pulse O2 O2 Flow FiO2 Mean Ox Delivery Rate 10/10 1439 97.6 57 20 122/76 98 Room Air 10/10 0802 78 128/68 10/10 0800 90 Room Air 10/10 0612 97.9 66 20 150/78 90 Room Air 10/10 0132 94 Room Air 10/10 0000 Room Air 10/09 2240 97.7 65 20 120/80 90 Room Air 10/09 2153 50 122/76 Intake & Output 10/10 1600 10/10 0800 10/10 0000 10/09 1600 10/09 0800 10/09 0000 Intake Total 400 2950 483 712 Output Total 600 641 028 8132 900 450 Balance -600 -925 100 450 -417 262 Intake, IV 250 233 232 Intake, Oral 400 2700 250 480 Number 3 Bowel Movements Output, Urine 600 109 228 8454 900 450 Patient 398 lb Weight Weight Bed scale Measurement Method Physical Exam: Gen: NAD HEENT: normal Lungs: clear to auscultation, normal resp. effort Heart: irreg irreg, S1, S2, no murmurs Abdomen: Soft, nontender, no masses Extremities: No clubbing, cyanosis, or edema. Neuro: Alert and oriented x 3, cranial nerves intact Current Medications: Current Medications Sig/Shara Start time Last Medication Dose Route Stop Time Status Admin Acetaminophen 650 MG Q6P PRN 10/01 2300 AC PO Albuterol Sulfate 3 ML Q4-PRN PRN 10/02 1900 AC 10/10 INH 0119 Benzocaine/Menthol 1 BRII Q2 HRS NEEDED PRN 10/02 1845 AC 10/09 PO 1356 Diltiazem HCl 240 MG DAILY 10/06 0900 AC 10/10 PO 0802 Guaifenesin 10 ML Q6P PRN 10/03 1630 AC 10/08 PO 1857 Heparin Sodium 25,000 UNIT Q24H 10/07 1500 DC 10/09 (Porcine) IV 10/10 0500 0808 Sodium Chloride 500 ML Metoprolol Tartrate 50 MG BID 10/07 2100 AC 10/10 PO 0802 Metronidazole 500 MG 1300,1400,2200 10/09 1300 DC 10/09 PO 10/09 2200 215 Neomycin Sulfate 1,000 MG 1300,1400,2200 10/09 1300 DC 10/09 PO 10/09 2200 215 Omeprazole 40 MG DAILY AC 10/02 1900 AC 10/09 PO 0630 Sodium Chloride 500 ML ONCE ONE 10/09 1530 DC 10/09 IV 10/09 2349 1707 Results Last 48 Hrs of Labs/Mics: Laboratory Tests 10/10/17722: Anion Gap 11, Estimated GFR 49 L, BUN/Creatinine Ratio 13.6, APTT 33, CBC w Diff MAN DIFF ORDERED, RBC 4.04 L, MCV 68.4 L, MCH 21.2 L, MCHC 31.0 L, RDW 25.5 H, MPV 8.7, Gran % 69.5, Lymphocytes % 18.4 L, Monocytes % 9.6 H, Eosinophils % 2.5, Basophils % 0, Absolute Granulocytes 4.5, Segmented Neutrophils 84 H, Absolute Lymphocytes 1.2, Lymphocytes 12 L, Monocytes 2, Absolute Monocytes 0.6, Eosinophils 2, Absolute Eosinophils 0.2, Absolute Basophils 0, Platelet Estimate VERIFIED BY SMEAR, Hypochromic-Microcytic 1+, Anisocytosis 1+, Microcytic Cells 2+ 10/09/172218: APTT 36 10/09/17617: Anion Gap 9, Estimated GFR 37 L, BUN/Creatinine Ratio 15.0, APTT 118 *H, CBC w Diff NO MAN DIFF REQ, RBC 3.88 L, MCV 68.4 L, MCH 21.3 L, MCHC 31.1 L, RDW 26.1 H, MPV 8.8, Gran % 68.6, Lymphocytes % 20.2 L, Monocytes % 7.7, Eosinophils % 3.5, Basophils % 0, Absolute Granulocytes 5.2, Absolute Lymphocytes 1.5, Absolute Monocytes 0.6, Absolute Eosinophils 0.3, Absolute Basophils 0 Assessment/Plan Assessment/Plan Assessment: 1. New atrial fibrillation of unclear duration, rate uncontrolled 2. Acute on chronic HFpEF 3. Morbid obesity 4. Worsening chronic lower extremity edema with stasis changes 5. Microcytic anemia 6. Acute renal failure 7. Colon mass, planned for surgery Plan: * Continue metoprolol and diltiazem for rate control * Restart IV heparin after surgery * The patient is cleared from cardiac standpoint for colon surgery. Continue telemetry? Yes
--- NOTE | 2017-10-10 22:44 | RADIOLOGY REPORT ---
EXAMINATION: PORTABLE CHEST 1 VIEW CLINICAL INFORMATION: Intubated status post cholecystectomy. COMPARISON: No recent pertinent prior studies are available for comparison. TECHNIQUE: Portable frontal view of the chest was obtained. FINDINGS: Endotracheal tube tip approximately 4 cm above the ree. Nasogastric tube tip is very difficult to see likely due to patient large body habitus lungs are hypoexpanded. Basilar markings likely representing atelectasis or consolidation. There is central vascular prominence likely in part related to the degree of hypoexpansion. Cardiac silhouette is prominent. Degenerative changes in the spine. IMPRESSION: Endotracheal tube tip approximately 4 cm above the ree. Nasogastric tube is seen but the tip is unable to be visualized likely due to patient body habitus. Hypoexpanded lungs with basilar markings more likely due to atelectasis although bibasilar infiltrates cannot be excluded.
--- NOTE | 2017-10-10 23:14 | Event Note ---
Event Note Event Note: Situation: Patient from PACU was deemed difficult to extubate by anesthesia is brought into ICU for vent management. Brief assessment: This is a 71-year-old lady with significant multiple comorbidities including HTN, non-DM, non-HLD, asthma, HFrEF/diastolic CHF ef 40- 45, morbidly obese, B/L LE venous stasis, CKD (baseline GFR 40's), atrial fibrillation with RVR,asthma, is brought into ICU from PACU after undergoing a right colectomy due to a colonoscopy finding of probable carcinoma at the hepatic flexure. There was no intraoperative complication wtih mimimal blood loss reported. However postoperatively, the anesthesia team were not able to extubate the patient due to desaturation. Assessment and plan: * We'll continue with mechanical ventilation with a tidal volume of 500, respiratory rate of 20, FiO2 of 100 and a PEEP of 5. * Will obtain ABG after 1 hour and adjust vent settings accordingly. * Ventilator bundles (IV Protonix prophylaxis, keep head elevated 30-45, Alps at all time, assess weaning in the morning). * Patient blood pressure is borderline low with systolic of 90, will administer 500 ML normal saline bolus (patient has a depressed EF of 40-45%, will therefore be judicious with IV fluids). Will maintain a map goal of 65.. * For sedation, we'll not use propofol given the borderline blood pressure, and since we are anticipating extubation tomorrow morning, will use when necessary lorazepam 2 mg q 1hr when needed. Will aim for a SAS score of 4. * Will hold off the metoprolol evening dose in the context of the blood pressure , once the pressure is stabilized we'll restart the metoprolol. HR goal is below 110. * We will await surgical recommendation on when to restart the heparin drip for the A. fib (spoke to surgical PA, and they want us to hold off on heparin for tonight). * D5 half normal saline at 125 per hour for maintenance * Keep infante * Stricts ins and out as patient has CHF * Unasyn 3.5 g every 6 per hour per surgical recommendation * Accu-Chek every 6hrs * NG tube in place, once confirmed placement can start using it. * DVT prophylaxis; Alps for now * CODE STATUS: full * Patient family would like to restrict visitation to specified family members only.
[2017-10-11] VITALS: BP 100/60
[2017-10-11 00:49] LABS: ABSOLUTE BASOPHIL COUNT 0 /CUMM (0.0-0.2); ABSOLUTE EOSINOPHIL COUNT 0 /CUMM (0.0-0.7); ABSOLUTE LYMPH COUNT 0.4 /CUMM (1.2-3.4); ABSOLUTE MONOCYTE COUNT 0.7 /CUMM (0.10-0.60); BASOPHIL % 0 % (0.0-2.0); EOSINOPHIL % 0 % (0-5); HEMATOCRIT 28.1 % (37-47); MEAN CORPUSCULAR HGB 21.3 PG (27.0-31.0); MEAN CORPUSCULAR HGB CONC 30.9 G/DL (33.0-37.0); MEAN CORPUSCULAR VOLUME 68.9 FL (81.0-99.0); MEAN PLATELET VOLUME 8.9 FL (7.4-10.4); PLATELET COUNT 159 /CUMM (130-400); RBC DISTRIBUTION WIDTH 25.3 % (11.5-14.5); RED BLOOD CELL CT 4.08 /CUMM (4.20-5.40)
[2017-10-11 00:51] LABS: WHITE BLOOD CELL COUNT 12.1 /CUMM (4.8-10.8)
[2017-10-11 05:35] LABS: ABSOLUTE BASOPHIL COUNT 0 /CUMM (0.0-0.2); ABSOLUTE EOSINOPHIL COUNT 0 /CUMM (0.0-0.7); ABSOLUTE GRANULOCYTE CT 13.4 /CUMM (1.4-6.5); ABSOLUTE LYMPH COUNT 0.7 /CUMM (1.2-3.4); ABSOLUTE MONOCYTE COUNT 0.6 /CUMM (0.10-0.60); BASOPHIL % 0 % (0.0-2.0); EOSINOPHIL % 0 % (0-5); GRANULOCYTE % 90.6 % (42.2-75.2); HEMATOCRIT 28.3 % (37-47); MEAN CORPUSCULAR HGB 21.1 PG (27.0-31.0); MEAN CORPUSCULAR HGB CONC 30.4 G/DL (33.0-37.0); MEAN CORPUSCULAR VOLUME 69.4 FL (81.0-99.0); MEAN PLATELET VOLUME 8.9 FL (7.4-10.4); PLATELET COUNT 164 /CUMM (130-400); RBC DISTRIBUTION WIDTH 26.2 % (11.5-14.5); RED BLOOD CELL CT 4.08 /CUMM (4.20-5.40); WHITE BLOOD CELL COUNT 14.8 /CUMM (4.8-10.8)
--- NOTE | 2017-10-11 07:02 | RADIOLOGY REPORT ---
EXAMINATION: XR PORTABLE CHEST CLINICAL INFORMATION: Status post colon resection. COMPARISON: Chest 10/10/2017 TECHNIQUE: Portable frontal view of the chest was obtained. FINDINGS: The lungs are hypoexpanded with soft tissue haziness in both lung bases. Underlying process is not excluded. Heart size is enlarged. Pulmonary vasculature is prominent but no congestion seen. Tip of endotracheal tube is 3.7 cm above the ree. IMPRESSION: Hypovolemic lungs with bibasilar haziness question atelectasis and/or infiltrate. The upper lungs are clear. Tip of endotracheal tube is 3.7 cm above the ree. Cardiomegaly.
--- NOTE | 2017-10-11 07:54 | PN- General Surgery ---
See Addendum Subjective Subjective: 71-year-old female with right hepatic flexure mass was taken to the OR last night and underwent a right hemicolectomy without incident. She remained on the vent and was transferred to the ICU . She tolerated the procedure well and had an uneventful night. While in the ICU her vital signs have remained stable and afebrile, however there is difficulty obtaining blood pressures and blood gases. She is awake and alert on the vent, she will nod her head to questions and appears to be comfortable Review of Systems Constitutional: Denies: chills, fever. Objective Vital Signs and I&Os Vital Signs Date Time Temp Pulse Resp B/P B/P Pulse O2 O2 Flow FiO2 Mean Ox Delivery Rate 10/11 0542 100 10/11 0400 100 Ventilator 100% 10/11 0358 100 10/11 0113 100 10/11 0000 100 Ventilator 100% 10/11 0000 97.0 122 19 100/60 100 Ventilator 100% 10/10 2338 120 95/60 10/10 2200 100 10/10 1439 97.6 57 20 122/76 98 Room Air Intake & Output 10/11 1600 10/11 0800 10/11 0000 10/10 1600 10/10 0800 10/10 0000 Intake Total 3754 400 Output Total 220 600 925 300 Balance 3534 -600 -925 100 Intake, IV 3754 Intake, Oral 0 400 Number 0 Bowel Movements Output, 0 Gastric Drainage Output, Urine 220 600 925 300 Patient 398 lb Weight Weight Bed scale Measurement Method Physical Exam: Patient laying in bed, on vent, awake but sedated with ativan nods head, appears comfortable abd -obese- nontender to light palpation NGT in place, no bowel sounds yet NGT with minimal output low urine output overnight calves soft bilaterally, distal pulses inact feet warm Current Medications: Current Medications Sig/Shara Start time Last Medication Dose Route Stop Time Status Admin Acetaminophen 1,000 MG .STK-MED ONE 10/10 1504 DC IV 10/10 1505 Acetaminophen 650 MG Q6P PRN 10/01 2300 AC PO Albuterol Sulfate 3 ML Q4-PRN PRN 10/02 1900 AC 10/10 INH 0119 Ampicillin Sodium/ 3,000 MG Q6 10/10 2359 AC 10/11 Sulbactam Sodium IV 0542 Sodium Chloride 100 ML Benzocaine/Menthol 1 BRII Q2 HRS NEEDED PRN 10/02 1845 AC 10/09 PO 1356 Dextrose/Sodium 1,000 ML Q8H 10/10 2200 AC 10/10 Chloride IV 2259 Diltiazem HCl 240 MG DAILY 10/06 0900 AC 10/10 PO 0802 Fentanyl Citrate 250 MCG .STK-MED ONE 10/10 1503 DC IM 10/10 1504 Guaifenesin 10 ML Q6P PRN 10/03 1630 AC 10/08 PO 1857 Heparin Sodium 5,000 UNIT Q8 10/11 0630 AC 10/11 (Porcine) SC 0637 Heparin Sodium 5,000 UNIT Q8 10/10 2200 DC 10/10 (Porcine) SC 2305 Hydromorphone HCl 2 MG .STK-MED ONE 10/10 1503 DC IM 10/10 1504 Lorazepam 2 MG Q1 NEEDED PRN 10/10 2345 AC 10/11 IV 0404 Lorazepam 2 MG ONE ONE 10/10 2300 DC 10/10 IV 10/10 2301 2300 Lorazepam 2 MG ONE ONE 10/10 2215 DC 10/10 IV 10/10 2216 2300 Magnesium Sulfate 1 GM ONCE ONE 10/11 0230 DC 10/11 Dextrose/Water 100 ML IV 10/11 0329 0230 Metoprolol Tartrate 50 MG BID 10/07 2100 AC 10/10 PO 0802 Midazolam HCl 2 MG .STK-MED ONE 10/10 1503 DC IM 10/10 1504 Omeprazole 40 MG DAILY AC 10/02 1900 DC 10/09 PO 0630 Pantoprazole Sodium 40 MG DAILY 10/11 0900 AC IV Phenylephrine HCl 10 MG .STK-MED ONE 10/10 2152 DC IM 10/10 2153 Sodium Chloride 500 ML BOLUS ONE 10/11 0400 DC 10/11 IV 10/11 0459 0403 Sodium Chloride 500 ML BOLUS ONE 10/10 2230 DC 10/10 IV 10/10 2329 2259 Results Last 48 Hours of Labs: Laboratory Tests 10/11 10/11 0600 0412 Chemistry Sodium (137 - 145 mmol/L) 140 Potassium (3.5 - 5.1 mmol/L) 4.1 Chloride (98 - 107 mmol/L) 101 Carbon Dioxide (22 - 30 mmol/L) 28 Anion Gap (5 - 16) 11 BUN (7 - 17 mg/dL) 16 Creatinine (0.5 - 1.0 mg/dL) 1.2 H Estimated GFR (>60 ml/min) 45 L BUN/Creatinine Ratio (7 - 25 %) 13.3 Hematology CBC w Diff Cancelled MAN DIFF ORDERED WBC (4.8 - 10.8 /CUMM) Cancelled 14.8 H RBC (4.20 - 5.40 /CUMM) Cancelled 4.08 L Hgb (12.0 - 16.0 G/DL) Cancelled 8.6 L Hct (37 - 47 %) Cancelled 28.3 L MCV (81.0 - 99.0 FL) Cancelled 69.4 L MCH (27.0 - 31.0 PG) Cancelled 21.1 L MCHC (33.0 - 37.0 G/DL) Cancelled 30.4 L RDW (11.5 - 14.5 %) Cancelled 26.2 H Plt Count (130 - 400 /CUMM) Cancelled 164 MPV (7.4 - 10.4 FL) Cancelled 8.9 Gran % (42.2 - 75.2 %) 90.6 H Lymphocytes % (20.5 - 51.1 %) 5.0 L Monocytes % (1.7 - 9.3 %) 4.4 Eosinophils % (0 - 5 %) 0 Basophils % (0.0 - 2.0 %) 0 Absolute Granulocytes (1.4 - 6.5 /CUMM) 13.4 H Segmented Neutrophils (42.2 - 75.2 %) 89 H Band Neutrophils (0.0 - 5.0 %) 1 Absolute Lymphocytes (1.2 - 3.4 /CUMM) 0.7 L Lymphocytes (20.5 - 51.1 %) 6 L Monocytes (1.7 - 9.3 %) 4 Absolute Monocytes (0.10 - 0.60 /CUMM) 0.6 Absolute Eosinophils (0.0 - 0.7 /CUMM) 0 Absolute Basophils (0.0 - 0.2 /CUMM) 0 Platelet Estimate (ADEQUATE) ADEQUATE Polychromasia 1+ Hypochromic-Microcytic 1+ Poikilocytosis 1+ Anisocytosis 1+ Microcytic Cells 2+ Elliptocytes 1+ Other Body Source Fld Total RBCs Counted (%) 100 10/11 10/10 0009 2320 Chemistry Sodium (137 - 145 mmol/L) 141 Potassium (3.5 - 5.1 mmol/L) 4.2 Chloride (98 - 107 mmol/L) 106 Carbon Dioxide (22 - 30 mmol/L) 22 Anion Gap (5 - 16) 13 BUN (7 - 17 mg/dL) 14 Creatinine (0.5 - 1.0 mg/dL) 1.0 Estimated GFR (>60 ml/min) 55 L Glucose (65 - 99 mg/dL) 109 H Calcium (8.4 - 10.2 mg/dL) 7.6 L Phosphorus (2.5 - 4.5 mg/dL) 4.0 Magnesium (1.6 - 2.3 mg/dL) 1.7 Total Bilirubin (0.2 - 1.3 mg/dL) 1.2 AST (14 - 36 U/L) 41 H ALT (9 - 52 U/L) 37 Albumin (3.5 - 5.0 g/dL) 2.8 L Hematology CBC w Diff MAN DIFF ORDERED WBC (4.8 - 10.8 /CUMM) 12.1 H RBC (4.20 - 5.40 /CUMM) 4.08 L Hgb (12.0 - 16.0 G/DL) 8.7 L Hct (37 - 47 %) 28.1 L MCV (81.0 - 99.0 FL) 68.9 L MCH (27.0 - 31.0 PG) 21.3 L MCHC (33.0 - 37.0 G/DL) 30.9 L RDW (11.5 - 14.5 %) 25.3 H Plt Count (130 - 400 /CUMM) 159 MPV (7.4 - 10.4 FL) 8.9 Gran % (42.2 - 75.2 %) 91.0 H Lymphocytes % (20.5 - 51.1 %) 3.2 L Monocytes % (1.7 - 9.3 %) 5.8 Eosinophils % (0 - 5 %) 0 Basophils % (0.0 - 2.0 %) 0 Absolute Granulocytes (1.4 - 6.5 /CUMM) 11.0 H Segmented Neutrophils (42.2 - 75.2 %) 92 H Band Neutrophils (0.0 - 5.0 %) 2 Absolute Lymphocytes (1.2 - 3.4 /CUMM) 0.4 L Lymphocytes (20.5 - 51.1 %) 4 L Monocytes (1.7 - 9.3 %) 2 Absolute Monocytes (0.10 - 0.60 /CUMM) 0.7 H Absolute Eosinophils (0.0 - 0.7 /CUMM) 0 Absolute Basophils (0.0 - 0.2 /CUMM) 0 Platelet Estimate (ADEQUATE) ADEQUATE Hypochromic-Microcytic 1+ Anisocytosis 1+ Microcytic Cells 2+ Other Body Source Fld Total RBCs Counted (%) 100 10/10 10/09 0723 2219 Chemistry Sodium (137 - 145 mmol/L) 143 Potassium (3.5 - 5.1 mmol/L) 4.2 Chloride (98 - 107 mmol/L) 101 Carbon Dioxide (22 - 30 mmol/L) 31 H Anion Gap (5 - 16) 11 BUN (7 - 17 mg/dL) 15 Creatinine (0.5 - 1.0 mg/dL) 1.1 H Estimated GFR (>60 ml/min) 49 L BUN/Creatinine Ratio (7 - 25 %) 13.6 Coagulation APTT (25 - 37 SEC) 33 36 Hematology CBC w Diff MAN DIFF ORDERED WBC (4.8 - 10.8 /CUMM) 6.4 RBC (4.20 - 5.40 /CUMM) 4.04 L Hgb (12.0 - 16.0 G/DL) 8.6 L Hct (37 - 47 %) 27.6 L MCV (81.0 - 99.0 FL) 68.4 L MCH (27.0 - 31.0 PG) 21.2 L MCHC (33.0 - 37.0 G/DL) 31.0 L RDW (11.5 - 14.5 %) 25.5 H Plt Count (130 - 400 /CUMM) 177 MPV (7.4 - 10.4 FL) 8.7 Gran % (42.2 - 75.2 %) 69.5 Lymphocytes % (20.5 - 51.1 %) 18.4 L Monocytes % (1.7 - 9.3 %) 9.6 H Eosinophils % (0 - 5 %) 2.5 Basophils % (0.0 - 2.0 %) 0 Absolute Granulocytes (1.4 - 6.5 /CUMM) 4.5 Segmented Neutrophils (42.2 - 75.2 %) 84 H Absolute Lymphocytes (1.2 - 3.4 /CUMM) 1.2 Lymphocytes (20.5 - 51.1 %) 12 L Monocytes (1.7 - 9.3 %) 2 Absolute Monocytes (0.10 - 0.60 /CUMM) 0.6 Eosinophils (0 - 5.0 %) 2 Absolute Eosinophils (0.0 - 0.7 /CUMM) 0.2 Absolute Basophils (0.0 - 0.2 /CUMM) 0 Platelet Estimate (ADEQUATE) VERIFIED BY SMEAR Hypochromic-Microcytic 1+ Anisocytosis 1+ Microcytic Cells 2+ Assessment/Plan Assessment/Plan 71 y/o female S/P right hemicolectomy POD 1 for hepatic flexure mass. continue with hepsubq -consider hep drip today -will discuss with Dr. Issac CASTILLO -LCS remain NPO -on vent, wait return of bowel function continue with medical management and will continue to follow abx -unasyn Problem List: 1. Mass of hepatic flexure of colon 2. Colon cancer 3. Acute on chronic diastolic CHF (congestive heart failure) 4. Anemia 5. Afib 6. AUGUSTO (acute kidney injury) Core Measures Venous Thromboembolism VTE Risk Factors Obesity No Mechanical VTE Prophylaxis d/t N/A MechProphylax Ordered No VTE Pharm Prophylaxis d/t NA PharmProphylax ordered
[2017-10-11 08:00] VITALS: BP 150/900
--- NOTE | 2017-10-11 08:02 | Cons- CRCU ---
Zaheer BARBER,[facility] 10/11/17 0802: General Information and HPI Consulting Request Date of Consult: 10/11/17 Requested By: Dr Tabitha Brumfield Reason for Consult: requiring vent support post surgery Source of Information: patient, old records Exam Limitations: no limitations History of Present Illness: 71-year-old morbidly obese woman with past medical history of venous stasis, asthma, HFpEF (LVEF >60%), hypertension, and gout presented to the ED on 10/01/17 when she was sent in by her PCP for evaluation of shortness of breath, nonproductive cough, and bilateral lower extremity swelling. At the time patient reported that several weeks ago she saw her PCP for swelling of her legs (right >left) for which she was prescribed a 10 day course of Augmentin which on she completed. Over the past few days she had been taking additional doses of her Lasix for worsening of her lower extremity swelling. On the day of admission, she had an appointment with her PCP and endorsed shortness of breath with a nonproductive cough. Given her persistent lower extremity swelling and new shortness of breath with cough patient was sent to the [facility] ED for evaluation. She was found to be in new onset a.fib with RVR on presentation. She was admitted to telemetry with a diagnosis of acute on chronic heart failure and atrial fibrilliation. The following day she was assessed by GI for iron deficiency anemia with OB negative stool initially. She was found to have a drop in her H&H 7/20 for which she required 2 units pRBC. Subsequently the patient was found to have heme +ve stools and was scheduled for a colonoscopy which showed a carcinoma at the hepatic flexure with biopsy showing invasive moderately to poorly differentiated adenocarcinoma. She was scheduled for a right colectomy. Postoperatively, she was difficult to extubate and brought to the ICU for ventilation management. Allergies/Medications Allergies: Coded Allergies: NO KNOWN ALLERGIES (05/17/15) Home Med List: Albuterol Sulfate (Proair Hfa) 90 MCG HFA.AER.AD 2 PUF INH AD PRN ASTHMA ( Reported) Albuterol Sulfate 2.5 MG/3 ML (0.083 %) VIAL.NEB 1 Vial INH/WESLEY AD PRN ASTHMA (Reported) Amlodipine Besylate/Benazepril (Amlodipine-Benazepril 10-40 MG) 10 MG-40 MG CAPSULE 1 CAP PO DAILY BP (Reported) Budesonide/Formoterol Fumarate (Symbicort 160-4.5 Mcg Inhaler) 160 MCG-4.5 MCG/ ACTUATION HFA.AER.AD 2 PUF INH BID ASTHMA (Reported) Cholecalciferol (Vitamin D3) (Vitamin D) 2,000 UNIT CAPSULE 1 CAP PO DAILY supplement (Reported) Ferrous Sulfate 325 MG (65 MG IRON) TABLET 1 TAB PO TID anemia (Reported) Furosemide 80 MG TABLET 1 TAB PO DAILY DIURETIC (Reported) Montelukast Sodium 10 MG TABLET 1 TAB PO DAILY ASTHMA (Reported) Triamcinolone Acetonide 0.1 % OINT...G. 1 FARA TOP BID BOTH LEGS (Reported) apply to affected area(s) Review of Systems Review of Systems Constitutional: Reports: no symptoms. EENTM: Reports: no symptoms. Cardiovascular: Reports: no symptoms. Respiratory: Reports: no symptoms. GI: Reports: abdominal pain. Genitourinary: Reports: no symptoms. Musculoskeletal: Reports: no symptoms. Skin: Reports: change in skin color. Neurological/Psychological: Reports: no symptoms. 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 FH: CHF (congestive heart failure) FATHER, , Age 70; Cause: Myocardial infarct. SISTER (smoker). , Age 60+; Cause: Lung cancer. MATERNAL AUNT, , Age 40-50; Cause: Breast CA. FEMALE 1ST COUSIN (sickle cell disease). Relation not specified for: sickle cell anemia Psychosocial History Where Do You Live? Home Who Do You Live With? child Services at Home: None Primary Language: Surinamese Smoking Status: Former Smoker ETOH Use: denies use Illicit Drug Use: denies illicit drug use Living Will? no Power of Federal Judge/HCP? no Other Social History: . 4 biologic kids- [employer]. 2 adopted kids. No cigarettes, EtOH, or illicit drugs. 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 Functional Ability ADLs Independent: dressing, eating, toileting, bathing. Ambulation: independent IADLs Independent: shopping, housework, finances, food prep, telephone, transportation , medication admin. 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 ECHO Results (as available) Date of last Echo 05/17/15 EF% 60 Exam & Diagnostic Data Last 24 Hrs of Vital Signs/I&O Vital Signs Date Time Temp Pulse Resp B/P B/P Pulse O2 O2 Flow FiO2 Mean Ox Delivery Rate 10/11 0910 50 10/11 0542 100 10/11 0400 100 Ventilator 100% 10/11 0358 100 10/11 0113 100 10/11 0000 100 Ventilator 100% 10/11 0000 97.0 122 19 100/60 100 Ventilator 100% 10/10 2338 120 95/60 10/10 2200 100 10/10 1439 97.6 57 20 122/76 98 Room Air Intake & Output 10/11 1600 10/11 0800 10/11 0000 Intake Total 3754 Output Total 220 Balance 3534 Intake, IV 3754 Intake, Oral 0 Number 0 Bowel Movements Output, 0 Gastric Drainage Output, Urine 220 Physical Exam General Appearance: awake, intubated, mild distress, morbidly obese Head: atraumatic, normal appearance Eyes: Bilateral: normal appearance. Respiratory: normal breath sounds, chest non-tender, lungs clear Cardiovascular: bradycardia, systolic murmur Gastrointestinal: soft, mild tenderness Extremities: swelling, venous stasis changes, depigmented areas on thighs. , b/l lower extremity edema Neurologic/Psych: awake Cranial Nerves: normal hearing Skin: intact Assessment/Plan CRCU Impression/Plan: 71-year-old lady with significant multiple comorbidities including hypertension, asthma, HFrEF/diastolic CHF EF 40-45%, morbidly obese, B/L LE venous stasis, CKD , atrial fibrillation with RVR, was brought into ICU from PACU after undergoing a right colectomy after a colonoscopy finding of invasive adenocarcinoma at the hepatic flexure. There were no intraoperative complication with mimimal blood loss reported. However postoperatively, the anesthesia team were not able to extubate the patient due to desaturation. Assessment: 1. Hypoxemic Respiratory Failure * Currently on Mechanical Ventilation with PEEP 5, FiO2 60%, Rate 20, Vt 500. * Will attempt to wean down on oxygen. Once approaches 40% will begin SBT * Will hold off on sedation. Can use Ativan prn if needed. 2. New Onset Atrial Fibrilliation - now in NSR * spontaneous conversion to NSR around 4am last night. * Currently bradycardic with HR in 50s. * Will hold Cardizem and Metoprolol for now as she cannot take oral medications. Will use prn metoprolol pushes if needed. * AC to be on hold for 24 hours after surgery. * Will resume IV heparin then 3. Acute on chronic heart failure * IV Lasix 40mg today. Will reassess daily. * On Lasix 80mg daily at home 4. Invasive Colonic Adenocarcinoma * s/p right colectomy * CT Abd/Pelvis 10/08 was concerning for mets but requires further evaluation with MRI. This can likely be pursued outpatient. 5. AUGUSTO on CKD * Mild elevation in Cr to 1.2 * Trend Renal Function 6. Microcytic Anemia * s/p two units pRBC on 10/03 * Monitor H&H * She is on ferrous sulphate at home which should be continued on discharge. 7. Morbid Obesity * Will require dietary counseling. Diet: NPO as intubated. Will consider tube feeds if intubation is prolonged. D5W-1/2NS @75ml/hr DVT PPX: SC Heparin Code: DNR/DNI (was reversed for surgery) Consult Acknowledgment - Thank you for your consult request. Cookie BARBER,[facility] 10/11/17 0950: Exam & Diagnostic Data Last 48 Hrs of Labs/Gino: Laboratory Tests 10/11/17 0945: pH 7.42, pCO2 40, pO2 73 L, HCO3 25, ABG O2 Sat (Measured) 93.0 L, Carboxyhemoglobin 0.6 L, O2 Concentration % 60%, Respiration Rate 20, O2 Delivery Method VENT, Vent Mode AC, Expiratory Pressure 5, Tidal Volume 500, Phlebotomy Draw Site LEFT RADIAL 10/11/17 0600: CBC w Diff Cancelled, WBC Cancelled, RBC Cancelled, Hgb Cancelled, Hct Cancelled , MCV Cancelled, MCH Cancelled, MCHC Cancelled, RDW Cancelled, Plt Count Cancelled, MPV Cancelled 10/11/17 0412: Anion Gap 11, Estimated GFR 45 L, BUN/Creatinine Ratio 13.3, Magnesium 2.1, CBC w Diff MAN DIFF ORDERED, RBC 4.08 L, MCV 69.4 L, MCH 21.1 L, MCHC 30.4 L, RDW 26.2 H, MPV 8.9, Gran % 90.6 H, Lymphocytes % 5.0 L, Monocytes % 4.4, Eosinophils % 0, Basophils % 0, Absolute Granulocytes 13.4 H, Segmented Neutrophils 89 H, Band Neutrophils 1, Absolute Lymphocytes 0.7 L, Lymphocytes 6 L, Monocytes 4, Absolute Monocytes 0.6, Absolute Eosinophils 0, Absolute Basophils 0, Platelet Estimate ADEQUATE, Polychromasia 1+, Hypochromic- Microcytic 1+, Poikilocytosis 1+, Anisocytosis 1+, Microcytic Cells 2+, Elliptocytes 1+, Fld Total RBCs Counted 100 10/11/17 0009: CBC w Diff MAN DIFF ORDERED, RBC 4.08 L, MCV 68.9 L, MCH 21.3 L, MCHC 30.9 L , RDW 25.3 H, MPV 8.9, Gran % 91.0 H, Lymphocytes % 3.2 L, Monocytes % 5.8, Eosinophils % 0, Basophils % 0, Absolute Granulocytes 11.0 H, Segmented Neutrophils 92 H, Band Neutrophils 2, Absolute Lymphocytes 0.4 L, Lymphocytes 4 L, Monocytes 2, Absolute Monocytes 0.7 H, Absolute Eosinophils 0, Absolute Basophils 0, Platelet Estimate ADEQUATE, Hypochromic-Microcytic 1+, Anisocytosis 1+, Microcytic Cells 2+, Fld Total RBCs Counted 100 10/10/17 2320: Anion Gap 13, Estimated GFR 55 L, Glucose 109 H, Calcium 7.6 L, Phosphorus 4.0, Magnesium 1.7, Total Bilirubin 1.2, AST 41 H, ALT 37, Albumin 2.8 L 10/10/17 0723: Anion Gap 11, Estimated GFR 49 L, BUN/Creatinine Ratio 13.6, APTT 33, CBC w Diff MAN DIFF ORDERED, RBC 4.04 L, MCV 68.4 L, MCH 21.2 L, MCHC 31.0 L, RDW 25.5 H, MPV 8.7, Gran % 69.5, Lymphocytes % 18.4 L, Monocytes % 9.6 H, Eosinophils % 2.5, Basophils % 0, Absolute Granulocytes 4.5, Segmented Neutrophils 84 H, Absolute Lymphocytes 1.2, Lymphocytes 12 L, Monocytes 2, Absolute Monocytes 0.6, Eosinophils 2, Absolute Eosinophils 0.2, Absolute Basophils 0, Platelet Estimate VERIFIED BY SMEAR, Hypochromic-Microcytic 1+, Anisocytosis 1+, Microcytic Cells 2+ 10/09/17 2219: APTT 36 Assessment/Plan CRCU Other Findings/Comments: I have personally seen and examined the patient, and agree with the housestaff's assessment and plan as detailed above. Briefly, the patient 71-year-old morbidly obese female with a history of venous stasis, asthma, HFP EF (LVEF greater than 60%), hypertension, and gout. The patient was admitted on 2017 with increased shortness of breath, related to acute on chronic heart failure and atrial fibrillation. She also had significant drop in her H&H which required 2 units of blood. She underwent a colonoscopy that showed a carcinoma at the hepatic flexure noting biopsy was positive for poorly differentiated adenocarcinoma. The patient underwent a right colectomy. Postoperatively she was difficult to extubate and brought to the ICU for ventilator management. The patient is currently hemodynamically stable, on mechanical ventilation at 100% oxygen. Her saturations have been in the high 90s-100%. The oxygen has not yet been tapered. She is moving all extremities and following commands. She has good urine output. She is afebrile. She acknowledges she has pain at her incisional site. Impression: 1. Hypoxemic respiratory failure, likely hypoventilatory in the setting of abdominal surgery/colectomy, morbid obesity, chronic severe orthopnea (patient can not lay flat and sleeps upright). 2. S/P extended right colectomy for colon cancer. 3. Atrial firbillation in NSR at present. 4. Anemia, currently stable. 5. Acute on chronic heart failure -diuresis preoperatively. 6. Morbid obesity. Plan: * Taper oxygen for saturations > 92%. * Increase TV to 550 ml. * When awake, alert, and oxygen down to 40%, will attempt weaning trials. * D5 1/2 NS at 75 ml/hour. * Monitor BSs. * Monitor off antibiotics for now. * Attempt to avoid sedation. * Continue with pain control. * NPO, oral meds on hold. * Cardiology input regarding beta blockers and calcium channel blockers. * Vent bundle. * No IV heparin, just SQ heaparin for now per surgery. * Thank you for the consult. Continue all supportive care. I discussed the plan of care with the housestaff and surgery. I asked to be contacted if there are any questions or if the patient's condition changes. Consult Acknowledgment - Thank you for your consult request.
--- NOTE | 2017-10-11 12:12 | PN- Cardiology ---
Subjective Subjective: Patient remains intubated. She is spontaneously converted to sinus rhythm. Objective Vital Signs and I&Os Vital Signs Date Time Temp Pulse Resp B/P B/P Pulse O2 O2 Flow FiO2 Mean Ox Delivery Rate 10/11 1140 60 10/11 0910 50 10/11 0805 80 10/11 0542 100 10/11 0400 100 Ventilator 100% 10/11 0358 100 10/11 0113 100 10/11 0000 100 Ventilator 100% 10/11 0000 97.0 122 19 100/60 100 Ventilator 100% 10/10 2338 120 95/60 10/10 2200 100 10/10 1439 97.6 57 20 122/76 98 Room Air Intake & Output 10/11 1600 10/11 0800 10/11 0000 10/10 1600 10/10 0800 10/10 0000 Intake Total 3754 400 Output Total 220 600 925 300 Balance 3534 -600 -925 100 Intake, IV 3754 Intake, Oral 0 400 Number 0 Bowel Movements Output, 0 Gastric Drainage Output, Urine 220 600 925 300 Patient 398 lb Weight Weight Bed scale Measurement Method Physical Exam: General: Intubated. Obese. Eyes: No obvious scleral icterus. HEENT: No jugular venous distention or abnormal jugular venous pulsations. Cardiovascular: Normal intensity S1/S2. Regular. Respiratory: Mildly decreased air entry Abdomen: Soft Musculoskeletal: No clubbing or cyanosis noted; trace lower external edema Skin: warm Current Medications: Current Medications Sig/Shara Start time Last Medication Dose Route Stop Time Status Admin Acetaminophen 1,000 MG .STK-MED ONE 10/10 1504 DC IV 10/10 1505 Acetaminophen 650 MG Q6P PRN 10/01 2300 AC PO Albuterol Sulfate 3 ML Q4-PRN PRN 10/02 1900 AC 10/10 INH 0119 Ampicillin Sodium/ 3,000 MG Q6 10/10 2359 DC 10/11 Sulbactam Sodium IV 0542 Sodium Chloride 100 ML Benzocaine/Menthol 1 BRII Q2 HRS NEEDED PRN 10/02 1845 10/09 PO 1356 Dextrose/Sodium 1,000 ML Q8H 10/10 2200 10/10 Chloride IV 2259 Diltiazem HCl 240 MG DAILY 10/06 0900 10/10 PO 0802 Fentanyl Citrate 250 MCG .STK-MED ONE 10/10 1503 DC IM 10/10 1504 Furosemide 40 MG ONCE ONE 10/11 0930 DC 10/11 IV 10/11 0931 1014 Guaifenesin 10 ML Q6P PRN 10/03 1630 AC 10/08 PO 1857 Heparin Sodium 5,000 UNIT Q8 10/11 0630 AC 10/11 (Porcine) SC 0637 Heparin Sodium 5,000 UNIT Q8 10/10 2200 DC 10/10 (Porcine) SC 2305 Hydromorphone HCl 2 MG .STK-MED ONE 10/10 1503 DC IM 10/10 1504 Lorazepam 2 MG Q1 NEEDED PRN 10/10 2345 AC 10/11 IV 0925 Lorazepam 2 MG ONE ONE 10/10 2300 DC 10/10 IV 10/10 2301 2300 Lorazepam 2 MG ONE ONE 10/10 2215 DC 10/10 IV 10/10 2216 2300 Magnesium Sulfate 1 GM ONCE ONE 10/11 0230 DC 10/11 Dextrose/Water 100 ML IV 10/11 0329 0230 Metoprolol Tartrate 50 MG BID 10/07 2100 AC 10/10 PO 0802 Midazolam HCl 2 MG .STK-MED ONE 10/10 1503 DC IM 10/10 1504 Omeprazole 40 MG DAILY AC 10/02 1900 DC 10/09 PO 0630 Pantoprazole Sodium 40 MG DAILY 10/11 0900 AC 10/11 IV 0910 Phenylephrine HCl 10 MG .STK-MED ONE 10/10 2152 DC IM 10/10 2153 Sodium Chloride 500 ML BOLUS ONE 10/11 0400 DC 10/11 IV 10/11 0459 0403 Sodium Chloride 500 ML BOLUS ONE 10/10 2230 DC 10/10 IV 10/10 2329 2259 Results Last 48 Hrs of Labs/Mics: Laboratory Tests 10/11/17 0945: pH 7.42, pCO2 40, pO2 73 L, HCO3 25, ABG O2 Sat (Measured) 93.0 L, Carboxyhemoglobin 0.6 L, O2 Concentration % 60%, Respiration Rate 20, O2 Delivery Method VENT, Vent Mode AC, Expiratory Pressure 5, Tidal Volume 500, Phlebotomy Draw Site LEFT RADIAL 10/11/17 0600: CBC w Diff Cancelled, WBC Cancelled, RBC Cancelled, Hgb Cancelled, Hct Cancelled , MCV Cancelled, MCH Cancelled, MCHC Cancelled, RDW Cancelled, Plt Count Cancelled, MPV Cancelled 10/11/17 0412: Anion Gap 11, Estimated GFR 45 L, BUN/Creatinine Ratio 13.3, Magnesium 2.1, CBC w Diff MAN DIFF ORDERED, RBC 4.08 L, MCV 69.4 L, MCH 21.1 L, MCHC 30.4 L, RDW 26.2 H, MPV 8.9, Gran % 90.6 H, Lymphocytes % 5.0 L, Monocytes % 4.4, Eosinophils % 0, Basophils % 0, Absolute Granulocytes 13.4 H, Segmented Neutrophils 89 H, Band Neutrophils 1, Absolute Lymphocytes 0.7 L, Lymphocytes 6 L, Monocytes 4, Absolute Monocytes 0.6, Absolute Eosinophils 0, Absolute Basophils 0, Platelet Estimate ADEQUATE, Polychromasia 1+, Hypochromic- Microcytic 1+, Poikilocytosis 1+, Anisocytosis 1+, Microcytic Cells 2+, Elliptocytes 1+, Fld Total RBCs Counted 100 10/11/17 0009: CBC w Diff MAN DIFF ORDERED, RBC 4.08 L, MCV 68.9 L, MCH 21.3 L, MCHC 30.9 L , RDW 25.3 H, MPV 8.9, Gran % 91.0 H, Lymphocytes % 3.2 L, Monocytes % 5.8, Eosinophils % 0, Basophils % 0, Absolute Granulocytes 11.0 H, Segmented Neutrophils 92 H, Band Neutrophils 2, Absolute Lymphocytes 0.4 L, Lymphocytes 4 L, Monocytes 2, Absolute Monocytes 0.7 H, Absolute Eosinophils 0, Absolute Basophils 0, Platelet Estimate ADEQUATE, Hypochromic-Microcytic 1+, Anisocytosis 1+, Microcytic Cells 2+, Fld Total RBCs Counted 100 10/10/17 2320: Anion Gap 13, Estimated GFR 55 L, Glucose 109 H, Calcium 7.6 L, Phosphorus 4.0, Magnesium 1.7, Total Bilirubin 1.2, AST 41 H, ALT 37, Albumin 2.8 L 10/10/17 0723: Anion Gap 11, Estimated GFR 49 L, BUN/Creatinine Ratio 13.6, APTT 33, CBC w Diff MAN DIFF ORDERED, RBC 4.04 L, MCV 68.4 L, MCH 21.2 L, MCHC 31.0 L, RDW 25.5 H, MPV 8.7, Gran % 69.5, Lymphocytes % 18.4 L, Monocytes % 9.6 H, Eosinophils % 2.5, Basophils % 0, Absolute Granulocytes 4.5, Segmented Neutrophils 84 H, Absolute Lymphocytes 1.2, Lymphocytes 12 L, Monocytes 2, Absolute Monocytes 0.6, Eosinophils 2, Absolute Eosinophils 0.2, Absolute Basophils 0, Platelet Estimate VERIFIED BY SMEAR, Hypochromic-Microcytic 1+, Anisocytosis 1+, Microcytic Cells 2+ 10/09/17 2219: APTT 36 Recent Imaging Studies: Telemetry tracings were personally reviewed and showed atrial fibrillation with conversion to sinus bradycardia CXR: Hypovolemic lungs with bibasilar haziness question atelectasis and/or infiltrate. The upper lungs are clear. Tip of endotracheal tube is 3.7 cm above the ree. Cardiomegaly. Assessment/Plan Assessment/Plan 1. New atrial fibrillation of unclear duration, rate uncontrolled; now back in sinus rhythm 2. Acute on chronic HF (recent EF 40-45%) 3. Morbid obesity 4. Worsening chronic lower extremity edema with stasis changes 5. Microcytic anemia 6. Acute renal failure 7. Colon mass, status post colectomy The patient remains intubated. She has spontaneously converted to sinus rhythm. Resume heparin drip when clear. Continue the metoprolol and hold additional Cardizem for now as she does have sinus bradycardia now on telemetry. Robert Erickson MD [facility] Continue telemetry? Yes
--- NOTE | 2017-10-11 13:45 | RADIOLOGY REPORT ---
EXAMINATION: XR PORTABLE CHEST CLINICAL INFORMATION: Confirmation orogastric tube placement. COMPARISON: None TECHNIQUE: Portable AP semiupright view of the chest was obtained. FINDINGS: Endotracheal tube tip terminates 4.9 cm above ree. An enteric tube is seen extending to the level of the diaphragm. Unfortunately the tip is not characterized on this study. There is improved aeration of the lungs since the earlier radiograph particularly at the right lung base with patchy right basal opacity seen. Left retrocardiac consolidation persists. The left upper lungs are poorly evaluated but grossly clear. IMPRESSION: Technically limited study. The tip of the enteric tube is not clearly localized on this exam. Consider repeat radiograph centered at the diaphragm. Slight improvement in opacification at the right lung base without change on the left.
--- NOTE | 2017-10-11 15:18 | RADIOLOGY REPORT ---
EXAMINATION: XR PORTABLE CHEST CLINICAL INFORMATION: Confirmation of orogastric tube placement. Please have radiograph centered at the diaphragm. COMPARISON: 10/11/2017 at 11:29 AM TECHNIQUE: Portable frontal view of the chest was obtained at 2:32 PM. FINDINGS: The film is underpenetrated. An enteric tube descends the esophagus with tip overlying the left upper quadrant, presumably in the proximal stomach. There is dense retrocardiac consolidation with air bronchograms. IMPRESSION: Enteric tube with tip overlying the proximal stomach. Dense retrocardiac consolidation with air bronchograms.
[2017-10-11 16:00] VITALS: BP 122/64
[2017-10-11 21:18] LABS: PTT 37 SEC (25-37)
[2017-10-11 23:00] VITALS: BP 112/60
[2017-10-12 04:50] LABS: HEMATOCRIT 26.1 % (37-47); MEAN CORPUSCULAR HGB CONC 30.8 G/DL (33.0-37.0); MEAN CORPUSCULAR VOLUME 68.2 FL (81.0-99.0); MEAN PLATELET VOLUME 10.8 FL (7.4-10.4); PLATELET COUNT 202 /CUMM (130-400); RBC DISTRIBUTION WIDTH 26.2 % (11.5-14.5); RED BLOOD CELL CT 3.83 /CUMM (4.20-5.40); WHITE BLOOD CELL COUNT 10.5 /CUMM (4.8-10.8)
[2017-10-12 05:06] LABS: PTT 66 SEC (25-37)
--- NOTE | 2017-10-12 06:30 | PN- General Surgery ---
See Addendum Subjective Subjective: Currently intubated and responds to questioning with nods. Denies abdominal pain n/v, passing flatus. Per nursing, creatine in increased and urine output has been minimal. Objective Vital Signs and I&Os Vital Signs Date Time Temp Pulse Resp B/P B/P Pulse O2 O2 Flow FiO2 Mean Ox Delivery Rate 10/12 0618 35 10/12 0400 97 Ventilator 35% 10/12 0235 35 10/12 0053 35 10/12 0000 100 Ventilator 35% 10/11 2300 98.5 48 19 112/60 95 Ventilator 35% 10/11 2200 35 10/11 2132 58 128/54 10/11 2000 98 Ventilator 35% 10/11 1900 40 10/11 1625 50 10/11 1600 98 Ventilator 45% 10/11 1600 97.4 52 20 122/64 98 Ventilator 45% 10/11 1445 56 113/56 10/11 1200 97 Ventilator 60% 10/11 1140 60 10/11 0910 50 10/11 0805 80 10/11 0800 100 Ventilator 100% 10/11 0800 97.5 56 20 150/900 100 Ventilator 100% Intake & Output 10/12 0800 10/12 0000 10/11 1600 10/11 0800 10/11 0000 10/10 1600 Intake Total 834 847 074 6590 Output Total 205 240 800 220 600 Balance 629 462 -98 3534 -600 Intake, IV 834 182 443 8462 Intake, Oral 0 0 0 0 Number 0 0 Bowel Movements Output, 25 125 0 0 Gastric Drainage Output, Urine 180 115 800 220 600 Physical Exam: Gen - intubated, awake in the icu in nad resting comfortably HEENT - OG tube in place with empty canister, 150 in last 24 h Abd - obese, dressing with scant drainage, nontender to light/deep palpation, no signs of peritonitis - concentrated urine Ext - alps in place Current Medications: Current Medications Sig/Shara Start time Last Medication Dose Route Stop Time Status Admin Acetaminophen 650 MG Q6P PRN 10/01 2300 AC PO Albuterol Sulfate 3 ML Q4-PRN PRN 10/02 1900 AC 10/10 INH 0119 Ampicillin Sodium/ 3,000 MG Q6 10/10 2359 DC 10/11 Sulbactam Sodium IV 0542 Sodium Chloride 100 ML Benzocaine/Menthol 1 BRII Q2 HRS NEEDED PRN 10/02 1845 AC 10/09 PO 1356 Dextrose/Sodium 1,000 ML Q8H 10/10 2200 AC 10/12 Chloride IV 0153 Diltiazem HCl 240 MG DAILY 10/06 0900 AC 10/10 PO 0802 Furosemide 40 MG ONCE ONE 10/12 0400 DC 10/12 IV 10/12 0401 0436 Furosemide 20 MG .STK-MED ONE 10/11 1003 DC IV 10/11 1004 Furosemide 20 MG .STK-MED ONE 10/11 0958 DC IV 10/11 0959 Furosemide 40 MG ONCE ONE 10/11 0930 DC 10/11 IV 10/11 0931 1014 Guaifenesin 10 ML Q6P PRN 10/03 1630 AC 10/08 PO 1857 Heparin Sodium 25,000 UNIT Q24H 10/11 1300 AC 10/11 (Porcine) IV 1358 Sodium Chloride 500 ML Heparin Sodium 5,000 UNIT Q8 10/11 0630 DC 10/11 (Porcine) SC 0637 Hydromorphone HCl 1 MG Q4P PRN 10/11 1215 AC 10/12 IV 0327 Lorazepam 2 MG Q1 NEEDED PRN 10/10 2345 AC 10/12 IV 0317 Metoprolol Tartrate 25 MG ONCE ONE 10/11 1415 DC 10/11 PO 10/11 1416 1445 Metoprolol Tartrate 50 MG BID 10/07 2100 AC 10/11 PO 2132 Morphine Sulfate 4 MG Q4P PRN 10/11 1215 AC IV Pantoprazole Sodium 40 MG DAILY 10/11 0900 AC 10/11 IV 0910 Results Last 48 Hours of Labs: Laboratory Tests 10/12 10/12 10/11 0605 0351 2040 Blood Gas pH (7.35 - 7.45 PH) 7.50 H pCO2 (35 - 45 TORR) 36 pO2 (80 - 100 TORR) 69 L HCO3 (21 - 28 MEQ/L) 27 ABG O2 Sat (Measured) (>96.0 %) 94.0 L P-50 (Temp Corrected) N Carboxyhemoglobin (1.5 - 5.0 %) 1.3 L O2 Concentration % .35 Respiration Rate (BPM) 20 O2 Delivery Method VENT Vent Mode A/C Expiratory Pressure (CMH2O/P) 5 Tidal Volume (CC) 550 Chemistry Sodium (137 - 145 mmol/L) 140 Potassium (3.5 - 5.1 mmol/L) 3.7 Chloride (98 - 107 mmol/L) 102 Carbon Dioxide (22 - 30 mmol/L) 28 Anion Gap (5 - 16) 10 BUN (7 - 17 mg/dL) 17 Creatinine (0.5 - 1.0 mg/dL) 1.5 H Estimated GFR (>60 ml/min) 34 L Glucose (65 - 99 mg/dL) 104 H Calcium (8.4 - 10.2 mg/dL) 7.8 L Phosphorus (2.5 - 4.5 mg/dL) 3.0 Magnesium (1.6 - 2.3 mg/dL) 2.1 Total Bilirubin (0.2 - 1.3 mg/dL) 0.7 AST (14 - 36 U/L) 104 H ALT (9 - 52 U/L) 64 H Albumin (3.5 - 5.0 g/dL) 2.6 L Coagulation APTT (25 - 37 SEC) 66 H 37 Hematology CBC w Diff MAN DIFF ORDERED WBC (4.8 - 10.8 /CUMM) 10.5 RBC (4.20 - 5.40 /CUMM) 3.83 L Hgb (12.0 - 16.0 G/DL) 8.0 L Hct (37 - 47 %) 26.1 L MCV (81.0 - 99.0 FL) 68.2 L MCH (27.0 - 31.0 PG) 21.0 L MCHC (33.0 - 37.0 G/DL) 30.8 L RDW (11.5 - 14.5 %) 26.2 H Plt Count (130 - 400 /CUMM) 202 MPV (7.4 - 10.4 FL) 10.8 H Segmented Neutrophils (42.2 - 75.2 %) 84 H Lymphocytes (20.5 - 51.1 %) 12 L Monocytes (1.7 - 9.3 %) 2 Basophils (0.0 - 2.0 %) 2 Platelet Estimate (ADEQUATE) ADEQUATE Hypochromic-Microcytic 2+ Poikilocytosis 2+ Anisocytosis 2+ Microcytic Cells 2+ Macrocytic Cells 1+ Ovalocytes FEW Stomatocytes FEW Elliptocytes 1+ Miscellaneous Phlebotomy Draw Site RIGHT RADIAL 10/11 10/11 0945 0600 Blood Gas pH (7.35 - 7.45 PH) 7.42 pCO2 (35 - 45 TORR) 40 pO2 (80 - 100 TORR) 73 L HCO3 (21 - 28 MEQ/L) 25 ABG O2 Sat (Measured) (>96.0 %) 93.0 L Carboxyhemoglobin (1.5 - 5.0 %) 0.6 L O2 Concentration % 60% Respiration Rate (BPM) 20 O2 Delivery Method VENT Vent Mode AC Expiratory Pressure (CMH2O/P) 5 Tidal Volume (CC) 500 Hematology CBC w Diff Cancelled WBC Cancelled RBC Cancelled Hgb Cancelled Hct Cancelled MCV Cancelled MCH Cancelled MCHC Cancelled RDW Cancelled Plt Count Cancelled MPV Cancelled Miscellaneous Phlebotomy Draw Site LEFT RADIAL 10/11 10/11 0412 0009 Chemistry Sodium (137 - 145 mmol/L) 140 Potassium (3.5 - 5.1 mmol/L) 4.1 Chloride (98 - 107 mmol/L) 101 Carbon Dioxide (22 - 30 mmol/L) 28 Anion Gap (5 - 16) 11 BUN (7 - 17 mg/dL) 16 Creatinine (0.5 - 1.0 mg/dL) 1.2 H Estimated GFR (>60 ml/min) 45 L BUN/Creatinine Ratio (7 - 25 %) 13.3 Magnesium (1.6 - 2.3 mg/dL) 2.1 Hematology CBC w Diff MAN DIFF ORDERED MAN DIFF ORDERED WBC (4.8 - 10.8 /CUMM) 14.8 H 12.1 H RBC (4.20 - 5.40 /CUMM) 4.08 L 4.08 L Hgb (12.0 - 16.0 G/DL) 8.6 L 8.7 L Hct (37 - 47 %) 28.3 L 28.1 L MCV (81.0 - 99.0 FL) 69.4 L 68.9 L MCH (27.0 - 31.0 PG) 21.1 L 21.3 L MCHC (33.0 - 37.0 G/DL) 30.4 L 30.9 L RDW (11.5 - 14.5 %) 26.2 H 25.3 H Plt Count (130 - 400 /CUMM) 164 159 MPV (7.4 - 10.4 FL) 8.9 8.9 Gran % (42.2 - 75.2 %) 90.6 H 91.0 H Lymphocytes % (20.5 - 51.1 %) 5.0 L 3.2 L Monocytes % (1.7 - 9.3 %) 4.4 5.8 Eosinophils % (0 - 5 %) 0 0 Basophils % (0.0 - 2.0 %) 0 0 Absolute Granulocytes (1.4 - 6.5 /CUMM) 13.4 H 11.0 H Segmented Neutrophils (42.2 - 75.2 %) 89 H 92 H Band Neutrophils (0.0 - 5.0 %) 1 2 Absolute Lymphocytes (1.2 - 3.4 /CUMM) 0.7 L 0.4 L Lymphocytes (20.5 - 51.1 %) 6 L 4 L Monocytes (1.7 - 9.3 %) 4 2 Absolute Monocytes (0.10 - 0.60 /CUMM) 0.6 0.7 H Absolute Eosinophils (0.0 - 0.7 /CUMM) 0 0 Absolute Basophils (0.0 - 0.2 /CUMM) 0 0 Platelet Estimate (ADEQUATE) ADEQUATE ADEQUATE Polychromasia 1+ Hypochromic-Microcytic 1+ 1+ Poikilocytosis 1+ Anisocytosis 1+ 1+ Microcytic Cells 2+ 2+ Elliptocytes 1+ Other Body Source Fld Total RBCs Counted (%) 100 100 10/10 10/10 2320 0723 Chemistry Sodium (137 - 145 mmol/L) 141 143 Potassium (3.5 - 5.1 mmol/L) 4.2 4.2 Chloride (98 - 107 mmol/L) 106 101 Carbon Dioxide (22 - 30 mmol/L) 22 31 H Anion Gap (5 - 16) 13 11 BUN (7 - 17 mg/dL) 14 15 Creatinine (0.5 - 1.0 mg/dL) 1.0 1.1 H Estimated GFR (>60 ml/min) 55 L 49 L BUN/Creatinine Ratio (7 - 25 %) 13.6 Glucose (65 - 99 mg/dL) 109 H Calcium (8.4 - 10.2 mg/dL) 7.6 L Phosphorus (2.5 - 4.5 mg/dL) 4.0 Magnesium (1.6 - 2.3 mg/dL) 1.7 Total Bilirubin (0.2 - 1.3 mg/dL) 1.2 AST (14 - 36 U/L) 41 H ALT (9 - 52 U/L) 37 Albumin (3.5 - 5.0 g/dL) 2.8 L Coagulation APTT (25 - 37 SEC) 33 Hematology CBC w Diff MAN DIFF ORDERED WBC (4.8 - 10.8 /CUMM) 6.4 RBC (4.20 - 5.40 /CUMM) 4.04 L Hgb (12.0 - 16.0 G/DL) 8.6 L Hct (37 - 47 %) 27.6 L MCV (81.0 - 99.0 FL) 68.4 L MCH (27.0 - 31.0 PG) 21.2 L MCHC (33.0 - 37.0 G/DL) 31.0 L RDW (11.5 - 14.5 %) 25.5 H Plt Count (130 - 400 /CUMM) 177 MPV (7.4 - 10.4 FL) 8.7 Gran % (42.2 - 75.2 %) 69.5 Lymphocytes % (20.5 - 51.1 %) 18.4 L Monocytes % (1.7 - 9.3 %) 9.6 H Eosinophils % (0 - 5 %) 2.5 Basophils % (0.0 - 2.0 %) 0 Absolute Granulocytes (1.4 - 6.5 /CUMM) 4.5 Segmented Neutrophils (42.2 - 75.2 %) 84 H Absolute Lymphocytes (1.2 - 3.4 /CUMM) 1.2 Lymphocytes (20.5 - 51.1 %) 12 L Monocytes (1.7 - 9.3 %) 2 Absolute Monocytes (0.10 - 0.60 /CUMM) 0.6 Eosinophils (0 - 5.0 %) 2 Absolute Eosinophils (0.0 - 0.7 /CUMM) 0.2 Absolute Basophils (0.0 - 0.2 /CUMM) 0 Platelet Estimate (ADEQUATE) VERIFIED BY SMEAR Hypochromic-Microcytic 1+ Anisocytosis 1+ Microcytic Cells 2+ Assessment/Plan Assessment/Plan 71 F found on colonoscopy to have mass at hepatic flexure this admission who is POD 2 s/p right hemicolectomy, remains intubated with anemia and jorge on hep gtt Cont supportive care Keep NPO on IVF Consider increasing IVF rate in setting of jorge Hopeful extubation today Monitor H&H Will d/w Dr. Lazar Core Measures Venous Thromboembolism VTE Risk Factors Obesity No Mechanical VTE Prophylaxis d/t N/A MechProphylax Ordered No VTE Pharm Prophylaxis d/t NA PharmProphylax ordered
[2017-10-12 07:00] VITALS: BP 120/70
--- NOTE | 2017-10-12 08:09 | RADIOLOGY REPORT ---
EXAMINATION: XR PORTABLE CHEST CLINICAL INFORMATION: Intubated. COMPARISON: Chest 10/11/2017. TECHNIQUE: Portable frontal view of the chest was obtained. FINDINGS: The lungs are hypoexpanded with mild haziness in both lung bases. The upper lungs are expanded and clear. Tip of endotracheal tube is 5 cm above the ree. Faintly visualized enteric tube is below diaphragm. Heart size is enlarged with normal pulmonary vascularity. No gross bony abnormality seen. IMPRESSION: Hyperinflated lungs with bibasilar haziness. Question atelectasis. Tip of endotracheal tube is 5 cm above the ree. Faintly visualized enteric tube is below the diaphragm.
--- NOTE | 2017-10-12 10:04 | PN- Resident CRCU ---
Subjective HPI/CRCU Issues: #Hypoxemic Resp Failure #New onset Afib with RVR, spontaneous resolution to NSR. 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 She remains intubated, currently on 35% O2. She is awake, responding to her name and following commands. Objective Vital Signs & I&O Last 8 Hrs of Vitals and I&O: Laboratory Tests 10/12/17 0605: pH 7.50 H, pCO2 36, pO2 69 L, HCO3 27, ABG O2 Sat (Measured) 94.0 L, P-50 ( Temp Corrected) N, Carboxyhemoglobin 1.3 L, O2 Concentration % .35, Respiration Rate 20, O2 Delivery Method VENT, Vent Mode A/C, Expiratory Pressure 5, Tidal Volume 550, Phlebotomy Draw Site RIGHT RADIAL 10/12/17 0351: Anion Gap 10, Estimated GFR 34 L, Glucose 104 H, Calcium 7.8 L, Phosphorus 3.0, Magnesium 2.1, Total Bilirubin 0.7, AST 104 H, ALT 64 H, Albumin 2.6 L, APTT 66 H, CBC w Diff MAN DIFF ORDERED, RBC 3.83 L, MCV 68.2 L, MCH 21.0 L, MCHC 30.8 L, RDW 26.2 H, MPV 10.8 H, Segmented Neutrophils 84 H, Lymphocytes 12 L, Monocytes 2, Basophils 2, Platelet Estimate ADEQUATE, Hypochromic- Microcytic 2+, Poikilocytosis 2+, Anisocytosis 2+, Microcytic Cells 2+, Macrocytic Cells 1+, Ovalocytes FEW, Stomatocytes FEW, Elliptocytes 1+ 10/11/170: APTT 37 Vital Signs Date Time Temp Pulse Resp B/P B/P Pulse O2 O2 Flow FiO2 Mean Ox Delivery Rate 10/12 0858 56 26 127/61 10/12 0824 35 10/12 0800 98 Ventilator 35% 10/12 07 97.2 52 20 120/70 99 Ventilator 35% 10/12 0618 35 10/12 0400 97 Ventilator 35% 10/12 0235 35 10/12 0053 35 10/12 0000 100 Ventilator 35% 10/11 2300 98.5 48 19 112/60 95 Ventilator 35% 10/11 2200 35 10/11 2132 58 128/54 10/12 1999 98 Ventilator 35% 10/11 1900 40 10/11 1625 50 10/11 1600 98 Ventilator 45% 10/11 1600 97.4 52 20 122/64 98 Ventilator 45% 10/11 1445 56 113/56 Intake & Output 10/12 1600 10/12 0800 10/12 0000 Intake Total 834 702 Output Total 205 240 Balance 629 462 Intake, IV 834 702 Intake, Oral 0 0 Number 0 Bowel Movements Output, 25 125 Gastric Drainage Output, Urine 180 115 Patient 412 lb Weight Intake & Output 10/12 1600 Intake Total Output Total Balance Patient 412 lb Weight Exam General Appearance: no apparent distress, intubated, obese Head: atraumatic, normal appearance Neck: normal inspection, supple Respiratory: normal breath sounds, chest non-tender Cardiovascular: regular rate/rhythm, edema Gastrointestinal: normal bowel sounds, soft, no organomegaly Extremities: normal inspection Cranial Nerves: alert, responsive to commands Current Medications: Current Medications Sig/Shara Start time Last Medication Dose Route Stop Time Status Admin Acetaminophen 650 MG Q6P PRN 10/01 2300 AC PO Albuterol Sulfate 3 ML Q4-PRN PRN 10/02 1900 AC 10/10 INH 0119 Benzocaine/Menthol 1 BRII Q2 HRS NEEDED PRN 10/02 1845 AC 10/09 PO 1356 Dextrose/Sodium 1,000 ML Q8H 10/10 2200 AC 10/12 Chloride IV 0153 Diltiazem HCl 240 MG DAILY 10/06 0900 AC 10/10 PO 0802 Furosemide 40 MG ONCE ONE 10/12 0400 DC 10/12 IV 10/12 0401 0436 Guaifenesin 10 ML Q6P PRN 10/03 1630 AC 10/08 PO 1857 Heparin Sodium 25,000 UNIT Q24H 10/11 1300 AC 10/12 (Porcine) IV 0644 Sodium Chloride 500 ML Heparin Sodium 5,000 UNIT Q8 10/11 0630 DC 10/11 (Porcine) SC 0637 Hydromorphone HCl 1 MG Q4P PRN 10/11 1215 AC 10/12 IV 1212 Lorazepam 2 MG Q1 NEEDED PRN 10/10 2345 10/12 IV 0317 Metoprolol Tartrate 25 MG ONCE ONE 10/11 1415 DC 10/11 PO 10/11 1416 1445 Metoprolol Tartrate 50 MG BID 10/07 2100 AC 10/12 PO 0858 Morphine Sulfate 4 MG Q4P PRN 10/11 1215 AC IV Pantoprazole Sodium 40 MG DAILY 10/11 0900 AC 10/12 IV 0858 CXR Findings: SERVICE DATE: 10/12/17 EXAM TYPE: RAD - XRY-PORTABLE CHEST XRAY EXAMINATION: XR PORTABLE CHEST CLINICAL INFORMATION: Intubated. COMPARISON: Chest 10/11/2017. TECHNIQUE: Portable frontal view of the chest was obtained. FINDINGS: The lungs are hypoexpanded with mild haziness in both lung bases. The upper lungs are expanded and clear. Tip of endotracheal tube is 5 cm above the ree. Faintly visualized enteric tube is below diaphragm. Heart size is enlarged with normal pulmonary vascularity. No gross bony abnormality seen. IMPRESSION: Hyperinflated lungs with bibasilar haziness. Question atelectasis. Tip of endotracheal tube is 5 cm above the ree. Faintly visualized enteric tube is below the diaphragm. Impression/Plan Impression/Problem List Impression: Ms. Verdugo is a 71 y/o obese woman with PMH of venous stasis, asthma, HFpEF (LVEF >60%), HTN, and gout presented to the ED on 10/01/17 for evaluation of SOB, nonproductive cough, and B/L LE swelling after PCP appointment. On admission, she was found to be in afib with RVR; She was subsequently admitted to telemetry for management of acute on chronic heart failure and atrial fibrilliation. 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 She was scheduled for a right colectomy, now s/p right hemicolectomy POD #2. She admitted to the ICU for ventilation management after difficulty in extubating postoperatively. IMPRESSION #Hypoxemic Resp Failure #New onset Afib with RVR, spontaneous resolution to NSR. #Svmvn-fn-yqvcuar HF #[place]O-on-CKD #Hypochromic Microcytic Anemia due to iron deficiency #Morbid obesity #S/p right hemicolectomy due to poorly diferentiated adenocarcinoma #Hypoxemic Resp Failure Pt's picture of hypoxemic respiratory failrue is likely multifactorial; hypoventilation status 2/2 abdominal surgery, morbid obesity and h/o CHF with significant orthopnea are all contributing. She is on TV 550, 35% O2 being weaned off ventilations with plans to extubate as soon as tolerated. -Attempt weaning trials #New onset Afib with RVR, spontaneous resolution to NSR. Episode of atrial arrhythmia on telemetry noted. She is currently in NSR, on cardizem and metoprolol. -Continue metoprolol and caradizem #Eqkih-pn-vnuqxzl HF // AUGUSTO-on-CKD Pt's urine output per hour has been low. She was given a one time dose of lasix 40mg once yesterday with improved outputs. Her home dose is 80 mg BID, though her Cr did rise today from 1.2->1.5. Will continue to monitor and readjust lasix dose. #Hypochromic Microcytic Anemia due to iron deficiency Pt has received 2U pRBCs, last one on 10/03. CBCs show a hypochromic microcytic anemia, consistent with her presentation of heme positive stools and posterior finding of right colon adenocarcinoma. -Monitor H/H #S/p right hemicolectomy due to poorly diferentiated adenocarcinoma POD #2 -Pain management as per surgery's recommendation DNI/DNR NPO DVT PPX: Sq hep Problem List: 1. CHF exacerbation 2. New onset a-fib 3. Acute on chronic heart failure with normal ejection fraction 4. Iron deficiency anemia 5. Colon cancer Pain Ratin Tomorrow's Labs & Rationales: cbc, icu lab bundle Plan DVT/Prophylaxis: mechanical, pharmacological
--- NOTE | 2017-10-12 10:24 | PN- CRCU ---
Subjective HPI/Critical Care Issues: Patient remains intubated and mildly lethargic Objective Current Medications: Current Medications Sig/Shara Start time Last Medication Dose Route Stop Time Status Admin Acetaminophen 650 MG Q6P PRN 10/01 2300 AC PO Albuterol Sulfate 3 ML Q4-PRN PRN 10/02 1900 AC 10/10 INH 0119 Benzocaine/Menthol 1 BRII Q2 HRS NEEDED PRN 10/02 1845 AC 10/09 PO 1356 Dextrose/Sodium 1,000 ML Q8H 10/10 2200 AC 10/12 Chloride IV 0153 Diltiazem HCl 240 MG DAILY 10/06 0900 AC 10/10 PO 0802 Furosemide 40 MG ONCE ONE 10/12 0400 DC 10/12 IV 10/12 0401 0436 Guaifenesin 10 ML Q6P PRN 10/03 1630 AC 10/08 PO 1857 Heparin Sodium 25,000 UNIT Q24H 10/11 1300 AC 10/12 (Porcine) IV 0644 Sodium Chloride 500 ML Heparin Sodium 5,000 UNIT Q8 10/11 0630 DC 10/11 (Porcine) SC 0637 Hydromorphone HCl 1 MG Q4P PRN 10/11 1215 AC 10/12 IV 0327 Lorazepam 2 MG Q1 NEEDED PRN 10/10 2345 AC 10/12 IV 0317 Metoprolol Tartrate 25 MG ONCE ONE 10/11 1415 DC 10/11 PO 10/11 1416 1445 Metoprolol Tartrate 50 MG BID 10/07 2100 AC 10/12 PO 0858 Morphine Sulfate 4 MG Q4P PRN 10/11 1215 IV Pantoprazole Sodium 40 MG DAILY 10/11 0900 AC 10/12 IV 0858 Vital Signs & I&O Last 24 Hrs of Vitals and I&O: Vital Signs Date Time Temp Pulse Resp B/P B/P Pulse O2 O2 Flow FiO2 Mean Ox Delivery Rate 10/12 0858 56 26 127/61 10/12 0824 35 10/12 0618 35 10/12 0400 97 Ventilator 35% 10/12 0235 35 10/12 0053 35 10/12 0000 100 Ventilator 35% 10/11 2300 98.5 48 19 112/60 95 Ventilator 35% 10/11 2200 35 10/11 2132 58 128/54 10/11 2000 98 Ventilator 35% 10/11 1900 40 10/11 1625 50 10/11 1600 98 Ventilator 45% 10/11 1600 97.4 52 20 122/64 98 Ventilator 45% 10/11 1445 56 113/56 10/11 1200 97 Ventilator 60% 10/11 1140 60 Intake & Output 10/12 1600 10/12 0800 10/12 0000 Intake Total 834 702 Output Total 205 240 Balance 629 462 Intake, IV 834 702 Intake, Oral 0 0 Number 0 Bowel Movements Output, 25 125 Gastric Drainage Output, Urine 180 115 Oxygen saturation 35% 97% exam for chest shows occasional rhonchi cardiac exam shows a regular S1 and S2 without murmurs abdomen is firm. Current ventilator settings show evidence of a respiratory alkalosis Impression/Plan Impression/Plan Impression/Plan: EC 11-year-old woman remains intubated status post surgery with respiratory alkalosis and evidence of mild acute kidney injury. Recommendations: Taper FiO2 his saturations allow decrease respiratory rate to 16 and repeat ABGs after 1 hour. Continue IV fluids if creatinine worsens suggest renal consult. Beginning weaning attempts with CPAP pressure support
--- NOTE | 2017-10-12 11:55 | PN- Cardiology ---
Subjective Subjective: Patient remains intubated but is following commands. She did have another episode of atrial arrhythmia yesterday but is again back in sinus rhythm. Objective Vital Signs and I&Os Vital Signs Date Time Temp Pulse Resp B/P B/P Pulse O2 O2 Flow FiO2 Mean Ox Delivery Rate 10/12 0858 56 26 127/61 10/12 0824 35 10/12 0800 98 Ventilator 35% 10/12 0700 97.2 52 20 120/70 99 Ventilator 35% 10/12 0618 35 10/12 0400 97 Ventilator 35% 10/12 0235 35 10/12 0053 35 10/12 0000 100 Ventilator 35% 10/11 2300 98.5 48 19 112/60 95 Ventilator 35% 10/11 2200 35 10/11 2132 58 128/54 10/11 2000 98 Ventilator 35% 10/11 1900 40 10/11 1625 50 10/11 1600 98 Ventilator 45% 10/11 1600 97.4 52 20 122/64 98 Ventilator 45% 10/11 1445 56 113/56 10/11 1200 97 Ventilator 60% Intake & Output 10/12 1600 10/12 0800 10/12 0000 10/11 1600 10/11 0800 10/11 0000 Intake Total 834 140 639 2226 Output Total 205 240 800 220 Balance 629 462 -98 3534 Intake, IV 834 736 105 2003 Intake, Oral 0 0 0 0 Number 0 0 Bowel Movements Output, 25 125 0 0 Gastric Drainage Output, Urine 180 115 800 220 Patient 412 lb Weight Physical Exam: General: Intubated. Obese. Eyes: No obvious scleral icterus. HEENT: No jugular venous distention or abnormal jugular venous pulsations. Cardiovascular: Normal intensity S1/S2. Regular. Respiratory: Mildly decreased air entry Abdomen: Soft Musculoskeletal: No clubbing or cyanosis noted; trace lower extremity edema Skin: warm Current Medications: Current Medications Sig/Shara Start time Last Medication Dose Route Stop Time Status Admin Acetaminophen 650 MG Q6P PRN 10/01 2300 AC PO Albuterol Sulfate 3 ML Q4-PRN PRN 10/02 1900 AC 10/10 INH 0119 Benzocaine/Menthol 1 BRII Q2 HRS NEEDED PRN 10/02 1845 AC 10/09 PO 1356 Dextrose/Sodium 1,000 ML Q8H 10/10 220 AC 10/12 Chloride IV 0153 Diltiazem HCl 240 MG DAILY 10/06 0900 AC 10/10 PO 0802 Furosemide 40 MG ONCE ONE 10/12 0400 DC 10/12 IV 10/12 0401 0436 Guaifenesin 10 ML Q6P PRN 10/03 1630 AC 10/08 PO 1857 Heparin Sodium 25,000 UNIT Q24H 10/11 1300 AC 10/12 (Porcine) IV 0644 Sodium Chloride 500 ML Heparin Sodium 5,000 UNIT Q8 10/11 0630 DC 10/11 (Porcine) SC 0637 Hydromorphone HCl 1 MG Q4P PRN 10/11 1215 AC 10/12 IV 0327 Lorazepam 2 MG Q1 NEEDED PRN 10/10 2345 AC 10/12 IV 0317 Metoprolol Tartrate 25 MG ONCE ONE 10/11 1415 DC 10/11 PO 10/11 1416 1445 Metoprolol Tartrate 50 MG BID 10/07 2100 AC 10/12 PO 0858 Morphine Sulfate 4 MG Q4P PRN 10/11 1215 AC IV Pantoprazole Sodium 40 MG DAILY 10/11 0900 AC 10/12 IV 0858 Results Last 48 Hrs of Labs/Mics: Laboratory Tests 10/12/17 0605: pH 7.50 H, pCO2 36, pO2 69 L, HCO3 27, ABG O2 Sat (Measured) 94.0 L, P-50 ( Temp Corrected) N, Carboxyhemoglobin 1.3 L, O2 Concentration % .35, Respiration Rate 20, O2 Delivery Method VENT, Vent Mode A/C, Expiratory Pressure 5, Tidal Volume 550, Phlebotomy Draw Site RIGHT RADIAL 10/12/17 0351: Anion Gap 10, Estimated GFR 34 L, Glucose 104 H, Calcium 7.8 L, Phosphorus 3.0, Magnesium 2.1, Total Bilirubin 0.7, AST 104 H, ALT 64 H, Albumin 2.6 L, APTT 66 H, CBC w Diff MAN DIFF ORDERED, RBC 3.83 L, MCV 68.2 L, MCH 21.0 L, MCHC 30.8 L, RDW 26.2 H, MPV 10.8 H, Segmented Neutrophils 84 H, Lymphocytes 12 L, Monocytes 2, Basophils 2, Platelet Estimate ADEQUATE, Hypochromic- Microcytic 2+, Poikilocytosis 2+, Anisocytosis 2+, Microcytic Cells 2+, Macrocytic Cells 1+, Ovalocytes FEW, Stomatocytes FEW, Elliptocytes 1+ 10/11/17 2040: APTT 37 10/11/17 0945: pH 7.42, pCO2 40, pO2 73 L, HCO3 25, ABG O2 Sat (Measured) 93.0 L, Carboxyhemoglobin 0.6 L, O2 Concentration % 60%, Respiration Rate 20, O2 Delivery Method VENT, Vent Mode AC, Expiratory Pressure 5, Tidal Volume 500, Phlebotomy Draw Site LEFT RADIAL 10/11/17 0600: CBC w Diff Cancelled, WBC Cancelled, RBC Cancelled, Hgb Cancelled, Hct Cancelled , MCV Cancelled, MCH Cancelled, MCHC Cancelled, RDW Cancelled, Plt Count Cancelled, MPV Cancelled 10/11/17 0412: Anion Gap 11, Estimated GFR 45 L, BUN/Creatinine Ratio 13.3, Magnesium 2.1, CBC w Diff MAN DIFF ORDERED, RBC 4.08 L, MCV 69.4 L, MCH 21.1 L, MCHC 30.4 L, RDW 26.2 H, MPV 8.9, Gran % 90.6 H, Lymphocytes % 5.0 L, Monocytes % 4.4, Eosinophils % 0, Basophils % 0, Absolute Granulocytes 13.4 H, Segmented Neutrophils 89 H, Band Neutrophils 1, Absolute Lymphocytes 0.7 L, Lymphocytes 6 L, Monocytes 4, Absolute Monocytes 0.6, Absolute Eosinophils 0, Absolute Basophils 0, Platelet Estimate ADEQUATE, Polychromasia 1+, Hypochromic- Microcytic 1+, Poikilocytosis 1+, Anisocytosis 1+, Microcytic Cells 2+, Elliptocytes 1+, Fld Total RBCs Counted 100 10/11/17 0009: CBC w Diff MAN DIFF ORDERED, RBC 4.08 L, MCV 68.9 L, MCH 21.3 L, MCHC 30.9 L , RDW 25.3 H, MPV 8.9, Gran % 91.0 H, Lymphocytes % 3.2 L, Monocytes % 5.8, Eosinophils % 0, Basophils % 0, Absolute Granulocytes 11.0 H, Segmented Neutrophils 92 H, Band Neutrophils 2, Absolute Lymphocytes 0.4 L, Lymphocytes 4 L, Monocytes 2, Absolute Monocytes 0.7 H, Absolute Eosinophils 0, Absolute Basophils 0, Platelet Estimate ADEQUATE, Hypochromic-Microcytic 1+, Anisocytosis 1+, Microcytic Cells 2+, Fld Total RBCs Counted 100 10/10/170: Anion Gap 13, Estimated GFR 55 L, Glucose 109 H, Calcium 7.6 L, Phosphorus 4.0, Magnesium 1.7, Total Bilirubin 1.2, AST 41 H, ALT 37, Albumin 2.8 L Microbiology 10/10 2309 UPPER RESP: Surveillance Culture - COMP 10/10 2309 GI: Surveillance Culture - COMP 10/10 1612 URINE ROUT: Urine Culture - COMP Recent Imaging Studies: Telemetry tracings were personally reviewed and currently shows sinus bradycardia with no prolonged pauses CXR: Hyperinflated lungs with bibasilar haziness. Question atelectasis. Tip of endotracheal tube is 5 cm above the ree. Faintly visualized enteric tube is below the diaphragm. Assessment/Plan Assessment/Plan 1. New atrial fibrillation of unclear duration, rate uncontrolled; now back in sinus rhythm 2. Acute on chronic HF (recent EF 40-45%) 3. Morbid obesity 4. Worsening chronic lower extremity edema with stasis changes 5. Microcytic anemia 6. Acute renal failure 7. Colon mass, status post colectomy The patient remains intubated. Heparin drip has been resumed. As she did have recurrent arrhythmia yesterday would continue on the metoprolol and Cardizem while monitoring the sinus bradycardia; no prolonged pauses seen on telemetry thus far. Would hold off on additional Lasix as creatinine is trending up. Robert Erickson MD [facility] Continue telemetry? Yes
--- NOTE | 2017-10-12 14:39 | Operative Report ---
See Addendum Operative/Inv Procedure Report Surgery Date: 10/10/17 Name of Procedure: Right hemicolectomy (extended) Pre-Operative Diagnosis: bleeding colon tumor (poorly differentiated adenocarcinoma) Post-Operative Diagnosis: same Estimated Blood Loss: less than 50ml Surgeon/Knife Glazer: Cady Haines Anesthesia: general endotracheal tube Operative/Procedure Note Note: Patient was positioned supine, after induction of general anesthesia, a tap block was performed, IV antibiotics were given and 5000 U hep SQ, then the abdomen was clipped prepped and draped from the nipples to the groin in the usual sterile fashion. Based on location of tumor, imaging, body habitus, we planned to reopen the right subcostal scar, the incision was made with a 10 blade excising the scar too. The incision was deepened with cautery through Rona's fascia clearing off the linea alba first then carefully incising it avoiding injury to the underlying bowel. Once thru the peritoneal layer, there was tattoo ink and adhesions which had to be taken down first, then the abdomen was explored there was no free fluid peritoneal studding or obvious liver metastases. The cecum was grasped and then retracted towards the incision at this point limited by the appendix adhered to retroperitoneum, after freeing it we spent considerable effort including [place] to free the terminal ileum tethered down in pelvis, then were able to start rotating right colon up and out by opening up the lateral and posterior attachments to the retroperitoneum with cautery.xon for obliques and posterior sheath then Including a little medially as well and then continuing laterally up towards the hepatic flexure along the white line of Toldt. Here cares taken to avoid injury to the ureter and gonadal vessels which are identified and left alone in a deeper plane This is continued back and forth mostly with cautery and a little bit of blunt dissection in the avascular areas until it starts to come up off Gerota's fascia and then the duodenum, the higher you get cares taken to avoid pulling because of the tension on the middle colic vessels. Next the hepatic flexure is taken down with the aid of LigaSure where it's more vascular and care is taken to distinguish between an separate the mesocolon and the omentum here. A point on the distal transverse colon is marked lightly with cautery past where the middle colic artery comes off, and the omentum is divided here as well. On the other end, the terminal ileum was similarly marked 10 cm proximal to the cecum and in both areas, a small window was made on the mesenteric border to duncan the lines of transection of the mesentery. Having identified and divided with LigaSure, the right branch of the middle colic artery, there's a bare area in the mesentery next to the duodenum that leads to the main pedicles of the right colon. This right colic pedicle is identified in the mesenteric fat around it is partially cleared off. On the other side the distal small bowel mesentery is scored on both sides and then divided with LigaSure until the ileocolic pedicle was was identified and also cleared off some of the fat. These 2 adjacent pedicles are isolated near their origins and divided separately with the LigaSure after first suture ligating them with 2-0 Vicryl. Next a side to side functional end to end stapled anastomosis was made using a MARCELINO stapler with two 80 mm cartridges, the first to make a common enterotomy, and the second to "T" -off the first. Before actually firing the stapler first we made sure that the distal small bowel and transverse colon are lined up parallel not twisted or stretched and that the mesenteric fat is cleared off circumferentially where the elvie will go, we placed a 3-0 silk suture at the top and at the bottom to line them up, then make adjacent enterotomies on the antimesenteric borders inserted the stapler check that fat hasn't rolled in posteriorly, and fired. The second firing which completes the anastomosis and the resection, is checked for hemostasis with cautery but also the corners are dunked with 3-0 silk Lemberts. Next the abdomen is irrigated checked for hemostasis small bowel is run and checked for any twisting and positioned down and away from the mesenteric defect , repeatedly checking the anastomosis for any bleeding or twisting. The position of the NG tube could not be checked because of adhesions up over stomach, and then the incision is closed in multiple layers first using 2-0 vicryl for peritoneum / transversalis, then 0 Maxon for the obliques and posterior sheath and then 1 Maxon for the linea alba. Then the subcutaneous layer is irrigated again, reapproximated subdermally with interrupted 3-0 Vicryl , followed by skin elvie and an island dressing. EBL minimal lap and sponge counts correct wound expectancy was clean- contaminated, IV fluids crystalloid complications none, patient tolerated the procedure well and was returned to the recovery room in satisfactory condition.
[2017-10-12 16:00] VITALS: BP 132/70
[2017-10-12 18:02] LABS: PTT 77 SEC (25-37)
--- NOTE | 2017-10-12 22:38 | RADIOLOGY REPORT ---
EXAMINATION: XR PORTABLE CHEST CLINICAL INFORMATION: OG tube placement COMPARISON: 10/12/2017 chest x-ray at 6:38 AM TECHNIQUE: Portable frontal view of the chest was obtained. FINDINGS: Technically limited exam due to patient's body habitus. The chest x-ray is taken with lordotic projection. There is an endotracheal tube in place, unchanged in position. The OG tube cannot be seen on these images. The cardiomediastinal silhouette is stable. Patchy lower lobe opacities again noted, similar to prior exam. IMPRESSION: The OG tube cannot be seen on these x-rays.
[2017-10-12 23:00] VITALS: BP 112/60
[2017-10-13 05:36] LABS: ABSOLUTE BASOPHIL COUNT 0 /CUMM (0.0-0.2); ABSOLUTE EOSINOPHIL COUNT 0.2 /CUMM (0.0-0.7); ABSOLUTE GRANULOCYTE CT 6.4 /CUMM (1.4-6.5); ABSOLUTE LYMPH COUNT 1.5 /CUMM (1.2-3.4); BASOPHIL % 0 % (0.0-2.0); GRANULOCYTE % 71.3 % (42.2-75.2); MEAN CORPUSCULAR HGB 21.2 PG (27.0-31.0); MEAN CORPUSCULAR HGB CONC 31.1 G/DL (33.0-37.0); MEAN PLATELET VOLUME 9.1 FL (7.4-10.4); PLATELET COUNT 168 /CUMM (130-400); RBC DISTRIBUTION WIDTH 26.3 % (11.5-14.5); RED BLOOD CELL CT 3.82 /CUMM (4.20-5.40)
--- NOTE | 2017-10-13 05:46 | PN- General Surgery ---
See Addendum Subjective Subjective: Patient remains intubated without sedation. Failed weening trail yesterday and remains on control mode of ventilation. Will respond to questions, but is lethargic. Per RN, cretine elivated and making minimal urine with only 125mL overnight. Objective Vital Signs and I&Os Vital Signs Date Time Temp Pulse Resp B/P B/P Pulse O2 O2 Flow FiO2 Mean Ox Delivery Rate 10/13 0515 48 116/59 10/13 0400 97 Ventilator 30% 10/13 0321 30 10/13 0035 30 10/13 0000 97 Ventilator 30% 10/12 2314 130 98/79 10/12 2300 98.9 59 20 112/60 100 Ventilator 30% 10/12 2250 30 10/12 2142 116 112/75 10/12 2000 97 Ventilator 30% 10/12 1935 30 10/12 1702 140 18 140/88 10/12 1600 35 10/12 1600 100 Ventilator 35% 10/12 1600 97.6 102 17 132/70 100 Ventilator 35% 10/12 1429 35 10/12 1214 35.4 10/12 1200 98 Ventilator 35% 10/12 0858 56 26 127/61 10/12 0824 35 10/12 0800 98 Ventilator 35% 10/12 0700 97.2 52 20 120/70 99 Ventilator 35% 10/12 0618 35 Intake & Output 10/13 0800 10/13 0000 10/12 1600 10/12 0800 10/12 0000 10/11 1600 Intake Total 819 844 834 702 702 Output Total 235 145 205 240 800 Balance 584 699 629 462 -98 Intake, IV 819 844 834 702 702 Intake, Oral 0 0 0 0 0 Number 0 0 Bowel Movements Output, 100 25 125 0 Gastric Drainage Output, Urine 135 145 180 115 800 Patient 192 lb 412 lb Weight Physical Exam: Gen - intubated, lethargic but arousable, NAD, resting comfortable HEENT: OG in place with minimal drainage in canister ABD: obese, surgical dressing is c/d/i, ND/NT, bowel sounds hypoactive : infante in place, yellow urine Ext: alps in place Current Medications: Current Medications Sig/Shara Start time Last Medication Dose Route Stop Time Status Admin Acetaminophen 650 MG Q6P PRN 10/01 2300 AC PO Albuterol Sulfate 3 ML Q4-PRN PRN 10/02 1900 AC 10/12 INH 1245 Benzocaine/Menthol 1 BRII Q2 HRS NEEDED PRN 10/02 1845 AC 10/09 PO 1356 Dextrose/Sodium 1,000 ML Q8H 10/10 2200 AC 10/13 Chloride IV 0516 Diltiazem HCl 60 MG Q6 10/12 1800 AC 10/12 PO 2314 Diltiazem HCl 60 MG .STK-MED ONE 10/12 1649 DC PO 10/12 1650 Diltiazem HCl 240 MG DAILY 10/06 0900 DC 10/10 PO 0802 Guaifenesin 10 ML Q6P PRN 10/03 1630 AC 10/08 PO 1857 Heparin Sodium 25,000 UNIT Q24H 10/11 1300 AC 10/12 (Porcine) IV 2322 Sodium Chloride 500 ML Hydromorphone HCl 1 MG Q4P PRN 10/11 1215 AC 10/13 IV 0435 Lorazepam 2 MG Q1 NEEDED PRN 10/10 2345 AC 10/13 IV 0436 Metoprolol Tartrate 50 MG BID 10/07 2100 AC 10/12 PO 2142 Morphine Sulfate 4 MG Q4P PRN 10/11 1215 AC IV Pantoprazole Sodium 40 MG DAILY 10/11 0900 AC 10/12 IV 0858 Results Last 48 Hours of Labs: Laboratory Tests 10/13 10/12 10/12 0452 1720 0605 Blood Gas pH (7.35 - 7.45 PH) 7.50 H pCO2 (35 - 45 TORR) 36 pO2 (80 - 100 TORR) 69 L HCO3 (21 - 28 MEQ/L) 27 ABG O2 Sat (Measured) (>96.0 %) 94.0 L P-50 (Temp Corrected) N Carboxyhemoglobin (1.5 - 5.0 %) 1.3 L O2 Concentration % .35 Respiration Rate (BPM) 20 O2 Delivery Method VENT Vent Mode A/C Expiratory Pressure (CMH2O/P) 5 Tidal Volume (CC) 550 Chemistry Sodium Pending Potassium Pending Chloride Pending Carbon Dioxide Pending Anion Gap Pending BUN Pending Creatinine Pending Glucose Pending Calcium Pending Phosphorus Pending Magnesium Pending Total Bilirubin Pending AST Pending ALT Pending Albumin Pending Coagulation APTT (25 - 37 SEC) Pending 77 H Hematology CBC w Diff Pending WBC Pending RBC Pending Hgb Pending Hct Pending MCV Pending MCH Pending MCHC Pending RDW Pending Plt Count Pending MPV Pending Miscellaneous Phlebotomy Draw Site RIGHT RADIAL 10/12 10/11 10/11 0359 6654 0959 Blood Gas pH (7.35 - 7.45 PH) 7.42 pCO2 (35 - 45 TORR) 40 pO2 (80 - 100 TORR) 73 L HCO3 (21 - 28 MEQ/L) 25 ABG O2 Sat (Measured) (>96.0 %) 93.0 L Carboxyhemoglobin (1.5 - 5.0 %) 0.6 L O2 Concentration % 60% Respiration Rate (BPM) 20 O2 Delivery Method VENT Vent Mode AC Expiratory Pressure (CMH2O/P) 5 Tidal Volume (CC) 500 Chemistry Sodium (137 - 145 mmol/L) 140 Potassium (3.5 - 5.1 mmol/L) 3.7 Chloride (98 - 107 mmol/L) 102 Carbon Dioxide (22 - 30 mmol/L) 28 Anion Gap (5 - 16) 10 BUN (7 - 17 mg/dL) 17 Creatinine (0.5 - 1.0 mg/dL) 1.5 H Estimated GFR (>60 ml/min) 34 L Glucose (65 - 99 mg/dL) 104 H Calcium (8.4 - 10.2 mg/dL) 7.8 L Phosphorus (2.5 - 4.5 mg/dL) 3.0 Magnesium (1.6 - 2.3 mg/dL) 2.1 Total Bilirubin (0.2 - 1.3 mg/dL) 0.7 AST (14 - 36 U/L) 104 H ALT (9 - 52 U/L) 64 H Albumin (3.5 - 5.0 g/dL) 2.6 L Coagulation APTT (25 - 37 SEC) 66 H 37 Hematology CBC w Diff MAN DIFF ORDERED WBC (4.8 - 10.8 /CUMM) 10.5 RBC (4.20 - 5.40 /CUMM) 3.83 L Hgb (12.0 - 16.0 G/DL) 8.0 L Hct (37 - 47 %) 26.1 L MCV (81.0 - 99.0 FL) 68.2 L MCH (27.0 - 31.0 PG) 21.0 L MCHC (33.0 - 37.0 G/DL) 30.8 L RDW (11.5 - 14.5 %) 26.2 H Plt Count (130 - 400 /CUMM) 202 MPV (7.4 - 10.4 FL) 10.8 H Segmented Neutrophils (42.2 - 75.2 %) 84 H Lymphocytes (20.5 - 51.1 %) 12 L Monocytes (1.7 - 9.3 %) 2 Basophils (0.0 - 2.0 %) 2 Platelet Estimate (ADEQUATE) ADEQUATE Hypochromic-Microcytic 2+ Poikilocytosis 2+ Anisocytosis 2+ Microcytic Cells 2+ Macrocytic Cells 1+ Ovalocytes FEW Stomatocytes FEW Elliptocytes 1+ Miscellaneous Phlebotomy Draw Site LEFT RADIAL 10/11 0600 Hematology CBC w Diff Cancelled WBC Cancelled RBC Cancelled Hgb Cancelled Hct Cancelled MCV Cancelled MCH Cancelled MCHC Cancelled RDW Cancelled Plt Count Cancelled MPV Cancelled Assessment/Plan Assessment/Plan This is a 71 y/o F w/ PMHx of morbidly obessity, asthma, hypertension, and gout presented to the ED on 10/01/17 for SBO and found to have new onset A-fib with RVR admitted to telemetry with a diagnosis of acute on chronic heart failure and atrial fibrilliation. She was also found to have anemia requiring transfusions. 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 Patient now POD#3 s/p right hemicolectomy, remains intubated with anemia and augusto on hep gtt Cont supportive care Keep NPO on IVF May need more fluids with AUGUSTO and low UOP Continue weening trails f/u H&H Will d/w Dr. Lazar Core Measures Venous Thromboembolism VTE Risk Factors Obesity No Mechanical VTE Prophylaxis d/t N/A MechProphylax Ordered No VTE Pharm Prophylaxis d/t NA PharmProphylax ordered
[2017-10-13 05:56] LABS: PTT 71 SEC (25-37)
[2017-10-13 07:00] VITALS: BP 112/60
--- NOTE | 2017-10-13 07:15 | PN- Resident CRCU ---
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 Inability to wean from the ventilator, Hypoxemic respiratory failure, multifactorial New onset Afib with RVR [id number] HFrEF AUGUSTO-on-CKD Hypochromic Microcytic Anemia Morbid obesity 24 Hour Events: Patient failed to be extubated post operatively, VC/AC TV 550, RR 20, FiO2 0.30, PEEP 5 She failed a weaning trial early today with tachypnea, tachycardia, hypertension and TV ~400 on PSV of 10. She is on a heparin drip for atrial fibrillation with RVR, was rate controlled with oral cardizem and metoprolol, she is now bradycardic and her rate medications were held this morning Objective Vital Signs & I&O Last 8 Hrs of Vitals and I&O: Vital Signs Date Time Temp Pulse Resp B/P B/P Pulse O2 O2 Flow FiO2 Mean Ox Delivery Rate 10/13 1200 98 Ventilator 30% 10/13 1101 30 10/13 1049 146 20 126/70 10/13 0904 46 10/13 0812 30 10/13 0800 97 Ventilator 35% 10/13 0700 97.4 45 20 112/60 97 Ventilator 30% 10/13 0553 30 10/13 0515 48 116/59 10/13 0400 97 Ventilator 30% 10/13 0321 30 10/13 0035 30 10/13 0000 97 Ventilator 30% 10/12 2314 130 98/79 10/12 2300 98.9 59 20 112/60 100 Ventilator 30% 10/12 2250 30 10/12 2142 116 112/75 10/12 2000 97 Ventilator 30% 10/12 1935 30 10/12 1702 140 18 140/88 10/12 1600 35 10/12 1600 100 Ventilator 35% 10/12 1600 97.6 102 17 132/70 100 Ventilator 35% 10/12 1429 35 Intake & Output 10/13 1600 10/13 0800 10/13 0000 Intake Total 858 819 Output Total 180 235 Balance 678 584 Intake, IV 858 819 Intake, Oral 0 0 Number 0 Bowel Movements Output, 50 100 Gastric Drainage Output, Urine 130 135 Patient 189.602 kg 87.09 kg Weight Intake & Output 10/13 1600 Intake Total Output Total Balance Patient 189.602 kg Weight Exam General Appearance: alert, awake, intubated, morbidly obese Cardiovascular: tachycardia, no murmurs Gastrointestinal: absent bowel sounds, soft nontender, morbidly obese Extremities: normal inspection, normal capillary refill, normal range of motion, no edema Weaning Parameters NIF: 23 Minute Volume: 3.02 Resp rate: 42 Vt: 85 Heart Rate: 68 Weaning Schedule Start Time: 1605 Minute Volume: 7.06 Resp Rate: 24 Vt: 295 Heart Rate: 134 End Time: 0850 Resp Rate: 35 Vt: 70 Heart Rate: 75 Current Medications: Current Medications Sig/Shara Start time Last Medication Dose Route Stop Time Status Admin Acetaminophen 650 MG Q6P PRN 10/01 2300 AC PO Albuterol Sulfate 3 ML Q4-PRN PRN 10/02 1900 AC 10/13 INH 1001 Benzocaine/Menthol 1 BRII Q2 HRS NEEDED PRN 10/02 1845 AC 10/09 PO 1356 Dextrose/Sodium 1,000 ML Q8H 10/10 2200 AC 10/13 Chloride IV 0516 Diltiazem HCl 60 MG Q6 10/12 1800 DC 10/12 PO 2314 Diltiazem HCl 60 MG .STK-MED ONE 10/12 1649 DC PO 10/12 1650 Diltiazem HCl 240 MG DAILY 10/06 0900 DC 10/10 PO 0802 Guaifenesin 10 ML Q6P PRN 10/03 1630 AC 10/08 PO 1857 Heparin Sodium 25,000 UNIT Q24H 10/11 1300 AC 10/12 (Porcine) IV 2322 Sodium Chloride 500 ML Hydromorphone HCl 1 MG Q4P PRN 10/11 1215 AC 10/13 IV 0435 Lorazepam 2 MG Q1 NEEDED PRN 10/10 2345 AC 10/13 IV 1133 Metoprolol Tartrate 100 MG BID 10/13 2100 UNVr PO Metoprolol Tartrate 50 MG ONCE ONE 10/13 1300 UNVr PO 10/13 1301 Metoprolol Tartrate 50 MG ONCE ONE 10/13 1100 DC 10/13 PO 10/13 1101 1049 Metoprolol Tartrate 50 MG BID 10/07 2100 DC 10/13 PO 0904 Morphine Sulfate 4 MG Q4P PRN 10/11 1215 AC IV Pantoprazole Sodium 40 MG DAILY 10/11 0900 AC 10/13 IV 0903 Potassium Chloride 60 MEQ ONCE ONE 10/13 1045 DC 10/13 PO 10/13 1046 1049 Potassium Chloride 60 MEQ ONCE ONE 10/13 0945 CAN PO 10/13 0946 Results Results: Blood cultures negative Sputum culture obtained and pending CXR Findings: FINDINGS: Stable orientation of endotracheal tube approximately 5 cm above the level of the ree. Enteric tube difficult to visualize. Persistent low lung volumes. Bibasilar opacities persist, right worse than left. The right basilar opacity might be slightly more prominent than yesterday. IMPRESSION: Limited examination given patient body habitus. Bibasilar opacities persist, right worse than left. The right basilar opacity might be slightly more prominent than yesterday. CT Scan Findings: 1. 5.4 cm long segment of the hepatic flexure is abnormally thickened and is suspicious for a colon cancer. A subcentimeter sized adjacent mesenteric lymph node is seen. 2. Evaluation of the liver for metastases is limited. Liver parenchyma appears heterogeneous and a few subtle subcentimeter sized nodular densities are seen, incompletely characterized. Findings may represent tiny cysts versus subtle metastatic disease. Further assessment with MRI scan can be performed in an attempt to further characterize these findings. 3. No adenopathy is seen. 4. New small bilateral pleural effusions and persistent patchy groundglass opacities in the lungs bilaterally. Findings may be due to pulmonary edema. Clinical correlation requested. 5. Question of subtle pancreatic tail mass. This can also be reassessed at the time of the above suggested MRI scan follow-up. 6. Status post cholecystectomy. Impression/Plan Impression/Problem List Impression: 71 y/o obese woman with PMH of venous stasis, asthma, HFpEF (LVEF >60%), HTN, and gout presented to the ED on 10/01/17 for evaluation of SOB, nonproductive cough, and B/L LE swelling after PCP appointment. On admission, she was found to be in afib with RVR; She was subsequently admitted to telemetry for management of acute on chronic heart failure and atrial fibrilliation. 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 She was scheduled for a right colectomy, now s/p right hemicolectomy POD #3. She continues to have difficulty with weaning from the ventilator, paroxysmal rapid atrial fibrillation, mildly elevated creatinine and decreased urine output. Acute Hypoxemic Respiratory Failure, with failure to extubate Multifactorial-hypoventilation with narcotics and post operative atelectesis Morbid obesity, and impaired chest wall compliance h/o HFrEF, elevated RVSP on echocardiogram and likely obesity hypoventilation syndrome Currently on VC/AC-TV 550, RR 20 FiO2 0.3 PEEP of 5 Failed weaning trial on PSV 10 with TV 400, tachycardic, hypertensive, tachypneic Plan to extubate as soon as possible New onset atrial fibrillation with rapid ventricular response: Spontaneous converted to sinus over the weekend Medications held for bradycardia this morning Has paroxysms of atrial fibrillation, MAT, with sinus bradycardia Stop cardizem, increase metoprolol to 75mg po bid, hold for bradycardia < 50 Replete potassium Follow up cardiology recommendations HFrEF TTE 08/2017 mildly decreased LV systolic function LVEF 40-45% mild global hypokinesis Previous echocardiogram in 2016 showed normal left ventricular systolic function Continue metoprolol AUGUSTO-on-CKD Oliguria, given lasix 40mg IV x 1 once yesterday with improved outputs. Home dose is 80mg PO QD, lasix on hold Cr mahi from 1.2->1.5, now stable at 1.5 Increased IVFs to 125cc/hr Continue to monitor renal function Hypochromic Microcytic Anemia due to iron deficiency Patient required 2u pRBCs transfusion on this admission GI-colonoscopy revealed invasive moderate-poorly differentiated adenocarcinoma Hemoglobin/hematocrit stable 8.04/11 today Right hemicolectomy due to poorly diferentiated adenocarcinoma POD #3 Analgesia with Transaminitis: normal on admission, AST/ALT peaked ~100, now slightly lower IV PPI NPO, discuss tube feeds with surgery DVT ppx-on heparin gtt DNI/DNR Problem List: 1. Colon cancer 2. Mass of hepatic flexure of colon 3. Guaiac + stool 4. Acute on chronic diastolic CHF (congestive heart failure) 5. AUGUSTO (acute kidney injury) 6. Morbid obesity Pain Ratin Pain Location: abdomen Tomorrow's Labs & Rationales: cbc, icu Plan DVT/Prophylaxis: mechanical, pharmacological
--- NOTE | 2017-10-13 07:17 | RADIOLOGY REPORT ---
EXAMINATION: XR PORTABLE CHEST CLINICAL INFORMATION: Pulmonary edema. COMPARISON: Several prior chest radiographs, the most recent 10/12/2017 TECHNIQUE: Portable frontal view of the chest was obtained. Examination significantly limited secondary to patient body habitus. FINDINGS: Stable orientation of endotracheal tube approximately 5 cm above the level of the ree. Enteric tube difficult to visualize. Persistent low lung volumes. Bibasilar opacities persist, right worse than left. The right basilar opacity might be slightly more prominent than yesterday. IMPRESSION: Limited examination given patient body habitus. Bibasilar opacities persist, right worse than left. The right basilar opacity might be slightly more prominent than yesterday.
--- NOTE | 2017-10-13 08:01 | PN- CRCU ---
Subjective HPI/Critical Care Issues: Weekend events noted. She is awake but lethargic. She is moving all extremities. The patient was tried on a CPAP trial which she could not tolerate. She remains intubated, on assist control, tidal volume 550, rate 20, oxygen 30%, PEEP of 5. The patient's saturations are in the high 90s. She is on D5 half-normal saline at 75 mL/h she remains on a heparin drip she was in atrial fibrillation with rapid ventricular response yesterday however she is now bradycardic in sinus rhythm. Objective Current Medications: Current Medications Sig/Shara Start time Last Medication Dose Route Stop Time Status Admin Acetaminophen 650 MG Q6P PRN 10/01 2300 AC PO Albuterol Sulfate 3 ML Q4-PRN PRN 10/02 1900 AC 10/12 INH 1245 Benzocaine/Menthol 1 BRII Q2 HRS NEEDED PRN 10/02 1845 AC 10/09 PO 1356 Dextrose/Sodium 1,000 ML Q8H 10/10 2200 AC 10/13 Chloride IV 0516 Diltiazem HCl 60 MG Q6 10/12 1800 AC 10/12 PO 2314 Diltiazem HCl 60 MG .STK-MED ONE 10/12 1649 DC PO 10/12 1650 Diltiazem HCl 240 MG DAILY 10/06 0900 DC 10/10 PO 0802 Guaifenesin 10 ML Q6P PRN 10/03 1630 AC 10/08 PO 1857 Heparin Sodium 25,000 UNIT Q24H 10/11 1300 AC 10/12 (Porcine) IV 2322 Sodium Chloride 500 ML Hydromorphone HCl 1 MG Q4P PRN 10/11 1215 AC 10/13 IV 0435 Lorazepam 2 MG Q1 NEEDED PRN 10/10 2345 AC 10/13 IV 0436 Metoprolol Tartrate 50 MG BID 10/07 2100 AC 10/12 PO 2142 Morphine Sulfate 4 MG Q4P PRN 10/11 1215 AC IV Pantoprazole Sodium 40 MG DAILY 10/11 0900 AC 10/12 IV 0858 Vital Signs & I&O Last 24 Hrs of Vitals and I&O: Vital Signs Date Time Temp Pulse Resp B/P B/P Pulse O2 O2 Flow FiO2 Mean Ox Delivery Rate 10/13 0553 30 10/13 0515 48 116/59 10/13 0400 97 Ventilator 30% 10/13 0321 30 10/13 0035 30 10/13 0000 97 Ventilator 30% 10/12 2314 130 98/79 10/12 2300 98.9 59 20 112/60 100 Ventilator 30% 10/12 2250 30 10/12 2142 116 112/75 10/12 2000 97 Ventilator 30% 10/12 1935 30 10/12 1702 140 18 140/88 10/12 1600 35 10/12 1600 100 Ventilator 35% 10/12 1600 97.6 102 17 132/70 100 Ventilator 35% 10/12 1429 35 10/12 1214 35.4 10/12 1200 98 Ventilator 35% 10/12 0858 56 26 127/61 10/12 0824 35 10/12 0800 98 Ventilator 35% Intake & Output 10/13 0800 10/13 0000 10/12 1600 Intake Total 858 819 844 Output Total 180 235 145 Balance 678 584 699 Intake, IV 858 819 844 Intake, Oral 0 0 0 Number 0 Bowel Movements Output, 50 100 Gastric Drainage Output, Urine 130 135 145 Patient 192 lb 412 lb Weight Physical Exam General Appearance: awake, lethargic, intubated, morbidly obese Head: atraumatic, normal appearance Respiratory: normal breath sounds, chest non-tender, lungs clear Cardiovascular: bradycardia, systolic murmur Gastrointestinal: soft, mild tenderness, absent bowel sounds Extremities: swelling, venous stasis changes, depigmented areas on thighs, lower extremity edema Neurologic/Psych: awake Cranial Nerves: normal hearing Skin: intact Results Last 24 Hrs of Lab Results: Laboratory Tests 10/13/17 0452: Anion Gap 7, Estimated GFR 34 L, Glucose 90, Calcium 7.7 L, Phosphorus 3.0, Magnesium 2.0, Total Bilirubin 0.6, AST 98 H, ALT 89 H, Albumin 2.5 L, APTT 71 H, CBC w Diff MAN DIFF ORDERED, RBC 3.82 L, MCV 68.0 L, MCH 21.2 L, MCHC 31.1 L, RDW 26.3 H, MPV 9.1, Gran % 71.3, Lymphocytes % 16.1 L, Monocytes % 10.6 H, Eosinophils % 2.0, Basophils % 0, Absolute Granulocytes 6.4, Segmented Neutrophils 68, Absolute Lymphocytes 1.5, Lymphocytes 21, Monocytes 10 H, Absolute Monocytes 1.0 H, Eosinophils 1, Absolute Eosinophils 0.2, Absolute Basophils 0, Platelet Estimate ADEQUATE, Polychromasia 1+, Hypochromic- Microcytic 1+, Ovalocytes FEW, Fld Total RBCs Counted 100 10/12/17 1720: APTT 77 H Diagnostic Data CXR Findings: Bibasilar opacities. Low lung volumes. Impression/Plan Impression/Plan Impression/Plan: 1. Hypoxemic respiratory failure, likely hypoventilatory in the setting of abdominal surgery/colectomy, morbid obesity, chronic severe orthopnea (patient can not lay flat and sleeps upright). 2. S/P extended right colectomy for colon cancer. 3. Atrial firbillation in NSR at present. 4. Anemia, currently stable. 5. Acute on chronic heart failure -diuresis preoperatively. 6. Morbid obesity. 7. Mild acute kidney injury. 8. Mild transaminitis. 9. Anemia without current bleeding. Recommendations: * Continue with weaning trials. * T piece trials. * Continue nebs/total respiratory care. * Avoid sedation as much as possible. * Will need to discuss bradycardia and recurrent atrial fibrillation with cardiology. * Continue IV heparin per protocol. * Replete potassium. * Continue IV fluid however increase the rate to 125 mL/h. * Recheck in ICU bundle later today. * Monitor I's and O's, the patient may require additional fluid boluses for low urine output if necessary. * Nutrition consult. * Will discuss timing of starting tube feeds with surgery. * Vent bundle at all times. * Continue all supportive care.
--- NOTE | 2017-10-13 11:06 | PN- Cardiology ---
Subjective Subjective: The patient remains intubated and is awake on the ventilator. She converted to sinus rhythm over the weekend. She was bradycardic overnight, and rate control medications were held. She has had intermittent episodes of paroxysmal atrial fibrillation and multifocal atrial tachycardia. Objective Vital Signs and I&Os Vital Signs Date Time Temp Pulse Resp B/P B/P Pulse O2 O2 Flow FiO2 Mean Ox Delivery Rate 10/13 1049 146 20 126/70 10/13 0904 46 10/13 0812 30 10/13 0800 97 Ventilator 35% 10/13 0700 97.4 45 20 112/60 97 Ventilator 30% 10/13 0553 30 10/13 0515 48 116/59 10/13 0400 97 Ventilator 30% 10/13 0321 30 10/13 0035 30 10/13 0000 97 Ventilator 30% 10/12 2314 130 98/79 10/12 2300 98.9 59 20 112/60 100 Ventilator 30% 10/12 2250 30 10/12 2142 116 112/75 10/12 2000 97 Ventilator 30% 10/12 1935 30 10/12 1702 140 18 140/88 10/12 1600 35 10/12 1600 100 Ventilator 35% 10/12 1600 97.6 102 17 132/70 100 Ventilator 35% 10/12 1429 35 10/12 1214 35.4 10/12 1200 98 Ventilator 35% Intake & Output 10/13 1600 10/13 0810/13 0000 10/12 1600 10/12 0800 10/12 0000 Intake Total 858 819 844 834 702 Output Total 180 235 145 205 240 Balance 678 584 699 629 462 Intake, IV 858 819 844 834 702 Intake, Oral 0 0 0 0 0 Number 0 0 Bowel Movements Output, 50 100 25 125 Gastric Drainage Output, Urine 130 135 145 180 115 Patient 418 lb 192 lb 412 lb Weight Physical Exam: Gen: NAD HEENT: normal Lungs: clear to auscultation, normal resp. effort Heart: irreg irreg, S1, S2, no murmurs Abdomen: Soft, nontender, no masses Extremities: No clubbing, cyanosis, or edema. Neuro: Alert and oriented x 3, cranial nerves intact Current Medications: Current Medications Sig/Shara Start time Last Medication Dose Route Stop Time Status Admin Acetaminophen 650 MG Q6P PRN 10/01 2300 AC PO Albuterol Sulfate 3 ML Q4-PRN PRN 10/02 1900 AC 10/13 INH 1001 Benzocaine/Menthol 1 BRII Q2 HRS NEEDED PRN 10/02 1845 AC 10/09 PO 1356 Dextrose/Sodium 1,000 ML Q8H 10/10 2200 AC 10/13 Chloride IV 0516 Diltiazem HCl 60 MG Q6 10/12 1800 AC 10/12 PO 2314 Diltiazem HCl 60 MG .STK-MED ONE 10/12 1649 DC PO 10/12 1650 Diltiazem HCl 240 MG DAILY 10/06 0900 DC 10/10 PO 0802 Guaifenesin 10 ML Q6P PRN 10/03 1630 AC 10/08 PO 1857 Heparin Sodium 25,000 UNIT Q24H 10/11 1300 AC 10/12 (Porcine) IV 2322 Sodium Chloride 500 ML Hydromorphone HCl 1 MG Q4P PRN 10/11 1215 AC 10/13 IV 0435 Lorazepam 2 MG Q1 NEEDED PRN 10/10 2345 AC 10/13 IV 1000 Metoprolol Tartrate 50 MG ONCE ONE 10/13 1100 DC 10/13 PO 10/13 1101 1049 Metoprolol Tartrate 50 MG BID 10/07 2100 AC 10/13 PO 0904 Morphine Sulfate 4 MG Q4P PRN 10/11 1215 AC IV Pantoprazole Sodium 40 MG DAILY 10/11 0900 AC 10/13 IV 0903 Potassium Chloride 60 MEQ ONCE ONE 10/13 1045 DC 10/13 PO 10/13 1046 1049 Potassium Chloride 60 MEQ ONCE ONE 10/13 0945 CAN PO 10/13 0946 Results Last 48 Hrs of Labs/Mics: Laboratory Tests 10/13/17 0452: Anion Gap 7, Estimated GFR 34 L, Glucose 90, Calcium 7.7 L, Phosphorus 3.0, Magnesium 2.0, Total Bilirubin 0.6, AST 98 H, ALT 89 H, Albumin 2.5 L, APTT 71 H, CBC w Diff MAN DIFF ORDERED, RBC 3.82 L, MCV 68.0 L, MCH 21.2 L, MCHC 31.1 L, RDW 26.3 H, MPV 9.1, Gran % 71.3, Lymphocytes % 16.1 L, Monocytes % 10.6 H, Eosinophils % 2.0, Basophils % 0, Absolute Granulocytes 6.4, Segmented Neutrophils 68, Absolute Lymphocytes 1.5, Lymphocytes 21, Monocytes 10 H, Absolute Monocytes 1.0 H, Eosinophils 1, Absolute Eosinophils 0.2, Absolute Basophils 0, Platelet Estimate ADEQUATE, Polychromasia 1+, Hypochromic- Microcytic 1+, Ovalocytes FEW, Fld Total RBCs Counted 100 10/12/17 1720: APTT 77 H 10/12/17 0605: pH 7.50 H, pCO2 36, pO2 69 L, HCO3 27, ABG O2 Sat (Measured) 94.0 L, P-50 ( Temp Corrected) N, Carboxyhemoglobin 1.3 L, O2 Concentration % .35, Respiration Rate 20, O2 Delivery Method VENT, Vent Mode A/C, Expiratory Pressure 5, Tidal Volume 550, Phlebotomy Draw Site RIGHT RADIAL 10/12/17 0351: Anion Gap 10, Estimated GFR 34 L, Glucose 104 H, Calcium 7.8 L, Phosphorus 3.0, Magnesium 2.1, Total Bilirubin 0.7, AST 104 H, ALT 64 H, Albumin 2.6 L, APTT 66 H, CBC w Diff MAN DIFF ORDERED, RBC 3.83 L, MCV 68.2 L, MCH 21.0 L, MCHC 30.8 L, RDW 26.2 H, MPV 10.8 H, Segmented Neutrophils 84 H, Lymphocytes 12 L, Monocytes 2, Basophils 2, Platelet Estimate ADEQUATE, Hypochromic- Microcytic 2+, Poikilocytosis 2+, Anisocytosis 2+, Microcytic Cells 2+, Macrocytic Cells 1+, Ovalocytes FEW, Stomatocytes FEW, Elliptocytes 1+ 10/11/17 2040: APTT 37 Assessment/Plan Assessment/Plan Assessment: 1. New atrial fibrillation of unclear duration, rate uncontrolled 2. Acute on chronic HFrEF, improved. LVEF mildly decreased at 40-45% 3. Morbid obesity 4. Worsening chronic lower extremity edema with stasis changes 5. Microcytic anemia 6. Acute renal failure 7. Colon mass, planned for surgery Plan: * Restart metoprolol for rate control, and increase to 100 mg p.o. twice daily if needed for rate control * Would hold diltiazem for now given recent bradycardia. Recommend controlling rate on metoprolol alone if possible * Continue IV heparin, with plan to change to Eliquis prior to discharge Continue telemetry? Yes
[2017-10-13 16:00] VITALS: BP 138/70
[2017-10-13 19:09] LABS: PTT 54 SEC (25-37)
[2017-10-14 06:04] LABS: PTT 64 SEC (25-37)
--- NOTE | 2017-10-14 06:38 | PN- General Surgery ---
Subjective Subjective: intubated, trying to self extubate. pulled out og overnight despite restraints. no bowel fxn per nursing Objective Vital Signs and I&Os Vital Signs Date Time Temp Pulse Resp B/P B/P Pulse O2 O2 Flow FiO2 Mean Ox Delivery Rate 10/14 0604 30 10/14 0358 95 Ventilator 30% 10/14 0314 30 10/14 0034 30 10/14 0000 95 Ventilator 30% 10/13 2210 30 10/13 2136 140 20 205/76 10/13 2016 94 Ventilator 30% 10/13 1925 30 10/13 1600 97 Ventilator 30% 10/13 1600 97.9 56 19 138/70 97 Ventilator 30% 10/13 1555 30 10/13 1404 30 10/13 1200 98 Ventilator 30% 10/13 1101 30 10/13 1049 146 20 126/70 10/13 0904 46 10/13 0812 30 10/13 0800 97 Ventilator 35% 10/13 0700 97.4 45 20 112/60 97 Ventilator 30% Intake & Output 10/14 0800 10/14 0000 10/13 1600 10/13 0800 10/13 0000 10/12 1600 Intake Total 1323 916 858 819 844 Output Total 395 140 180 235 145 Balance 928 776 678 584 699 Intake, IV 1263 796 858 819 844 Intake, Oral 60 0 0 0 Intake, Other 120 Number 0 0 Bowel Movements Output, 50 100 Gastric Drainage Output, Urine 395 140 130 135 145 Patient 418 lb 192 lb 412 lb Weight Physical Exam: gen- nad, sleeping, (just got ativan) abd- obese, dressing cdi, nt Results Last 48 Hours of Labs: Laboratory Tests 10/14 10/13 10/13 10/12 0345 1720 0452 1720 Chemistry Sodium (137 - 145 mmol/L) 136 L 136 L Potassium (3.5 - 5.1 mmol/L) 3.8 3.4 L Chloride (98 - 107 mmol/L) 103 101 Carbon Dioxide (22 - 30 mmol/L) 25 29 Anion Gap (5 - 16) 9 7 BUN (7 - 17 mg/dL) 15 18 H Creatinine (0.5 - 1.0 mg/dL) 1.2 H 1.5 H Estimated GFR (>60 ml/min) 45 L 34 L BUN/Creatinine Ratio (7 - 25 %) 12.5 Glucose (65 - 99 mg/dL) 84 90 Calcium (8.4 - 10.2 mg/dL) 7.9 L 7.7 L Phosphorus (2.5 - 4.5 mg/dL) 3.1 3.0 Magnesium (1.6 - 2.3 mg/dL) 2.0 Total Bilirubin (0.2 - 1.3 mg/dL) 0.6 AST (14 - 36 U/L) 98 H ALT (9 - 52 U/L) 89 H Albumin (3.5 - 5.0 g/dL) 2.6 L 2.5 L Coagulation APTT (25 - 37 SEC) 64 H 54 H 71 H 77 H Hematology CBC w Diff Pending MAN DIFF ORDERED WBC (4.8 - 10.8 /CUMM) Pending 9.0 RBC (4.20 - 5.40 /CUMM) Pending 3.82 L Hgb (12.0 - 16.0 G/DL) Pending 8.1 L Hct (37 - 47 %) Pending 26.0 L MCV (81.0 - 99.0 FL) Pending 68.0 L MCH (27.0 - 31.0 PG) Pending 21.2 L MCHC (33.0 - 37.0 G/DL) Pending 31.1 L RDW (11.5 - 14.5 %) Pending 26.3 H Plt Count (130 - 400 /CUMM) Pending 168 MPV (7.4 - 10.4 FL) Pending 9.1 Gran % (42.2 - 75.2 %) 71.3 Lymphocytes % (20.5 - 51.1 %) 16.1 L Monocytes % (1.7 - 9.3 %) 10.6 H Eosinophils % (0 - 5 %) 2.0 Basophils % (0.0 - 2.0 %) 0 Absolute Granulocytes (1.4 - 6.5 /CUMM) 6.4 Segmented Neutrophils (42.2 - 75.2 %) 68 Absolute Lymphocytes (1.2 - 3.4 /CUMM) 1.5 Lymphocytes (20.5 - 51.1 %) 21 Monocytes (1.7 - 9.3 %) 10 H Absolute Monocytes (0.10 - 0.60 /CUMM) 1.0 H Eosinophils (0 - 5.0 %) 1 Absolute Eosinophils (0.0 - 0.7 /CUMM) 0.2 Absolute Basophils (0.0 - 0.2 /CUMM) 0 Platelet Estimate (ADEQUATE) ADEQUATE Polychromasia 1+ Hypochromic-Microcytic 1+ Ovalocytes FEW Other Body Source Fld Total RBCs Counted (%) 100 Assessment/Plan Assessment/Plan A- POD4 sp r hemicolectomy, remains intubated since OR, self pulled ogt yesterday, await bowel fxn. P- weaning trials await bowel fxn may need ngt Core Measures Venous Thromboembolism VTE Risk Factors Obesity No Mechanical VTE Prophylaxis d/t N/A MechProphylax Ordered No VTE Pharm Prophylaxis d/t NA PharmProphylax ordered
[2017-10-14 07:00] LABS: HEMATOCRIT 28.4 % (37-47); MEAN CORPUSCULAR HGB 20.7 PG (27.0-31.0); MEAN CORPUSCULAR HGB CONC 30.5 G/DL (33.0-37.0); MEAN PLATELET VOLUME 11.1 FL (7.4-10.4); PLATELET COUNT 205 /CUMM (130-400); RBC DISTRIBUTION WIDTH 26.6 % (11.5-14.5); RED BLOOD CELL CT 4.17 /CUMM (4.20-5.40); WHITE BLOOD CELL COUNT 7.6 /CUMM (4.8-10.8)
--- NOTE | 2017-10-14 07:23 | PN- Resident CRCU ---
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 Hypoxemic respiratory failure with failure to extubate postoperatively, multifactorial New onset Afib with RVR, periods of sinus bradycardia Skksm-tu-[id number] HFrEF AUGUSTO-on-CKD Hypochromic Microcytic Anemia Morbid obesity 24 Hour Events: Patient did well with a weaning trial today ABG 7.37/42/76/24 on T piece trial Successfully extubated now satting 98% on aerosal mask fio2 0.35 patient continues to have paroxysmal atrial fibrillation with rates 130s-150s also episodes of sinus bradycardia limiting the ability to increase rate control medications, currently on metoprolol 75mg po bid and heparin gtt still awaiting return of bowel function Objective Vital Signs & I&O Last 8 Hrs of Vitals and I&O: Laboratory Tests 10/14/17 1110: pH 7.37, pCO2 42, pO2 76 L, HCO3 24, ABG O2 Sat (Measured) 93.0 L, Carboxyhemoglobin 1.1 L, O2 Concentration % 30%, O2 Delivery Method T-PIECE, Phlebotomy Draw Site LEFT RADIAL 10/14/17 0345: Anion Gap 9, Estimated GFR 45 L, BUN/Creatinine Ratio 12.5, Glucose 84, Calcium 7.9 L, Phosphorus 3.1, Albumin 2.6 L, APTT 64 H, CBC w Diff MAN DIFF ORDERED, RBC 4.17 L, MCV 68.0 L, MCH 20.7 L, MCHC 30.5 L, RDW 26.6 H, MPV 11.1 H, Segmented Neutrophils 73, Band Neutrophils 2, Lymphocytes 19 L, Monocytes 4, Eosinophils 2, Platelet Estimate GIANT, Polychromasia 1+, Hypochromic-Microcytic 2+, Elliptocytes 1+, Schistocytes FEW 10/13/17 1720: APTT 54 H Vital Signs Date Time Temp Pulse Resp B/P B/P Pulse O2 O2 Flow FiO2 Mean Ox Delivery Rate 10/14 1200 98 Aerosol 35% Mask 10/14 0800 100 Ventilator 30% 10/14 0800 97.6 104 18 102/62 100 Ventilator 30% 10/14 0757 30 10/14 0604 30 10/14 0358 95 Ventilator 30% 10/14 0314 30 10/14 0034 30 10/14 0000 95 Ventilator 30% 10/13 2210 10/13 2136 140 20 205/76 10/13 2016 94 Ventilator 30% 10/13 1925 30 10/13 1600 97 Ventilator 30% 10/13 1600 97.9 56 19 138/70 97 Ventilator 30% 10/13 1555 30 Intake & Output 10/14 1600 10/14 0800 10/14 0000 Intake Total 1302 1323 Output Total 650 395 Balance 652 928 Intake, IV 1302 1263 Intake, Oral 60 Number 1 0 Bowel Movements Output, Urine 650 395 Exam General Appearance: alert, awake, obese, morbidly obese Respiratory: normal breath sounds, decreased breath sounds, rhonchi Cardiovascular: normal peripheral pulses, tachycardia Gastrointestinal: soft, non-tender, absent bowel sounds Extremities: b/l LE edema Weaning Parameters NIF: 23 Minute Volume: 5.06 Resp rate: 32 Vt: 160 Heart Rate: 60 Weaning Schedule Start Time: 1929 Minute Volume: 8.36 Resp Rate: 20 Vt: 400 Heart Rate: 82 End Time: 2039 Minute Volume: 14.8 Resp Rate: 35 Vt: 480 Heart Rate: 79 Current Medications: Current Medications Sig/Shara Start time Last Medication Dose Route Stop Time Status Admin Acetaminophen 650 MG Q6P PRN 10/01 2300 AC PO Albuterol Sulfate 3 ML Q4-PRN PRN 10/02 1900 AC 10/14 INH 0816 Benzocaine/Menthol 1 BRII Q2 HRS NEEDED PRN 10/02 1845 AC 10/09 PO 1356 Dextrose/Sodium 1,000 ML Q8H 10/10 2200 AC 10/14 Chloride IV 0606 Guaifenesin 10 ML Q6P PRN 10/03 1630 AC 10/08 PO 1857 Heparin Sodium 25,000 UNIT Q24H 10/11 1300 AC 10/13 (Porcine) IV 1721 Sodium Chloride 500 ML Hydromorphone HCl 1 MG Q4P PRN 10/11 1215 AC 10/13 IV 1608 Lorazepam 2 MG Q1 NEEDED PRN 10/10 2345 AC 10/14 IV 0606 Metoprolol Tartrate 5 MG ONCE ONE 10/13 2130 DC 10/13 IV 10/13 Metoprolol Tartrate 75 MG BID 10/13 2100 AC 10/14 PO 0902 Morphine Sulfate 4 MG Q4P PRN 10/11 1215 AC 10/14 IV 0740 Pantoprazole Sodium 40 MG DAILY 10/11 0900 AC 10/14 IV 0902 CXR Findings: No pneumothorax, pneumomediastinum or other significant interval change compared to 10/13/2017. IMPRESSION: 1. Endotracheal tube is 4.5 cm above the ree. 2. The distal portion of the enteric tube is suboptimally visualized in this obese patient. 3. Mild cardiomegaly and persistent, nonspecific hazy opacity in lower lung zones. ECHO Findings: Normal size left ventricle. Moderate concentric left ventricular hypertrophy. Mildly decreased LV systolic function. Left ventricular ejection fraction is estimated at 40-45 %. Mild global hypokinesis. Mild left atrial dilatation. Moderate mitral regurgitation with eccentric jet. Mild tricuspid regurgitation. Right ventricular systolic pressure estimated to be elevated at 53 mmHg. Mild pulmonic regurgitation. Impression/Plan Impression/Problem List Impression: 71 y/o obese woman with PMH of venous stasis, asthma, HFpEF (LVEF >60%), HTN, and gout presented to the ED on 10/01/17 for evaluation of SOB, nonproductive cough, and B/L LE swelling after PCP appointment. On admission, she was found to be in afib with RVR; She was subsequently admitted to telemetry for management of acute on chronic heart failure and atrial fibrilliation. 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 She was scheduled for a right colectomy, now s/p right hemicolectomy POD #4. She continues to have difficulty with weaning from the ventilator, paroxysmal rapid atrial fibrillation, mildly elevated creatinine and decreased urine output. Acute Hypoxemic Respiratory Failure, with failure to extubate Multifactorial-hypoventilation with narcotics and post operative atelectesis, morbid obesity, and impaired chest wall compliance h/o HFrEF, elevated RVSP on echocardiogram and likely obesity hypoventilation syndrome New onset atrial fibrillation with rapid ventricular response: Spontaneous converted to sinus over the weekend Has paroxysms of atrial fibrillation, MAT, with sinus bradycardia Currently on metoprolol to 75mg po bid Rate control limited by intermittent bradycardia Follow up cardiology recommendations If she continues to have tachycardia and bradycardia may need PPM HFrEF TTE 08/2017 mildly decreased LV systolic function LVEF 40-45% mild global hypokinesis Previous echocardiogram in 2016 showed normal left ventricular systolic function Continue metoprolol AUGUSTO-on-CKD Lasix remains on hold Home dose is 80mg PO QD Cr mahi from 1.2->1.5, now stable at 1.5 Will continue D5-1/2NS at 125cc/hr until resuming PO intake Monitor urine output, may need to stop fluids and resume lasix Strict I/O's, daily weights Continue to monitor renal function Hypochromic Microcytic Anemia due to iron deficiency Patient required 2u pRBCs transfusion on this admission GI-colonoscopy revealed invasive moderate-poorly differentiated adenocarcinoma Hemoglobin stable 8.7 Right hemicolectomy due to poorly diferentiated adenocarcinoma POD #4 Analgesia with tylenol and dilaudid Transaminitis: normal on admission, AST/ALT peaked ~100, now slightly lower IV PPI NPO, awaiting bowel function to resume tube feeds, discuss with surgery DVT ppx-on heparin gtt DNI/DNR Problem List: 1. Mass of hepatic flexure of colon 2. Colon cancer 3. Acute on chronic diastolic CHF (congestive heart failure) 4. Anemia 5. Afib 6. AUGUSTO (acute kidney injury) Pain Ratin Pain Location: abdominal Tomorrow's Labs & Rationales: cbc, icu Plan DVT/Prophylaxis: mechanical, pharmacological
[2017-10-14 08:00] VITALS: BP 102/62
--- NOTE | 2017-10-14 08:16 | RADIOLOGY REPORT ---
EXAMINATION: XR PORTABLE CHEST CLINICAL INFORMATION: Intubated. Failure to wean. Status post colectomy. COMPARISON: 10/13/2017 TECHNIQUE: Portable frontal view of the chest was obtained. FINDINGS: Obese body habitus. Lung bases are suboptimally evaluated due to the patient's body habitus. Endotracheal tube is approximately 4.5 cm above the ree. The enteric tube extends below the diaphragm but its distal portion is suboptimally visualized. Mild cardiomegaly. Persistent hazy opacity within lung bases. This is nonspecific and could represent small, posterior layering pleural effusions, atelectasis and/or groundglass infiltrates. No pneumothorax, pneumomediastinum or other significant interval change compared to 10/13/2017. IMPRESSION: 1. Endotracheal tube is 4.5 cm above the ree. 2. The distal portion of the enteric tube is suboptimally visualized in this obese patient. 3. Mild cardiomegaly and persistent, nonspecific hazy opacity in lower lung zones.
--- NOTE | 2017-10-14 08:56 | PN- CRCU ---
Subjective HPI/Critical Care Issues: The patient is awake, intubated and appears comfortable. She is lethargic but arousable. She continues to struggle with weaning trials, noting she becomes hypertensive and tachypneic while on CPAP.. Her oxygen requirement is unchanged noting she is on 30%. Her saturations remain in the high 90s. The patient is afebrile and hemodynamically stable. Objective Current Medications: Current Medications Sig/Shara Start time Last Medication Dose Route Stop Time Status Admin Acetaminophen 650 MG Q6P PRN 10/01 2300 AC PO Albuterol Sulfate 3 ML Q4-PRN PRN 10/02 1900 AC 10/14 INH 0816 Benzocaine/Menthol 1 BRII Q2 HRS NEEDED PRN 10/02 1845 AC 10/09 PO 1356 Dextrose/Sodium 1,000 ML Q8H 10/10 2200 AC 10/14 Chloride IV 0606 Diltiazem HCl 60 MG Q6 10/12 1800 DC 10/12 PO 2314 Guaifenesin 10 ML Q6P PRN 10/03 1630 AC 10/08 PO 1857 Heparin Sodium 25,000 UNIT Q24H 10/11 1300 AC 10/13 (Porcine) IV 1721 Sodium Chloride 500 ML Hydromorphone HCl 1 MG Q4P PRN 10/11 1215 AC 10/13 IV 1608 Lorazepam 2 MG Q1 NEEDED PRN 10/10 2345 AC 10/14 IV 0606 Metoprolol Tartrate 5 MG ONCE ONE 10/13 2130 DC 10/13 IV 10/13 2131 2136 Metoprolol Tartrate 100 MG BID 10/13 2100 DC PO Metoprolol Tartrate 75 MG BID 10/13 2100 AC 10/13 PO 2104 Metoprolol Tartrate 50 MG ONCE ONE 10/13 1300 CAN PO 10/13 1301 Metoprolol Tartrate 50 MG ONCE ONE 10/13 1100 DC 10/13 PO 10/13 1101 1049 Metoprolol Tartrate 50 MG BID 10/07 2100 DC 10/13 PO 0904 Morphine Sulfate 4 MG Q4P PRN 10/11 1215 AC 10/14 IV 0740 Pantoprazole Sodium 40 MG DAILY 10/11 0900 AC 10/13 IV 0903 Potassium Chloride 60 MEQ ONCE ONE 10/13 1045 DC 10/13 PO 10/13 1046 1049 Potassium Chloride 60 MEQ ONCE ONE 10/13 0945 CAN PO 10/13 0946 Vital Signs & I&O Last 24 Hrs of Vitals and I&O: Vital Signs Date Time Temp Pulse Resp B/P B/P Pulse O2 O2 Flow FiO2 Mean Ox Delivery Rate 10/14 0757 30 10/14 0604 30 10/14 0358 95 Ventilator 30% 10/14 0314 30 10/14 0034 30 10/14 0000 95 Ventilator 30% 10/13 2210 30 10/13 2136 140 20 205/76 10/13 2017 94 Ventilator 30% 10/13 1925 30 10/13 1600 97 Ventilator 30% 10/13 1600 97.9 56 19 138/70 97 Ventilator 30% 10/13 1555 30 10/13 1404 30 10/13 1200 98 Ventilator 30% 10/13 1101 30 10/13 1049 146 20 126/70 10/13 0904 46 Intake & Output 10/14 1600 10/14 0800 10/14 0000 Intake Total 1302 1323 Output Total 650 395 Balance 652 928 Intake, IV 1302 1263 Intake, Oral 60 Number 1 0 Bowel Movements Output, Urine 650 395 Physical Exam General Appearance: awake, lethargic, intubated, morbidly obese Head: atraumatic, normal appearance Respiratory: normal breath sounds, chest non-tender, lungs clear Cardiovascular: bradycardia, systolic murmur Gastrointestinal: soft, mild tenderness, absent bowel sounds Extremities: swelling, venous stasis changes, depigmented areas on thighs, lower extremity edema Neurologic/Psych: awake Cranial Nerves: normal hearing Skin: intact Results Last 24 Hrs of Lab Results: Laboratory Tests 10/14/17 0345: Anion Gap 9, Estimated GFR 45 L, BUN/Creatinine Ratio 12.5, Glucose 84, Calcium 7.9 L, Phosphorus 3.1, Albumin 2.6 L, APTT 64 H, CBC w Diff MAN DIFF ORDERED, RBC 4.17 L, MCV 68.0 L, MCH 20.7 L, MCHC 30.5 L, RDW 26.6 H, MPV 11.1 H, Segmented Neutrophils 73, Band Neutrophils 2, Lymphocytes 19 L, Monocytes 4, Eosinophils 2, Platelet Estimate GIANT, Polychromasia 1+, Hypochromic-Microcytic 2+, Elliptocytes 1+, Schistocytes FEW 10/13/17 1720: APTT 54 H Diagnostic Data CXR Findings: 1. Endotracheal tube is 4.5 cm above the ree. 2. The distal portion of the enteric tube is suboptimally visualized in this obese patient. 3. Mild cardiomegaly and persistent, nonspecific hazy opacity in lower lung zones. Impression/Plan Impression/Plan Impression/Plan: 1. Hypoxemic respiratory failure, likely hypoventilatory in the setting of abdominal surgery/colectomy, morbid obesity, chronic severe orthopnea (patient can not lay flat and sleeps upright). 2. S/P extended right colectomy for colon cancer. 3. Atrial firbillation in NSR at present. 4. Anemia, currently stable. 5. Acute on chronic heart failure -diuresis preoperatively. 6. Morbid obesity. 7. Mild acute kidney injury. 8. Mild transaminitis. 9. Anemia without current bleeding. Recommendations: * Continue with weaning trials. * Will proceed with T piece trials if the patient tolerates. * The patient may require extubation to BiPAP if she does not improve with weaning. * Continue nebs/total respiratory care. * Avoid sedation. * Continue to follow cardiology's recommendations. Appreciate input. * Start tube feeds if okay with surgery. * Discontinue IV fluids. * Start free water replacement, 200 mL every 4 hours. * Vent bundle/DVT and GI prophylaxis at all times. * Monitor for any evidence of infection. * Continue all supportive care.
--- NOTE | 2017-10-14 12:17 | PN- Cardiology ---
Subjective Subjective: The patient remains intubated, and is arousable on the ventilator. She has had episodes of sinus bradycardia and periods of MAT and paroxysmal atrial fibrillation with rates as high as the 130s. Objective Vital Signs and I&Os Vital Signs Date Time Temp Pulse Resp B/P B/P Pulse O2 O2 Flow FiO2 Mean Ox Delivery Rate 10/14 0800 100 Ventilator 30% 10/14 0800 97.6 104 18 102/62 100 Ventilator 30% 10/14 0757 30 10/14 0604 30 10/14 0358 95 Ventilator 30% 10/14 0314 30 10/14 0034 30 10/14 0000 95 Ventilator 30% 10/13 2210 30 10/13 2136 140 20 205/76 10/13 2016 94 Ventilator 30% 10/13 1925 30 10/13 1600 97 Ventilator 30% 10/13 1600 97.9 56 19 138/70 97 Ventilator 30% 10/13 1555 30 10/13 1404 30 Intake & Output 10/14 1600 10/14 0800 10/14 0000 10/13 1600 10/13 0800 10/13 0000 Intake Total 1302 1323 916 858 819 Output Total 650 395 140 180 235 Balance 652 928 776 678 584 Intake, IV 1302 1263 796 858 819 Intake, Oral 60 0 0 Intake, Other 120 Number 1 0 0 Bowel Movements Output, 50 100 Gastric Drainage Output, Urine 650 395 140 130 135 Patient 418 lb 192 lb Weight Physical Exam: Gen: The patient is in no acute distress HEENT: Normal nose, ears, and oropharynx. Pupils equal bilaterally. Conjunctiva normal. Neck: Supple with no JVD, no masses, and no thyromegaly Lungs: Decreased breath sounds. Normal respiratory effort on the ventilator Heart: Irregularly irregular, S1, S2, 2/6 systolic murmur. 1+ peripheral edema, 2+ pulses in the lower extremities bilaterally Abdomen: Soft, nontender, no masses. No hepatomegaly. No splenomegaly Extremities: No clubbing or cyanosis. Normal muscle strength in the upper and lower extremities Skin: Normal skin turgor with no skin ulcers or lesions noted. Neuro: Cranial nerves intact. Sensation intact Psych: Alert and oriented x 3 with appropriate affect Current Medications: Current Medications Sig/Shara Start time Last Medication Dose Route Stop Time Status Admin Acetaminophen 650 MG Q6P PRN 10/01 2300 AC PO Albuterol Sulfate 3 ML Q4-PRN PRN 10/02 1900 AC 10/14 INH 0816 Benzocaine/Menthol 1 BRII Q2 HRS NEEDED PRN 10/02 1845 AC 10/09 PO 1356 Dextrose/Sodium 1,000 ML Q8H 10/10 2200 AC 10/14 Chloride IV 0606 Diltiazem HCl 60 MG Q6 10/12 1800 DC 10/12 PO 2314 Guaifenesin 10 ML Q6P PRN 10/03 1630 AC 10/08 PO 1857 Heparin Sodium 25,000 UNIT Q24H 10/11 1300 AC 10/13 (Porcine) IV 1721 Sodium Chloride 500 ML Hydromorphone HCl 1 MG Q4P PRN 10/11 1215 AC 10/13 IV 1608 Lorazepam 2 MG Q1 NEEDED PRN 10/10 2345 AC 10/14 IV 0606 Metoprolol Tartrate 5 MG ONCE ONE 10/13 2130 DC 10/13 IV 10/13 2131 213 Metoprolol Tartrate 100 MG BID 10/13 2100 DC PO Metoprolol Tartrate 75 MG BID 10/13 2100 AC 10/14 PO 0902 Metoprolol Tartrate 50 MG ONCE ONE 10/13 1300 CAN PO 10/13 1301 Metoprolol Tartrate 50 MG BID 10/07 2100 DC 10/13 PO 0904 Morphine Sulfate 4 MG Q4P PRN 10/11 1215 AC 10/14 IV 0740 Pantoprazole Sodium 40 MG DAILY 10/11 0900 AC 10/14 IV 0902 Results Last 48 Hrs of Labs/Mics: Laboratory Tests 10/14/17 1110: pH 7.37, pCO2 42, pO2 76 L, HCO3 24, ABG O2 Sat (Measured) 93.0 L, Carboxyhemoglobin 1.1 L, O2 Concentration % 30%, O2 Delivery Method T-PIECE, Phlebotomy Draw Site LEFT RADIAL 10/14/17 0345: Anion Gap 9, Estimated GFR 45 L, BUN/Creatinine Ratio 12.5, Glucose 84, Calcium 7.9 L, Phosphorus 3.1, Albumin 2.6 L, APTT 64 H, CBC w Diff MAN DIFF ORDERED, RBC 4.17 L, MCV 68.0 L, MCH 20.7 L, MCHC 30.5 L, RDW 26.6 H, MPV 11.1 H, Segmented Neutrophils 73, Band Neutrophils 2, Lymphocytes 19 L, Monocytes 4, Eosinophils 2, Platelet Estimate GIANT, Polychromasia 1+, Hypochromic-Microcytic 2+, Elliptocytes 1+, Schistocytes FEW 10/13/17 1720: APTT 54 H 10/13/17 0452: Anion Gap 7, Estimated GFR 34 L, Glucose 90, Calcium 7.7 L, Phosphorus 3.0, Magnesium 2.0, Total Bilirubin 0.6, AST 98 H, ALT 89 H, Albumin 2.5 L, APTT 71 H, CBC w Diff MAN DIFF ORDERED, RBC 3.82 L, MCV 68.0 L, MCH 21.2 L, MCHC 31.1 L, RDW 26.3 H, MPV 9.1, Gran % 71.3, Lymphocytes % 16.1 L, Monocytes % 10.6 H, Eosinophils % 2.0, Basophils % 0, Absolute Granulocytes 6.4, Segmented Neutrophils 68, Absolute Lymphocytes 1.5, Lymphocytes 21, Monocytes 10 H, Absolute Monocytes 1.0 H, Eosinophils 1, Absolute Eosinophils 0.2, Absolute Basophils 0, Platelet Estimate ADEQUATE, Polychromasia 1+, Hypochromic- Microcytic 1+, Ovalocytes FEW, Fld Total RBCs Counted 100 10/12/17 1720: APTT 77 H Recent Imaging Studies: CXR: 1. Endotracheal tube is 4.5 cm above the ree. 2. The distal portion of the enteric tube is suboptimally visualized in this obese patient. 3. Mild cardiomegaly and persistent, nonspecific hazy opacity in lower lung zones. youth nutritional monitor tracings are reviewed, and reveal intermittent sinus rhythm, sinus bradycardia, multifocal atrial tachycardia, and atrial fibrillation Assessment/Plan Assessment/Plan Assessment: 1. New atrial fibrillation of unclear duration, rate uncontrolled 2. Acute on chronic HFrEF, improved. LVEF mildly decreased at 40-45% 3. Morbid obesity 4. Worsening chronic lower extremity edema with stasis changes 5. Microcytic anemia 6. Acute renal failure 7. Colon mass, planned for surgery Plan: * Continue metoprolol 75 mg p.o. twice daily for rate control. * Given the episodes of sinus bradycardia, it will be difficult to fully control the ventricular rate at this time. 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 Yes
[2017-10-14 16:00] VITALS: BP 148/72
[2017-10-14 19:23] LABS: PTT 49 SEC (25-37)
--- NOTE | 2017-10-14 22:23 | PN- General Surgery ---
Surgical Brief Attending Note Brief Attending Note: POD 4, extubated earlier today 6 hours ago, flatus reported, still a little confused, VSS, afebrile, good uo, dressing dry. BUN /Cr improved, CBC stable, suggest heplock IVF's try clears if alert enough.
[2017-10-15] VITALS: BP 132/68
[2017-10-15 05:57] LABS: ABSOLUTE BASOPHIL COUNT 0 /CUMM (0.0-0.2); ABSOLUTE EOSINOPHIL COUNT 0.4 /CUMM (0.0-0.7); ABSOLUTE GRANULOCYTE CT 4.2 /CUMM (1.4-6.5); ABSOLUTE LYMPH COUNT 1.7 /CUMM (1.2-3.4); ABSOLUTE MONOCYTE COUNT 0.8 /CUMM (0.10-0.60); BASOPHIL % 0.2 % (0.0-2.0); EOSINOPHIL % 5.1 % (0-5); GRANULOCYTE % 59.2 % (42.2-75.2); HEMATOCRIT 27.7 % (37-47); MEAN CORPUSCULAR HGB CONC 30.2 G/DL (33.0-37.0); MEAN CORPUSCULAR VOLUME 69.4 FL (81.0-99.0); MEAN PLATELET VOLUME 9.2 FL (7.4-10.4); PLATELET COUNT 178 /CUMM (130-400); WHITE BLOOD CELL COUNT 7.1 /CUMM (4.8-10.8)
[2017-10-15 06:00] LABS: PTT 97 SEC (25-37)
--- NOTE | 2017-10-15 07:43 | PN- Resident CRCU ---
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 Hypoxemic respiratory failure extubated yesterday New onset Afib with RVR, periods of sinus bradycardia [id number] HFrEF AUGUSTO-on-CKD Hypochromic Microcytic Anemia Morbid obesity 24 Hour Events: Extubated yesterday 92% on 2 L nasal cannula patient continues to have paroxysmal atrial fibrillation with rates 130s-150s also episodes of sinus bradycardia limiting the ability to increase rate control medications, currently on metoprolol 10 mg IV every 6 and heparin gtt still awaiting return of bowel function, surgery has cleared the patient to be started on clear liquid diet awaiting speech and swallow evaluation Objective Vital Signs & I&O Last 8 Hrs of Vitals and I&O: Laboratory Tests 10/15 10/14 0515 1900 Chemistry Sodium (137 - 145 mmol/L) 142 Potassium (3.5 - 5.1 mmol/L) 3.9 Chloride (98 - 107 mmol/L) 106 Carbon Dioxide (22 - 30 mmol/L) 28 Anion Gap (5 - 16) 8 BUN (7 - 17 mg/dL) 11 Creatinine (0.5 - 1.0 mg/dL) 1.1 H Estimated GFR (>60 ml/min) 49 L Glucose (65 - 99 mg/dL) 81 Calcium (8.4 - 10.2 mg/dL) 8.2 L Phosphorus (2.5 - 4.5 mg/dL) 4.1 Magnesium (1.6 - 2.3 mg/dL) 2.0 Total Bilirubin (0.2 - 1.3 mg/dL) 0.6 AST (14 - 36 U/L) 29 ALT (9 - 52 U/L) 53 H Albumin (3.5 - 5.0 g/dL) 2.6 L Coagulation APTT (25 - 37 SEC) 97 H 49 H Hematology CBC w Diff NO MAN DIFF REQ WBC (4.8 - 10.8 /CUMM) 7.1 RBC (4.20 - 5.40 /CUMM) 4.00 L Hgb (12.0 - 16.0 G/DL) 8.4 L Hct (37 - 47 %) 27.7 L MCV (81.0 - 99.0 FL) 69.4 L MCH (27.0 - 31.0 PG) 21.0 L MCHC (33.0 - 37.0 G/DL) 30.2 L RDW (11.5 - 14.5 %) 26.0 H Plt Count (130 - 400 /CUMM) 178 MPV (7.4 - 10.4 FL) 9.2 Gran % (42.2 - 75.2 %) 59.2 Lymphocytes % (20.5 - 51.1 %) 24.3 Monocytes % (1.7 - 9.3 %) 11.2 H Eosinophils % (0 - 5 %) 5.1 H Basophils % (0.0 - 2.0 %) 0.2 Absolute Granulocytes (1.4 - 6.5 /CUMM) 4.2 Absolute Lymphocytes (1.2 - 3.4 /CUMM) 1.7 Absolute Monocytes (0.10 - 0.60 /CUMM) 0.8 H Absolute Eosinophils (0.0 - 0.7 /CUMM) 0.4 Absolute Basophils (0.0 - 0.2 /CUMM) 0 Vital Signs Date Time Temp Pulse Resp B/P B/P Pulse O2 O2 Flow FiO2 Mean Ox Delivery Rate 10/15 1423 100 Nasal 2.0L Cannula 10/15 1326 130 110/70 08 1200 96 Nasal 2.0L Cannula 10/15 0800 98 Nasal 2.0L Cannula 10/15 0800 97.8 122 22 112/58 96 Nasal 2.0L Cannula 10/15 0800 96 Nasal 2.0L Cannula 10/15 0630 115 150/78 10/15 0543 123 98 10/15 0400 97 CPAP 1.0L 10/15 0314 60 97 10/15 0100 64 114/60 10/15 0032 65 94 08 0000 96 CPAP 10/15 0000 98.9 130 20 132/68 94 CPAP 1.0L 10/14 2124 135 96 10/14 2000 98 Nasal 2.0L Cannula 10/14 1715 96 Nasal 2.0L Cannula 10/14 1600 98.2 70 24 148/72 98 Nasal 2.0L Cannula 10/14 1600 99 Nasal 2.0L Cannula Intake & Output 10/15 1600 10/15 0800 08 0000 Intake Total 332 577 Output Total 1675 1300 Balance -1343 -723 Intake, IV 332 577 Intake, Oral 0 Number 0 1 Bowel Movements Output, Urine 1675 1300 Patient 104 lb Weight Weight Bed scale Measurement Method Exam General Appearance: alert, awake, comfortable Head: atraumatic Neck: normal inspection Respiratory: chest non-tender, no respiratory distress, decreased breath sounds Cardiovascular: bradycardia, tachycardia Gastrointestinal: soft, no bowel sounds Extremities: pedal edema (+1 pitting) Weaning Parameters NIF: 28 Minute Volume: 6.5 Resp rate: 28 Vt: 300 Heart Rate: 130 Weaning Schedule Start Time: 0805 Minute Volume: 7.8 Resp Rate: 26 Vt: 317 Heart Rate: 130 End Time: 1025 Minute Volume: 9.12 Resp Rate: 23 Vt: 360 Heart Rate: 132 Start Time: 1025 Heart Rate: 132 End Time: 1110 Heart Rate: 127 Current Medications: Current Medications Sig/Shara Start time Last Medication Dose Route Stop Time Status Admin Acetaminophen 650 MG Q6P PRN 10/01 2300 AC PO Albuterol Sulfate 3 ML Q4-PRN PRN 10/02 1900 AC 10/14 INH 1714 Benzocaine/Menthol 1 BRII Q2 HRS NEEDED PRN 10/02 1845 AC 10/09 PO 1356 Dextrose/Sodium 1,000 ML Q13H 10/14 1715 DC 10/14 Chloride IV 1728 Dextrose/Sodium 1,000 ML Q8H 10/10 2200 DC 10/14 Chloride IV 0606 Furosemide 40 MG DAILY 10/15 1430 UNVr PO Furosemide 20 MG ONCE ONE 10/14 191 DC 10/14 IV 10/14 191 2044 Guaifenesin 10 ML Q6P PRN 10/03 1630 AC 10/08 PO 1857 Heparin Sodium 25,000 UNIT Q24H 10/11 1300 AC 10/15 (Porcine) IV 1323 Sodium Chloride 500 ML Hydromorphone HCl 1 MG Q4P PRN 10/11 1215 AC 10/13 IV 1608 Lorazepam 2 MG Q1 NEEDED PRN 10/10 2345 DC 10/14 IV 0606 Metoprolol Tartrate 75 MG BID 10/15 2100 AC PO Metoprolol Tartrate 10 MG Q6H 10/14 1907 DC 10/15 IV 1326 Metoprolol Tartrate 10 MG ONCE ONE 10/14 1815 DC 10/14 IV 10/14 1816 1905 Metoprolol Tartrate 75 MG BID 10/13 2100 DC 10/14 PO 0902 Morphine Sulfate 4 MG Q4P PRN 10/11 1215 AC 10/14 IV 0740 Pantoprazole Sodium 40 MG DAILY 10/11 0900 AC 10/15 IV 1044 Impression/Plan Impression/Problem List Impression: 71 y/o obese woman with PMH of venous stasis, asthma, HFpEF (LVEF >60%), HTN, and gout presented to the ED on 10/01/17 for evaluation of SOB, nonproductive cough, and B/L LE swelling after PCP appointment. On admission, she was found to be in afib with RVR; She was subsequently admitted to telemetry for management of acute on chronic heart failure and atrial fibrilliation. 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 She was scheduled for a right colectomy, now s/p right hemicolectomy. She is currently being treated and evaluated for following conditions Respiratory #Acute Hypoxemic Respiratory Failure, Extubated yesterday satting 96% on 2 L NC, h/o HFrEF, elevated RVSP on echocardiogram and likely obesity hypoventilation syndrome -Oxygen supplementation with goal of saturations greater than 92%. -Continue nocturnal AutoPap 4-18 cm H2O. Infection none Cardiology #New onset atrial fibrillation with rapid ventricular response: Spontaneous converted to sinus over the weekend. Continues to have paroxysms of atrial fibrillation, MAT, with sinus bradycardia -Patient was on 10 mg IV metoprolol every 6 and has been started on PO metoprolol to 75mg po bid, Rate control limited by intermittent bradycardia -Follow up cardiology recommendations -If she continues to have tachycardia and bradycardia may need PPM -Currently on IV heparin with plan to transition to Eliquis #HFpEF TTE 08/2017 mildly decreased LV systolic function LVEF 40-45% mild global hypokinesis. Previous echocardiogram in 2016 showed normal left ventricular systolic function -Continue metoprolol #Bilateral lower extremity edema Patient received Lasix 20 mg IV yesterday with good urine output. She has +1 pitting edema home dose of Lasix is 80 mg daily. Lasix was initially had in setting of AUGUSTO, Cr stable improving -Discussed with Dr. Reno over phone, will start 40mg lasix daily Hematology/oncology #Hypochromic Microcytic Anemia due to iron deficiency Patient required 2u pRBCs transfusion on this admission GI-colonoscopy revealed invasive moderate-poorly differentiated adenocarcinoma -H/H stable 8.4/27.7 #Right hemicolectomy due to poorly diferentiated adenocarcinoma CBC showed evidence of iron deficiency anemia, colonoscopy done showed carcinoma at hepatic flexure with a biopsy showing invasive moderately to poorly differentiated adenocarcinoma. She was scheduled for a right colectomy, now s/p right hemicolectomy P -POD #5 -Analgesia with tylenol and dilaudid Metabolic #Transaminitis: Normal on admission, AST/ALT peaked ~100 improving -Continue to monitor liver function Alimantary -Patient has been evaluated by speech and swallow services. She has been cleared to take clear liquids by surgery. As per speech and swallow recommendations we are going to give patient clear liquids and honey thick consistency. Patient can take oral medications in honey thick liquids -IV PPI Nephrology #[place]USTO-on-CKD (stage 3 baseline GFR 55) -Continue to monitor creatinine curve improved to 1.1 baseline normal -Monitor urine output with strict ins and outs and daily weight -Lasix resumed at 40 mg today DVT ppx-on heparin gtt DNI/DNR Problem List: 1. Acute on chronic heart failure with normal ejection fraction 2. New onset a-fib Pain Ratin Tomorrow's Labs & Rationales: cbc icu bundle Plan DVT/Prophylaxis: mechanical, pharmacological
[2017-10-15 08:00] VITALS: BP 112/58
--- NOTE | 2017-10-15 08:13 | PN- CRCU ---
Subjective HPI/Critical Care Issues: The patient is awake and comfortable post extubation. Her T-max was 99.3. Her vital signs have been stable overnight. She continues to have good urine output. She remains on a heparin drip. Objective Current Medications: Current Medications Sig/Shara Start time Last Medication Dose Route Stop Time Status Admin Acetaminophen 650 MG Q6P PRN 10/01 2300 AC PO Albuterol Sulfate 3 ML Q4-PRN PRN 10/02 1900 AC 10/14 INH 1714 Benzocaine/Menthol 1 BRII Q2 HRS NEEDED PRN 10/02 1845 AC 10/09 PO 1356 Dextrose/Sodium 1,000 ML Q13H 10/14 1715 DC 10/14 Chloride IV 1728 Dextrose/Sodium 1,000 ML Q8H 10/10 2200 DC 10/14 Chloride IV 0606 Furosemide 20 MG ONCE ONE 10/14 1915 DC 10/14 IV 10/14 191 2044 Guaifenesin 10 ML Q6P PRN 10/03 1630 AC 10/08 PO 1857 Heparin Sodium 25,000 UNIT Q24H 10/11 1300 AC 10/14 (Porcine) IV 1300 Sodium Chloride 500 ML Hydromorphone HCl 1 MG Q4P PRN 10/11 1215 AC 10/13 IV 1608 Lorazepam 2 MG Q1 NEEDED PRN 10/10 2345 DC 10/14 IV 0606 Metoprolol Tartrate 10 MG Q6H 10/14 1907 AC 10/15 IV 0630 Metoprolol Tartrate 10 MG ONCE ONE 10/14 1815 DC 10/14 IV 10/14 1816 1905 Metoprolol Tartrate 75 MG BID 10/13 2100 DC 10/14 PO 0902 Morphine Sulfate 4 MG Q4P PRN 10/11 1215 AC 10/14 IV 0740 Pantoprazole Sodium 40 MG DAILY 10/11 0900 AC 10/14 IV 0902 Vital Signs & I&O Last 24 Hrs of Vitals and I&O: Vital Signs Date Time Temp Pulse Resp B/P B/P Pulse O2 O2 Flow FiO2 Mean Ox Delivery Rate 10/15 0630 115 150/78 10/15 0543 123 98 10/15 0400 97 CPAP 1.0L 10/15 0314 60 97 10/15 0100 64 114/60 10/15 0032 65 94 10/15 0000 96 CPAP 10/14 2124 135 96 10/15 1999 98 Nasal 2.0L Cannula 10/14 1715 96 Nasal 2.0L Cannula 10/14 1600 98.2 70 24 148/72 98 Nasal 2.0L Cannula 10/14 1600 99 Nasal 2.0L Cannula 10/14 1200 98 Aerosol 35% Mask Intake & Output 10/15 1600 10/15 0800 10/15 0000 Intake Total 577 Output Total 1300 Balance -723 Intake, IV 577 Number 1 Bowel Movements Output, Urine 1300 Patient 104 lb Weight Weight Bed scale Measurement Method Physical Exam General Appearance: awake, lethargic, morbidly obese Head: atraumatic, normal appearance Respiratory: normal breath sounds, chest non-tender, lungs clear Cardiovascular: bradycardia, systolic murmur Gastrointestinal: soft, mild tenderness, absent bowel sounds Extremities: swelling, venous stasis changes, depigmented areas on thighs, lower extremity edema Neurologic/Psych: awake Cranial Nerves: normal hearing Skin: intact Results Last 24 Hrs of Lab Results: Laboratory Tests 10/15/17 0515: Anion Gap 8, Estimated GFR 49 L, Glucose 81, Calcium 8.2 L, Phosphorus 4.1, Magnesium 2.0, Total Bilirubin 0.6, AST 29, ALT 53 H, Albumin 2.6 L, APTT 97 H, CBC w Diff NO MAN DIFF REQ, RBC 4.00 L, MCV 69.4 L, MCH 21.0 L, MCHC 30.2 L, RDW 26.0 H, MPV 9.2, Gran % 59.2, Lymphocytes % 24.3, Monocytes % 11.2 H, Eosinophils % 5.1 H, Basophils % 0.2, Absolute Granulocytes 4.2, Absolute Lymphocytes 1.7, Absolute Monocytes 0.8 H, Absolute Eosinophils 0.4, Absolute Basophils 0 10/14/17 1900: APTT 49 H 10/14/17 1110: pH 7.37, pCO2 42, pO2 76 L, HCO3 24, ABG O2 Sat (Measured) 93.0 L, Carboxyhemoglobin 1.1 L, O2 Concentration % 30%, O2 Delivery Method T-PIECE, Phlebotomy Draw Site LEFT RADIAL Impression/Plan Impression/Plan Impression/Plan: 1. Hypoxemic respiratory failure, obesity hypoventilation, probable sleep disordered breathing. The patient's respiratory status is stable postextubation. 2. S/P extended right colectomy for colon cancer. 3. Atrial firbillation in NSR at present. 4. Anemia, currently stable. 5. Acute on chronic heart failure -diuresis preoperatively. 6. Morbid obesity. 7. Mild acute kidney injury. 8. Mild transaminitis. 9. Anemia without current bleeding. Recommendations: * Continue nebs/total respiratory care. * Incentive spirometry. * Titrate supplemental oxygen down for saturations greater than 92%. * Continue nocturnal AutoPap 4-18 cm H2O. * Please check a swallowing evaluation. * Encourage free water if the patient is able to swallow adequately. * Bariatric bed with chest PT ordered, per nursing. * Advance diet as recommended by nutrition and surgery. * Continue to hold IV fluids. * Will need to restart diuresis when okay with cardiology. * Continue heparin drip for therapeutic anticoagulation. * Increased activity/out of bed to chair. * PT consult to be requested. * Continue all supportive care.
--- NOTE | 2017-10-15 08:15 | PN- General Surgery ---
See Addendum Subjective Subjective: No acute overnight events reported. Pt sleepy this morning, no complaints, asking for food. No reports of bowel function, no nausea or vomitting. No chest pain, shortness of breath, difficulty breathing. Wore CPAP through out night. Objective Vital Signs and I&Os Vital Signs Date Time Temp Pulse Resp B/P B/P Pulse O2 O2 Flow FiO2 Mean Ox Delivery Rate 10/15 0630 115 150/78 10/15 0543 123 98 10/15 0400 97 CPAP 1.0L 10/15 0314 60 97 10/15 0100 64 114/60 10/15 0032 65 94 10/15 0000 96 CPAP 10/14 2124 135 96 10/14 2000 98 Nasal 2.0L Cannula 10/14 1715 96 Nasal 2.0L Cannula 10/14 1600 98.2 70 24 148/72 98 Nasal 2.0L Cannula 10/14 1600 99 Nasal 2.0L Cannula 10/14 1200 98 Aerosol 35% Mask Intake & Output 10/15 1600 10/15 0800 10/15 0000 10/14 1600 10/14 0800 10/14 0000 Intake Total 577 1302 1323 Output Total 1300 650 395 Balance -723 652 928 Intake, IV 577 1302 1263 Intake, Oral 60 Number 1 1 0 Bowel Movements Output, Urine 1300 650 395 Patient 104 lb Weight Weight Bed scale Measurement Method Physical Exam: General: Sleepy, oriented. No distress Cardiac: Tachycardic, irregular Pulm: Non labored, cta anterior bilaterally, nasal cannula o2 in place Abd: Soft, obese, no guarding, no rebound. No bs auscultated, likely due to habitus Extremiteis: Neurovascular grossly intact, calves soft and non-tender bilaterally Assessment/Plan Assessment/Plan POD 5, s/p R hemicolectomy -Okay to advance diet to clears today -hep lock iv if diet advanced -continue hep gtt and medical management per ICU team
--- NOTE | 2017-10-15 09:56 | PN- Cardiology ---
Subjective Subjective: No clinical changes. Remains in atrial fibrillation with intermittently elevated rate. Objective Vital Signs and I&Os Vital Signs Date Time Temp Pulse Resp B/P B/P Pulse O2 O2 Flow FiO2 Mean Ox Delivery Rate 10/15 0630 115 150/78 10/15 0543 123 98 10/15 0400 97 CPAP 1.0L 10/15 0314 60 97 10/15 0100 64 114/60 10/15 0032 65 94 10/15 0000 96 CPAP 10/15 0000 98.9 130 20 132/68 94 CPAP 1.0L 10/14 2124 135 96 10/14 2000 98 Nasal 2.0L Cannula 10/14 1715 96 Nasal 2.0L Cannula 10/14 1600 98.2 70 24 148/72 98 Nasal 2.0L Cannula 10/14 1600 99 Nasal 2.0L Cannula 10/14 1200 98 Aerosol 35% Mask Intake & Output 10/15 1600 10/15 0800 10/15 0000 10/14 1600 10/14 0800 10/14 0000 Intake Total 275 481 2433 1323 Output Total 1675 1300 650 395 Balance -1343 -723 652 928 Intake, IV 701 132 5979 1263 Intake, Oral 0 60 Number 0 1 1 0 Bowel Movements Output, Urine 1675 1300 650 395 Patient 104 lb Weight Weight Bed scale Measurement Method Physical Exam: Gen: The patient is in no acute distress HEENT: Normal nose, ears, and oropharynx. Pupils equal bilaterally. Conjunctiva normal. Neck: Supple with no JVD, no masses, and no thyromegaly Lungs: Decreased breath sounds. Bilateral rhonchi Heart: Irregularly irregular, S1, S2, 2/6 systolic murmur. 1+ peripheral edema, 2+ pulses in the lower extremities bilaterally Abdomen: Soft, nontender, no masses. No hepatomegaly. No splenomegaly Extremities: No clubbing or cyanosis. Normal muscle strength in the upper and lower extremities Skin: Normal skin turgor with no skin ulcers or lesions noted. Neuro: Cranial nerves intact. Sensation intact Psych: Alert and oriented x 3 with appropriate affect Current Medications: Current Medications Sig/Shara Start time Last Medication Dose Route Stop Time Status Admin Acetaminophen 650 MG Q6P PRN 10/01 2300 AC PO Albuterol Sulfate 3 ML Q4-PRN PRN 10/02 1900 AC 10/14 INH 1714 Benzocaine/Menthol 1 BRII Q2 HRS NEEDED PRN 10/02 1845 AC 10/09 PO 1356 Dextrose/Sodium 1,000 ML Q13H 10/14 1715 DC 10/14 Chloride IV 1728 Dextrose/Sodium 1,000 ML Q8H 10/10 2200 DC 10/14 Chloride IV 0606 Furosemide 20 MG ONCE ONE 10/14 1915 DC 10/14 IV 10/14 191 2044 Guaifenesin 10 ML Q6P PRN 10/03 1630 AC 10/08 PO 1857 Heparin Sodium 25,000 UNIT Q24H 10/11 1300 AC 10/14 (Porcine) IV 1300 Sodium Chloride 500 ML Hydromorphone HCl 1 MG Q4P PRN 10/11 1215 AC 10/13 IV 1608 Lorazepam 2 MG Q1 NEEDED PRN 10/10 2345 DC 10/14 IV 0606 Metoprolol Tartrate 10 MG Q6H 10/14 1907 AC 10/15 IV 0630 Metoprolol Tartrate 10 MG ONCE ONE 10/14 1815 DC 10/14 IV 10/14 181 190 Metoprolol Tartrate 75 MG BID 10/13 2100 OR 10/14 PO 0902 Morphine Sulfate 4 MG Q4P PRN 10/11 1215 AC 10/14 IV 0740 Pantoprazole Sodium 40 MG DAILY 10/11 0900 AC 10/14 IV 0902 Results Last 48 Hrs of Labs/Mics: Laboratory Tests 10/15/17 0515: Anion Gap 8, Estimated GFR 49 L, Glucose 81, Calcium 8.2 L, Phosphorus 4.1, Magnesium 2.0, Total Bilirubin 0.6, AST 29, ALT 53 H, Albumin 2.6 L, APTT 97 H, CBC w Diff NO MAN DIFF REQ, RBC 4.00 L, MCV 69.4 L, MCH 21.0 L, MCHC 30.2 L, RDW 26.0 H, MPV 9.2, Gran % 59.2, Lymphocytes % 24.3, Monocytes % 11.2 H, Eosinophils % 5.1 H, Basophils % 0.2, Absolute Granulocytes 4.2, Absolute Lymphocytes 1.7, Absolute Monocytes 0.8 H, Absolute Eosinophils 0.4, Absolute Basophils 0 10/14/17 1900: APTT 49 H 10/14/17 1110: pH 7.37, pCO2 42, pO2 76 L, HCO3 24, ABG O2 Sat (Measured) 93.0 L, Carboxyhemoglobin 1.1 L, O2 Concentration % 30%, O2 Delivery Method T-PIECE, Phlebotomy Draw Site LEFT RADIAL 10/14/17 0345: Anion Gap 9, Estimated GFR 45 L, BUN/Creatinine Ratio 12.5, Glucose 84, Calcium 7.9 L, Phosphorus 3.1, Albumin 2.6 L, APTT 64 H, CBC w Diff MAN DIFF ORDERED, RBC 4.17 L, MCV 68.0 L, MCH 20.7 L, MCHC 30.5 L, RDW 26.6 H, MPV 11.1 H, Segmented Neutrophils 73, Band Neutrophils 2, Lymphocytes 19 L, Monocytes 4, Eosinophils 2, Platelet Estimate GIANT, Polychromasia 1+, Hypochromic-Microcytic 2+, Elliptocytes 1+, Schistocytes FEW 10/13/17 1720: APTT 54 H Microbiology 10/13 1415 LOWER RESP: Respiratory Culture - COMP 10/13 1415 LOWER RESP: Gram Stain - COMP Assessment/Plan Assessment/Plan Assessment: 1. New atrial fibrillation of unclear duration, rate uncontrolled 2. Acute on chronic HFrEF, improved. LVEF mildly decreased at 40-45% 3. Morbid obesity 4. Worsening chronic lower extremity edema with stasis changes 5. Microcytic anemia 6. Acute renal failure 7. Colon mass, planned for surgery Plan: -Continue metoprolol 75 mg p.o. twice daily for rate control. -Continue to monitor on telemetry -Followup labs pending - Continue telemetry? Yes
[2017-10-15 16:00] VITALS: BP 134/50
[2017-10-15 17:03] LABS: PTT 68 SEC (25-37)
[2017-10-15 20:00] VITALS: BP 120/64
[2017-10-16] VITALS: BP 120/80
[2017-10-16 03:52] LABS: ABSOLUTE BASOPHIL COUNT 0 /CUMM (0.0-0.2); ABSOLUTE EOSINOPHIL COUNT 0.1 /CUMM (0.0-0.7); ABSOLUTE GRANULOCYTE CT 6.8 /CUMM (1.4-6.5); ABSOLUTE LYMPH COUNT 1.3 /CUMM (1.2-3.4); BASOPHIL % 0 % (0.0-2.0); EOSINOPHIL % 1.4 % (0-5); GRANULOCYTE % 73.5 % (42.2-75.2); HEMATOCRIT 27.3 % (37-47); MEAN CORPUSCULAR HGB 21.1 PG (27.0-31.0); MEAN CORPUSCULAR HGB CONC 30.8 G/DL (33.0-37.0); MEAN CORPUSCULAR VOLUME 68.5 FL (81.0-99.0); MEAN PLATELET VOLUME 8.3 FL (7.4-10.4); PLATELET COUNT 221 /CUMM (130-400); RBC DISTRIBUTION WIDTH 26.2 % (11.5-14.5); RED BLOOD CELL CT 3.98 /CUMM (4.20-5.40); WHITE BLOOD CELL COUNT 9.2 /CUMM (4.8-10.8)
[2017-10-16 04:01] LABS: PTT 51 SEC (25-37)
--- NOTE | 2017-10-16 07:14 | PN- Resident CRCU ---
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 Currently on room air. Patient's heart rate stays between 130-150s with paroxysmal atrial fibrillation, possible junctional/atrial tachycardia. Received an additional dose of 6.25 mg metoprolol overnight. There was no sinus bradycardia overnight. Currently on 75 twice daily. Lasix was resumed at 40 mg with good urine output yesterday. Blood pressure range 90s -120/60s-80s. Awake and alert 3. Clinically improved. Working with PT. Has had 2 bowel movement since yesterday. Patient has been started on clear liquid diet with honey thick consistency. Objective Vital Signs & I&O Last 8 Hrs of Vitals and I&O: Laboratory Tests 10/16 10/15 0340 1525 Chemistry Sodium (137 - 145 mmol/L) 141 Potassium (3.5 - 5.1 mmol/L) 3.7 Chloride (98 - 107 mmol/L) 106 Carbon Dioxide (22 - 30 mmol/L) 28 Anion Gap (5 - 16) 6 BUN (7 - 17 mg/dL) 9 Creatinine (0.5 - 1.0 mg/dL) 1.1 H Estimated GFR (>60 ml/min) 49 L Glucose (65 - 99 mg/dL) 89 Calcium (8.4 - 10.2 mg/dL) 8.2 L Phosphorus (2.5 - 4.5 mg/dL) 3.3 Magnesium (1.6 - 2.3 mg/dL) 2.0 Total Bilirubin (0.2 - 1.3 mg/dL) 0.5 AST (14 - 36 U/L) 18 ALT (9 - 52 U/L) 51 Albumin (3.5 - 5.0 g/dL) 2.6 L Coagulation APTT (25 - 37 SEC) 51 H 68 H Hematology CBC w Diff NO MAN DIFF REQ WBC (4.8 - 10.8 /CUMM) 9.2 RBC (4.20 - 5.40 /CUMM) 3.98 L Hgb (12.0 - 16.0 G/DL) 8.4 L Hct (37 - 47 %) 27.3 L MCV (81.0 - 99.0 FL) 68.5 L MCH (27.0 - 31.0 PG) 21.1 L MCHC (33.0 - 37.0 G/DL) 30.8 L RDW (11.5 - 14.5 %) 26.2 H Plt Count (130 - 400 /CUMM) 221 MPV (7.4 - 10.4 FL) 8.3 Gran % (42.2 - 75.2 %) 73.5 Lymphocytes % (20.5 - 51.1 %) 14.4 L Monocytes % (1.7 - 9.3 %) 10.7 H Eosinophils % (0 - 5 %) 1.4 Basophils % (0.0 - 2.0 %) 0 Absolute Granulocytes (1.4 - 6.5 /CUMM) 6.8 H Absolute Lymphocytes (1.2 - 3.4 /CUMM) 1.3 Absolute Monocytes (0.10 - 0.60 /CUMM) 1.0 H Absolute Eosinophils (0.0 - 0.7 /CUMM) 0.1 Absolute Basophils (0.0 - 0.2 /CUMM) 0 Vital Signs Date Time Temp Pulse Resp B/P B/P Pulse O2 O2 Flow FiO2 Mean Ox Delivery Rate 10/16 0400 94 Room Air 10/16 0343 71 96 10/16 0020 138 98 08/ 0000 97 CPAP 1.0L 10/16 0000 98.4 138 28 120/80 97 CPAP 1.0L 10/15 2255 133 10/15 2241 108 95 10/15 2232 98 Room Air Room Air 10/15 2000 93 Room Air 10/15 2000 98.6 136 20 120/64 93 Room Air 10/15 1600 94 Nasal 2.0L Cannula 10/15 1600 98.2 78 20 134/50 94 Nasal 2.0L Cannula 10/15 1423 100 Nasal 2.0L Cannula 10/15 1326 130 110/70 10/15 1200 96 Nasal 2.0L Cannula Intake & Output 10/16 1600 02 0800 10/16 0000 Intake Total 208 698 Output Total 670 1900 Balance -462 -1202 Intake, IV 208 228 Intake, Oral 470 Output, Urine 670 1900 Exam General Appearance: no apparent distress, alert, awake, comfortable Head: atraumatic Neck: normal inspection Respiratory: decreased breath sounds Cardiovascular: distant heart sounds S1 S2 no murmurs appreciated Gastrointestinal: normal bowel sounds, soft Extremities: b/l lower extremity edema improved, chronic venous statsis changes Kwong Still Needed? No Current Medications: Current Medications Sig/Shara Start time Last Medication Dose Route Stop Time Status Admin Acetaminophen 650 MG Q6P PRN 10/01 2300 AC PO Albuterol Sulfate 3 ML Q4-PRN PRN 10/02 1900 AC 10/14 INH 1714 Benzocaine/Menthol 1 BRII Q2 HRS NEEDED PRN 10/02 1845 AC 10/09 PO 1356 Furosemide 40 MG DAILY 10/15 1430 AC 10/15 PO 1711 Guaifenesin 10 ML Q6P PRN 10/03 1630 AC 10/08 PO 1857 Heparin Sodium 25,000 UNIT Q24H 10/11 1300 AC 10/15 (Porcine) IV 1323 Sodium Chloride 500 ML Hydromorphone HCl 1 MG Q4P PRN 10/11 1215 AC 10/13 IV 1608 Metoprolol Tartrate 12.5 MG ONCE ONE 10/15 2245 CAN PO 10/15 2246 Metoprolol Tartrate 6.25 MG ONCE ONE 10/15 2245 DC 10/15 PO 10/15 2246 2255 Metoprolol Tartrate 75 MG BID 10/15 2100 AC 10/16 PO 0756 Metoprolol Tartrate 10 MG Q6H 10/14 1907 DC 10/15 IV 1326 Morphine Sulfate 4 MG Q4P PRN 10/11 1215 AC 10/14 IV 0740 Pantoprazole Sodium 40 MG DAILY 10/11 0900 AC 10/15 IV 1044 Impression/Plan Impression/Problem List Impression: 71 y/o obese woman with PMH of venous stasis, asthma, HFpEF (LVEF >60%), HTN, and gout presented to the ED on 10/01/17 for evaluation of SOB, nonproductive cough, and B/L LE swelling after PCP appointment. On admission, she was found to be in afib with RVR; She was subsequently admitted to telemetry for management of acute on chronic heart failure and atrial fibrilliation. 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 She was scheduled for a right colectomy, now s/p right hemicolectomy. She is currently being treated and evaluated for following conditions Respiratory #Acute Hypoxemic Respiratory Failure, Extubated on 10/14 Patient was transferred from PACU postprocedure hemicolectomy being deemed difficult to extubate. H/o HFrEF, elevated RVSP on echocardiogram and likely obesity hypoventilation syndrome -satting 96% on RA -Oxygen supplementation with goal of saturations greater than 92%. -Continue nocturnal AutoPap 4-18 cm H2O. Infection afebrile without a white count Cardiology #New onset atrial fibrillation with rapid ventricular response: Spontaneous conversion to sinus. Continues to have paroxysms of atrial fibrillation, junctional/atrial tachycardia. Patient was previously on 10 mg IV metoprolol every 6. P.o. intake was started yesterday and patient was started on 75 mg p.o. metoprolol twice daily. She required additional dose of 6.25 mg metoprolol p.o. overnight. With heart rate ranging in 130s-150s. No more evidence of intermittent bradycardia. -At this point I think we should increase the metoprolol dose 100 mg twice daily we will follow-up with cardiology -We will transition patient to [facility] today #Acute HFpEF TTE 08/2017 mildly decreased LV systolic function LVEF 40-45% mild global hypokinesis. Previous echocardiogram in 2016 showed normal left ventricular systolic function -Continue metoprolol and lasix -Should be started on TOM inhibitor and spironolactone as tolerated by blood pressure -We are going to discontinue Kwong catheter today #Bilateral lower extremity edema Patient has chronic bilateral LE edema with venous insufficiently and stasis changes on home dose of 80 mg Lasix. Creatinine 1.1 -The patient was started on 40 mg of Lasix yesterday with good urine output and will continue for now -Outpatient evaluation with vascular surgery for consideration for possible venous closure procedures Hematology/oncology #Right hemicolectomy due to poorly diferentiated adenocarcinoma CBC showed evidence of iron deficiency anemia, colonoscopy done showed carcinoma at hepatic flexure with a biopsy showing invasive moderately to poorly differentiated adenocarcinoma. She was scheduled for a right colectomy, now s/p right hemicolectomy. -POD #6 -Had 2 bowel movements yesterday -Analgesia with tylenol and dilaudid -Diet clear liquids appreciate surgical recommendations #Hypochromic Microcytic Anemia due to iron deficiency Secondary to invasive moderate to poorly differentiated adenocarcinoma status post right hemicolectomy. Patient required 2u pRBCs transfusion on this admission -H/H stable 8.4/27.3 Metabolic #Transaminitis: Normal on admission, AST/ALT peaked ~100 -Resolved Alimantary -Currently on clear liquid diet as per surgery recommendations. Patient was evaluated again by speech and swallow services today who recommended to change consistency from honey thick liquids to regular thin liquids. -IV PPI Nephrology #[place]USTO-on-CKD (stage 3 baseline GFR 55) -Continue to monitor creatinine curve improved to 1.1 stable, baseline normal -Monitor urine output with strict ins and outs and daily weight -Lasix resumed at 40 mg yesterday DVT ppx-on Eliquis DNI/DNR Problem List: 1. Mass of hepatic flexure of colon Pain Ratin Tomorrow's Labs & Rationales: cbc icu bundle Plan DVT/Prophylaxis: mechanical, pharmacological
--- NOTE | 2017-10-16 07:30 | PN- General Surgery ---
See Addendum Subjective Subjective: No acute overnight events reported. Patient more alert this morning. States that pain is controlled. Denies nausea or vomitting. States she had a bm overnight. Continues to have infante catheter. Denies chest pain, shortness of breath, difficulty breathing. Used CPAP overnight. Objective Vital Signs and I&Os Vital Signs Date Time Temp Pulse Resp B/P B/P Pulse O2 O2 Flow FiO2 Mean Ox Delivery Rate 10/16 0400 94 Room Air 10/16 0343 71 96 10/16 0020 138 98 10/16 0000 97 CPAP 1.0L 10/16 0000 98.4 138 28 120/80 97 CPAP 1.0L 10/15 2255 133 10/15 2241 108 95 10/15 2232 98 Room Air Room Air 10/15 2000 93 Room Air 10/15 2000 98.6 136 20 120/64 93 Room Air 10/15 1600 94 Nasal 2.0L Cannula 10/15 1600 98.2 78 20 134/50 94 Nasal 2.0L Cannula 10/15 1423 100 Nasal 2.0L Cannula 10/15 1326 130 110/70 10/15 1200 96 Nasal 2.0L Cannula 10/15 0800 98 Nasal 2.0L Cannula 10/15 0800 97.8 122 22 112/58 96 Nasal 2.0L Cannula 10/15 0800 96 Nasal 2.0L Cannula Intake & Output 10/16 0800 10/16 0000 10/15 1600 10/15 0800 10/15 0000 10/14 1600 Intake Total 208 698 480 332 577 Output Total 670 5075 566 8404 1300 Balance -462 -1202 100 -1343 -723 Intake, IV 208 228 240 332 577 Intake, Oral 470 240 0 Number 0 1 Bowel Movements Output, Urine 670 7052 636 7814 1300 Patient 104 lb Weight Weight Bed scale Measurement Method Physical Exam: General: Easily arousable from sleep, oriented x3 Cardiac: Irregular Pulm: CTA, non-labored respiratory effort, on room air Abdomen: Obese, no guarding, no rebound. Dressing dry and intact Extremities: Neurovascularly grossly intact, bilateral calves soft and non- tender Assessment/Plan Assessment/Plan POD 6, diet advanced to clears -Continue clear liquid diet, po intake minimal yesterday -OOB, incentive spirometry encouraged -Continue medical management per icu team Will discuss plan of care with Dr. Lazar
--- NOTE | 2017-10-16 08:20 | PN- CRCU ---
Subjective HPI/Critical Care Issues: The patient is awake and alert. She reports feeling improved overall. She is out of bed sitting in the chair comfortably. She ambulated to the bathroom twice yesterday. She is on room air and has no respiratory complaints. There were no overnight events reported. Objective Current Medications: Current Medications Sig/Shara Start time Last Medication Dose Route Stop Time Status Admin Acetaminophen 650 MG Q6P PRN 10/01 2300 AC PO Albuterol Sulfate 3 ML Q4-PRN PRN 10/02 1900 AC 10/14 INH 1714 Benzocaine/Menthol 1 BRII Q2 HRS NEEDED PRN 10/02 1845 AC 10/09 PO 1356 Furosemide 40 MG DAILY 10/15 1430 AC 10/15 PO 1711 Guaifenesin 10 ML Q6P PRN 10/03 1630 AC 10/08 PO 1857 Heparin Sodium 25,000 UNIT Q24H 10/11 1300 AC 10/15 (Porcine) IV 1323 Sodium Chloride 500 ML Hydromorphone HCl 1 MG Q4P PRN 10/11 1215 AC 10/13 IV 1608 Metoprolol Tartrate 12.5 MG ONCE ONE 10/15 2245 CAN PO 10/15 2246 Metoprolol Tartrate 6.25 MG ONCE ONE 10/15 2245 DC 10/15 PO 10/15 2246 2255 Metoprolol Tartrate 75 MG BID 10/15 2100 AC 10/16 PO 0756 Metoprolol Tartrate 10 MG Q6H 10/14 1907 DC 10/15 IV 1326 Morphine Sulfate 4 MG Q4P PRN 10/11 1215 AC 10/14 IV 0740 Pantoprazole Sodium 40 MG DAILY 10/11 0900 AC 10/15 IV 1044 Vital Signs & I&O Last 24 Hrs of Vitals and I&O: Vital Signs Date Time Temp Pulse Resp B/P B/P Pulse O2 O2 Flow FiO2 Mean Ox Delivery Rate 10/16 0400 94 Room Air 10/16 0343 71 96 10/16 0020 138 98 10/16 0000 97 CPAP 1.0L 10/16 0000 98.4 138 28 120/80 97 CPAP 1.0L 10/15 2255 133 10/15 2241 108 95 10/15 2232 98 Room Air Room Air 10/15 2000 93 Room Air 10/16 1999 98.6 136 20 120/64 93 Room Air 10/15 1600 94 Nasal 2.0L Cannula 10/15 1600 98.2 78 20 134/50 94 Nasal 2.0L Cannula 10/15 1423 100 Nasal 2.0L Cannula 10/15 1326 130 110/70 10/15 1200 96 Nasal 2.0L Cannula Intake & Output 10/16 1600 08 0800 10/16 0000 Intake Total 208 698 Output Total 670 1900 Balance -462 -1202 Intake, IV 208 228 Intake, Oral 470 Output, Urine 670 1900 Physical Exam General Appearance: awake, alert and comfortable Head: atraumatic, normal appearance Respiratory: normal breath sounds, chest non-tender, lungs clear Cardiovascular: Irregularly irregular, systolic murmur Gastrointestinal: soft, mild tenderness, absent bowel sounds Extremities: swelling, venous stasis changes, depigmented areas on thighs, lower extremity edema Skin: intact Results Last 24 Hrs of Lab Results: Laboratory Tests 10/16/17 0340: Anion Gap 6, Estimated GFR 49 L, Glucose 89, Calcium 8.2 L, Phosphorus 3.3, Magnesium 2.0, Total Bilirubin 0.5, AST 18, ALT 51, Albumin 2.6 L, APTT 51 H, CBC w Diff NO MAN DIFF REQ, RBC 3.98 L, MCV 68.5 L, MCH 21.1 L, MCHC 30.8 L, RDW 26.2 H, MPV 8.3, Gran % 73.5, Lymphocytes % 14.4 L, Monocytes % 10.7 H, Eosinophils % 1.4, Basophils % 0, Absolute Granulocytes 6.8 H, Absolute Lymphocytes 1.3, Absolute Monocytes 1.0 H, Absolute Eosinophils 0.1, Absolute Basophils 0 10/15/17 1525: APTT 68 H Impression/Plan Impression/Plan Impression/Plan: 1. Hypoxemic respiratory failure, obesity hypoventilation, probable sleep disordered breathing. 2. S/P extended right colectomy for colon cancer. 3. Atrial firbillation in NSR at present. 4. Anemia, currently stable. 5. Acute on chronic heart failure -diuresis preoperatively. 6. Morbid obesity. 7. Mild acute kidney injury. 8. Mild transaminitis. 9. Anemia without current bleeding. Recommendations: * Discontinue infante catheter. * Voiding trials. * PT for ambulation. * Out of bed to chair. * IST to continue. * Continue to attempt nocturnal AutoPap 4-18 cm H2O. * Cardiology input regarding AF with RVR. 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 * Downgrade to telemetry if ok with cardiology. * The patient has significantly improved. Continue all supportive care.
[2017-10-16 14:00] VITALS: BP 110/60
--- NOTE | 2017-10-16 15:48 | PN- Cardiology ---
Subjective Subjective: Clinically stable. Back in atrial fibrillation earlier this morning with suboptimal rate control. At the present time, (3:45 PM) the patient is again back in sinus rhythm. Objective Vital Signs and I&Os Vital Signs Date Time Temp Pulse Resp B/P B/P Pulse O2 O2 Flow FiO2 Mean Ox Delivery Rate 10/16 1400 Room Air 10/16 0400 94 Room Air 10/16 0343 71 96 10/16 0020 138 98 10/16 0000 97 CPAP 1.0L 10/16 0000 98.4 138 28 120/80 97 CPAP 1.0L 10/15 2255 133 10/15 2241 108 95 10/15 2232 98 Room Air Room Air 10/15 2000 93 Room Air 10/15 2000 98.6 136 20 120/64 93 Room Air 10/15 1600 94 Nasal 2.0L Cannula 10/15 1600 98.2 78 20 134/50 94 Nasal 2.0L Cannula Intake & Output 10/16 1600 10/16 0800 10/16 0000 10/15 1600 10/15 0800 10/15 0000 Intake Total 208 698 480 332 577 Output Total 419 674 0979 380 1675 1300 Balance -250 -462 -1202 100 -1343 -723 Intake, IV 208 228 240 332 577 Intake, Oral 470 240 0 Number 0 1 Bowel Movements Output, Urine 702 115 8026 380 1675 1300 Patient 104 lb Weight Weight Bed scale Measurement Method Physical Exam: Gen: The patient is in no acute distress HEENT: Normal nose, ears, and oropharynx. Pupils equal bilaterally. Conjunctiva normal. Neck: Supple with no JVD, no masses, and no thyromegaly Lungs: Decreased breath sounds. Bilateral rhonchi Heart: Irregularly irregular, S1, S2, 2/6 systolic murmur. 1+ peripheral edema, 2+ pulses in the lower extremities bilaterally Abdomen: Soft, nontender, no masses. No hepatomegaly. No splenomegaly Extremities: No clubbing or cyanosis. Normal muscle strength in the upper and lower extremities Skin: Normal skin turgor with no skin ulcers or lesions noted. Neuro: Cranial nerves intact. Sensation intact Psych: Alert and oriented x 3 with appropriate affect Current Medications: Current Medications Sig/Shara Start time Last Medication Dose Route Stop Time Status Admin Acetaminophen 650 MG Q6P PRN 10/01 2300 AC PO Albuterol Sulfate 3 ML Q4-PRN PRN 10/02 1900 AC 10/14 INH 1714 Apixaban 5 MG BID 10/16 0952 AC 10/16 PO 1232 Benzocaine/Menthol 1 BRII Q2 HRS NEEDED PRN 10/02 1845 AC 10/09 PO 1356 Furosemide 40 MG DAILY 10/15 1430 AC 10/16 PO 1042 Guaifenesin 10 ML Q6P PRN 10/03 1630 AC 10/08 PO 1857 Heparin Sodium 5,000 UNIT .STK-MED ONE 10/16 0430 DC (Porcine) IV 10/16 0431 Heparin Sodium 5,000 UNIT .STK-MED ONE 10/16 0425 DC (Porcine) IV 10/16 0426 Heparin Sodium 25,000 UNIT Q24H 10/11 1300 DC 10/15 (Porcine) IV 1323 Sodium Chloride 500 ML Hydromorphone HCl 1 MG Q4P PRN 10/11 1215 AC 10/13 IV 1608 Metoprolol Tartrate 100 MG BID 10/16 2100 AC PO Metoprolol Tartrate 12.5 MG ONCE ONE 10/15 2245 CAN PO 10/15 2246 Metoprolol Tartrate 6.25 MG ONCE ONE 10/15 2245 DC 10/15 PO 10/15 2246 2255 Metoprolol Tartrate 75 MG BID 10/15 2100 DC 10/16 PO 0756 Morphine Sulfate 4 MG Q4P PRN 10/11 1215 AC 10/14 IV 0740 Pantoprazole Sodium 40 MG DAILY 10/11 0900 AC 10/16 IV 1042 Results Last 48 Hrs of Labs/Mics: Laboratory Tests 10/16/17 0340: Anion Gap 6, Estimated GFR 49 L, Glucose 89, Calcium 8.2 L, Phosphorus 3.3, Magnesium 2.0, Total Bilirubin 0.5, AST 18, ALT 51, Albumin 2.6 L, APTT 51 H, CBC w Diff NO MAN DIFF REQ, RBC 3.98 L, MCV 68.5 L, MCH 21.1 L, MCHC 30.8 L, RDW 26.2 H, MPV 8.3, Gran % 73.5, Lymphocytes % 14.4 L, Monocytes % 10.7 H, Eosinophils % 1.4, Basophils % 0, Absolute Granulocytes 6.8 H, Absolute Lymphocytes 1.3, Absolute Monocytes 1.0 H, Absolute Eosinophils 0.1, Absolute Basophils 0 10/15/17 1525: APTT 68 H 10/15/17 0515: Anion Gap 8, Estimated GFR 49 L, Glucose 81, Calcium 8.2 L, Phosphorus 4.1, Magnesium 2.0, Total Bilirubin 0.6, AST 29, ALT 53 H, Albumin 2.6 L, APTT 97 H, CBC w Diff NO MAN DIFF REQ, RBC 4.00 L, MCV 69.4 L, MCH 21.0 L, MCHC 30.2 L, RDW 26.0 H, MPV 9.2, Gran % 59.2, Lymphocytes % 24.3, Monocytes % 11.2 H, Eosinophils % 5.1 H, Basophils % 0.2, Absolute Granulocytes 4.2, Absolute Lymphocytes 1.7, Absolute Monocytes 0.8 H, Absolute Eosinophils 0.4, Absolute Basophils 0 10/14/17 1900: APTT 49 H Assessment/Plan Assessment/Plan Assessment: 1. New atrial fibrillation of unclear duration-presently back in sinus rhythm with a heart rate of 68/min 2. Acute on chronic HFrEF, improved. LVEF mildly decreased at 40-45% 3. Morbid obesity 4. Worsening chronic lower extremity edema with stasis changes 5. Microcytic anemia 6. Acute renal failure 7. Colon mass, planned for surgery Plan: -Continue metoprolol but increase dose to 100 mg twice daily -Continue to monitor on telemetry -Continue current Lasix dose -Followup labs pending -Continue to monitor intakes, outputs, daily weights -At this point, in view of the patient's bradycardia tachycardia syndrome, etc., I suspect that in order to optimize her rate/rhythm control she will ultimately need a pacemaker, possibly with other interventions if necessary such as AV node ablation, A. fib ablation, etc. Continue telemetry? Yes
[2017-10-16 22:21] VITALS: BP 124/68
--- NOTE | 2017-10-17 05:33 | PN- Housestaff ---
Josh Patricia 10/17/17 0533: Subjective Follow-up For: chf Complaints: pain scale (0-10) (none) Tele-Events Since Last Visit: none Subjective: Patient is doing much better. Does not have any complaints. Had bowel movements feels ready to go home. Review of Systems Constitutional: Reports: see HPI. Objective Last 24 Hrs of Vital Signs/I&O Vital Signs Date Time Temp Pulse Resp B/P B/P Pulse O2 O2 Flow FiO2 Mean Ox Delivery Rate 10/18 0036 61 92 10/17 2249 73 93 10/17 2229 97.8 64 18 94 Room Air 10/17 2056 67 108/50 10/17 2054 67 108/50 / 1900 95 Room Air 10/17 1600 Room Air 10/17 1414 95 Room Air 10/17 1408 98.2 59 20 122/78 98 Room Air 10/17 0851 60 138/80 / 0653 98.1 60 20 118/82 98 Room Air Intake & Output 10/18 0800 / 0000 10/17 1600 Intake Total 400 350 500 Output Total 375 925 850 Balance 25 -575 -350 Intake, Oral 400 350 500 Number 2 2 Bowel Movements Output, Stool 400 Output, Urine 375 525 850 Patient 384 lb Weight Weight Bed scale Measurement Method Physical Exam General Appearance: Alert, Oriented X3, Cooperative, No Acute Distress Cardiovascular: Regular Rate, No Murmurs Lungs: Clear to Auscultation, Normal Air Movement Abdomen: Normal Bowel Sounds, Soft, No Tenderness, No Hepatospenomegaly, No Masses Neurological: Normal Speech, Strength at 5/5 X4 Ext, Normal Tone, Sensation Intact Extremities: No Clubbing, No Cyanosis, No Edema, Normal Pulses, No Tenderness/ Swelling Assessment/Plan Assessment: 71 y/o obese woman with PMH of venous stasis, asthma, HFpEF (LVEF >60%), HTN, and gout presented to the ED on 10/01/17 for evaluation of SOB, nonproductive cough, and B/L LE swelling after PCP appointment. On admission, she was found to be in afib with RVR; She was subsequently admitted to telemetry for management of acute on chronic heart failure and atrial fibrilliation. 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 She underwent right hemicolectomy. Patient was transferred from PACU postprocedure hemicolectomy being deemed difficult to extubate yo ICU. H/o HFrEF, elevated RVSP on echocardiogram and likely obesity hypoventilation syndrome causing acute hypoxemic respiratory failure actually extubated on 2017 #Acute HFpEF and A- Fib TTE 08/2017 mildly decreased LV systolic function LVEF 40-45% mild global hypokinesis. Previous echocardiogram in 2016 showed normal left ventricular systolic function -Continue metoprolol 100mg and lasix -Should be started on TOM inhibitor and spironolactone as tolerated by blood pressure - continue eliquis nocturnal autopap, 4-18 cm H2o #Bilateral lower extremity edema Patient has chronic bilateral LE edema with venous insufficiently and stasis changes on home dose of 80 mg Lasix. 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 She was scheduled for a right colectomy, now s/p right hemicolectomy. -POD #7 -Had 1 bowel movements today -Analgesia with tylenol and dilaudid -Diet clear liquids advanced to regular diet - PPI po bid #Hypochromic Microcytic Anemia due to iron deficiency Secondary to invasive moderate to poorly differentiated adenocarcinoma status post right hemicolectomy. Patient required 2u pRBCs transfusion on this admission -H/H stable 8.4 Nephrology #AU[place]USTO-on-CKD (stage 3 baseline GFR 55) -Continue to monitor creatinine curve improved to 1.1 stable, baseline normal -Monitor urine output with strict ins and outs and daily weight -Lasix at 40 mg DVT ppx-on Eliquis DNI/DNR Problem List: 1. Swelling of both lower extremities 2. CHF exacerbation 3. New onset a-fib 4. Colon cancer Pain Ratin Pain Location: - Pain Goal: Remain pain free Pain Plan: - Tomorrow's Labs & Rationales: none Naomi Mccracken MD 10/17/17 1033: Attending MD Review Statement Attending Statement Attending MD Statement: examined this patient, discuss w/resident/PA/LAW OFFICE ASSISTANT, agreed w/resident/PA/LAW OFFICE ASSISTANT, reviewed EMR data (avail), discussed with nursing, discussed with case mgmt, reviewed images Attending Assessment/Plan: Patient is doing extremely well. She walked with physical therapy and they cleared her for home PT. She tolerated a full liquid diet is eager to eat lunch. She is a 72-year-old female with a past medical history of morbid obesity and hypertension. She was admitted with rapid atrial fibrillation found to have profound iron deficiency anemia and on colonoscopy found to have colon cancer. She status post hemicolectomy and today is postop day 7. She is now advancing her diet and having regular bowel movements. She is on metoprolol and Eliquis per the research methods instructor. We confirmed with the surgeon and if she does well then the plan will be discharge either on Friday or Friday with close outpatient follow-up. Bao Lazar MD will follow next week as he will take out the elvie and set her up with oncological follow-up.
[2017-10-17 06:53] VITALS: BP 118/82
[2017-10-17 07:55] LABS: ABSOLUTE BASOPHIL COUNT 0 /CUMM (0.0-0.2); ABSOLUTE EOSINOPHIL COUNT 0.4 /CUMM (0.0-0.7); ABSOLUTE GRANULOCYTE CT 6.5 /CUMM (1.4-6.5); ABSOLUTE LYMPH COUNT 1.1 /CUMM (1.2-3.4); ABSOLUTE MONOCYTE COUNT 0.8 /CUMM (0.10-0.60); BASOPHIL % 0 % (0.0-2.0); GRANULOCYTE % 73.8 % (42.2-75.2); HEMATOCRIT 27.4 % (37-47); MEAN CORPUSCULAR HGB 21.2 PG (27.0-31.0); MEAN CORPUSCULAR HGB CONC 30.4 G/DL (33.0-37.0); MEAN CORPUSCULAR VOLUME 69.6 FL (81.0-99.0); MEAN PLATELET VOLUME 8.7 FL (7.4-10.4); RBC DISTRIBUTION WIDTH 26.1 % (11.5-14.5); RED BLOOD CELL CT 3.94 /CUMM (4.20-5.40); WHITE BLOOD CELL COUNT 8.9 /CUMM (4.8-10.8)
[2017-10-17 09:19] LABS: PLATELET COUNT 232 /CUMM (130-400)
--- NOTE | 2017-10-17 10:17 | PN- Cardiology ---
Subjective Subjective: No change in cardiac status. In sinus rhythm at the moment with a heart rate of 58/min Objective Vital Signs and I&Os Vital Signs Date Time Temp Pulse Resp B/P B/P Pulse O2 O2 Flow FiO2 Mean Ox Delivery Rate 10/17 0851 60 138/80 / 0653 98.1 60 20 118/82 98 Room Air 10/17 0449 88 94 / 0100 59 95 / 0000 CPAP 10/16 2221 98.0 66 18 124/68 95 Room Air 10/16 2213 125 96 / 2117 68 124/68 10/16 1400 Room Air / 1400 97.5 133 20 110/60 93 Room Air Intake & Output 10/17 1600 10/17 0800 10/17 0000 10/16 1600 10/16 0800 10/16 0000 Intake Total 120 720 208 698 Output Total 550 124 007 9065 Balance 120 170 -250 -462 -1202 Intake, IV 208 228 Intake, Oral 120 720 470 Number 2 1 Bowel Movements Output, Stool 300 Output, Urine 250 532 443 5490 Patient 380 lb Weight Weight Bed scale Measurement Method Physical Exam: Gen: The patient is in no acute distress HEENT: Normal nose, ears, and oropharynx. Pupils equal bilaterally. Conjunctiva normal. Neck: Supple with no JVD, no masses, and no thyromegaly Lungs: Decreased breath sounds. Bilateral rhonchi Heart: Irregularly irregular, S1, S2, 2/6 systolic murmur. 1+ peripheral edema, 2+ pulses in the lower extremities bilaterally Abdomen: Soft, nontender, no masses. No hepatomegaly. No splenomegaly Extremities: No clubbing or cyanosis. Normal muscle strength in the upper and lower extremities Skin: Normal skin turgor with no skin ulcers or lesions noted. Neuro: Cranial nerves intact. Sensation intact Psych: Alert and oriented x 3 with appropriate affect Current Medications: Current Medications Sig/Shara Start time Last Medication Dose Route Stop Time Status Admin Acetaminophen 650 MG Q6P PRN 10/01 2300 AC PO Albuterol Sulfate 3 ML Q4-PRN PRN 10/02 190 AC 10/14 INH 1714 Apixaban 5 MG BID 10/16 0952 AC 10/17 PO 0851 Benzocaine/Menthol 1 BRII Q2 HRS NEEDED PRN 10/02 1845 AC 10/09 PO 1356 Furosemide 40 MG DAILY 10/15 1430 AC 10/17 PO 0851 Guaifenesin 10 ML Q6P PRN 10/03 1630 AC 10/08 PO 1857 Hydromorphone HCl 1 MG Q4P PRN 10/11 1215 AC 10/13 IV 1608 Metoprolol Tartrate 100 MG BID 10/16 2100 AC 10/17 PO 0851 Metoprolol Tartrate 75 MG BID 10/15 2100 DC 10/16 PO 0756 Morphine Sulfate 4 MG Q4P PRN 10/11 1215 AC 10/14 IV 0740 Omeprazole 40 MG DAILY AC 10/17 0857 AC PO Pantoprazole Sodium 40 MG DAILY 10/11 0900 DC 10/16 IV 1042 Results Last 48 Hrs of Labs/Mics: Laboratory Tests 10/17/17 0628: Anion Gap 7, Estimated GFR 44 L, BUN/Creatinine Ratio 7.5, CBC w Diff NO MAN DIFF REQ, RBC 3.94 L, MCV 69.6 L, MCH 21.2 L, MCHC 30.4 L, RDW 26.1 H, MPV 8.7, Gran % 73.8, Lymphocytes % 12.8 L, Monocytes % 9.4 H, Eosinophils % 4.0, Basophils % 0, Absolute Granulocytes 6.5, Absolute Lymphocytes 1.1 L, Absolute Monocytes 0.8 H, Absolute Eosinophils 0.4, Absolute Basophils 0 10/16/17 1000: APTT Cancelled 10/16/17 0340: Anion Gap 6, Estimated GFR 49 L, Glucose 89, Calcium 8.2 L, Phosphorus 3.3, Magnesium 2.0, Total Bilirubin 0.5, AST 18, ALT 51, Albumin 2.6 L, APTT 51 H, CBC w Diff NO MAN DIFF REQ, RBC 3.98 L, MCV 68.5 L, MCH 21.1 L, MCHC 30.8 L, RDW 26.2 H, MPV 8.3, Gran % 73.5, Lymphocytes % 14.4 L, Monocytes % 10.7 H, Eosinophils % 1.4, Basophils % 0, Absolute Granulocytes 6.8 H, Absolute Lymphocytes 1.3, Absolute Monocytes 1.0 H, Absolute Eosinophils 0.1, Absolute Basophils 0 10/15/17 1525: APTT 68 H Assessment/Plan Assessment/Plan Assessment: 1. New atrial fibrillation of unclear duration-presently back in sinus rhythm with a heart rate of 68/min 2. Acute on chronic HFrEF, improved. LVEF mildly decreased at 40-45% 3. Morbid obesity 4. Worsening chronic lower extremity edema with stasis changes 5. Microcytic anemia 6. Acute renal failure 7. Colon mass, planned for surgery Plan: -Continue metoprolol at present dose -Continue to monitor on telemetry -Continue current Lasix dose -Followup labs pending -Continue to monitor intakes, outputs, daily weights -At this point, in view of the patient's bradycardia tachycardia syndrome, etc., I suspect that in order to optimize her rate/rhythm control she will ultimately need a pacemaker, possibly with other interventions if necessary such as AV node ablation, A. fib ablation, etc. Continue telemetry? Yes
--- NOTE | 2017-10-17 11:10 | PN- General Surgery ---
Surgical Brief Attending Note Brief Attending Note: feels well, hungry, passing gas, moving bowels, ambulating, no dizziness advance diet dc planning
[2017-10-17 14:08] VITALS: BP 122/78
[2017-10-17 20:54] VITALS: BP 108/50
--- NOTE | 2017-10-18 05:00 | PN- Housestaff ---
Octaviano BARBER,Tabitha 10/18/17 0500: Subjective Follow-up For: Lung cancer status post resection, atrial fibrillation with rapid ventricular rate-resolved, tachybradycardia syndrome Complaints: no complaints Subjective: Patient seen and examined at bedside. No overnight events. Patient denies chest pain, palpitation, abdominal pain, nausea, vomiting. Review of Systems Constitutional: Reports: no symptoms. Cardiovascular: Reports: no symptoms. Respiratory: Reports: no symptoms. Objective Last 24 Hrs of Vital Signs/I&O Vital Signs Date Time Temp Pulse Resp B/P B/P Pulse O2 O2 Flow FiO2 Mean Ox Delivery Rate 10/18 0036 61 92 10/17 2249 73 93 10/17 2229 97.8 64 18 94 Room Air 10/17 205 67 108/50 10/17 2054 67 108/50 10/17 1900 95 Room Air 10/17 1600 Room Air 10/17 1414 95 Room Air 10/17 1408 98.2 59 20 122/78 98 Room Air 10/17 0851 60 138/80 10/17 0653 98.1 60 20 118/82 98 Room Air Intake & Output 10/18 0800 10/18 0000 10/17 1600 Intake Total 350 500 Output Total 925 850 Balance -575 -350 Intake, Oral 350 500 Number 2 Bowel Movements Output, Stool 400 Output, Urine 525 850 Patient 384 lb Weight Weight Bed scale Measurement Method Physical Exam General Appearance: Alert, Oriented X3, Cooperative, No Acute Distress Cardiovascular: Regular Rate, Normal S1, Normal S2, No Murmurs Lungs: Clear to Auscultation Abdomen: Normal Bowel Sounds, Soft, No Tenderness, No Hepatospenomegaly Neurological: Normal Speech Current Medications: Current Medications Sig/Shara Start time Last Medication Dose Route Stop Time Status Admin Acetaminophen 650 MG Q6P PRN 10/01 2300 AC PO Albuterol Sulfate 3 ML Q4-PRN PRN 10/02 1900 AC 10/14 INH 1714 Apixaban 5 MG BID 10/16 0952 AC 10/17 PO 205 Benzocaine/Menthol 1 BRII Q2 HRS NEEDED PRN 10/02 1845 AC 10/09 PO 1356 Clobetasol Propionate 1 FARA DAILY 10/17 1445 AC 10/17 TOP 1618 Furosemide 40 MG DAILY 10/15 1430 AC 10/17 PO 0851 Guaifenesin 10 ML Q6P PRN 10/03 1630 AC 10/08 PO 1857 Hydromorphone HCl 1 MG Q4P PRN 10/11 1215 AC 10/13 IV 1608 Metoprolol Tartrate 100 MG BID 10/16 2100 AC 10/17 PO 2056 Morphine Sulfate 4 MG Q4P PRN 10/11 1215 AC 10/14 IV 0740 Omeprazole 40 MG DAILY AC 10/17 0857 AC PO Pantoprazole Sodium 40 MG DAILY 10/11 0900 DC 10/16 IV 1042 Patient Medication 1 ED ONE ONE 10/17 1515 [facility] Teaching ED 10/17 1516 Potassium Chloride 20 MEQ BID 10/18 0900 AC PO Potassium Chloride 20 MEQ BID 10/17 1049 DC 10/17 PO 1124 Last 24 Hrs of Lab/Gino Results Last 24 Hrs of Labs/Mics: Laboratory Tests 10/17/1728: Anion Gap 7, Estimated GFR 44 L, BUN/Creatinine Ratio 7.5, CBC w Diff NO MAN DIFF REQ, RBC 3.94 L, MCV 69.6 L, MCH 21.2 L, MCHC 30.4 L, RDW 26.1 H, MPV 8.7, Gran % 73.8, Lymphocytes % 12.8 L, Monocytes % 9.4 H, Eosinophils % 4.0, Basophils % 0, Absolute Granulocytes 6.5, Absolute Lymphocytes 1.1 L, Absolute Monocytes 0.8 H, Absolute Eosinophils 0.4, Absolute Basophils 0 Assessment/Plan Assessment: 71 y/o obese woman with PMH of venous stasis, asthma, HFpEF (LVEF >60%), HTN, and gout presented to the ED on 10/01/17 for evaluation of SOB, nonproductive cough, and B/L LE swelling after PCP appointment. On admission, she was found to be in afib with RVR. 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 She underwent right hemicolectomy. Patient was intubated during the procedure and was in ICU for couple of days. Assessment and plan 1. New onset A. fib with rapid ventricular rate-resolved Patient is on metoprolol 100 mg twice daily Continue Eliquis 2. Heart failure with preserved ejection fraction Patient has an ejection fraction of 40-45% with mild global hypokinesia Continue Eliquis 3. Obstructive sleep apnea On nocturnal rule out about 4-18 cm of H2O 4. Colon cancer-poorly differentiated adenocarcinoma status post right hemicolectomy Postop day-8. Continue heart healthy diet Follow-up with gastroenterology and surgery as outpatient 5. Bilateral chronic lower extremity edema Has chronic venous changes. Advised to follow-up with vascular surgery as outpatient. Code-DNR/DNI Problem List: 1. Colon cancer 2. Afib Pain Ratin Pain Location: NONE Pain Goal: Remain pain free Pain Plan: TYLENOL Tomorrow's Labs & Rationales: CBC,BEP Davidson BARBER,Luda 10/18/17 1230: Attending MD Review Statement Attending Statement Attending MD Statement: examined this patient, discuss w/resident/PA/MANUFACTURING TEST ENGINEER, agreed w/resident/PA/MANUFACTURING TEST ENGINEER, reviewed EMR data (avail), discussed with nursing, reviewed images, amended to note Attending Assessment/Plan: Patient seen and examined, feels tired but otherwise denies any complaints. Denies any shortness of breath. Vital Signs Date Time Temp Pulse Resp B/P B/P Pulse O2 O2 Flow FiO2 Mean Ox Delivery Rate 10/18 0816 62 124/66 10/18 0700 98.3 62 18 132/60 92 08/04 0036 61 92 08/ 2249 73 93 08/03 2229 97.8 64 18 94 Room Air 08/03 2056 67 108/50 08/03 2054 67 108/50 08/03 1900 95 Room Air 08/03 1600 Room Air 08/03 1414 95 Room Air 08/03 1408 98.2 59 20 122/78 98 Room Air on exam; aox3, nad. cv; s1,s2, + systolic murmur. resp; overall decreased bs. abd; soft, nt, bs+ ext; 2+ edema b/l with ch venous stasis changes. no labs today A/P; 72 y/o F with pmh sig venous stasis, asthma, history significant for diastolic congestive heart failure but now according to this recent echo she has both diastolic and systolic congestive heart failure, HTN, admitted with shortness of breath, cough and found to be in afib with RVR. 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 She underwent right hemicolectomy. She was initially in ICU and now on telemetry. Patient having few episodes of tachybradycardia and currently she is in sinus rhythm. As per cardiology note, continue current medications. It is unclear if patient will need any pacemaker. She has been seen by physical therapy and has been cleared to go home. She is on Eliquis for DVT Prophylaxis.
[2017-10-18 07:00] VITALS: BP 132/60
[2017-10-18] MEDS ORDERED: METOPROLOL TART50 M1 PO ×3 (11:43→13:47)
[2017-10-18] MEDS ORDERED: KLOR-CON M2020 ME1 PO ×2 (11:43→13:38)
[2017-10-18] MEDS ORDERED: OMEPRAZOLE40 M1 PO ×2 (11:43→13:38)
--- NOTE | 2017-10-18 12:11 | PN- Cardiology ---
Subjective Subjective: Feeling well. No chest pain. No palpitations. No diaphoresis. No nausea or vomiting. She is noted to be in sinus rhythm on telemetry Objective Vital Signs and I&Os Vital Signs Date Time Temp Pulse Resp B/P B/P Pulse O2 O2 Flow FiO2 Mean Ox Delivery Rate 10/18 0816 62 124/66 10/18 0700 98.3 62 18 132/60 92 / 0036 61 92 10/17 2249 73 93 10/17 2229 97.8 64 18 94 Room Air 10/17 205 67 108/50 10/17 205 67 108/50 10/17 1900 95 Room Air 10/17 1600 Room Air 10/17 1414 95 Room Air 10/17 1408 98.2 59 20 122/78 98 Room Air Intake & Output 10/18 0810/18 0000 10/17 1600 10/17 0810/17 0000 Intake Total 400 350 500 120 720 Output Total 375 925 850 550 Balance 25 -575 -350 120 170 Intake, Oral 400 350 500 120 720 Number 2 2 2 1 Bowel Movements Output, Stool 400 300 Output, Urine 375 525 850 250 Patient 384 lb 380 lb Weight Weight Bed scale Bed scale Measurement Method Physical Exam: Gen: NAD HEENT: normal Lungs: clear to auscultation, normal resp. effort Heart: Irregularly irregular, S1, S2, 1 out of 6 systolic Abdomen: Soft, nontender, no masses Extremities: 1+ edema Neuro: Alert and oriented x 3, cranial nerves intact Current Medications: Current Medications Sig/Shara Start time Last Medication Dose Route Stop Time Status Admin Acetaminophen 650 MG Q6P PRN 10/01 2300 AC PO Albuterol Sulfate 3 ML Q4-PRN PRN 10/02 1900 AC 10/14 INH 1714 Apixaban 5 MG BID 10/16 0952 AC 10/18 PO 0812 Benzocaine/Menthol 1 BRII Q2 HRS NEEDED PRN 10/02 1845 AC 10/09 PO 1356 Clobetasol Propionate 1 FARA DAILY 10/17 1445 AC 10/18 TOP 0811 Furosemide 40 MG DAILY 10/15 1430 AC 10/18 PO 0812 Guaifenesin 10 ML Q6P PRN 10/03 1630 AC 10/08 PO 1857 Hydromorphone HCl 1 MG Q4P PRN 10/11 1215 AC 10/13 IV 1608 Metoprolol Tartrate 100 MG BID 10/16 2100 AC 10/18 PO 0816 Morphine Sulfate 4 MG Q4P PRN 10/11 1215 AC 10/14 IV 0740 Omeprazole 40 MG DAILY AC 10/17 0857 AC 10/18 PO 0656 Patient Medication 1 ED ONE ONE 10/17 1515 DC Teaching ED 10/17 1516 Potassium Chloride 20 MEQ BID 10/18 0900 AC 10/18 PO 0812 Potassium Chloride 20 MEQ BID 10/17 1049 DC 10/17 PO 1124 Results Last 48 Hrs of Labs/Mics: Laboratory Tests 10/17/17627: Anion Gap 7, Estimated GFR 44 L, BUN/Creatinine Ratio 7.5, CBC w Diff NO MAN DIFF REQ, RBC 3.94 L, MCV 69.6 L, MCH 21.2 L, MCHC 30.4 L, RDW 26.1 H, MPV 8.7, Gran % 73.8, Lymphocytes % 12.8 L, Monocytes % 9.4 H, Eosinophils % 4.0, Basophils % 0, Absolute Granulocytes 6.5, Absolute Lymphocytes 1.1 L, Absolute Monocytes 0.8 H, Absolute Eosinophils 0.4, Absolute Basophils 0 Assessment/Plan Assessment/Plan Assessment: 1. New atrial fibrillation of unclear duration-presently back in sinus rhythm with a heart rate of 68/min 2. Acute on chronic HFrEF, improved. LVEF mildly decreased at 40-45% 3. Morbid obesity 4. Worsening chronic lower extremity edema with stasis changes 5. Microcytic anemia 6. Acute renal failure 7. Colon mass, planned for surgery Plan: * Continue current cardiac medications * Follow up 1 week after discharge. Continue telemetry? Yes
[2017-10-18] MEDS ORDERED: LASIX40 M1 PO (13:47)
[2017-10-18] MEDS ORDERED: ELIQUIS5 M1 PO (13:47)
[2017-10-18] MEDS ORDERED: LOPRESSOR100 M1 PO (13:52)
[2017-10-18 14:37] VITALS: BP 110/72
--- NOTE | 2017-10-21 14:41 | Transfer of Care Summary ---
Hospital Course Course Hospital Course: Reason of ICU transfer failure to extubate and ventilator management ICU course The patient is 71-year-old obese female with past medical history of venous stasis, asthma, HFpEF (LVEF >60%), HTN, and gout presented to the ED on 10/01/17 for evaluation of SOB, nonproductive cough, and B/L LE swelling after PCP appointment. On admission the patient was found to be in atrial fibrillation with rapid ventricular rate and was subsequently admitted to telemetry floor for management of acute on chronic heart failure and atrial fibrillation. The following day she was assessed by GI for iron deficiency anemia with OB negative stool initially. She was found to have a drop in her H&H 10/03 for which she required 2 units pRBC. Subsequently the patient was found to have heme +ve stools and was scheduled for colonoscopy which showed a carcinoma at the hepatic flexure with biopsy being positive for invasive moderately to poorly differentiated adenocarcinoma. She underwent right hemicolectomy on 10/10. Patient was transferred from PACU postprocedure hemicolectomy being deemed difficult to extubate. During her ICU stay patient was treated on for acute hypoxemic respiratory failure and was extubated on 10/14 after intial difficulty later good response to weaning trials. Her oxygen saturation was maintained greater than 92% initially with supplementation with nasal cannula and later she was satting in high 90s on room air. She was maintained on AutoPap 4-18 cm H2O nocturnally for suspected obesity hypoventilation syndrome. As dictated earlier patient underwent right hemicolectomy due to poorly differentiated adenocarcinoma on 10/10. She was closely followed by surgical services. Adequate analgesia was ensured with Tylenol and Dilaudid. Patient had return of bowel function with bowel movements during her stay in ICU. Her diet was advanced to clears initially to honey thick consistency laterto regular thin liquids after evaluation by speech and swallow services. The hypochromic microcytic anemia was most likely secondary to iron deficiency anemia secondary to adenocarcinoma. She received 2 packed units of packed RBCs during this admission. Her H&H remained stable during her stay. Patient had a new onset atrial fibrillation with rapid ventricular rate with spontaneous conversion to sinus rhythm initially but later during her ICU stay patient continued to have paroxysms of atrial fibrillation, MAT along with intermittent bradycardia. Initially rate control was limited by intermittent bradycardia. And she was being maintained on 10 mg IV metoprolol every 6 hours. Later when her p.o. intake was started she was shifted to p.o. metoprolol 75 mg twice daily. Which was later advanced to 100 mg twice daily. If she continues to have tachybradycardia syndrome she might be a candidate for PPM. Patient was initially on subcutaneous heparin after surgery and later was started on IV heparin drip as per protocol. Then she was transitioned to oral Eliquis. Patient has history of HFpEF TTE 08/2017 showed mildly decreased LV systolic function LVEF 40-45% mild global hypokinesis. Previous echocardiogram in 2015 showed normal left ventricular systolic function. She also has bilateral lower extremity edema which is chronic along with venous insufficiency and stasis changes. Her home dose of Lasix is 80 mg. During her ICU stay initially Lasix was on hold and was later started at 40 mg with good urine output. Kwong's catheter was removed on 10/16. Patient should undergo outpatient evaluation with vascular surgery for consideration for possible venous closure procedures. Patient had A[place]USTO-on-CKD (stage 3 baseline GFR 55). Her baseline creatinine is normal she presented to ICU with a creatinine of 1.5 which improved to 1.1. She also had transaminitis. Normal admission AST/ALT peaked ~100, which later resolved. Mechanical ventilation extubated on 10/14 NIPPV AutoPap at night 4-18 cm H2O Antibiotic plan none Catheters Kwong catheter removed on 10/16 Nutrition diet advanced to clear liquids DVT prophylaxis with Eliquis CODE STATUS DNR/DNI Things to be followed up * Cardiology recommendations regarding atrial fibrillation, currently on metoprolol 100 twice daily if she continues to have tachybradycardia syndrome she might require pacemaker placement * Continue Eliquis * Continue to monitor H&H * Continue to monitor creatinine and avoid nephrotoxins * Advance diet as per surgery and speech and swallow services * Lasix has been resumed at 40 mg. Her home dose is 80 mg * Please ensure that on discharge patient has outpatient follow-up with GI, surgery,cardiology and oncology * Outpatient follow-up with vascular surgery Assessment/Plan: This transfer of care spans her ICU stay. For Telemetry events please refer to 's summary
--- NOTE | 2017-10-21 15:57 | Transfer of Care Summary ---
Hospital Course Course Hospital Course: 71F H hypertension, asthma, and chronic lower extremity edema presented to the ED with 2 weeks of worsening shortness of breath, dyspnea on exertion, and bilateral LE edema, & 40 pound weight gain in 2 months. She was found to be in new onset atrial fibrillation in ED, given IV Cardizem pushes, with rate control and improvement in SOB. She reported being compliant with her Lasix 80mg daily, and had no change in her diet. She denied lightheadedness, headache, vision changes, sore throat, chest pain, palpitations, abdominal pain, n/v/d, dysuria. EKG showed atrial fibrilation without ST/T changes. CXR showed vascular congestion, CTA chest negative for PE, BNP 5000, creatinine 1.3, lactate 2.2 ( normalized after 1L NS), afebrile, BP borderline low. We suspected that symptoms and lactate could be explained by rapid atrial fibrillation causing decreased perfusion, less likely sepsis given presentation. HOSPITAL COURSE: 1. New onset atrial fibrillation 2. Lactic acidosis 3. AUGUSTO Plan - Admit to telemetry - Monitor BP, if improves can start IV Lasix - I/O, daily weights - Cardiology consult - No further antibiotics - Trend lactate and renal function - Heparin drip - Cardizem drip - Continue home medications, holding anti-hypertensives and Lasix
--- NOTE | 2017-10-22 04:29 | Discharge Summary ---
Visit Information Visit Dates Admission Date: 10/01/17 Discharge Date: 10/18/17 Hospital Course Course Attending Physician: Nawaf BARBER,Naomi Hoffman Primary Care Physician: Karlie BARBER,Alphonso Almazan Hospital Course: 1)Initial Course in telemetry for atrial fibrillation- 71F PMH hypertension, asthma, and chronic lower extremity edema presenting with 2 weeks of worsening shortness of breath, dyspnea on exertion, and bilateral LE edema with 40 pound weight gain in 2 months. Admitted for a new onset atrial fibrillation in ER, given IV Cardizem pushes, with rate control and improvement in SOB. She had been compliant with her Lasix 80mg daily, On exam, she had low BP, distant breath sounds but no crackles heard, significant bilateral lower extremity edema with skin changes consistent with stasis dermatitis. EKG at admission, showed atrial fibrilation without ST/T changes. CXR showed vascular congestion, CTA chest negative for PE, BNP 5000, Blood- creatinine 1.3, lactate 2.2 (normalized after 1L NS), 2) Iron deficiency anemia and adenocarcinoma colon- assessed by GI for iron deficiency anemia with OB negative stool initially. She was found to have a drop in her H&H 10/03 for which she required 2 units pRBC. Subsequently the patient was found to have heme +ve stools and was scheduled for colonoscopy which showed a carcinoma at the hepatic flexure with biopsy being positive for invasive moderately to poorly differentiated adenocarcinoma. She underwent right hemicolectomy on 10/10. Patient was transferred to ICU from PACU postprocedure hemicolectomy being deemed difficult to extubate. She received 2 packed units of packed RBCs during this admission. Her H&H remained stable during her stay. 3) Acute Hypoxemic respiratory failure- During her ICU stay patient was treated on for acute hypoxemic respiratory failure and was extubated on 10/14 after intial difficulty later good response to weaning trials. Her oxygen saturation was maintained greater than 92% initially with supplementation with nasal cannula and later she was satting in high 90s on room air. She was maintained on AutoPap 4-18 cm H2O nocturnally for suspected obesity hypoventilation syndrome. 4)Atrial fibrillation- During her ICU stay patient continued to have paroxysms of atrial fibrillation, MAT along with intermittent bradycardia. Initially rate control was limited by intermittent bradycardia. And she was being maintained on 10 mg IV metoprolol every 6 hours. Later when her p.o. intake was started she was shifted to p.o. metoprolol 75 mg twice daily. Which was later advanced to 100 mg twice daily. If she continues to have tachybradycardia syndrome she might be a candidate for PPM. Patient was initially on subcutaneous heparin after surgery and later was started on IV heparin drip as per protocol. Then she was transitioned to oral Eliquis. 5)HFPEF- Patient has history of HFpEF TTE EF 45% , mild global hypokinesis.Her home dose of Lasix is 80 mg. During her ICU stay initially Lasix was on hold and was later started at 40 mg with good urine output. Kwong's catheter was removed on 10/16. Patient should undergo outpatient evaluation with vascular surgery for consideration for possible venous closure procedures. 6) AKI_-Patient had AUGUSTO-on-CKD (stage 3 baseline GFR 55). Her baseline creatinine is normal she presented to ICU with a creatinine of 1.5 which improved to 1.1. She also had transaminitis. Normal admission AST/ALT peaked ~100, which later resolved. 7) tachybrady syndrome- patient was observed in telemetry for 48 hours for tach joanna cardia. cardiology suggested to continue Eliquis, lasix,metoprolol 100mg bid, and observe outpatient for requirement of any pacemaker . She had been seen by physical therapy and had been cleared to go home. Hence was then discharged with follow up instructions. Allergies: Coded Allergies: NO KNOWN ALLERGIES (05/17/15) Disposition Summary Disposition Principal Diagnosis: 1)Atrial Fibrillation 2) Anemia- Iron deficiency 3) adenocarcinoma- Hemicolectomy 4)HFpEF 5) AUGUSTO Additional Diagnosis: MADDISON Discharge Disposition: home or self care Discharge Instructions General Discharge Information Code Status: Do Not Resucitate/Intubat Patient's Diet: heart healthy Patient's Activity: as tolerated- PT Follow-Up Instructions/Appts: Please visit your nearest emergency department if you have any of these: Chest pain, shortness of breath, racing of the heart, fever, chills, worsening lower limb pain, wounds on lower limbs please follow up with Dr. Lazar within a week of discharge. your elvie will be removed 10-14 days after surgery (10/10/2017) Medications at Discharge Discharge Medications: Stop taking the following medications: Amlodipine Besylate/Benazepril (Amlodipine-Benazepril 10-40 MG) 10 MG-40 MG CAPSULE ORAL DAILY Qty = 90 Furosemide (Furosemide) 80 MG TABLET ORAL DAILY Qty = 90 Continue taking these medications: Budesonide/Formoterol Fumarate (Symbicort 160-4.5 Mcg Inhaler) 160 MCG-4.5 MCG/ ACTUATION HFA.AER.AD 2 Puff Inhale through mouth TWICE DAILY Qty = 102 Comments: NOT GIVEN Montelukast Sodium (Montelukast Sodium) 10 MG TABLET 1 Tablet ORAL DAILY Qty = 90 Comments: NOT GIVEN Triamcinolone Acetonide (Triamcinolone Acetonide) 0.1 % OINT...G. 1 Application On the skin TWICE DAILY Qty = 454 Instructions: apply to affected area(s) Comments: NOT GIVEN Albuterol Sulfate (Proair Hfa) 90 MCG HFA.AER.AD 2 Puff Inhale through mouth As Directed as needed for ASTHMA Albuterol Sulfate (Albuterol Sulfate) 2.5 MG/3 ML (0.083 %) VIAL.NEB 1 Vial Inhale Solution As Directed as needed for ASTHMA Comments: NOT GIVEN Ferrous Sulfate (Ferrous Sulfate) 325 MG (65 MG IRON) TABLET 1 Tablet ORAL THREE TIMES DAILY Qty = 90 Comments: Last Taken: 10/05/17 Time: 3:00 PM Cholecalciferol (Vitamin D3) (Vitamin D) 2,000 UNIT CAPSULE 1 Capsule ORAL DAILY Comments: NOT GIVEN Start taking the following new medications: Potassium Chloride (Klor-Con M20) 20 MEQ TAB.ER.PRT 1 Tablet ORAL DAILY Qty = 30 No Refills Instructions: . Comments: Last Taken: 10/18/17 Time: 8:00 AM Omeprazole (Omeprazole) 40 MG CAPSULE.DR 1 Capsule ORAL DAILY Qty = 30 No Refills Instructions: . Comments: Last Taken: 10/18/17 Time: 7:00 AM Apixaban (Eliquis) 5 MG TABLET 1 Tablet ORAL TWICE DAILY Qty = 60 No Refills Comments: Last Taken: 10/18/17 Time: 8:00 AM Furosemide (Lasix) 40 MG TABLET 1 Tablet ORAL DAILY Qty = 30 No Refills Metoprolol Tartrate (Lopressor) 100 MG TABLET 1 Tablet ORAL TWICE DAILY Qty = 60 No Refills Comments: Last Taken: 10/18/17 Time: 8:00 AM Copies To: Aleksandra ZIGZAG TOPSTITCHER-,Cynthia; Sebas BARBER,Trever Hurst; Laly BARBER,Solitario Mojica; Dre BARBER, Greg; Karlie BARBER,Alphonso Almazan; Shadia BARBER,Lelo Cheung; Cady BARBER,Bao Martinez; Fidelina BARBER,Martin Scruggs
== END 2017-10-18 15:15 | DRG 264 ==
LOC: ERH 16:57 → ERHI 21:07 → 1NO 21:07 → CRI 21:07 → ERHI 10-02 07:44 → ENRESERV 10-02 12:18 → ENTRNSPT 10-02 13:50 → EDTRNSPT 10-02 14:08 → EDTRNSPTSTS 10-02 14:08 → 1NO 10-02 14:21 → CMPTRNSPT 10-02 14:25 → 1NO 10-02 14:30 → CRI 10-10 22:38 → 1NO 10-16 12:02 → ENPENDDIS 10-18 13:57 → ENTRNSPT 10-18 15:03 → EDTRNSPTSTS 10-18 15:08 → EDTRNSPT 10-18 15:08 → 1NO 10-18 15:15 → CMPTRNSPT 10-18 15:25
PROVIDERS: Internal Medicine; Internal Medicine Adolescent Medicine; Internal Medicine Interventional Cardiology; Internal Medicine Pulmonary Disease; Physician Assistant; Preventive Medicine Public Health & General Preventive Medicine; Student in an Organized Health Care Education/Training Program
PROC: 30233N1 Transfusion of Nonautologous Red Blood Cells into Peripheral Vein, Percutaneous Approach (ICD-10-PCS; principal; 2017-10-03)
PROC: 0DB68ZX Excision of Stomach, Via Natural or Artificial Opening Endoscopic, Diagnostic (ICD-10-PCS; 2017-10-07)
PROC: 3E0T3BZ Introduction of Anesthetic Agent into Peripheral Nerves and Plexi, Percutaneous Approach (ICD-10-PCS; 2017-10-07)
PROC: 0DBL8ZX Excision of Transverse Colon, Via Natural or Artificial Opening Endoscopic, Diagnostic (ICD-10-PCS; 2017-10-07)
PROC: 0DB98ZX Excision of Duodenum, Via Natural or Artificial Opening Endoscopic, Diagnostic (ICD-10-PCS; 2017-10-07)
PROC: 0DTF0ZZ Resection of Right Large Intestine, Open Approach (ICD-10-PCS; 2017-10-10)
PROC: 5A1945Z Respiratory Ventilation, 24-96 Consecutive Hours (ICD-10-PCS; 2017-10-10)
PROC: 0BH17EZ Insertion of Endotracheal Airway into Trachea, Via Natural or Artificial Opening (ICD-10-PCS; 2017-10-10)
DX: I13.0 Hypertensive heart and chronic kidney disease with heart failure and stage 1 through stage 4 chronic kidney disease, or unspecified chronic kidney disease (principal); I50.33 Acute on chronic diastolic (congestive) heart failure; J96.01 Acute respiratory failure with hypoxia; C18.2 Malignant neoplasm of ascending colon; Z68.44 Body mass index [BMI] 60.0-69.9, adult; N17.9 Acute kidney failure, unspecified; I48.92 Unspecified atrial flutter; J98.11 Atelectasis; E66.2 Morbid (severe) obesity with alveolar hypoventilation; E87.2 Acidosis; E87.3 Alkalosis; I48.91 Unspecified atrial fibrillation; N18.3 Chronic kidney disease, stage 3 (moderate); I87.8 Other specified disorders of veins; J45.909 Unspecified asthma, uncomplicated; D50.9 Iron deficiency anemia, unspecified; R74.0 Nonspecific elevation of levels of transaminase and lactic acid dehydrogenase [LDH]; Z90.49 Acquired absence of other specified parts of digestive tract; Z98.51 Tubal ligation status; Z79.51 Long term (current) use of inhaled steroids; Z96.653 Presence of artificial knee joint, bilateral; M10.9 Gout, unspecified; Z66 Do not resuscitate; Z87.891 Personal history of nicotine dependence; K21.9 Gastro-esophageal reflux disease without esophagitis
CPT/HCPCS: 1NP; 1NSP; CCU; ERO; 36415; 36592; 71045; 71046; 74177; 81003; 82436; 83010; 86920; 87040; 87070; 87086; 88305; 88312; 93005; 93010; 93306; 96374; 96375; 97110-GO; 97112-GO; 97116-GO; 97161-GP; 97530-GO; 99291; J0131; J1644; J1940; J2060; J3490; J7040; J7042; P9016